=== PATIENT | male | born 1955 | race Caucasian/White ===

== ENCOUNTER 2016-05-14 11:26 | Emergency (ER) | payer MEDICAID, OTHER ==
[~2016-05-14] VITALS: Ht 180.3 cm; Wt 69.5 kg
[~2016-05-14 11:26] MED LIST: AZIT250T3 PO; PRED20 PO
[2016-05-14 11:32] VITALS: BP 146/84; PULSE 93; RESP 16; TEMP 97.8; O2SAT 95
[2016-05-14] MEDS ORDERED: oxyCODONE/ACETAMINOPHEN 5 MG/325 MG TAB PO ONE (12:30)
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
[2016-05-14] MEDS ORDERED: HYDR-3533 PO (13:26)
== END 2016-05-14 14:46 | disposition home or self-care (01) ==
LOC: NEPB 11:26
DX: S92.355A Nondisplaced fracture of fifth metatarsal bone, left foot, initial encounter for closed fracture (principal); V09.00XA Pedestrian injured in nontraffic accident involving unspecified motor vehicles, initial encounter; Y93.9 Activity, unspecified; Y92.9 Unspecified place or not applicable; Y99.9 Unspecified external cause status
CPT/HCPCS: 29515; 73610; 73630; 99283; E0113

== ENCOUNTER 2016-06-19 17:34 | Emergency (ER) | payer MEDICAID ==
[~2016-06-19] VITALS: Ht 175.3 cm; Wt 77.3 kg
[~2016-06-19 17:34] MED LIST changes: +HYDR-3533 PO
[2016-06-19 19:07] VITALS: BP 127/91; PULSE 103; RESP 18; TEMP 97.8; O2SAT 94
[2016-06-19] MEDS ORDERED: SODIUM CHLOR 0.9% 1000 ML INJ 1,000 ML IV SCH (19:07)
[2016-06-19] MEDS ORDERED: LORazepam 2 MG/ML VIAL IV PUSH ONE (19:15)
[2016-06-19] MEDS ORDERED: SODIUM CHLORIDE 0.9% FLUSH 5 ML FLUSH IVF PRN (19:15)
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
--- NOTE | 2016-06-19 20:00 | RADRPT ---
EXAM DATE/TIME: 06/19/2016 19:29 [facility] COMPARISON: CT BRAIN W/O CONTRAST, January 31, 2016, 9:23. INDICATIONS : Fall laceration over right eye. RADIATION DOSE: 56.37 CTDIvol (mGy) MEDICAL HISTORY : Hepatitis A. Hepatitis B. Hepatitis C.Cardio SURGICAL HISTORY : facial,neck ENCOUNTER: Initial ACUITY: 1 day PAIN SCALE: Non-responsive LOCATION: cranial TECHNIQUE: Multiple contiguous axial images were obtained of the head. Using automated exposure control and adj ustment of the mA and/or kV according to patient size, radiation dose was kept as low as reasonably a chievable to obtain optimal diagnostic quality images. FINDINGS: Motion degraded study. CEREBRUM: The ventricles are normal for age. No evidence of midline shift, mass lesion, hemorrhage or acute in farction. No extra-axial fluid collections are seen. POSTERIOR FOSSA: The cerebellum and brainstem are intact. The 4th ventricle is midline. The cerebellopontine angle i s unremarkable. EXTRACRANIAL: The visualized portion of the orbits is intact. SKULL: The calvaria is intact. No evidence of skull fracture. CONCLUSION: Motion degraded study. No definite bleed or other acute abnormality demonstrated. Bacilio Maria MD on June 19, 2016 at 19:57 Board Certified Radiologist. This report was verified electronically.
[2016-06-19 20:12] LABS: AUTOMATED NEUTROPHIL # 3.7 TH/MM3 (1.8-7.7); BASOPHIL # 0.1 TH/MM3 (0-0.2); EOSINOPHIL # 0.2 TH/MM3 (0-0.4); EOSINOPHIL % 3.3 % (0.0-4.0); HEMATOCRIT 35.8 % (39.0-51.0); HEMO FLAGS DIFF FINAL; LYMPH % 28.2 % (9.0-44.0); LYMPHOCYTE # 1.8 TH/MM3 (1.0-4.8); MEAN CELL VOLUME 99.7 FL (80.0-100.0); MEAN CORPUSCULAR HGB CONC 34.1 % (32.0-36.0); MONO % 9.6 % (0.0-8.0); NEUT % 57.9 % (16.0-70.0); PLATELET COUNT 215 TH/MM3 (150-450); RED BLOOD COUNT 3.59 MIL/MM3 (4.50-5.90); RED CELL DISTRIBUTION WIDTH 18.3 % (11.6-17.2); WHITE BLOOD COUNT 6.5 TH/MM3 (4.0-11.0)
[2016-06-19] MEDS ORDERED: KETOROLAC TROMETHAMINE 30 MG/ML (IVP) VIAL IV PUSH ONE (20:15)
[2016-06-19] MEDS ORDERED: LIDOCAINE 1%/EPINEPHrine 1:100,000 SOLN 20 ML VIAL INFIL ONE (20:15)
--- NOTE | 2016-06-19 20:31 | RADRPT ---
EXAM DATE/TIME: 06/19/2016 19:31 [facility] COMPARISON: CT CERVICAL SPINE W/O CONTRAST, November 23, 2015, 2:32. INDICATIONS : Fall evaluate for fracture. RADIATION DOSE: 33.59 CTDIvol (mGy) MEDICAL HISTORY : Hepatitis A. Hepatitis C. Hepatitis B.Cardiac SURGICAL HISTORY : Facial,neck surgery ENCOUNTER: Initial ACUITY: 1 day PAIN SCALE: Non-responsive LOCATION: neck TECHNIQUE: Volumetric scanning of the cervical spine was performed. Multiplanar reconstructions in the sagittal, coronal and oblique axial planes were performed. Using automated exposure control and adjustment o f the mA and/or kV according to patient size, radiation dose was kept as low as reasonably achievable to obtain optimal diagnostic quality images. FINDINGS: No fracture or subluxation demonstrated. Developmentally incomplete C1 ring posteriorly again noted. Prominent multilevel degenerative findings of the cervical spine unchanged from the prior study of 09/19/2014. Moderate severity central canal stenosis is seen at C3-4 and C4-5. Neural foraminal narrowing C2-3 on the right, C3-4 bilaterally, C4-5 bilaterally , C5-6 bilaterally, and C6-7 bilaterally. CONCLUSION: No fracture or subluxation of the cervical spine. Severe multilevel degenerative changes are again no veronica. Bacilio Maria MD on June 19, 2016 at 20:28 Board Certified Radiologist. This report was verified electronically.
[2016-06-19 20:39] LABS: ANION GAP 10 MEQ/L (5-15); APTT (PATIENT) 27.5 SEC (24.3-30.1); INTERNATIONAL NORMALIZED RATIO 1.1 RATIO; PROTHROMBIN TIME - PATIENT 11.7 SEC (9.8-11.6)
[2016-06-19 20:44] LABS: ALKALINE PHOSPHATASE 123 U/L (45-117); ALT (GPT) 120 U/L (12-78); AST (GOT) 215 U/L (15-37); BICARBONATE 22.6 MEQ/L (21.0-32.0); BLOOD UREA NITROGEN 4 MG/DL (7-18); CHLORIDE 112 MEQ/L (98-107); GLOMERULAR FILTRATION RATE 174 ML/MIN (>89); POTASSIUM 3.6 MEQ/L (3.5-5.1); SODIUM (NA) 145 MEQ/L (136-145)
--- NOTE | 2016-06-19 21:49 | PD ---
Data Data Last Documented VS Vital Signs Date Time Temp Pulse Resp B/P Pulse Ox O2 Delivery O2 Flow Rate FiO2 06/19/16 21:32 18 06/19/16 19:07 97.8 103 127/91 94 Orders Complete Blood Count With Diff (06/19/16 19:07) Comprehensive Metabolic Panel (06/19/16 19:07) Prothrombin Time / Inr (Pt) (06/19/16 19:07) Act Partial Throm Time (Ptt) (06/19/16 19:07) Urinalysis - C+S If Indicated (06/19/16 19:07) Ct Brain W/O Iv Contrast(Rout) (06/19/16 19:07) Ecg Monitoring (06/19/16 19:07) Iv Access Insert/Monitor (06/19/16 19:07) Cath For Specimen (06/19/16 19:07) Oximetry (06/19/16 19:07) Sodium Chloride 0.9% Flush (Ns Flush) (06/19/16 19:15) Sodium Chlor 0.9% 1000 Ml Inj (Ns 1000 M (06/19/16 19:07) Drug Screen, Random Urine (06/19/16 19:07) Alcohol (Ethanol) (06/19/16 19:07) Ct Cerv Spine W/O Contrast (06/19/16 19:07) Lorazepam Inj (Ativan Inj) (06/19/16 19:15) Lidocai-Epi 1%-1:100,000 Inj (Xylocaine- (06/19/16 20:15) Ketorolac Inj (Toradol Inj) (06/19/16 20:15) Restraints Non-Violent JEREMÍAS.Q3H (06/19/16 20:31) Labs Laboratory Tests Test 06/19/16 19:55 White Blood Count 6.5 TH/MM3 Red Blood Count 3.59 MIL/MM3 Hemoglobin 12.2 GM/DL Hematocrit 35.8 % Mean Corpuscular Volume 99.7 FL Mean Corpuscular Hemoglobin 34.0 PG Mean Corpuscular Hemoglobin 34.1 % Concent Red Cell Distribution Width 18.3 % Platelet Count 215 TH/MM3 Mean Platelet Volume 7.9 FL Neutrophils (%) (Auto) 57.9 % Lymphocytes (%) (Auto) 28.2 % Monocytes (%) (Auto) 9.6 % Eosinophils (%) (Auto) 3.3 % Basophils (%) (Auto) 1.0 % Neutrophils # (Auto) 3.7 TH/MM3 Lymphocytes # (Auto) 1.8 TH/MM3 Monocytes # (Auto) 0.6 TH/MM3 Eosinophils # (Auto) 0.2 TH/MM3 Basophils # (Auto) 0.1 TH/MM3 CBC Comment DIFF FINAL Differential Comment Prothrombin Time 11.7 SEC Prothromb Time International 1.1 RATIO Ratio Activated Partial 27.5 SEC Thromboplast Time Sodium Level 145 MEQ/L Potassium Level 3.6 MEQ/L Chloride Level 112 MEQ/L Carbon Dioxide Level 22.6 MEQ/L Anion Gap 10 MEQ/L Blood Urea Nitrogen 4 MG/DL Creatinine 0.49 MG/DL Estimat Glomerular Filtration 174 ML/MIN Rate Random Glucose 100 MG/DL Calcium Level 8.0 MG/DL Total Bilirubin 1.0 MG/DL Aspartate Amino Transf 215 U/L (AST/SGOT) Alanine Aminotransferase 120 U/L (ALT/SGPT) Alkaline Phosphatase 123 U/L Total Protein 7.7 GM/DL Albumin 2.9 GM/DL Ethyl Alcohol Level 329 MG/DL MDM Supervised Visit with ALYSHA: Yes Narrative Course I, Dr. Quinteros, have reviewed the advance practice practitioner's documentation and am in agreement, met with the patient face to face, made the diagnosis, and the medical decision making was done by me. See his note for further details. Briefly this is a 61-year-old male who had an unwitnessed fall. He has been drinking alcohol throughout the day today. He sustained a laceration to his face which was repaired by the PA. CT head shows no acute intracranial normality. CT cervical spine shows degenerative changes, no acute fractures. Alcohol level is 329. On my assessment the patient is awake and alert. No focal neurologic findings. He'll be allowed to sleep off his intoxication in the emergency department. Diagnosis Primary Impression: Alcohol intoxication Qualified Code: F10.120 - Alcohol intoxication, uncomplicated Additional Impressions: Facial laceration Qualified Code: S01.81XA - Facial laceration, initial encounter Fall Qualified Code: W19.XXXA - Fall, initial encounter Referrals: Primary Care Physician 3 days Additional Instruction: Have stitches removed from your face in 5 days. Disposition: 01 DISCHARGE HOME Condition: Stable Sudarshan Quinteros MD Jun 19, 2016 21:48
[2016-06-19 23:36] LABS: BACTERIA, URINE RARE /hpf; BLOOD, URINE NEG (NEG); COMMENT (UR) CULT NOT INDICATED; CULTURE IF INDICATED CULT NOT INDICATED; GLUCOSE,URINE NEG (NEG); KETONE, URINE NEG (NEG); MUCUS URINE FEW /lpf (OCC); NITRITE,URINE NEG (NEG); PH, URINE 5.5 (5.0-8.5); URINE COLOR YELLOW (YELLW/STRAW)
[2016-06-19 23:43] LABS: AMPHETAMINE, URINE NEG (NEG); BARBITURATES, URINE NEG (NEG); COCAINE, URINE NEG (NEG)
[2016-06-20] VITALS: BP 150/95; PULSE 82; RESP 18; TEMP 98.4; O2SAT 100
[2016-06-20 03:31] VITALS: O2SAT 100
== END 2016-06-20 06:23 | disposition home or self-care (01) ==
LOC: NEPE 17:34 → NEPA 06-20 06:23
DX: S01.81XA Laceration without foreign body of other part of head, initial encounter (principal); F10.120 Alcohol abuse with intoxication, uncomplicated; W19.XXXA Unspecified fall, initial encounter; Y90.8 Blood alcohol level of 240 mg/100 ml or more
CPT/HCPCS: 12013; 70450; 72125; 80053; 80307; 81001; 85025; 85610; 85730; 87086; 96361; 96374; 99284; J1885; J7030; P9612

== ENCOUNTER 2016-07-03 23:42 | Inpatient (IN) | payer MEDICAID ==
[~2016-07-03] VITALS: Ht 180.3 cm; Wt 69.9 kg
[~2016-07-03 23:42] MED LIST changes: -AZIT250T3 PO
[2016-07-03 23:45] VITALS: BP 133/75; PULSE 123; RESP 22; TEMP 98.5; O2SAT 98
[2016-07-03] MEDS ORDERED: SODIUM CHLOR 0.9% 1000 ML INJ 1,000 ML IV SCH (23:46)
--- NOTE | 2016-07-03 23:53 | PD ---
HPI Chief Complaint: GI Complaint Time Seen by Provider: 23:43 Travel History International Travel<30 days: No Contact w/Intl Traveler<30days: No Traveled to known affect area: No History of Present Illness HPI 61-year-old male complains of abdominal pain nausea vomiting and hematemesis. Patient has history of alcohol abuse, liver cirrhosis and hepatitis. Patient states that last drink was several days ago. Patient states that he started having abdominal pain with nausea vomiting yesterday. Patient states the symptoms are worse today. Patient started having hematemesis this evening. Patient states the abdominal pain cramping pain and sharp pain localized around epigastric area. Patient denies any pain radiation. Patient denies any fever chills. Patient denies any dysuria or frequency. On a scale of 1-10 the pain is an 8. PFSH Past Medical History Arthritis: Yes (NGOZI KNEES) Asthma: No Blood Disorders: No Anxiety: No Depression: No Heart Rhythm Problems: No Cancer: No Cardiovascular Problems: No High Cholesterol: No Chest Pain: Yes Congestive Heart Failure: No Cirrhosis: Yes COPD: Yes Diabetes: No Diminished Hearing: No Endocrine: No Gastrointestinal Disorders: No Genitourinary: No Hepatitis: Yes (HEP A, B, & C) Hypertension: No Immune Disorder: No Implanted Vascular Access Dvce: No Musculoskeletal: Yes Neurologic: No Psychiatric: No Reproductive: No Respiratory: Yes (COPD) Integumentary: Yes (HX MRSA) Immunizations Current: Yes Sleep Apnea: No Thyroid Disease: No Past Surgical History Neurologic Surgery: No Oral Surgery: Yes (SURGERY ON BILATERAL JAW 1982. ESOPHOGUS) Other Surgery: Yes (RIGHT ARM/SURGICAL LAC REPAIR ) Social History Alcohol Use: Yes Tobacco Use: Yes (4-5 cig/day) Substance Use: No (DENIES ) Allergies-Medications (Allergen,Severity, Reaction): Coded Allergies: Codeine (Verified Adverse Reaction, Intermediate, Nausea/Vomiting, 07/03/16 ) Darvocet-N 100 (Verified Adverse Reaction, Intermediate, n/v, 07/03/16) Reported Meds & Prescriptions Reported Meds & Active Scripts Active Lortab (Hydrocodone-Acetaminophen) 5-325 Mg Tab 1 Tab PO Q6H PRN Prednisone 20 Mg Tab 20 Mg PO BID 5 Days Review of Systems General / Constitutional: No: Fever Eyes: No: Visual changes HENT: No: Headaches Cardiovascular: No: Chest Pain or Discomfort Respiratory: No: Shortness of Breath Gastrointestinal: Positive: Nausea, Vomiting, Abdominal Pain, Hematemesis Genitourinary: No: Dysuria Musculoskeletal: No: Pain Skin: No Rash Neurologic: No: Weakness Psychiatric: No: Depression Endocrine: No: Polydipsia Hematologic/Lymphatic: No: Easy Bruising Physical Exam Narrative GENERAL: Well-nourished, well-developed patient. SKIN: Warm and dry. Mild jaundice HEAD: Normocephalic. EYES: No scleral icterus. No injection or drainage. NECK: Supple, trachea midline. No JVD or lymphadenopathy. CARDIOVASCULAR: Regular rate and rhythm without murmurs, gallops, or rubs. RESPIRATORY: Breath sounds equal bilaterally. No accessory muscle use. GASTROINTESTINAL: Abdomen soft, nondistended. Patient has mild tenderness on palpation epigastric area. No rebound tenderness. No mass. Patient has black tarry stool. Hemoccult positive. MUSCULOSKELETAL: No cyanosis, or edema. BACK: Nontender without obvious deformity. No CVA tenderness. Neurologic exam normal. Data Data Last Documented VS Vital Signs Date Time Temp Pulse Resp B/P Pulse Ox O2 Delivery O2 Flow Rate FiO2 07/03/16 23:45 98.5 123 22 133/75 98 Orders Complete Blood Count With Diff (07/03/16 23:46) Comprehensive Metabolic Panel (07/03/16 23:46) Lipase (07/03/16 23:46) Prothrombin Time / Inr (Pt) (07/03/16 23:46) Act Partial Throm Time (Ptt) (07/03/16 23:46) Urinalysis - C+S If Indicated (07/03/16 23:46) Iv Access Insert/Monitor (07/03/16 23:46) Ecg Monitoring (07/03/16 23:46) Oximetry (07/03/16 23:46) Morphine Inj (Morphine Inj) (07/04/16 00:00) Ondansetron Inj (Zofran Inj) (07/04/16 00:00) Pantoprazole Inj (Protonix Inj) (07/04/16 00:00) Sodium Chlor 0.9% 1000 Ml Inj (Ns 1000 M (07/03/16 23:46) Electrocardiogram (07/03/16 23:46) Chest, Single Ap (07/03/16 23:46) Thiamine Inj (Thiamine Inj) (07/04/16 00:00) Type And Screen (07/04/16 00:37) Sodium Chloride 0.9% Flush (Ns Flush) (07/04/16 00:45) Octreotide Inj (Sandostatin Inj) (07/04/16 00:45) Pantoprazole Inj (Protonix Inj) (07/04/16 01:00) Labs Laboratory Tests Test 07/04/16 00:45 White Blood Count 13.3 TH/MM3 Red Blood Count 3.01 MIL/MM3 Hemoglobin 9.7 GM/DL Hematocrit 30.1 % Mean Corpuscular Volume 100.1 FL Mean Corpuscular Hemoglobin 32.1 PG Mean Corpuscular Hemoglobin 32.1 % Concent Red Cell Distribution Width 17.4 % Platelet Count 161 TH/MM3 Mean Platelet Volume 9.2 FL Neutrophils (%) (Auto) 58.0 % Lymphocytes (%) (Auto) 26.6 % Monocytes (%) (Auto) 13.9 % Eosinophils (%) (Auto) 0.9 % Basophils (%) (Auto) 0.6 % Neutrophils # (Auto) 7.7 TH/MM3 Lymphocytes # (Auto) 3.5 TH/MM3 Monocytes # (Auto) 1.9 TH/MM3 Eosinophils # (Auto) 0.1 TH/MM3 Basophils # (Auto) 0.1 TH/MM3 CBC Comment DIFF FINAL Differential Comment Prothrombin Time 14.0 SEC Prothromb Time International 1.3 RATIO Ratio Activated Partial 24.2 SEC Thromboplast Time Urine Color YELLOW Urine Turbidity HAZY Urine pH 7.0 Urine Specific [place] 1.026 Urine Protein 30 mg/dL Urine Glucose (UA) NEG mg/dL Urine Ketones TRACE mg/dL Urine Occult Blood NEG Urine Nitrite NEG Urine Bilirubin NEG Urine Urobilinogen 8.0 MG/DL Urine Leukocyte Esterase NEG Urine RBC 13 /hpf Urine WBC 8 /hpf Urine Squamous Epithelial <1 /hpf Cells Urine Transitional Epithelial <1 /hpf Cells Urine Renal Epithelial Cells <1 /hpf Urine Bacteria FEW /hpf Urine Hyaline Casts 9 /lpf Urine Mucus FEW /lpf Urine Sperm RARE Microscopic Urinalysis Comment CULT NOT INDICATED Sodium Level 141 MEQ/L Potassium Level 3.7 MEQ/L Chloride Level 105 MEQ/L Carbon Dioxide Level 20.8 MEQ/L Anion Gap 15 MEQ/L Blood Urea Nitrogen 25 MG/DL Creatinine 0.75 MG/DL Estimat Glomerular Filtration 107 ML/MIN Rate Random Glucose 156 MG/DL Calcium Level 8.6 MG/DL Total Bilirubin 1.7 MG/DL Aspartate Amino Transf 142 U/L (AST/SGOT) Alanine Aminotransferase 68 U/L (ALT/SGPT) Alkaline Phosphatase 103 U/L Total Protein 6.6 GM/DL Albumin 2.6 GM/DL Lipase 180 U/L Blood Type B POSITIVE MDM Medical Decision Making Medical Screen Exam Complete: Yes Emergency Medical Condition: Yes Interpretation(s) 2 AM. Last Impressions Chest X-Ray 07/03/16 [id number] Signed Impressions: Service Date/Time: Monday, July 04, 2016 00:09 - CONCLUSION: No acute disease. Marco Rees Jr., MD 2 AM. CBC WBC 13.3. Hemoglobin 9.7. Hematocrit 30.1. MCV 100.1. Normal differential. BUN 25. Total bili 1.7. AST 142. INR 1.3. UA positive RBC, WBC and few bacteria. Differential Diagnosis Differential diagnosis including Betzaida-[place]ne tear, gastritis, upper GI bleed, esophageal varices, pancreatitis, colitis, bowel obstruction. Narrative Course 61-year-old male with epigastric abdominal pain, nausea vomiting, hematemesis. History of alcohol abuse, liver cirrhosis and hepatitis. Normal saline solution 1 25 cc an hour. Protonix 40 mg IV. Zofran 4 mg IV. Morphine 2 mg IV. Protonic drip started. Octreotide drip started. Diagnosis Primary Impression: GI bleed Qualified Code: K92.2 - Gastrointestinal hemorrhage, unspecified gastrointestinal hemorrhage type Additional Impressions: Anemia due to gastrointestinal blood loss Alcohol abuse Admitting Information Admitting Physician Requests: Admit Kingston Hinton MD Jul 03, 2016 23:53
[2016-07-04] VITALS (10 sets, daily range): BP systolic 97–121; BP diastolic 56–62; PULSE 84–129; RESP 16–22; TEMP 97.3–98.7; O2SAT 93–100
[2016-07-04] MEDS ORDERED: THIAMINE INJ 100 MG in SODIUM CHLORIDE 0.9% INJ 100 ML IV ONE ×2
[2016-07-04] MEDS ORDERED: MORPHINE SULFATE 4 MG/ML INJ IV PUSH ONE
[2016-07-04] MEDS ORDERED: ONDANSETRON HCL 4 MG/2 ML VIAL IVP ONE
[2016-07-04] MEDS ORDERED: PANTOPRAZOLE SODIUM 40 MG VIAL IVP ONE
--- NOTE | 2016-07-04 00:26 | RADRPT ---
EXAM DATE/TIME: 07/04/2016 00:09 [facility] COMPARISON: CHEST SINGLE AP, January 31, 2016, 9:05. INDICATIONS : Shortness of breath. MEDICAL HISTORY : Chronic obstructive pulmonary disease. SURGICAL HISTORY : None. ENCOUNTER: Initial ACUITY: 1 day PAIN SCORE: 0/10 LOCATION: chest FINDINGS: A single view of the chest demonstrates the lungs to be symmetrically aerated without evidence of mas s, infiltrate or effusion. The cardiomediastinal contours are unremarkable. Old trauma involving the right clavicle. CONCLUSION: No acute disease. Marco Rees Jr., MD on July 04, 2016 at 0:24 Board Certified Radiologist. This report was verified electronically.
[2016-07-04] MEDS ORDERED: SODIUM CHLORIDE 0.9% FLUSH 10 ML FLUSH IVF PRN (00:45)
[2016-07-04 01:07] LABS: AUTOMATED NEUTROPHIL # 7.7 TH/MM3 (1.8-7.7); BASOPHIL # 0.1 TH/MM3 (0-0.2); BASOPHIL % 0.6 % (0.0-2.0); EOSINOPHIL # 0.1 TH/MM3 (0-0.4); EOSINOPHIL % 0.9 % (0.0-4.0); HEMATOCRIT 30.1 % (39.0-51.0); HEMO FLAGS DIFF FINAL; LYMPH % 26.6 % (9.0-44.0); LYMPHOCYTE # 3.5 TH/MM3 (1.0-4.8); MEAN CELL VOLUME 100.1 FL (80.0-100.0); MEAN CORPUSCULAR HEMOGLOBIN 32.1 PG (27.0-34.0); MEAN CORPUSCULAR HGB CONC 32.1 % (32.0-36.0); MONO % 13.9 % (0.0-8.0); PLATELET COUNT 161 TH/MM3 (150-450); RED BLOOD COUNT 3.01 MIL/MM3 (4.50-5.90); RED CELL DISTRIBUTION WIDTH 17.4 % (11.6-17.2); WHITE BLOOD COUNT 13.3 TH/MM3 (4.0-11.0)
[2016-07-04 01:18] LABS: APTT (PATIENT) 24.2 SEC (24.3-30.1); INTERNATIONAL NORMALIZED RATIO 1.3 RATIO
[2016-07-04 01:22] LABS: ALT (GPT) 68 U/L (12-78); ANION GAP 15 MEQ/L (5-15); AST (GOT) 142 U/L (15-37); BICARBONATE 20.8 MEQ/L (21.0-32.0); BLOOD UREA NITROGEN 25 MG/DL (7-18); CHLORIDE 105 MEQ/L (98-107); GLOMERULAR FILTRATION RATE 107 ML/MIN (>89); POTASSIUM 3.7 MEQ/L (3.5-5.1); SODIUM (NA) 141 MEQ/L (136-145)
[2016-07-04 01:24] LABS: ALKALINE PHOSPHATASE 103 U/L (45-117); TOTAL BILIRUBIN ADULT 1.7 MG/DL (0.2-1.0)
[2016-07-04 01:34] LABS: BACTERIA, URINE FEW /hpf; BLOOD, URINE NEG (NEG); COMMENT (UR) CULT NOT INDICATED; CULTURE IF INDICATED CULT NOT INDICATED; GLUCOSE,URINE NEG (NEG); HYALINE CAST, URINE 9 /lpf (RARE); KETONE, URINE TRACE mg/dL (NEG); MUCUS URINE FEW /lpf (OCC); NITRITE,URINE NEG (NEG); RENAL EPITHELIAL CELLS <1 /hpf; SQUAMOUS EPITHELIAL CELL URINE <1 /hpf (0-5); TRANSITIONAL EPI CELLS, URINE <1 /hpf; URINE COLOR YELLOW (YELLW/STRAW)
[2016-07-04] MEDS: OCTREOTIDE INJ 500 MCG in SODIUM CHLORID 0.9% 500 ML INJ 500 ML IV SCH ×2 (01:39→14:51)
[2016-07-04] MEDS: PANTOPRAZOLE INJ 80 MG in SODIUM CHLORIDE 0.9% INJ 100 ML IV SCH ×2 (02:10→14:51)
[2016-07-04] MEDS ORDERED: SODIUM CHLOR 0.9% 1000 ML INJ 1,000 ML IV SCH (02:14)
[2016-07-04] MEDS ORDERED: SODIUM CHLORIDE 0.9% FLUSH 10 ML FLUSH IV FLUSH PRN (02:15)
[2016-07-04] MEDS ORDERED: NALOXONE HCL 0.4 MG/ML AMP IV PRN (02:15)
[2016-07-04] MEDS: ONDANSETRON HCL 4 MG/2 ML VIAL IVP PRN ×2 (05:53→09:59)
[2016-07-04] MEDS ORDERED: SODIUM CHLOR 0.9% 250 ML INJ 250 ML IV ONE (06:15)
--- NOTE | 2016-07-04 06:19 | HHI.HP ---
[facility] Primary Care Physician Admission Diagnosis GI bleed. History of alcohol abuse and liver cirrhosis. Diagnoses: (1) GI bleed (2) Alcohol abuse (3) Facial laceration (4) Leukocytosis Chief Complaint: abdominal pain, vomiting blood, blood in stool Travel History International Travel<30 Days: No Contact w/Intl Traveler <30 Da: No Traveled to Known Affected Are: No History of Present Illness Mr. Padron is a 61 year-old male with a history of cirrhosis and hepatitis who presented to the emergency room on 07/03/2016 for evaluation of abdominal pain with nausea, vomiting, and hematemesis. The patient is seen in the emergency room holding unit. He reports abdominal pain, vomiting dark blood, and dark blood in stool since yesterday. He reports his last alcohol drink 4 days ago. His abdominal pain is diffuse, severe, and sharp in character. Pain is accompanied by near syncope, dizziness, drowsiness , and weakness. . Review of Systems Except as stated in HPI: all other systems reviewed are Neg Past Family Social History Past Medical History Cirrhosis Hepatitis A, B, and C Osteoarthritis COPD . Past Surgical History Esophageal surgery - ruptured esophagus Surgery on bilateral jaw 1983 Right arm laceration repair 1980s Esophageal banding Neck surgery . Reported Medications Reported Meds & Active Scripts Active Lortab (Hydrocodone-Acetaminophen) 5-325 Mg Tab 1 Tab PO Q6H PRN Prednisone 20 Mg Tab 20 Mg PO BID 5 Days . Allergies: Coded Allergies: Codeine (Verified Adverse Reaction, Intermediate, Nausea/Vomiting, 07/03/16 ) Darvocet-N 100 (Verified Adverse Reaction, Intermediate, n/v, 07/03/16) Active Ordered Medications Current Medications Morphine Sulfate (Morphine Inj) 2 mg ONCE ONCE IV PUSH Last administered on 01:00; Start 07/04/16 at 00:00; Stop 07/04/16 at 00:01; Status DC Ondansetron HCl (Zofran Inj) 4 mg ONCE ONCE IVP Last administered on 00:59; Start 07/04/16 at 00:00; Stop 07/04/16 at 00:01; Status DC Pantoprazole Sodium 40 mg 40 mg ONCE ONCE IVP Last administered on 07/04/16 00:59; Start 07/04/16 at 00:00; Stop 07/04/16 at 00:01; Status DC Sodium Chloride 1,000 ml @ 125 mls/hr Q8H IV Last administered on 07/04/16 00 :59; Start 07/03/16 at 23:46; Stop 07/04/16 at 07:45 Thiamine HCl/ Sodium Chloride (Thiamine Inj/NS Inj) 101 ml @ 101 mls/hr ONCE ONCE IV Last administered on 07/04/16 01:00; Start 07/04/16 at 00:00; Stop at 00:59; Status DC Sodium Chloride 2 ml 2 ml UNSCH PRN IVF FLUSH AFTER USING IV ACCESS; Start at 00:45; Stop 07/04/16 at 02:19; Status DC Octreotide Acetate 500 mcg/ Sodium Chloride 500.5 ml @ 50 mls/hr Q10H IV Last administered on 07/04/16 01:39; Start 07/04/16 at 00:45 Pantoprazole Sodium 80 mg/ Sodium Chloride 100 ml @ 10 mls/hr Q10H IV Last administered on 07/04/16 02:10; Start 07/04/16 at 01:00 Sodium Chloride (NS 1000 ml Inj) 1,000 ml @ 100 mls/hr Q10H IV ; Start at 02:14; Stop 07/04/16 at 02:17; Status DC Sodium Chloride (NS Flush) 2 ml UNSCH PRN IV FLUSH FLUSH AFTER USING IV ACCESS ; Start 07/04/16 at 02:15 Sodium Chloride (NS Flush) 2 ml BID IV FLUSH ; Start 07/04/16 at 09:00 Ondansetron HCl (Zofran Inj) 4 mg Q6H PRN IVP NAUSEA OR VOMITING Last administered on 07/04/16 05:53; Start 07/04/16 at 02:15 Naloxone HCl 0.4 mg 0.4 mg UNSCH PRN IV SEE LABEL COMMENTS; Start 07/04/16 at 02:15 Sodium Chloride (NS 250 ml Inj) 250 ml @ 15 mls/hr ONCE ONCE IV ; Start at 06:15; Stop 07/04/16 at 22:54 Morphine Sulfate (Morphine Inj) 2 mg Q3H PRN IV PUSH pain >5; Start 07/04/16 at 06:30 . Family History Father with cancer of unknown etiology Mother with alcohol abuse . Social History Last alcohol 4 days ago . Physical Exam Vital Signs Vital Signs Date Time Temp Pulse Resp B/P Pulse Ox O2 Delivery O2 Flow Rate FiO2 07/04/16 02:22 22 07/04/16 02:00 129 22 110/56 100 Room Air 07/04/16 01:00 18 100 Room Air 07/03/16 23:45 98.5 123 22 133/75 98 Physical Exam GENERAL: This is a chronically ill appearing male who appears older than stated age. SKIN: Cool and dry. Sutures over her right eyebrow- somewhat embedded in skin. Dried blood above the left eyebrow. HEAD: Normocephalic. EYES: No scleral icterus. No injection or drainage. ENT: Nose without bleeding, purulent drainage. NECK: Trachea midline. No JVD or lymphadenopathy. CARDIOVASCULAR: Regular rate and rhythm without murmurs, gallops, or rubs. RESPIRATORY: Clear to auscultation. Breath sounds equal bilaterally. No wheezes , rales, or rhonchi. GASTROINTESTINAL: Abdomen: with normally active bowel sounds, soft, diffusely tender to palpation, nondistended. No guarding. MUSCULOSKELETAL: Extremities without clubbing, cyanosis, or edema. No calf tenderness. NEUROLOGICAL: Drowsy. Motor and sensory grossly within normal limits. Normal speech. . Laboratory Laboratory Tests Test 07/04/16 00:45 White Blood Count 13.3 Red Blood Count 3.01 Hemoglobin 9.7 Hematocrit 30.1 Mean Corpuscular Volume 100.1 Mean Corpuscular Hemoglobin 32.1 Mean Corpuscular Hemoglobin 32.1 Concent Red Cell Distribution Width 17.4 Platelet Count 161 Mean Platelet Volume 9.2 Neutrophils (%) (Auto) 58.0 Lymphocytes (%) (Auto) 26.6 Monocytes (%) (Auto) 13.9 Eosinophils (%) (Auto) 0.9 Basophils (%) (Auto) 0.6 Neutrophils # (Auto) 7.7 Lymphocytes # (Auto) 3.5 Monocytes # (Auto) 1.9 Eosinophils # (Auto) 0.1 Basophils # (Auto) 0.1 CBC Comment DIFF FINAL Differential Comment Prothrombin Time 14.0 Prothromb Time International 1.3 Ratio Activated Partial 24.2 Thromboplast Time Urine Color YELLOW Urine Turbidity HAZY Urine pH 7.0 Urine Specific [place] 1.026 Urine Protein 30 Urine Glucose (UA) NEG Urine Ketones TRACE Urine Occult Blood NEG Urine Nitrite NEG Urine Bilirubin NEG Urine Urobilinogen 8.0 Urine Leukocyte Esterase NEG Urine RBC 13 Urine WBC 8 Urine Squamous Epithelial <1 Cells Urine Transitional Epithelial <1 Cells Urine Renal Epithelial Cells <1 Urine Bacteria FEW Urine Hyaline Casts 9 Urine Mucus FEW Urine Sperm RARE Microscopic Urinalysis Comment CULT NOT INDICATED Sodium Level 141 Potassium Level 3.7 Chloride Level 105 Carbon Dioxide Level 20.8 Anion Gap 15 Blood Urea Nitrogen 25 Creatinine 0.75 Estimat Glomerular Filtration 107 Rate Random Glucose 156 Calcium Level 8.6 Total Bilirubin 1.7 Aspartate Amino Transf 142 (AST/SGOT) Alanine Aminotransferase 68 (ALT/SGPT) Alkaline Phosphatase 103 Total Protein 6.6 Albumin 2.6 Lipase 180 Blood Type B POSITIVE Antibody Screen NEGATIVE Date/Time Procedure Status Source Growth 07/04/16 00:45 Urine Culture Received Urine Clean Catch Pending Result Diagram: 07/04/16 0045 07/04/16 0045 Imaging Last Impressions Chest X-Ray 07/03/16 [id number] Signed Impressions: Service Date/Time: Monday, July 04, 2016 00:09 - CONCLUSION: No acute disease. Marco Rees Jr., MD . Assessment and Plan Problem List: (1) GI bleed ICD Code: K92.2 Status: Acute (2) Leukocytosis ICD Code: D72.829 Status: Acute (3) Alcohol abuse ICD Code: F10.10 Status: Acute (4) Facial laceration ICD Code: S01.81XA Status: Acute Assessment and Plan GI bleed - Serial H&H every 6 hours - Transfuse 2 units this a.m. for symptomatic anemia - Consult gastroenterology - Protonix drip - Diet NPO - Continuous cardiac telemetry - Monitor vital signs every 4 hours Leukocytosis - WBC 13.3 with monocytosis - Abnormal urinalysis; will check urine culture follow results - CXR negative for acute disease - afebrile - Repeat CBC in a.m. and follow results Alcohol abuse - Counseled regarding cessation - [facility] protocol - alcohol withdrawal precautions Facial Laceration with sutures since 06/19/16 - nursing to attempt suture removal DVT prophylaxis - SCDs Written by Carmen Hernandez, acting as scribe for Dr. Neumann on 07/04/16 at 06:18. All or portions of this note were transcribed by scribe [ Carmen Hernandez]. I, Dr. Melania Neumann personally performed the history, physical exam, and medical decision making; and confirmed the accuracy of the information in the transcribed note. Authenticated by Dr. Melania Neumann on 07/04/16 at 06:18. Discussed Condition With Patient, RN, ER physician . Physician Certification 2 Midnight Certification Type: Admission for Inpatient Services Order for Inpatient Services The services are ordered in accordance with Medicare regulations or non- Medicare payer requirements, as applicable. In the case of services not specified as inpatient-only, they are appropriately provided as inpatient services in accordance with the 2-midnight benchmark. Estimated LOS (days): 3 days is the estimated time the patient will need to remain in the hospital, assuming treatment plan goals are met and no additional complications. Post-Hospital Plan: Home Problem Qualifiers (1) GI bleed: Qualified Code: K92.2 - Gastrointestinal hemorrhage, unspecified gastrointestinal hemorrhage type Carmen Hernandez Jul 04, 2016 06:18 Melania Neumann MD Jul 04, 2016 09:38
[2016-07-04 07:37] LABS: BICARBONATE 24.6 MEQ/L (21.0-32.0); POTASSIUM 4.3 MEQ/L (3.5-5.1)
[2016-07-04 07:38] LABS: AUTOMATED NEUTROPHIL # 6.3 TH/MM3 (1.8-7.7); BASOPHIL % 0.4 % (0.0-2.0); EOSINOPHIL % 0.3 % (0.0-4.0); HEMATOCRIT 23.6 % (39.0-51.0); LYMPH % 15.8 % (9.0-44.0); LYMPHOCYTE # 1.4 TH/MM3 (1.0-4.8); MEAN CELL VOLUME 99.4 FL (80.0-100.0); MEAN CORPUSCULAR HEMOGLOBIN 31.9 PG (27.0-34.0); MEAN CORPUSCULAR HGB CONC 32.1 % (32.0-36.0); NEUT % 70.5 % (16.0-70.0); PLATELET COUNT 110 TH/MM3 (150-450); RED BLOOD COUNT 2.37 MIL/MM3 (4.50-5.90); RED CELL DISTRIBUTION WIDTH 17.5 % (11.6-17.2)
[2016-07-04 08:14] LABS: HEMO FLAGS AUTO DIFF
[2016-07-04 08:16] LABS: PLATELET ESTIMATE SMEAR LOW (NORMAL); PLATELET MORPHOLOGY NORMAL (NORMAL); SCAN/DIFF AUTO DIFF CONFIRMED
[2016-07-04] MEDS: SODIUM CHLORIDE 0.9% FLUSH 10 ML FLUSH IV FLUSH SCH ×2 (09:00→21:00)
[2016-07-04] MEDS: MORPHINE SULFATE 4 MG/ML INJ IV PUSH PRN ×4 (09:59→23:59)
--- NOTE | 2016-07-04 10:26 | PD.CONS ---
HPI History of Present Illness This is a 61 year old male with a hx of liver cirrhosis who started vomiting dark brown emesis 2 days ago. He reports that he had several episodes of this yesterday and then started passing black tarry stool yesterday. He has associated lower abdominal pain that he describes as severe cramping. This is intermittent and seems to be aggravated by persistent vomiting. He has been more tired than usual and reports that he does have shortness of breath on exertion because of his COPD, but states this has been more severe over the past few days. He denies any heartburn or reflux. His weight seems to fluctuate by 5 lbs but he denies any significant weight loss. He denies constipation, but started having diarrhea with black tarry stools yesterday. He reports that he does not normally drink alcohol anymore, but states he did drink during bike week. He does not take any medications for his stomach. He does not take Aleve or advil. He was told that he had liver cirrhosis about 5 years ago. He was told that this was related to ETOH abuse. He reports a hx of hepatitis A, B, and C. He is treatment naive for his Hepatitis C. He has had banding of esophageal varices about 5 years ago. PFSH Past Medical History Esophageal varices Cirrhosis Pt reports that he has Hepatitis A, B, and C Osteoarthritis COPD Fractured neck Fractured jaw Herniated discs Chronic back pain Broken collar bone Past Surgical History Surgery on bilateral jaw 1982 Right arm laceration repair 1980s Esophageal banding Neck surgery Coded Allergies: Codeine (Verified Adverse Reaction, Intermediate, Nausea/Vomiting, 07/03/16 ) Darvocet-N 100 (Verified Adverse Reaction, Intermediate, n/v, 07/03/16) Medications Allergies Coded Allergies Type Severity Reaction Last Updated Verified Codeine Adverse Reaction Intermediate Nausea/Vomiting 07/03/16 Yes Darvocet-N 100 Adverse Reaction Intermediate n/v 07/03/16 Yes Active Scripts Medications Dose Route/Sig Days Date Category Lortab (Hydrocodone-Acetaminophen) 5-325 Mg Tab 1 Tab PO Q6H PRN 05/14/16 Rx Prednisone 20 Mg Tab 20 Mg PO BID 5 02/29/16 Rx Family History Father with cancer of unknown etiology Mother with alcohol abuse Social History Last alcohol 4 days ago He smokes 4 cigarettes per day Review of Systems Constitutional: COMPLAINS OF: Fatigue, DENIES: Fever, Weight loss, Chills, Change in appetite Respiratory: COMPLAINS OF: Cough, Wheezing, Shortness of breath Cardiovascular: DENIES: Chest pain Gastrointestinal: COMPLAINS OF: Abdominal pain, Black stools, Diarrhea, Nausea , Vomiting, Hematemesis, DENIES: Bloody stools, Constipation, Heartburn Musculoskeletal: COMPLAINS OF: Back pain, Neck pain Hematologic/lymphatic: COMPLAINS OF: Bruising Psychiatric: DENIES: Confusion GI Exam Vitals I&O Vital Signs Date Time Temp Pulse Resp B/P Pulse Ox O2 Delivery O2 Flow Rate FiO2 07/04/16 08:52 98 16 121/62 98 Room Air 07/04/16 08:20 98.3 100 16 121/59 100 07/04/16 08:06 98.6 97 16 97/57 96 Room Air 07/04/16 02:22 22 07/04/16 02:00 129 22 110/56 100 Room Air 07/04/16 01:00 18 100 Room Air 07/03/16 23:45 98.5 123 22 133/75 98 Imaging Last Impressions Chest X-Ray 07/03/16 [id number] Signed Impressions: Service Date/Time: Monday, July 04, 2016 00:09 - CONCLUSION: No acute disease. Marco Rees Jr., MD Laboratory Test 07/04/16 07/04/16 07/04/16 00:45 06:23 07:00 White Blood Count 13.3 TH/MM3 9.0 TH/MM3 Red Blood Count 3.01 MIL/MM3 2.37 MIL/MM3 Hemoglobin 9.7 GM/DL 7.6 GM/DL Hematocrit 30.1 % 23.6 % Mean Corpuscular Volume 100.1 FL 99.4 FL Mean Corpuscular Hemoglobin 32.1 PG 31.9 PG Mean Corpuscular Hemoglobin 32.1 % 32.1 % Concent Red Cell Distribution Width 17.4 % 17.5 % Platelet Count 161 TH/MM3 110 TH/MM3 Mean Platelet Volume 9.2 FL 8.9 FL Neutrophils (%) (Auto) 58.0 % 70.5 % Lymphocytes (%) (Auto) 26.6 % 15.8 % Monocytes (%) (Auto) 13.9 % 13.0 % Eosinophils (%) (Auto) 0.9 % 0.3 % Basophils (%) (Auto) 0.6 % 0.4 % Neutrophils # (Auto) 7.7 TH/MM3 6.3 TH/MM3 Lymphocytes # (Auto) 3.5 TH/MM3 1.4 TH/MM3 Monocytes # (Auto) 1.9 TH/MM3 1.2 TH/MM3 Eosinophils # (Auto) 0.1 TH/MM3 0.0 TH/MM3 Basophils # (Auto) 0.1 TH/MM3 0.0 TH/MM3 CBC Comment DIFF FINAL AUTO DIFF Differential Comment AUTO DIFF CONFIRMED Prothrombin Time 14.0 SEC Prothromb Time International 1.3 RATIO Ratio Activated Partial 24.2 SEC Thromboplast Time Urine Color YELLOW Urine Turbidity HAZY Urine pH 7.0 Urine Specific [place] 1.026 Urine Protein 30 mg/dL Urine Glucose (UA) NEG mg/dL Urine Ketones TRACE mg/dL Urine Occult Blood NEG Urine Nitrite NEG Urine Bilirubin NEG Urine Urobilinogen 8.0 MG/DL Urine Leukocyte Esterase NEG Urine RBC 13 /hpf Urine WBC 8 /hpf Urine Squamous Epithelial <1 /hpf Cells Urine Transitional Epithelial <1 /hpf Cells Urine Renal Epithelial Cells <1 /hpf Urine Bacteria FEW /hpf Urine Hyaline Casts 9 /lpf Urine Mucus FEW /lpf Urine Sperm RARE Microscopic Urinalysis Comment CULT NOT INDICATED Sodium Level 141 MEQ/L 142 MEQ/L Potassium Level 3.7 MEQ/L 4.3 MEQ/L Chloride Level 105 MEQ/L 110 MEQ/L Carbon Dioxide Level 20.8 MEQ/L 24.6 MEQ/L Anion Gap 15 MEQ/L 7 MEQ/L Blood Urea Nitrogen 25 MG/DL 30 MG/DL Creatinine 0.75 MG/DL 0.59 MG/DL Estimat Glomerular Filtration 107 ML/MIN 141 ML/MIN Rate Random Glucose 156 MG/DL 131 MG/DL Calcium Level 8.6 MG/DL 7.8 MG/DL Total Bilirubin 1.7 MG/DL Aspartate Amino Transf 142 U/L (AST/SGOT) Alanine Aminotransferase 68 U/L (ALT/SGPT) Alkaline Phosphatase 103 U/L Total Protein 6.6 GM/DL Albumin 2.6 GM/DL Lipase 180 U/L Blood Type B POSITIVE Antibody Screen NEGATIVE Crossmatch Leukocyte-Reduced Red Blood Cells Blood Bank Comment Platelet Estimate LOW Platelet Morphology Comment NORMAL Date/Time Procedure Status Source Growth 07/04/16 00:45 Urine Culture Received Urine Clean Catch Pending Physical Examination HEENT: Normocephalic; no jaundice. Abrasions to forehead and nose CHEST: Expiratory wheezing CARDIAC: ST with PAC. Rate 103 ABDOMEN: Soft, nondistended, nontender; hepatosplenomegaly; bowel sounds are present in all four quadrants. EXTREMITIES: No clubbing, cyanosis, or edema. SKIN: Normal; no rash; no jaundice. DETECTIVE BUREAU CHIEF: No focal deficits; alert and oriented times three. Assessment and Plan Plan ASSESSMENT: - Upper GI Bleed with hematemesis/melena. Has known liver cirrhosis/varices and reports that he quit drinking, but started up again during Bi Week. He started vomiting dark brown emesis 2 days ago and then passing black tarry stool yesterday. His last EGD with band ligation was 5 years ago. He does not take Aleve or advil. HH dropped from 9.7/30.1----> 7.6/23.6. Protonix Gtt. Octreotide Gtt. - Anemia, acute blood loss. HH dropped from 9.7/30.1----> 7.6/23.6. - Liver cirrhosis/Elevated LFT. He states he was dx 5 years ago. He was told this was related to ETOH abuse. He also reports a hx of Hepatitis A, B, and C. He is treatment naive for his HCV. T. Bili 1.7, AST 142, ALT 68, Alk Phosph 103. - Esophageal varices. He reports that he had band ligation 5 years ago. - Thrombocytopenia. Plt 110. - Hepatitis C. Pt also reports hx of Hepatitis A/B. Hepatitis Bs Ag, Hepatitis B Ab, HCV Genotype/Viral load. - COPD. Per primary PLAN: - Plan for EGD with possible band ligation today - Obtain consents - NPO - Protonix Gtt - Octreotide gtt - Monitor HH - Transfuse as necessary - CBC, CMP, PT/INR in am - Supportive care - Further recommendations to follow based on results of above - Pt seen and examined by Dr. Kelley and myself and this note is written on her behalf Luisana Burton Jul 04, 2016 10:26
[2016-07-04] MEDS ORDERED: PROPOFOL 200 MG/20 ML AMP IV ONE (13:31)
--- NOTE | 2016-07-04 13:56 | GIPROC ---
[facility] [address] [facility]. [facility], [address] EGD PROCEDURE REPORT EXAM DATE: 07/04/2016 PATIENT NAME: Kenneth Padron MR #: [id number] BIRTHDATE: 1955 ATTENDING: Maria Elena Kelley MD ORDER #: [id number] EVP MANAGING DIRECTOR: Corinne Quevedo STATUS: inpatient INDICATIONS: The patient is a 61 yr old male here for an EGD due to anemia, gi bleeding PROCEDURE PERFORMED: EGD w/ biopsy MEDICATIONS: None and Per Anesthesia. TOPICAL ANESTHETIC: none CONSENT: The patient understands the risks and benefits of the procedure and understands that these risks include, but are not limited to: sedation, allergic reaction, infection, perforation and/or bleeding. Alternative means of evaluation and treatment include, among others: physical exam, x-rays, and/or surgical intervention. The patient elects to proceed with this endoscopic procedure. medical equipment was checked for proper function. Hand hygiene and appropriate measures for infection prevention was taken. After the risks, benefits and alternatives of the procedure were thoroughly explained, Informed consent was verified, confirmed and timeout was successfully executed by the treatment team. The patient was anesthetized with topical anesthesia and the Pentax [id number] endoscope was introduced through the mouth and advanced to the second portion of the duodenum. Retroflexed views revealed a hiatal hernia The gastroscope was then slowly withdrawn and removed. Multiple ulcers in duodenum-biopsy multiple ulcers in antrum-biopsy esophageal varices grade 1. ADVERSE EVENTS: There were no complications. IMPRESSIONS: 1. Multiple ulcers in duodenum-biopsy multiple ulcers in antrum-biopsy esophageal varices grade 1 2. Retroflexed views revealed a hiatal hernia RECOMMENDATIONS: 1. Await biopsy results. Biopsy results will not be ready for 7-10 days. If you don't hear from us in two weeks, call our office for biopsy results. 2. Anti-reflux regimen 3. Continue PPI 4. Avoid NSAIDS 5. Clear liquid diet ct abdomen/pelvis PATIENT CONDITION: stable DISPOSITION: Inpatient REPEAT EXAM: EGD pending biopsy results Maria Elena Kelley MD eSigned: Maria Elena Kelley MD 07/04/2016 1:55 PM cc: PATIENT NAME: Kenneth Padron MR#: [id number]
[2016-07-04] MEDS ORDERED: DIATRIZOATE MEGLUM/DIATRIZOATE SOD 9 ML CUP PO ONE ×2 (15:00→15:15)
[2016-07-04 19:22] LABS: HEMATOCRIT 27.3 % (39.0-51.0)
[2016-07-04 19:28] LABS: REVIEW FLAG FINAL
[2016-07-04] MEDS ORDERED: IOHEXOL 350 MG/ML 10 ML VIAL (for RAD DIAG) IV ONE (19:44)
--- NOTE | 2016-07-04 19:59 | RADRPT ---
EXAM DATE/TIME: 07/04/2016 19:33 [place] COMPARISON: CT ABDOMEN & PELVIS W/O CONTRAST, October 10, 2015, 9:11. INDICATIONS : Abdominal cramping with blood in stool. IV CONTRAST: 100 cc Omnipaque 350 (iohexol) IV ORAL CONTRAST: Prescribed oral contrast ingested. RADIATION DOSE: 6.64 CTDIvol (mGy) MEDICAL HISTORY : None SURGICAL HISTORY : None. ENCOUNTER: Initial ACUITY: 1 day PAIN SCALE: 8/10 LOCATION: Abdomen/pelvis TECHNIQUE: Volumetric scanning of the abdomen and pelvis was performed. Using automated exposure control and ad justment of the mA and/or kV according to patient size, radiation dose was kept as low as reasonably achievable to obtain optimal diagnostic quality images. FINDINGS: LOWER LUNGS: Mild posterior lung base atelectasis. LIVER: Markedly cirrhotic liver appearance. No evidence of liver mass or biliary ductal dilatation. Mild non specific distention of the gallbladder with some dependent sludge/debris. Small volume of ascites. SPLEEN: Mildly enlarged PANCREAS: Within normal limits. KIDNEYS: Normal in size and shape. There is no mass, stone or hydronephrosis. ADRENAL GLANDS: Within normal limits. VASCULAR: Dense atherosclerotic calcifications involving aorta and branch vessels. No evidence of aneurysm. No major vessel occlusion. BOWEL/MESENTERY: Nondilated bowel loops throughout. No definite inflammatory changes. ABDOMINAL WALL: Within normal limits. RETROPERITONEUM: There is no lymphadenopathy. BLADDER: No wall thickening or mass. REPRODUCTIVE: Within normal limits. INGUINAL: There is no lymphadenopathy or hernia. MUSCULOSKELETAL: Within normal limits for patient age. CONCLUSION: Cirrhotic liver appearance. Minimal ascites. Bacilio Gonzalez MD on July 04, 2016 at 19:54 Board Certified Radiologist. This report was verified electronically.
[2016-07-05] VITALS (8 sets, daily range): BP systolic 97–113; BP diastolic 57–63; PULSE 83–92; RESP 18; TEMP 97.4–98.4; O2SAT 92–96
[2016-07-05 00:35] LABS: HEMATOCRIT 25.8 % (39.0-51.0)
[2016-07-05 00:39] LABS: REVIEW FLAG FINAL
[2016-07-05] MEDS: OCTREOTIDE INJ 500 MCG in SODIUM CHLORID 0.9% 500 ML INJ 500 ML IV SCH ×2 (03:01→09:42)
[2016-07-05] MEDS: PANTOPRAZOLE INJ 80 MG in SODIUM CHLORIDE 0.9% INJ 100 ML IV SCH ×3 (03:02→16:01)
[2016-07-05] MEDS: MORPHINE SULFATE 4 MG/ML INJ IV PUSH PRN ×7 (03:03→22:12)
[2016-07-05 06:16] LABS: AUTOMATED NEUTROPHIL # 3.1 TH/MM3 (1.8-7.7); BASOPHIL % 0.6 % (0.0-2.0); EOSINOPHIL # 0.2 TH/MM3 (0-0.4); EOSINOPHIL % 4.2 % (0.0-4.0); HEMATOCRIT 25.2 % (39.0-51.0); LYMPH % 19.6 % (9.0-44.0); MEAN CORPUSCULAR HEMOGLOBIN 30.9 PG (27.0-34.0); MEAN CORPUSCULAR HGB CONC 32.8 % (32.0-36.0); MONO % 14.2 % (0.0-8.0); NEUT % 61.4 % (16.0-70.0); PLATELET COUNT 87 TH/MM3 (150-450); RED BLOOD COUNT 2.68 MIL/MM3 (4.50-5.90)
[2016-07-05 06:17] LABS: HEMO FLAGS AUTO DIFF
[2016-07-05 06:29] LABS: INTERNATIONAL NORMALIZED RATIO 1.2 RATIO; PROTHROMBIN TIME - PATIENT 13.6 SEC (9.8-11.6)
[2016-07-05 06:52] LABS: ALKALINE PHOSPHATASE 70 U/L (45-117); ALT (GPT) 61 U/L (12-78); ANION GAP 7 MEQ/L (5-15); AST (GOT) 140 U/L (15-37); BICARBONATE 24.4 MEQ/L (21.0-32.0); BLOOD UREA NITROGEN 17 MG/DL (7-18); CHLORIDE 111 MEQ/L (98-107); GLOMERULAR FILTRATION RATE 178 ML/MIN (>89); POTASSIUM 3.7 MEQ/L (3.5-5.1); SODIUM (NA) 142 MEQ/L (136-145); TOTAL BILIRUBIN ADULT 1.4 MG/DL (0.2-1.0)
[2016-07-05] MEDS ORDERED: INFLUENZA VIRUS VACCINE (QUADRIVALENT) 0.5 ML SYR IM ONE (09:00)
[2016-07-05 09:36] LABS: PLATELET ESTIMATE SMEAR LOW (NORMAL); PLATELET MORPHOLOGY NORMAL (NORMAL); SCAN/DIFF AUTO DIFF CONFIRMED
[2016-07-05] MEDS: SODIUM CHLORIDE 0.9% FLUSH 10 ML FLUSH IV FLUSH SCH ×2 (09:47→22:12)
--- NOTE | 2016-07-05 11:05 | EKG ---
Date Performed: 07/04/2016 Time Performed: 02:02:33 PTAGE: 61 years EKG: SINUS TACHYCARDIA ABNORMAL RHYTHM ECG PREVIOUS TRACING : 02/29/2016 17.38 DOCTOR: Jalen Laguerre Interpretating Date/Time 07/05/2016 11:03:00
--- NOTE | 2016-07-05 12:12 | HHI.GIFU ---
Subjective Remarks Patient is sitting up in bed, eating lunch, still with mid abdomen pain, reports black tarry stools last night, non since, no nausea or vomiting. (Earlene Kam LISSETTE) Objective Vitals I&O Vital Signs Date Time Temp Pulse Resp B/P Pulse Ox O2 Delivery O2 Flow Rate FiO2 07/05/16 08:03 98.4 84 18 101/61 92 07/05/16 04:00 98.1 86 18 104/57 93 07/05/16 03:55 87 07/05/16 00:00 97.4 92 18 111/63 95 07/04/16 20:00 97.3 95 18 121/61 93 07/04/16 16:25 98.1 84 20 109/62 93 07/04/16 15:19 86 18 118/62 97 Room Air 07/04/16 15:00 98.7 86 16 110/62 97 Room Air 07/04/16 13:55 88 16 99/64 94 07/04/16 13:48 87 16 84/56 95 07/04/16 13:43 98.3 88 16 84/47 97 07/04/16 12:31 98.3 98 20 121/62 98 I/O 07/04/16 07/04/16 07/04/16 07/05/16 07/05/16 07/05/16 07:00 15:00 23:00 07:00 15:00 23:00 Intake Total 1620 ml 520 ml Output Total 200 ml Balance 1420 ml 520 ml Intake Oral 1620 ml 520 ml Output Urine Total 200 ml # Voids 1 # Bowel Movements 1 0 1 Laboratory Laboratory Tests Test 07/04/16 07/05/16 07/05/16 18:48 00:11 05:18 Hemoglobin 9.1 8.7 8.3 Hematocrit 27.3 25.8 25.2 White Blood Count 5.0 Red Blood Count 2.68 Mean Corpuscular Volume 94.0 Mean Corpuscular Hemoglobin 30.9 Mean Corpuscular Hemoglobin 32.8 Concent Red Cell Distribution Width 21.0 Platelet Count 87 Mean Platelet Volume 9.3 Neutrophils (%) (Auto) 61.4 Lymphocytes (%) (Auto) 19.6 Monocytes (%) (Auto) 14.2 Eosinophils (%) (Auto) 4.2 Basophils (%) (Auto) 0.6 Neutrophils # (Auto) 3.1 Lymphocytes # (Auto) 1.0 Monocytes # (Auto) 0.7 Eosinophils # (Auto) 0.2 Basophils # (Auto) 0.0 CBC Comment AUTO DIFF Differential Comment AUTO DIFF CONFIRMED Platelet Estimate LOW Platelet Morphology Comment NORMAL Prothrombin Time 13.6 Prothromb Time International 1.2 Ratio Sodium Level 142 Potassium Level 3.7 Chloride Level 111 Carbon Dioxide Level 24.4 Anion Gap 7 Blood Urea Nitrogen 17 Creatinine 0.48 Estimat Glomerular Filtration 178 Rate Random Glucose 78 Calcium Level 7.6 Total Bilirubin 1.4 Aspartate Amino Transf 140 (AST/SGOT) Alanine Aminotransferase 61 (ALT/SGPT) Alkaline Phosphatase 70 Total Protein 5.7 Albumin 2.2 Date/Time Procedure Status Source Growth 07/04/16 00:45 Urine Culture - Final Complete Urine Clean Catch <10,000 CFU/ML MIXED GRAM POSITIVE FL... Imaging Last Impressions Abdomen/Pelvis CT 07/04/16 0000 Signed Impressions: Service Date/Time: Monday, July 04, 2016 19:33 - CONCLUSION: Cirrhotic liver appearance. Minimal ascites. Bacilio Gonzalez MD Chest X-Ray 07/03/16 [id number] Signed Impressions: Service Date/Time: Monday, July 04, 2016 00:09 - CONCLUSION: No acute disease. Marco Rees Jr., MD Physical Exam HEENT: normocephalic; atraumatic; no jaundice. Abrasions to forehead and nose CHEST: Expiratory wheezing CARDIAC: ST ABDOMEN: Soft, nondistended,mid abd tenderness; no hepatosplenomegaly; bowel sounds are present in all four quadrants. EXTREMITIES: No clubbing, cyanosis, or edema. SKIN: Normal; no rash; no jaundice. PROJECT MANAGEMENT IT SPECIALIST: No focal deficits; alert and oriented times three. (Eddy,Earlene CENTRAL SUPPLY TECHNICIAN) Assessment and Plan Plan ASSESSMENT: - Upper GI Bleed with hematemesis/melena. had black stools last night, non today, no hematemesis hgb is stable 8.3 S/P EGD on ( 07/04/16) ---->multiple ulcers in duodenum, multiple ulcer in antrum, esophageal varices grade 1, hiatal hernia, bx pending He does takes Naproxen 200 mg daily, he also takes acetaminophen on daily basis Has known liver cirrhosis/varices and reports that he quit drinking, but started up again during Bike Week. He started vomiting dark brown emesis and passing black tarry stool yesterday. Protonix Gtt. Octreotide Gtt. - Anemia, acute blood loss. hh stable 8.3.2 - Liver cirrhosis/Elevated LFT. He states he was dx 5 years ago. He was told this was related to ETOH abuse. He also reports a hx of Hepatitis A, B, and C. He is treatment naive for his HCV. - Esophageal varices. S/P EGD as above, varices grade 1 - Thrombocytopenia. Plt 87 - Hepatitis C. Pt also reports hx of Hepatitis A/B. Hepatitis Bs Ag Pending , Hepatitis B Ab pending, HCV Genotype/Viral load pending. - COPD. Per primary PLAN: - Clear liquids - Protonix Gtt - DC Octreotide gtt - Monitor HH - Transfuse as necessary - hh in am - Avoid NSAIDs, this was discussed with patient, he takes Naproxen 200 mg a day - EGD in 2 months - Supportive care - Further recommendations to follow based on results of above - Pt seen and examined by Dr. Kelley and myself and this note is written on her behalf (Earlene Kam) Physician Comments seen, examined agree with above (Maria Elena Kelley MD) Earlene Kam Jul 05, 2016 12:11 Maria Elena Kelley MD Jul 05, 2016 15:57
[2016-07-05] MEDS: ONDANSETRON HCL 4 MG/2 ML VIAL IVP PRN (14:03)
--- NOTE | 2016-07-05 15:41 | HHI.PR ---
Subjective Remarks Follow-up for GI bleed, cirrhosis and hepatitis. Patient is currently doing well. He reports persistent dark stool. No chest pain, shortness of breath, fever or chills. Objective Vitals Vital Signs Date Time Temp Pulse Resp B/P Pulse Ox O2 Delivery O2 Flow Rate FiO2 07/05/16 14:37 83 07/05/16 12:03 98.2 84 18 97/57 96 07/05/16 08:03 98.4 84 18 101/61 92 07/05/16 04:00 98.1 86 18 104/57 93 07/05/16 03:55 87 07/05/16 00:00 97.4 92 18 111/63 95 07/04/16 20:00 97.3 95 18 121/61 93 07/04/16 16:25 98.1 84 20 109/62 93 I/O 07/04/16 07/04/16 07/04/16 07/05/16 07/05/16 07/05/16 07:00 15:00 23:00 07:00 15:00 23:00 Intake Total 1620 ml 520 ml Output Total 200 ml Balance 1420 ml 520 ml Intake Oral 1620 ml 520 ml Output Urine Total 200 ml # Voids 1 # Bowel Movements 1 0 1 Result Diagram: 07/05/16 0518 07/05/16 0518 Imaging Last Impressions Abdomen/Pelvis CT 07/04/16 0000 Signed Impressions: Service Date/Time: Monday, July 04, 2016 19:33 - CONCLUSION: Cirrhotic liver appearance. Minimal ascites. Bacilio Gonzalez MD Chest X-Ray 07/03/16 2346 Signed Impressions: Service Date/Time: Monday, July 04, 2016 00:09 - CONCLUSION: No acute disease. Marco Rees Jr., MD Objective Remarks GENERAL: Alert, NAD. SKIN: Warm and dry. HEAD: Normocephalic. EYES: No scleral icterus. No injection or drainage. NECK: Supple, trachea midline. No JVD or lymphadenopathy. CARDIOVASCULAR: Regular rate and rhythm without murmurs, gallops, or rubs. RESPIRATORY: Breath sounds equal bilaterally. No accessory muscle use. GASTROINTESTINAL: Abdomen soft, non-tender, nondistended. MUSCULOSKELETAL: No cyanosis, or edema. BACK: Nontender without obvious deformity. No CVA tenderness. Procedures EGD 07/04/2016 IMPRESSIONS: 1. Multiple ulcers in duodenum-biopsy multiple ulcers in antrum-biopsy esophageal varices grade 1 2. Retroflexed views revealed a hiatal hernia RECOMMENDATIONS: 1. Await biopsy results. Biopsy results will not be ready for 7-10 days. If you don't hear from us in two weeks, call our office for biopsy results. 2. Anti-reflux regimen 3. Continue PPI 4. Avoid NSAIDS 5. Clear liquid diet ct abdomen/pelvis PATIENT CONDITION: stable DISPOSITION: Inpatient REPEAT EXAM: EGD pending biopsy results A/P Problem List: (1) GI bleed ICD Code: K92.2 Status: Acute (2) Leukocytosis ICD Code: D72.829 Status: Acute (3) Alcohol abuse ICD Code: F10.10 Status: Acute (4) Facial laceration ICD Code: S01.81XA Status: Acute Assessment and Plan Mr. Padron is a 61-year-old male with a history of cirrhosis and hepatitis who presented to the emergency department on 07/03/2016 due to abdominal pain associated with nausea vomiting and hematemesis. He also had dark stool. Patient underwent GI evaluation and EGD on 07/04/2016. EGD showed multiple ulcerations. - Upper GI bleed - Esophageal variceal bleed. - Status post EGD - shows multiple ulcers in the duodenum, multiple ulcers in the antrum, esophageal varices grade 1, hiatal hernia. - Patient was advised to avoid NSAIDs. - Repeat EGD recommended in 2 months. - Octreotide discontinued. We will start Ceftriaxone 1g Q24hrs while patient in the hospital. Ciprofloxacin PO on discharge. - Will check H&H in the AM. If stable, we will likely discharge him home on . - Alcohol abuse - Liver cirrhosis. - Hep C - Thrombocytopenia - PLT 87. - Esophageal varices - Counselled regarding the importance of quitting alcohol. - Follow up with GI in the outpatient setting. Full code. SCDs. Problem Qualifiers (1) GI bleed: Qualified Code: K92.2 - Gastrointestinal hemorrhage, unspecified gastrointestinal hemorrhage type Maicol Calderon DO Jul 05, 2016 3:41 pm
[2016-07-05] MEDS: cefTRIAXone INJ 1,000 MG in SODIUM CHLORIDE 0.9% INJ 100 ML IV SCH (16:01)
[2016-07-05 18:40] LABS: MRSA PCR POSITIVE (NEGATIVE); STAPH AUREUS PCR POSITIVE (NEGATIVE)
[2016-07-06] MEDS: PANTOPRAZOLE INJ 80 MG in SODIUM CHLORIDE 0.9% INJ 100 ML IV SCH ×2 (03:46→12:20)
[2016-07-06 04:00] VITALS: BP 124/64; PULSE 85; RESP 18; TEMP 98.4; O2SAT 94
[2016-07-06 04:39] LABS: HEMATOCRIT 23.4 % (39.0-51.0)
[2016-07-06 04:48] LABS: REVIEW FLAG FINAL
[2016-07-06] MEDS: MORPHINE SULFATE 4 MG/ML INJ IV PUSH PRN ×6 (04:54→22:24)
[2016-07-06 09:05] VITALS: BP 123/70; PULSE 88; RESP 20; TEMP 98.1; O2SAT 96
[2016-07-06] MEDS: SODIUM CHLORIDE 0.9% FLUSH 10 ML FLUSH IV FLUSH SCH ×2 (09:09→19:25)
--- NOTE | 2016-07-06 09:36 | HHI.PR ---
Subjective Remarks Follow up for cirrhosis, variceal bleed. Patient is currently doing well. No fever, chills. He continues to have black stool. Objective Vitals Vital Signs Date Time Temp Pulse Resp B/P Pulse Ox O2 Delivery O2 Flow Rate FiO2 07/06/16 09:05 98.1 88 20 123/70 96 07/06/16 04:00 98.4 85 18 124/64 94 07/05/16 20:00 98.2 89 18 103/60 95 07/05/16 16:04 98.0 87 18 113/61 93 07/05/16 14:37 83 07/05/16 12:03 98.2 84 18 97/57 96 I/O 07/05/16 07/05/16 07/05/16 07/06/16 07/06/16 07/06/16 07:00 15:00 23:00 07:00 15:00 23:00 Intake Total 520 ml 480 ml 3743 ml 416 ml Output Total 400 ml 200 ml Balance 520 ml 80 ml 3543 ml 416 ml Intake Oral 520 ml 480 ml 670 ml 240 ml IV Total 3073 ml 176 ml Output Urine Total 400 ml 200 ml # Voids 1 1 1 # Bowel Movements 1 1 1 0 Result Diagram: 07/06/16 0402 07/05/16 0518 Imaging Last Impressions Abdomen/Pelvis CT 07/04/16 0000 Signed Impressions: Service Date/Time: Monday, July 04, 2016 19:33 - CONCLUSION: Cirrhotic liver appearance. Minimal ascites. Bacilio Gonzalez MD Chest X-Ray 07/03/16 2346 Signed Impressions: Service Date/Time: Monday, July 04, 2016 00:09 - CONCLUSION: No acute disease. Marco Rees Jr., MD Objective Remarks GENERAL: Alert, NAD. SKIN: Warm and dry. HEAD: Normocephalic. EYES: No scleral icterus. No injection or drainage. NECK: Supple, trachea midline. No JVD or lymphadenopathy. CARDIOVASCULAR: Regular rate and rhythm without murmurs, gallops, or rubs. RESPIRATORY: Breath sounds equal bilaterally. No accessory muscle use. GASTROINTESTINAL: Abdomen soft, non-tender, nondistended. MUSCULOSKELETAL: No cyanosis, or edema. BACK: Nontender without obvious deformity. No CVA tenderness. Procedures EGD 07/04/2016 IMPRESSIONS: 1. Multiple ulcers in duodenum-biopsy multiple ulcers in antrum-biopsy esophageal varices grade 1 2. Retroflexed views revealed a hiatal hernia RECOMMENDATIONS: 1. Await biopsy results. Biopsy results will not be ready for 7-10 days. If you don't hear from us in two weeks, call our office for biopsy results. 2. Anti-reflux regimen 3. Continue PPI 4. Avoid NSAIDS 5. Clear liquid diet ct abdomen/pelvis PATIENT CONDITION: stable DISPOSITION: Inpatient REPEAT EXAM: EGD pending biopsy results A/P Problem List: (1) GI bleed ICD Code: K92.2 Status: Acute (2) Leukocytosis ICD Code: D72.829 Status: Acute (3) Alcohol abuse ICD Code: F10.10 Status: Acute (4) Facial laceration ICD Code: S01.81XA Status: Acute Assessment and Plan Mr. Padron is a 61-year-old male with a history of cirrhosis and hepatitis who presented to the emergency department on 07/03/2016 due to abdominal pain associated with nausea vomiting and hematemesis. He also had dark stool. Patient underwent GI evaluation and EGD on 07/04/2016. EGD showed multiple ulcerations. - Upper GI bleed - Esophageal variceal bleed. - Status post EGD - shows multiple ulcers in the duodenum, multiple ulcers in the antrum, esophageal varices grade 1, hiatal hernia. - Hgb dropped frm 8.3 --> 8.0. Transfuse if Hgb < 7.0. - Patient was advised to avoid NSAIDs. - Repeat EGD recommended in 2 months. - Octreotide discontinued. We will start Ceftriaxone 1g Q24hrs while patient in the hospital. Ciprofloxacin PO on discharge. - We will repeat H&H in the AM. IF stable, patient can be discharged. - Alcohol abuse - Liver cirrhosis. - Hep C - Thrombocytopenia - PLT 87. - Esophageal varices - Counselled regarding the importance of quitting alcohol. - Follow up with GI in the outpatient setting. Full code. SCDs. Problem Qualifiers (1) GI bleed: Qualified Code: K92.2 - Gastrointestinal hemorrhage, unspecified gastrointestinal hemorrhage type Maicol Calderon DO Jul 06, 2016 9:36 am
[2016-07-06 12:50] VITALS: BP 115/68; PULSE 82; RESP 12; TEMP 98.3; O2SAT 95
[2016-07-06 16:06] VITALS: BP 127/72; PULSE 82; RESP 18; TEMP 98.3; O2SAT 96
[2016-07-06] MEDS: cefTRIAXone INJ 1,000 MG in SODIUM CHLORIDE 0.9% INJ 100 ML IV SCH (16:12)
--- NOTE | 2016-07-06 17:50 | HHI.GIFU ---
Subjective Remarks Pt reportedly had one dark BM last night and two more today. Denies any N/V Abdominal discomfort is relatively unchanged. (Jordana Peace) Objective Vitals I&O Vital Signs Date Time Temp Pulse Resp B/P Pulse Ox O2 Delivery O2 Flow Rate FiO2 07/06/16 16:06 98.3 82 18 127/72 96 07/06/16 12:50 98.3 82 12 115/68 95 07/06/16 09:05 98.1 88 20 123/70 96 07/06/16 04:00 98.4 85 18 124/64 94 07/05/16 20:00 98.2 89 18 103/60 95 I/O 07/05/16 07/05/16 07/05/16 07/06/16 07/06/16 07/06/16 07:00 15:00 23:00 07:00 15:00 23:00 Intake Total 520 ml 480 ml 3743 ml 416 ml 380 ml Output Total 400 ml 200 ml Balance 520 ml 80 ml 3543 ml 416 ml 380 ml Intake Oral 520 ml 480 ml 670 ml 240 ml 360 ml IV Total 3073 ml 176 ml 20 ml Output Urine Total 400 ml 200 ml # Voids 1 1 1 5 # Bowel Movements 1 1 1 0 2 Laboratory Laboratory Tests Test 07/06/16 04:02 Hemoglobin 8.0 Hematocrit 23.4 Date/Time Procedure Status Source Growth 07/04/16 00:45 Urine Culture - Final Complete Urine Clean Catch <10,000 CFU/ML MIXED GRAM POSITIVE FL... Imaging Last Impressions Abdomen/Pelvis CT 07/04/16 0000 Signed Impressions: Service Date/Time: Monday, July 04, 2016 19:33 - CONCLUSION: Cirrhotic liver appearance. Minimal ascites. Bacilio Gonzalez MD Chest X-Ray 07/03/16 2926 Signed Impressions: Service Date/Time: Monday, July 04, 2016 00:09 - CONCLUSION: No acute disease. Marco Rees Jr., MD Physical Exam HEENT: normocephalic; atraumatic; no jaundice. Abrasions to forehead and nose CHEST: CTA CARDIAC: Regular ABDOMEN: +BS, soft, nondistended, mid abd tenderness EXTREMITIES: No clubbing, cyanosis, or edema. SKIN: Normal; no rash; no jaundice. 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 (Jordana Peace) Assessment and Plan Plan ASSESSMENT: - Upper GI Bleed with hematemesis/melena. had black stools last night, non today, no hematemesis hgb is stable 8.3 S/P EGD on ( 07/04/16) ---->multiple ulcers in duodenum, multiple ulcer in antrum, esophageal varices grade 1, hiatal hernia, bx pending He does takes Naproxen 200 mg daily, he also takes acetaminophen on daily basis. He has known liver cirrhosis/varices and reports that he quit drinking, but started up again during [employer]. He started vomiting dark brown emesis and passing black tarry stool. Pt still having bloody stools. Protonix Gtt. . - Anemia, acute blood loss. H/H 8.0/23.4 todau - Liver cirrhosis/Elevated LFT. He states he was dx 5 years ago. He was told this was related to ETOH abuse. He also reports a hx of Hepatitis A, B, and C. He is treatment naive for his HCV. Viral load and genotype are pending. - Esophageal varices. S/P EGD as above, varices grade 1 - Thrombocytopenia. Plt 87,000 on 07/05 - Hepatitis C. Pt also reports hx of Hepatitis A/B. Hepatitis Bs Ag Pending , Hepatitis B Ab pending, HCV Genotype/Viral load pending. - COPD. Per primary PLAN: - Clear liquids - Protonix Gtt - Plan for evaluation with colonoscopy for tomorrow. - GoLytely prep - NPO after MN except meds - Monitor HH - Transfuse as necessary - Avoid NSAIDs, this was discussed with patient, he takes Naproxen 200 mg a day - EGD in 2 months - Supportive care - Further recommendations to follow based on results of above - Pt seen and examined by Dr. Kelley and myself and this note is written on her behalf (Jordana Peace) Physician Comments seen, examined agree with above (Maria Elena Kelley MD) Jordana Peace Jul 06, 2016 17:50 Maria Elena Kelley MD Jul 06, 2016 17:52
[2016-07-06] MEDS ORDERED: PEG (High)/E-LYTE SOLN 4000 ML BTL PO ONE (18:00)
[2016-07-06 20:00] VITALS: BP 127/72; PULSE 81; RESP 16; TEMP 98.5; O2SAT 97
[2016-07-07] VITALS (7 sets, daily range): BP systolic 124–141; BP diastolic 58–80; PULSE 67–88; RESP 16–20; TEMP 97.4–98.7; O2SAT 94–98
[2016-07-07] MEDS: MORPHINE SULFATE 4 MG/ML INJ IV PUSH PRN ×7 (01:18→21:44)
[2016-07-07] MEDS: PANTOPRAZOLE INJ 80 MG in SODIUM CHLORIDE 0.9% INJ 100 ML IV SCH ×3 (04:30→19:00)
[2016-07-07 07:18] LABS: HEMATOCRIT 26.3 % (39.0-51.0)
[2016-07-07 07:41] LABS: REVIEW FLAG FINAL
[2016-07-07] MEDS ORDERED: PROPOFOL 200 MG/20 ML AMP IV ONE (11:47)
--- NOTE | 2016-07-07 12:13 | GIPROC ---
[facility] [address] [facility]. [facility], [address] COLONOSCOPY PROCEDURE REPORT EXAM DATE: 07/07/2016 PATIENT NAME: Kenneth Padron MR #: [id number] BIRTHDATE: 1955 ENDOSCOPIST: Bishnu Leija MD ORDER #: [id number] MACHINE FEEDER RAW STOCK: Kenneth Narayan and Omega Jean STATUS: inpatient INDICATIONS: The patient is a 61 yr old male here for a colonoscopy due to anemia, non-specific PROCEDURE PERFORMED: Colonoscopy, incomplete MEDICATIONS: None and Per Anesthesia. PREP QUALITY: poor ESTIMATED BLOOD LOSS: None CONSENT: The patient understands the risks and benefits of the procedure and understands that these risks include, but are not limited to: sedation, allergic reaction, infection, perforation and/or bleeding. Alternative means of evaluation and treatment include, among others: physical exam, x-rays, and/or surgical intervention. The patient elects to proceed with this endoscopic procedure. medical equipment was checked for proper function. Hand hygiene and appropriate measures for infection prevention was taken. After the risks, benefits and alternatives of the procedure were thoroughly explained, Informed consent was verified, confirmed and timeout was successfully executed by the treatment team. A digital exam revealed no abnormalities of the rectum The Pentax [id number] and [id number] endoscope was introduced through the anus and advanced to the cecum, which was identified by both the appendix and ileocecal valve. The instrument was then slowly withdrawn as the colon was fully examined. COLON FINDINGS: The colonic mucosa appeared normal. Retroflexed views revealed small internal hemorrhoids The scope was then completely withdrawn from the patient and the procedure terminated. PROCEDURE WITHDRAWAL TIME:4.4minutes ADVERSE EVENTS: There were no complications. IMPRESSIONS: 1. The colonic mucosa appeared normal 2. Retroflexed views revealed small internal hemorrhoids 3. Revealed no abnormalities of the rectum RECOMMENDATIONS: 1. High fiber diet 2. Repeat colonoscopy in am RECALL: Bishnu Leija MD eSigned: Bishnu Leija MD 07/07/2016 12:12 PM cc:
[2016-07-07] MEDS ORDERED: PEG (High)/E-LYTE SOLN 4000 ML BTL PO ONE (12:15)
[2016-07-07] MEDS: SODIUM CHLORIDE 0.9% FLUSH 10 ML FLUSH IV FLUSH SCH ×2 (13:07→20:57)
--- NOTE | 2016-07-07 15:49 | HHI.PR ---
Subjective Remarks Follow up for cirrhosis, variceal bleed. Patient was scheduled for colonoscopy today. However due to poor prep repeat colonoscopy is scheduled for tomorrow. Denies any chest pain, shortness of breath, fever or chills. Objective Vitals Vital Signs Date Time Temp Pulse Resp B/P Pulse Ox O2 Delivery O2 Flow Rate FiO2 07/07/16 12:42 97.5 75 18 135/65 96 07/07/16 12:15 87 20 84/54 97 07/07/16 12:00 97.5 65 20 97/60 98 07/07/16 09:30 98.0 83 18 135/80 97 07/07/16 08:00 98.7 84 20 132/65 97 07/07/16 04:00 98.1 81 18 124/58 94 07/07/16 00:00 98.5 88 16 133/64 95 07/06/16 20:00 98.5 81 16 127/72 97 07/06/16 16:06 98.3 82 18 127/72 96 I/O 07/06/16 07/06/16 07/06/16 07/07/16 07/07/16 07/07/16 07:00 15:00 23:00 07:00 15:00 23:00 Intake Total 416 ml 1212 ml 83 ml Output Total 200 ml Balance 416 ml 1012 ml 83 ml Intake Oral 240 ml 1080 ml 0 ml IV Total 176 ml 132 ml 83 ml Output Urine Total 200 ml # Voids 1 5 1 # Bowel Movements 0 2 1 Result Diagram: 07/07/16 0522 07/05/16 0518 Imaging Last Impressions Abdomen/Pelvis CT 07/04/16 0000 Signed Impressions: Service Date/Time: Monday, July 04, 2016 19:33 - CONCLUSION: Cirrhotic liver appearance. Minimal ascites. Bacilio Gonzalez MD Chest X-Ray 07/03/16 1756 Signed Impressions: Service Date/Time: Monday, July 04, 2016 00:09 - CONCLUSION: No acute disease. Marco Rees Jr., MD Objective Remarks GENERAL: Alert, NAD. SKIN: Warm and dry. HEAD: Normocephalic. EYES: No scleral icterus. No injection or drainage. NECK: Supple, trachea midline. No JVD or lymphadenopathy. CARDIOVASCULAR: Regular rate and rhythm without murmurs, gallops, or rubs. RESPIRATORY: Breath sounds equal bilaterally. No accessory muscle use. GASTROINTESTINAL: Abdomen soft, non-tender, nondistended. MUSCULOSKELETAL: No cyanosis, or edema. BACK: Nontender without obvious deformity. No CVA tenderness. Procedures EGD 07/04/2016 IMPRESSIONS: 1. Multiple ulcers in duodenum-biopsy multiple ulcers in antrum-biopsy esophageal varices grade 1 2. Retroflexed views revealed a hiatal hernia RECOMMENDATIONS: 1. Await biopsy results. Biopsy results will not be ready for 7-10 days. If you don't hear from us in two weeks, call our office for biopsy results. 2. Anti-reflux regimen 3. Continue PPI 4. Avoid NSAIDS 5. Clear liquid diet ct abdomen/pelvis PATIENT CONDITION: stable DISPOSITION: Inpatient REPEAT EXAM: EGD pending biopsy results A/P Problem List: (1) GI bleed ICD Code: K92.2 Status: Acute (2) Leukocytosis ICD Code: D72.829 Status: Acute (3) Alcohol abuse ICD Code: F10.10 Status: Acute (4) Facial laceration ICD Code: S01.81XA Status: Acute Assessment and Plan Mr. Padron is a 61-year-old male with a history of cirrhosis and hepatitis who presented to the emergency department on 07/03/2016 due to abdominal pain associated with nausea vomiting and hematemesis. He also had dark stool. Patient underwent GI evaluation and EGD on 07/04/2016. EGD showed multiple ulcerations. - Upper GI bleed - Esophageal variceal bleed. - Status post EGD - shows multiple ulcers in the duodenum, multiple ulcers in the antrum, esophageal varices grade 1, hiatal hernia. - Hgb dropped frm 8.3 --> 8.0 --> 8.6. - Patient was advised to avoid NSAIDs. - Repeat EGD recommended in 2 months. - Octreotide discontinued. Continue Ceftriaxone 1g Q24hrs while patient in the hospital. Ciprofloxacin PO on discharge. - Repeat Colonoscopy in the AM. - Alcohol abuse - Liver cirrhosis. - Hep C - Thrombocytopenia - PLT 87. - Esophageal varices - Counselled regarding the importance of quitting alcohol. - Follow up with GI in the outpatient setting. Full code. SCDs. Probable discharge on 07/08/2016. Problem Qualifiers (1) GI bleed: Qualified Code: K92.2 - Gastrointestinal hemorrhage, unspecified gastrointestinal hemorrhage type Ahmed,Shahabuddin DO Jul 07, 2016 3:49 pm
[2016-07-07] MEDS: cefTRIAXone INJ 1,000 MG in SODIUM CHLORIDE 0.9% INJ 100 ML IV SCH (17:00)
[2016-07-08] VITALS: BP 130/58; PULSE 70; RESP 18; TEMP 97.6; O2SAT 98
[2016-07-08] MEDS: MORPHINE SULFATE 4 MG/ML INJ IV PUSH PRN ×4 (01:02→15:31)
[2016-07-08] MEDS: PANTOPRAZOLE INJ 80 MG in SODIUM CHLORIDE 0.9% INJ 100 ML IV SCH ×2 (01:02→15:30)
[2016-07-08 04:00] VITALS: BP 96/52; PULSE 73; RESP 18; TEMP 97.9; O2SAT 97
[2016-07-08 07:54] LABS: HEMATOCRIT 26.2 % (39.0-51.0); MEAN CELL VOLUME 94.4 FL (80.0-100.0); MEAN CORPUSCULAR HEMOGLOBIN 30.5 PG (27.0-34.0); MEAN CORPUSCULAR HGB CONC 32.3 % (32.0-36.0); PLATELET COUNT 103 TH/MM3 (150-450); RED BLOOD COUNT 2.78 MIL/MM3 (4.50-5.90); REVIEW FLAG FINAL; WHITE BLOOD COUNT 4.4 TH/MM3 (4.0-11.0)
[2016-07-08 08:49] VITALS: BP 120/68; PULSE 72; RESP 18; TEMP 96; O2SAT 96
[2016-07-08] MEDS: SODIUM CHLORIDE 0.9% FLUSH 10 ML FLUSH IV FLUSH SCH (09:36)
--- NOTE | 2016-07-08 11:26 | HHI.PR ---
Objective Vitals Vital Signs Date Time Temp Pulse Resp B/P Pulse Ox O2 Delivery O2 Flow Rate FiO2 07/08/16 08:49 96.0 72 18 120/68 96 07/08/16 07:41 20 07/08/16 04:00 97.9 73 18 96/52 97 07/08/16 00:00 97.6 70 18 130/58 98 07/07/16 20:00 97.4 67 18 141/69 96 07/07/16 16:00 98.0 79 18 139/74 98 07/07/16 12:42 97.5 75 18 135/65 96 07/07/16 12:15 87 20 84/54 97 07/07/16 12:00 97.5 65 20 97/60 98 I/O 07/07/16 07/07/16 07/07/16 07/08/16 07/08/16 07/08/16 07:00 15:00 23:00 07:00 15:00 23:00 Intake Total 83 ml 600 ml 128 ml 60 ml Output Total 2 ml Balance 83 ml 600 ml 128 ml 58 ml Intake Oral 0 ml 480 ml 0 ml IV Total 83 ml 120 ml 128 ml 60 ml Output Urine Total 2 ml # Voids 1 2 # Bowel Movements 1 1 0 Result Diagram: 07/08/16 0555 07/05/16 0518 Objective Remarks GENERAL: Alert, NAD. SKIN: Warm and dry. HEAD: Normocephalic. EYES: No scleral icterus. No injection or drainage. NECK: Supple, trachea midline. No JVD or lymphadenopathy. CARDIOVASCULAR: Regular rate and rhythm without murmurs, gallops, or rubs. RESPIRATORY: Breath sounds equal bilaterally. No accessory muscle use. GASTROINTESTINAL: Abdomen soft, non-tender, nondistended. MUSCULOSKELETAL: No cyanosis, or edema. BACK: Nontender without obvious deformity. No CVA tenderness. Procedures EGD 07/04/2016 IMPRESSIONS: 1. Multiple ulcers in duodenum-biopsy multiple ulcers in antrum-biopsy esophageal varices grade 1 2. Retroflexed views revealed a hiatal hernia RECOMMENDATIONS: 1. Await biopsy results. Biopsy results will not be ready for 7-10 days. If you don't hear from us in two weeks, call our office for biopsy results. 2. Anti-reflux regimen 3. Continue PPI 4. Avoid NSAIDS 5. Clear liquid diet ct abdomen/pelvis PATIENT CONDITION: stable DISPOSITION: Inpatient REPEAT EXAM: EGD pending biopsy results A/P Problem List: (1) GI bleed ICD Code: K92.2 Status: Acute (2) Leukocytosis ICD Code: D72.829 Status: Acute (3) Alcohol abuse ICD Code: F10.10 Status: Acute (4) Facial laceration ICD Code: S01.81XA Status: Acute Assessment and Plan Mr. Padron is a 61-year-old male with a history of cirrhosis and hepatitis who presented to the emergency department on 07/03/2016 due to abdominal pain associated with nausea vomiting and hematemesis. He also had dark stool. Patient underwent GI evaluation and EGD on 07/04/2016. EGD showed multiple ulcerations. - Upper GI bleed - Esophageal variceal bleed. - Status post EGD - shows multiple ulcers in the duodenum, multiple ulcers in the antrum, esophageal varices grade 1, hiatal hernia. - Hgb dropped frm 8.3 --> 8.0 --> 8.6. - Patient was advised to avoid NSAIDs. - Repeat EGD recommended in 2 months. - Octreotide discontinued. Continue Ceftriaxone 1g Q24hrs while patient in the hospital. Ciprofloxacin PO on discharge. - Repeat Colonoscopy in the AM. - Alcohol abuse - Liver cirrhosis. - Hep C - Thrombocytopenia - PLT 87. - Esophageal varices - Counselled regarding the importance of quitting alcohol. - Follow up with GI in the outpatient setting. Full code. SCDs. Probable discharge on 07/08/2016. Problem Qualifiers (1) GI bleed: Qualified Code: K92.2 - Gastrointestinal hemorrhage, unspecified gastrointestinal hemorrhage type Maicol Calderon DO Jul 08, 2016 11:26
[2016-07-08 12:31] VITALS: BP 120/68; PULSE 123; RESP 18; TEMP 96; O2SAT 98
[2016-07-08] MEDS ORDERED: PROPOFOL 200 MG/20 ML AMP IV ONE (14:24)
[2016-07-08] MEDS ORDERED: DO NOT ADM ANY ANTICOAGULANT DRUGS XX PRN (14:40)
--- NOTE | 2016-07-08 14:51 | GIPROC ---
[facility] [address] [facility]. [facility], [address] COLONOSCOPY PROCEDURE REPORT EXAM DATE: 07/08/2016 PATIENT NAME: Kenneth Padron MR #: [id number] BIRTHDATE: 1955 ENDOSCOPIST: Bishnu Leija MD ORDER #: [id number] MANAGER BENEFIT: Mehdi Gracia and Omega Jean STATUS: inpatient INDICATIONS: The patient is a 61 yr old male here for a colonoscopy due to anemia, non-specific and rectal bleeding PROCEDURE PERFORMED: Colonoscopy with polypectomy MEDICATIONS: None and Per Anesthesia. PREP QUALITY: good ESTIMATED BLOOD LOSS: None CONSENT: The patient understands the risks and benefits of the procedure and understands that these risks include, but are not limited to: sedation, allergic reaction, infection, perforation and/or bleeding. Alternative means of evaluation and treatment include, among others: physical exam, x-rays, and/or surgical intervention. The patient elects to proceed with this endoscopic procedure. medical equipment was checked for proper function. Hand hygiene and appropriate measures for infection prevention was taken. After the risks, benefits and alternatives of the procedure were thoroughly explained, Informed consent was verified, confirmed and timeout was successfully executed by the treatment team. A digital exam revealed no abnormalities of the rectum The Pentax [id number] endoscope was introduced through the anus and advanced to the cecum, which was identified by both the appendix and ileocecal valve. The instrument was then slowly withdrawn as the colon was fully examined. COLON FINDINGS: A small sessile polyp was found in the rectum. Adenomatous. A polypectomy was performed with a cold snare. The resection was complete and the polyp tissue was completely retrieved. The colon mucosa was otherwise normal. Retroflexed views revealed small internal hemorrhoids The scope was then completely withdrawn from the patient and the procedure terminated. PROCEDURE WITHDRAWAL TIME:11.8minutes ADVERSE EVENTS: There were no complications. IMPRESSIONS: 1. A small sessile polyp was found in the rectum; Adenomatous; polypectomy was performed with a cold snare 2. The colon mucosa was otherwise normal 3. Retroflexed views revealed small internal hemorrhoids 4. Revealed no abnormalities of the rectum RECOMMENDATIONS: 1. Await biopsy results. Biopsy results will not be ready for 7-10 days. If you don't hear from us in two weeks, call our office for results. 2. High fiber diet 3. Yearly hemoccult 4. Follow-up: GI Clinic PRN RECALL: Return 5 years Colonoscopy Bishnu Leija MD eSigned: Bishnu Leija MD 07/08/2016 2:50 PM cc:
[2016-07-08] MEDS: cefTRIAXone INJ 1,000 MG in SODIUM CHLORIDE 0.9% INJ 100 ML IV SCH (15:30)
[2016-07-08 16:00] VITALS: BP 125/60; PULSE 67; RESP 18; TEMP 98; O2SAT 96
[2016-07-08] MEDS ORDERED: CIPR-9 PO (16:39)
[2016-07-08] MEDS ORDERED: PROT40TA PO (16:39)
--- NOTE | 2016-07-08 16:44 | HHI.DS ---
Discharge Summary Admission Date Jul 04, 2016 at 2:17 am Discharge Date: Jul 08, 2016 Admitting Diagnosis GI bleed. History of alcohol abuse and liver cirrhosis. (1) GI bleed ICD Code: K92.2 Diagnosis: Principal (2) Leukocytosis ICD Code: D72.829 (3) Alcohol abuse ICD Code: F10.10 (4) Facial laceration ICD Code: S01.81XA Procedures EGD 07/04/2016 IMPRESSIONS: 1. Multiple ulcers in duodenum-biopsy multiple ulcers in antrum-biopsy esophageal varices grade 1 2. Retroflexed views revealed a hiatal hernia RECOMMENDATIONS: 1. Await biopsy results. Biopsy results will not be ready for 7-10 days. If you don't hear from us in two weeks, call our office for biopsy results. 2. Anti-reflux regimen 3. Continue PPI 4. Avoid NSAIDS 5. Clear liquid diet ct abdomen/pelvis PATIENT CONDITION: stable DISPOSITION: Inpatient REPEAT EXAM: EGD pending biopsy results Brief History - From Admission Mr. Padron is a 61 year-old male with a history of cirrhosis and hepatitis who presented to the emergency room on 07/03/2016 for evaluation of abdominal pain with nausea, vomiting, and hematemesis. The patient is seen in the emergency room holding unit. He reports abdominal pain, vomiting dark blood, and dark blood in stool since yesterday. He reports his last alcohol drink 4 days ago. His abdominal pain is diffuse, severe, and sharp in character. Pain is accompanied by near syncope, dizziness, drowsiness , and weakness. . CBC/BMP: 07/08/16 0555 07/05/16 0518 Significant Findings Laboratory Tests Test 07/06/16 07/07/16 07/08/16 04:02 05:22 05:55 Hemoglobin 8.0 GM/DL 8.6 GM/DL 8.5 GM/DL (13.0-17.0) (13.0-17.0) (13.0-17.0) Hematocrit 23.4 % 26.3 % 26.2 % (39.0-51.0) (39.0-51.0) (39.0-51.0) Red Blood Count 2.78 MIL/MM3 (4.50-5.90) Red Cell Distribution Width 20.0 % (11.6-17.2) Platelet Count 103 TH/MM3 (150-450) Imaging Last Impressions Abdomen/Pelvis CT 07/04/16 0000 Signed Impressions: Service Date/Time: Monday, July 04, 2016 19:33 - CONCLUSION: Cirrhotic liver appearance. Minimal ascites. Bacilio Gonzalez MD Chest X-Ray 07/03/16 2346 Signed Impressions: Service Date/Time: Monday, July 04, 2016 00:09 - CONCLUSION: No acute disease. Marco Rees Jr., MD PE at Discharge GENERAL: Alert, NAD. SKIN: Warm and dry. HEAD: Normocephalic. EYES: No scleral icterus. No injection or drainage. NECK: Supple, trachea midline. No JVD or lymphadenopathy. CARDIOVASCULAR: Regular rate and rhythm without murmurs, gallops, or rubs. RESPIRATORY: Breath sounds equal bilaterally. No accessory muscle use. GASTROINTESTINAL: Abdomen soft, non-tender, nondistended. MUSCULOSKELETAL: No cyanosis, or edema. BACK: Nontender without obvious deformity. No CVA tenderness. Pt update on day of discharge Patient is currently doing well. He underwent colonoscopy today. Denies any chest pain, shortness of breath, fever or chills. Wants to go home. Hospital Course Mr. Padron is a 61-year-old male with a history of cirrhosis and hepatitis who presented to the emergency department on 07/03/2016 due to abdominal pain associated with nausea vomiting and hematemesis. He also had dark stool. Patient underwent GI evaluation and EGD on 07/04/2016. EGD showed multiple ulcerations. - Upper GI bleed - Esophageal variceal bleed. - Status post EGD - shows multiple ulcers in the duodenum, multiple ulcers in the antrum, esophageal varices grade 1, hiatal hernia. - Hgb dropped frm 8.3 --> 8.0 --> 8.6. - Patient was advised to avoid NSAIDs. - Repeat EGD recommended in 2 months. - Octreotide discontinued. Continue Ceftriaxone 1g Q24hrs while patient in the hospital. Ciprofloxacin PO on discharge for 7 days. - Repeat Colonoscopy done on the day of discharge 07/08/2016. - Alcohol abuse - Liver cirrhosis. - Hep C - Thrombocytopenia - PLT 87. - Esophageal varices - Counselled regarding the importance of quitting alcohol. - Follow up with GI in the outpatient setting. Patient was discharged after colonoscopy. Patient was advised to follow up with GI. Pt Condition on Discharge: Good Discharge Disposition: Discharge Home Discharge Time: <= 30 minutes Discharge Instructions DIET: Follow Instructions for: Heart Healthy Diet Activities you can perform: Regular-No Restrictions Follow up Referrals: Gastroenterology - 2 Weeks with Bishnu Leija MD PCP Follow-up - 1 Week New Medications: Ciprofloxacin (Cipro) 500 Mg Tab 500 MG PO BID Infection #14 Ref 0 TAB Pantoprazole (Protonix) 40 Mg Tab 40 MG PO DAILY Ulcer Prevention #90 Ref 0 TAB Continued Medications: Hydrocodone-Acetaminophen (Lortab) 5-325 Mg Tab 1 TAB PO Q6H PRN PAIN #20 Ref 0 TAB Discontinued Medications: Prednisone (Prednisone) 20 Mg Tab 20 MG PO BID Days 5 Ref 0 TAB Maicol Calderon DO Jul 08, 2016 16:44
[2016-07-08] MEDS ORDERED: HYDR-3533 PO (16:54)
[2016-07-09 23:54] LABS: HCV RNA PCR IU/ML 6570000 IU/mL (()); HCV RNA PCR LOGIU/ML 6.82 (())
== END 2016-07-08 17:57 | disposition home or self-care (01) | DRG 378 ==
LOC: NEPE 23:42 → NEDA 07-04 02:17 → NEDH 07-04 05:42 → N04A 07-04 16:21
PROVIDERS: ADMIT Hospitalist; ATTEND Hospitalist
PROC: 0DB68ZX Excision of Stomach, Via Natural or Artificial Opening Endoscopic, Diagnostic (ICD-10-PCS; 2016-07-04)
PROC: 30233N1 Transfusion of Nonautologous Red Blood Cells into Peripheral Vein, Percutaneous Approach (ICD-10-PCS; 2016-07-04)
PROC: 0DB98ZX Excision of Duodenum, Via Natural or Artificial Opening Endoscopic, Diagnostic (ICD-10-PCS; principal; 2016-07-04 13:20)
PROC: 0DJD8ZZ Inspection of Lower Intestinal Tract, Via Natural or Artificial Opening Endoscopic (ICD-10-PCS; 2016-07-07)
PROC: 0DBP8ZX Excision of Rectum, Via Natural or Artificial Opening Endoscopic, Diagnostic (ICD-10-PCS; 2016-07-08)
DX: K92.2 Gastrointestinal hemorrhage, unspecified (principal); D62 Acute posthemorrhagic anemia; D69.6 Thrombocytopenia, unspecified; K70.30 Alcoholic cirrhosis of liver without ascites; K25.9 Gastric ulcer, unspecified as acute or chronic, without hemorrhage or perforation; F10.10 Alcohol abuse, uncomplicated; J44.9 Chronic obstructive pulmonary disease, unspecified; K26.9 Duodenal ulcer, unspecified as acute or chronic, without hemorrhage or perforation; K44.9 Diaphragmatic hernia without obstruction or gangrene; I85.10 Secondary esophageal varices without bleeding; K64.8 Other hemorrhoids; Z79.1 Long term (current) use of non-steroidal anti-inflammatories (NSAID); K62.1 Rectal polyp; B19.20 Unspecified viral hepatitis C without hepatic coma; Z86.19 Personal history of other infectious and parasitic diseases; S01.81XD Laceration without foreign body of other part of head, subsequent encounter; F17.210 Nicotine dependence, cigarettes, uncomplicated; M17.0 Bilateral primary osteoarthritis of knee; Z23 Encounter for immunization
CPT/HCPCS: 36430; 71010; 74177; 76937; 80048; 80053; 81001; 83690; 85014; 85018; 85025; 85027; 85610; 85730; 86704; 86708; 86850; 86900; 86901; 86920; 87086; 87340; 87522; 87640; 87641; 87902; 88305; 88312; 90686; 93005; 96365; 96367; 96375; 96376; C9113; J0696; J2270; J2354; J2405; J3411; J7030; J7040; J7050; P9016; Q2038; Q9963; Q9967

== ENCOUNTER 2016-07-16 17:49 | Emergency (ER) | payer MEDICAID ==
[~2016-07-16] VITALS: Ht 180.3 cm; Wt 70.0 kg
[~2016-07-16 17:49] MED LIST changes: +CIPR-9 PO; -PRED20 PO; +PROT40TA PO
[2016-07-16 17:56] VITALS: BP 131/83; PULSE 103; RESP 18; TEMP 97.3; O2SAT 88
[2016-07-16 17:58] VITALS: O2SAT 92
[2016-07-16 18:45] VITALS: BP 152/88; PULSE 99; RESP 26; O2SAT 97
[2016-07-16] MEDS ORDERED: SODIUM CHLORIDE 0.9% FLUSH 10 ML FLUSH IV FLUSH PRN (19:30)
[2016-07-16 19:51] LABS: AUTOMATED NEUTROPHIL # 2.9 TH/MM3 (1.8-7.7); BASOPHIL # 0.2 TH/MM3 (0-0.2); BASOPHIL % 2.6 % (0.0-2.0); EOSINOPHIL # 0.3 TH/MM3 (0-0.4); EOSINOPHIL % 4.3 % (0.0-4.0); HEMATOCRIT 27.3 % (39.0-51.0); HEMO FLAGS DIFF FINAL; LYMPH % 33.7 % (9.0-44.0); MEAN CELL VOLUME 89.3 FL (80.0-100.0); MEAN CORPUSCULAR HEMOGLOBIN 29.1 PG (27.0-34.0); MEAN CORPUSCULAR HGB CONC 32.6 % (32.0-36.0); MONO % 12.3 % (0.0-8.0); NEUT % 47.1 % (16.0-70.0); PLATELET COUNT 268 TH/MM3 (150-450); RED BLOOD COUNT 3.06 MIL/MM3 (4.50-5.90); RED CELL DISTRIBUTION WIDTH 20.4 % (11.6-17.2); WHITE BLOOD COUNT 6.1 TH/MM3 (4.0-11.0)
--- NOTE | 2016-07-16 20:07 | RADRPT ---
EXAM DATE/TIME: 07/16/2016 19:32 [facility] COMPARISON: CHEST SINGLE AP, July 04, 2016, 0:09. INDICATIONS : Chest pain and possible free air; previous abdominal surgery 1 week ago. MEDICAL HISTORY : Chronic obstructive pulmonary disease. SURGICAL HISTORY : None. ENCOUNTER: Initial ACUITY: 4 - 6 days PAIN SCORE: 7/10 LOCATION: Bilateral chest FINDINGS: There is mild bibasilar atelectasis and diminished lung volumes are present bilaterally. There is no definite evidence of effusion. The visualized cardiac contours are satisfactory. There is no evidence of pneumoperitoneum. CONCLUSION: Basilar atelectasis. Bacilio Gonzalez MD on July 16, 2016 at 20:04 Board Certified Radiologist. This report was verified electronically.
[2016-07-16 20:08] LABS: ANION GAP 8 MEQ/L (5-15); AST (GOT) 170 U/L (15-37); BICARBONATE 25.6 MEQ/L (21.0-32.0); BLOOD UREA NITROGEN 4 MG/DL (7-18); CHLORIDE 110 MEQ/L (98-107); GLOMERULAR FILTRATION RATE 178 ML/MIN (>89); POTASSIUM 3.6 MEQ/L (3.5-5.1); SODIUM (NA) 144 MEQ/L (136-145)
[2016-07-16 20:11] LABS: ALKALINE PHOSPHATASE 136 U/L (45-117); ALT (GPT) 73 U/L (12-78); TOTAL BILIRUBIN ADULT 0.7 MG/DL (0.2-1.0)
[2016-07-16 20:23] LABS: APTT (PATIENT) 27.3 SEC (24.3-30.1); INTERNATIONAL NORMALIZED RATIO 1.1 RATIO
[2016-07-16] MEDS ORDERED: MORPHINE SULFATE 4 MG/ML INJ IV PUSH PRN (20:45)
[2016-07-16] MEDS ORDERED: cefTRIAXone INJ 2,000 MG in SODIUM CHLORIDE 0.9% INJ 100 ML IV ONE (21:00)
[2016-07-16] MEDS ORDERED: IOHEXOL 350 MG/ML 10 ML VIAL (for RAD DIAG) IV ONE (21:20)
--- NOTE | 2016-07-16 21:21 | PD ---
HPI Chief Complaint: Abdominal Pain Time Seen by Provider: 19:12 Travel History International Travel<30 days: No Contact w/Intl Traveler<30days: No Traveled to known affect area: No History of Present Illness HPI Patient 61-year-old male with a history of cirrhosis presents emergency department with increasing abdominal distention abdominal pain. Patient states that his swelling is come up since his colonoscopy last week. He was admitted to the hospital for a GI bleed had colonoscopy and polypectomy approximate 4 days ago. Patient states since that time his belly is become increasingly distended. Does have a history of alcoholism. Patient states she's never had to have fluid drained off his abdomen before. Denies any fever. PFSH Past Medical History Arthritis: Yes (NGOZI KNEES) Asthma: No Blood Disorders: Yes Anxiety: No Depression: No Heart Rhythm Problems: No Cancer: No Cardiovascular Problems: No High Cholesterol: No Chest Pain: Yes Congestive Heart Failure: No Cirrhosis: Yes COPD: Yes Diabetes: No Diminished Hearing: No Endocrine: No Gastrointestinal Disorders: Yes (coughing up blood , dark red blood in stool ) Genitourinary: No Hepatitis: Yes (HEP A, B, & C) Hypertension: No Immune Disorder: No Implanted Vascular Access Dvce: No Musculoskeletal: Yes Neurologic: No Psychiatric: No Reproductive: No Respiratory: Yes (COPD) Integumentary: Yes (HX MRSA) Immunizations Current: No Sleep Apnea: No Thyroid Disease: No Tetanus Vaccination: < 5 Years Influenza Vaccination: Yes Past Surgical History Neurologic Surgery: No Oral Surgery: Yes (SURGERY ON BILATERAL JAW 1982. ESOPHOGUS) Other Surgery: Yes (RIGHT ARM/SURGICAL LAC REPAIR ) Social History Alcohol Use: Yes Tobacco Use: Yes (4-5 cig/day) Substance Use: No Allergies-Medications (Allergen,Severity, Reaction): Coded Allergies: Codeine (Verified Adverse Reaction, Intermediate, Nausea/Vomiting, 07/16/16) Darvocet-N 100 (Verified Adverse Reaction, Intermediate, n/v, 07/16/16) *MDRO Multi-Drug Resistant Organism (Verified Adverse Reaction, Unknown, ) MRSA PCR Screen Positive 07/05/16 Reported Meds & Prescriptions Reported Meds & Active Scripts Active Lortab (Hydrocodone-Acetaminophen) 5-325 Mg Tab 1 Tab PO Q6H PRN Cipro (Ciprofloxacin HCl) 500 Mg Tab 500 Mg PO BID Protonix (Pantoprazole Sodium) 40 Mg Tab 40 Mg PO DAILY Review of Systems Except as stated in HPI: all other systems reviewed are Neg Physical Exam Narrative GENERAL: Well-developed well-nourished distress. Unkempt, smells of cigarette smoke. SKIN: Focused skin assessment warm/dry. HEAD: Atraumatic. Normocephalic. EYES: Pupils equal and round. No scleral icterus. No injection or drainage. ENT: No nasal bleeding or discharge. Mucous membranes pink and moist. NECK: Trachea midline. No JVD. CARDIOVASCULAR: Regular rate and rhythm. No murmur appreciated. RESPIRATORY: No accessory muscle use. Clear to auscultation. Breath sounds equal bilaterally. GASTROINTESTINAL: Abdomen soft, non-tender, distended positive fluid wave, firm but not rigid. No true percussive signs. Hepatic and splenic margins not palpable. MUSCULOSKELETAL: No obvious deformities. No clubbing. No cyanosis. No edema. NEUROLOGICAL: Awake and alert. No obvious cranial nerve deficits. Motor grossly within normal limits. Normal speech. PSYCHIATRIC: Appropriate mood and affect; insight and judgment normal. Data Data Last Documented VS Orders Complete Blood Count With Diff (07/16/16 19:23) Comprehensive Metabolic Panel (07/16/16 19:23) Lipase (07/16/16 19:23) Lactic Acid (07/16/16 19:23) Prothrombin Time / Inr (Pt) (07/16/16 19:23) Act Partial Throm Time (Ptt) (07/16/16 19:23) Urinalysis - C+S If Indicated (07/16/16 19:23) Iv Access Insert/Monitor (07/16/16 19:23) Ecg Monitoring (07/16/16 19:23) Oximetry (07/16/16 19:23) Sodium Chloride 0.9% Flush (Ns Flush) (07/16/16 19:30) Ed Poc Ultrasound (07/16/16 ) Chest, Single Ap (07/16/16 ) Peritoneal Cell Count + Diff (07/16/16 19:51) Total Protein Peritoneal Fluid (07/16/16 19:51) Albumin, Peritoneal Fluid (07/16/16 19:51) Glucose, Peritoneal Fluid (07/16/16 19:51) Ldh, Peritoneal Fluid (07/16/16 19:51) Amylase, Peritoneal Fluid (07/16/16 19:51) Cytology Request For Service (07/16/16 19:51) Ldh Serum (07/16/16 19:51) Ct Abd/Pel W Iv Contrast(Rout) (07/16/16 ) Ammonia (07/16/16 19:55) Morphine Inj (Morphine Inj) (07/16/16 20:45) Blood Culture (07/16/16 20:46) Fluid Culture And Gram Stain (07/16/16 20:46) Ceftriaxone Inj (Rocephin Inj) (07/16/16 21:00) Iohexol 350 Inj (Omnipaque 350 Inj) (07/16/16 21:20) Oxycodone (Roxicodone) (07/17/16 00:30) Labs MDM Medical Decision Making Medical Screen Exam Complete: Yes Emergency Medical Condition: Yes Differential Diagnosis Bowel perforation, SBP, chronic ascites, anemia, liver failure. Narrative Course Patient is a 61 year old male presents to the ER for evaluation of abdominal discomfort and distension. Patient has a history of liver disease, alcoholism and recent colonoscopy with polyp resection. Extensive workup ensues. Diagnostic paracentesis is very low risk for SBP, peritoneal bleed or bowel perforation. CT examination shows increasing ascites over the past week. Labs at similiar levels to discharge. Patient states has ride home, morphine given. Workup essentially at patient's prior discharge level. No indication for further workup. He was referred to a GI at his last discharge which he has not yet arranged. He is re-referred as well as to IR for consideration of US guided therapeutic large volume paracentesis. There is no indication for large volume paracentesis today. He is stable for discharge. DIscussed return to ED criteria. Procedures Procedure Narrative ABDOMINAL US: Massive ascites in Morrisons pouch and superpubic region. Amenable for midline approach diagnostic paracentesis. DIAGNOSTIC PARACENTESIS: After all r/b/c/a and all questions answered patient signed written consent for procedure. Patient voided bladder prior to procedure. Patient was scrubbed with chlorhexadine, sterilly draped for midline approach and possible LLQ approach. An 18 G spinal needle was passed into the abdominal cavity between umbilicus and using Z approach, no fluid yielded. An US probe was then sterilly draped. It revealed fluid had shifted after bedside ultrasound. The procedure was repeated under US guidance at the left lower quadrant at the rightward portion of the the triangle of safety. This yielded 120 cc of clear ascitic fluid. Procedure then terminated and specimen to lab. Puncture sites dressed with tegaderm. Patient tolerated well. Diagnosis Primary Impression: Abdominal discomfort Additional Impression: Ascites Qualified Code: K70.31 - Ascites due to alcoholic cirrhosis Referrals: Sharon Meneses MD Additional Instructions: Follow-up with a extension course coordinator as soon as possible. Follow-up with the interventional radiology new provided the phone #1-year-old for a form. Abstain from alcohol and Tylenol. Disposition: 01 DISCHARGE HOME Condition: Stable Jin Weldon MD Jul 16, 2016 21:21 Eosinophils # (Auto) 0.3 TH/MM3 Basophils # (Auto) 0.2 TH/MM3 CBC Comment DIFF FINAL Differential Comment Prothrombin Time 12.0 SEC Prothromb Time International 1.1 RATIO Ratio Activated Partial 27.3 SEC Thromboplast Time Sodium Level 144 MEQ/L Potassium Level 3.6 MEQ/L Chloride Level 110 MEQ/L Carbon Dioxide Level 25.6 MEQ/L Anion Gap 8 MEQ/L Blood Urea Nitrogen 4 MG/DL Creatinine 0.48 MG/DL Estimat Glomerular Filtration 178 ML/MIN Rate Random Glucose 92 MG/DL Lactic Acid Level 1.7 mmol/L Calcium Level 7.5 MG/DL Total Bilirubin 0.7 MG/DL Aspartate Amino Transf 170 U/L (AST/SGOT) Alanine Aminotransferase 73 U/L (ALT/SGPT) Alkaline Phosphatase 136 U/L Total Protein 7.0 GM/DL Albumin 2.4 GM/DL Lipase 173 U/L Ammonia 38 MCMOL/L Lactate Dehydrogenase 334 U/L Urine Color YELLOW Urine Turbidity CLEAR Urine pH 6.0 Urine Specific [place] 1.016 Urine Protein NEG mg/dL Urine Glucose (UA) NEG mg/dL Urine Ketones NEG mg/dL Urine Occult Blood NEG Urine Nitrite NEG Urine Bilirubin NEG Urine Urobilinogen LESS THAN 2.0 MG/DL Urine Leukocyte Esterase NEG Urine RBC LESS THAN 1 /hpf Urine WBC 1 /hpf Urine Squamous Epithelial <1 /hpf Cells Urine Mucus FEW /lpf Microscopic Urinalysis Comment CULT NOT INDICATED Peritoneal Fluid WBC 109 /MM3 Peritoneal Fluid RBC 268 /MM3 Peritoneal Fluid Neutrophils 1 % Peritoneal Fluid Lymphocytes 38 % Peritoneal Fluid Monocytes 32 % Peritoneal Fluid Mesothelial 2 % Cells Peritoneal Fluid Histiocytes 27 % Peritoneal Fluid Total Protein 0.3 GM/DL Peritoneal Fluid Albumin 0.2 G/DL Peritoneal Fluid LDH 39 U/L Peritoneal Fluid Glucose 104 MG/DL Peritoneal Fluid Amylase 25 U/L MDM Medical Decision Making Medical Screen Exam Complete: Yes Emergency Medical Condition: Yes Diagnosis Primary Impression: Abdominal discomfort Additional Impression: Ascites Qualified Code: K70.31 - Ascites due to alcoholic cirrhosis Referrals: Sharon Meneses MD Additional Instructions: Follow-up with a extension course coordinator as soon as possible. Follow-up with the interventional radiology new provided the phone #1-year-old for a form. Abstain from alcohol and Tylenol. Disposition: 01 DISCHARGE HOME Condition: Stable Jin Weldon MD Jul 16, 2016 21:21
[2016-07-16 21:37] LABS: BLOOD, URINE NEG (NEG); COMMENT (UR) CULT NOT INDICATED; CULTURE IF INDICATED CULT NOT INDICATED; GLUCOSE,URINE NEG (NEG); KETONE, URINE NEG (NEG); MUCUS URINE FEW /lpf (OCC); NITRITE,URINE NEG (NEG); SQUAMOUS EPITHELIAL CELL URINE <1 /hpf (0-5); URINE COLOR YELLOW (YELLW/STRAW)
--- NOTE | 2016-07-16 21:50 | RADRPT ---
EXAM DATE/TIME: 07/16/2016 20:58 [facility] COMPARISON: No previous studies available for comparison. INDICATIONS : Abdomen pain for one week along with distention. Evaluate for possible perforation. IV CONTRAST: 99 cc Omnipaque 350 (iohexol) IV ORAL CONTRAST: No oral contrast ingested. RADIATION DOSE: 9.96 CTDIvol (mGy) MEDICAL HISTORY : Cirrhosis. Hepatitis C. SURGICAL HISTORY : Esophageal banding ENCOUNTER: Initial ACUITY: 1 week PAIN SCALE: 4/10 LOCATION: abdomen TECHNIQUE: Volumetric scanning of the abdomen and pelvis was performed. Using automated exposure control and ad justment of the mA and/or kV according to patient size, radiation dose was kept as low as reasonably achievable to obtain optimal diagnostic quality images. FINDINGS: Comparison is July 04. Again seen is liver cirrhosis. Since previous exam moderate ascites has devel oped in the abdomen and pelvis. There is also mild anasarca. Lung bases demonstrate linear areas of atelectasis and scarring. Spleen, adrenals and pancreas demons trate no acute findings. No calcified gallstones. No obstructing 2 mm left renal calculus. No hydrone phrosis. There is a healing left 12th rib fracture. Otherwise no acute bony abnormalities. CONCLUSION: 1. Development of moderate ascites compared with July 04. Mild anasarca. 2. Nonobstructing small left renal calculus. 3. Subacute healing left 12th rib fracture. 4. Small umbilical hernia containing fluid. Christopher Babin MD on July 16, 2016 at 21:42 Board Certified Radiologist. This report was verified electronically.
[2016-07-16 22:04] VITALS: BP 148/73; PULSE 89; RESP 12; O2SAT 88
[2016-07-16 22:05] VITALS: O2SAT 95
[2016-07-16 23:18] LABS: PERITONEAL HISTIOCYTES 27 %; PERITONEAL LYMPHS 38 %; PERITONEAL MESOTHELIAL 2 %; PERITONEAL MONOS 32 %; PERITONEAL POLYS(SEGS) 1 %; PERITONEAL WBC 109 /MM3 (0-10)
[2016-07-17 00:15] VITALS: BP 129/80; PULSE 90; RESP 16; O2SAT 95
== END 2016-07-17 01:33 | disposition home or self-care (01) ==
LOC: NEPC 17:49
DX: K70.31 Alcoholic cirrhosis of liver with ascites (principal); J44.9 Chronic obstructive pulmonary disease, unspecified; F17.210 Nicotine dependence, cigarettes, uncomplicated
CPT/HCPCS: 49083; 71010; 74177; 80053; 81001; 82042; 82140; 82150; 82945; 83605; 83615; 83690; 84157; 85025; 85610; 85730; 87040; 87070; 87205; 89051; 96374; 96375; 99285; J0696; J2270; Q9967

== ENCOUNTER 2016-07-31 09:06 | Observation (INO) | payer MEDICAID ==
[~2016-07-31] VITALS: Ht 180.3 cm; Wt 69.0 kg
[2016-07-31] VITALS (10 sets, daily range): BP systolic 132–146; BP diastolic 71–92; PULSE 98–105; RESP 12–18; TEMP 95.5–98; O2SAT 94–99
[2016-07-31] MEDS ORDERED: FURO1TAB62 PO (09:19)
[2016-07-31] MEDS ORDERED: PARO20TA2 PO (09:19)
[2016-07-31] MEDS ORDERED: methylPREDNISolone SOD SUCC 125 MG/2 ML VIAL IVP ONE (09:45)
[2016-07-31] MEDS: SODIUM CHLORIDE 0.9% FLUSH 10 ML FLUSH IV FLUSH PRN ×2 (09:47→10:39)
--- NOTE | 2016-07-31 09:50 | PD ---
HPI Chief Complaint: Chest Pain Time Seen by Provider: 09:32 Travel History International Travel<30 days: No Contact w/Intl Traveler<30days: No Traveled to known affect area: No History of Present Illness HPI 61yo M with PMH of alcohol abuse, cirrhosis, COPD presents to the ED with multiple complaints today. Pt states he has been having abdominal distension and pain since colonoscopy 2 weeks ago. Pt was evaluated in the ED on 07/16/16 for this and had paracentesis performed as well as CTa/p that showed increased ascites. Pt states he feel more bloating over time and pain is periumbilical. +Nausea. Pt also states he started having left sided chest pain yesterday that is nonradiating and sharp. States chest pain is intermittent and he has not had any cardiac work up recently. Pt has COPD and states he is always sob and did use his inhaler today. Pt also requesting to have his sutures removed in right eye brow. Denies any fever, vomiting, urinary complaints, focal weakness or numbness. PFSH Past Medical History Arthritis: Yes (NGOZI KNEES) Asthma: No Blood Disorders: Yes Anxiety: No Depression: No Heart Rhythm Problems: No Cancer: No Cardiovascular Problems: No High Cholesterol: No Chest Pain: Yes Congestive Heart Failure: No Cirrhosis: Yes COPD: Yes Diabetes: No Diminished Hearing: No Endocrine: No Gastrointestinal Disorders: Yes (coughing up blood , dark red blood in stool ) Genitourinary: No Hepatitis: Yes (HEP A, B, & C) Hypertension: No Immune Disorder: No Implanted Vascular Access Dvce: No Musculoskeletal: Yes Neurologic: No Psychiatric: No Reproductive: No Respiratory: Yes (COPD) Integumentary: Yes (HX MRSA) Immunizations Current: No Sleep Apnea: No Thyroid Disease: No Tetanus Vaccination: < 5 Years Influenza Vaccination: Yes Past Surgical History Oral Surgery: Yes (SURGERY ON BILATERAL JAW 1982. ESOPHOGUS) Other Surgery: Yes (RIGHT ARM/SURGICAL LAC REPAIR ) Social History Alcohol Use: No (quit ) Tobacco Use: Yes (4-5 cig/day) Substance Use: No Allergies-Medications (Allergen,Severity, Reaction): Coded Allergies: Codeine (Verified Adverse Reaction, Intermediate, Nausea/Vomiting, 07/31/16 ) Darvocet-N 100 (Verified Adverse Reaction, Intermediate, n/v, 07/31/16) *MDRO Multi-Drug Resistant Organism (Verified Adverse Reaction, Unknown, ) MRSA PCR Screen POSITIVE - 07/05/16 Reported Meds & Prescriptions Reported Meds & Active Scripts Active Protonix (Pantoprazole Sodium) 40 Mg Tab 40 Mg PO DAILY Reported Lasix (Furosemide) 20 Mg Tab 20 Mg PO DAILY Paroxetine (Paroxetine HCl) 20 Mg Tab 20 Mg PO DAILY Review of Systems Except as stated in HPI: all other systems reviewed are Neg Physical Exam Narrative GENERAL: 61yo M not in distress. SKIN: Focused skin assessment warm/dry. HEAD: +Sutures right eyebrow. EYES: Pupils equal and round. No scleral icterus. No injection or drainage. ENT: No nasal bleeding or discharge. Mucous membranes pink and moist. NECK: Trachea midline. No JVD. CARDIOVASCULAR: Regular rate and rhythm. No murmur appreciated. RESPIRATORY: + accessory muscle use. Clear to auscultation. Breath sounds equal bilaterally. GASTROINTESTINAL: Abdomen softly distended, mild tenderness periumbilical region. MUSCULOSKELETAL: No obvious deformities. No clubbing. No cyanosis. No edema. NEUROLOGICAL: Awake and alert. No obvious cranial nerve deficits. Motor grossly within normal limits. Normal speech. PSYCHIATRIC: Appropriate mood and affect; insight and judgment normal. Data Data Last Documented VS Vital Signs Date Time Temp Pulse Resp B/P Pulse Ox O2 Delivery O2 Flow Rate FiO2 07/31/16 12:15 98.0 101 18 146/82 99 Room Air 07/31/16 10:10 21 Orders Electrocardiogram (07/31/16 ) Complete Blood Count With Diff (07/31/16 09:40) Comprehensive Metabolic Panel (07/31/16 09:40) Lipase (07/31/16 09:40) Prothrombin Time / Inr (Pt) (07/31/16 09:40) Act Partial Throm Time (Ptt) (07/31/16 09:40) Urinalysis - C+S If Indicated (07/31/16 09:40) Ct Abd/Pel W Iv Contrast(Rout) (07/31/16 09:40) Iv Access Insert/Monitor (07/31/16 09:40) Ecg Monitoring (07/31/16 09:40) Oximetry (07/31/16 09:40) Sodium Chloride 0.9% Flush (Ns Flush) (07/31/16 09:45) Chest, Single Ap (07/31/16 09:40) Troponin I (07/31/16 09:40) Ckmb (Isoenzyme) Profile (07/31/16 09:40) B-Type Natriuretic Peptide (07/31/16 09:40) Methylprednisolone So Succ Inj (Solumedr (07/31/16 09:45) Albuterol-Ipratropium Neb (Duoneb Neb) (07/31/16 09:45) CKMB (07/31/16 09:41) CKMB% (07/31/16 09:41) Morphine Inj (Morphine Inj) (07/31/16 10:45) Iohexol 350 Inj (Omnipaque 350 Inj) (07/31/16 11:28) Admit Order (Ed Use Only) (07/31/16 12:24) Potassium Chloride (Kcl) (07/31/16 12:30) Labs Laboratory Tests Test 07/31/16 07/31/16 09:41 10:00 White Blood Count 6.6 TH/MM3 Red Blood Count 3.75 MIL/MM3 Hemoglobin 10.4 GM/DL Hematocrit 31.9 % Mean Corpuscular Volume 85.1 FL Mean Corpuscular Hemoglobin 27.7 PG Mean Corpuscular Hemoglobin 32.5 % Concent Red Cell Distribution Width 20.8 % Platelet Count 237 TH/MM3 Mean Platelet Volume 8.4 FL Neutrophils (%) (Auto) 65.7 % Lymphocytes (%) (Auto) 18.8 % Monocytes (%) (Auto) 12.8 % Eosinophils (%) (Auto) 2.1 % Basophils (%) (Auto) 0.6 % Neutrophils # (Auto) 4.4 TH/MM3 Lymphocytes # (Auto) 1.2 TH/MM3 Monocytes # (Auto) 0.9 TH/MM3 Eosinophils # (Auto) 0.1 TH/MM3 Basophils # (Auto) 0.0 TH/MM3 CBC Comment DIFF FINAL Differential Comment Prothrombin Time 13.3 SEC Prothromb Time International 1.2 RATIO Ratio Activated Partial 25.9 SEC Thromboplast Time Sodium Level 136 MEQ/L Potassium Level 3.1 MEQ/L Chloride Level 101 MEQ/L Carbon Dioxide Level 25.1 MEQ/L Anion Gap 10 MEQ/L Blood Urea Nitrogen 6 MG/DL Creatinine 0.57 MG/DL Estimat Glomerular Filtration 146 ML/MIN Rate Random Glucose 105 MG/DL Calcium Level 8.2 MG/DL Total Bilirubin 2.0 MG/DL Aspartate Amino Transf 124 U/L (AST/SGOT) Alanine Aminotransferase 51 U/L (ALT/SGPT) Alkaline Phosphatase 126 U/L Total Creatine Kinase 226 U/L Creatine Kinase MB 8.8 NG/ML Troponin I LESS THAN 0.02 NG/ML Total Protein 8.1 GM/DL Albumin 2.7 GM/DL Triglycerides Level 84 MG/DL Cholesterol Level 125 MG/DL LDL Cholesterol 78 MG/DL HDL Cholesterol 30.3 MG/DL Cholesterol/HDL Ratio 4.12 RATIO Lipase 221 U/L Ethyl Alcohol Level LESS THAN 3 MG/DL Urine Color DARK-BROWN Urine Turbidity CLEAR Urine pH 6.5 Urine Specific [place] 1.027 Urine Protein 30 mg/dL Urine Glucose (UA) NEG mg/dL Urine Ketones NEG mg/dL Urine Occult Blood NEG Urine Nitrite NEG Urine Bilirubin SMALL Urine Urobilinogen 8.0 MG/DL Urine Leukocyte Esterase NEG Urine WBC 1 /hpf Urine Squamous Epithelial <1 /hpf Cells Urine Mucus MANY /lpf Microscopic Urinalysis Comment CULT NOT INDICATED Urine Opiates Screen NEG Urine Barbiturates Screen NEG Urine Amphetamines Screen NEG Urine Benzodiazepines Screen NEG Urine Cocaine Screen NEG Urine Cannabinoids Screen NEG MDM Medical Decision Making Medical Screen Exam Complete: Yes Emergency Medical Condition: Yes Interpretation(s) EKG: Sinus tachycardia at 102bpm. Normal axis. No ST segment elevation or depression. Differential Diagnosis Chronic ascites secondary to cirrhosis Atypical chest pain vs. ACS vs. pneumonia Narrative Course 61yo M with multiple complaints. Pt has left sided chest pain since yesterday that is new. Pt does have risk factors and even though troponin is negative, will want to observe pt with serial EKG and cardiac enzyme. Initially was going to admit to chest pain center but because of pt's multiple other medical problems, feel that it is more appropriate to admit to medicine service so this was changed. Discussed with resident physician and accepted to Dr. Agee's service. Labs showed no leukocytosis. H/H low at 10.4/31.9 which is better than baseline. K: 3.1, replaced orally. Total bilirubin is elevated at 2.0. LFTs elevated but at baseline. UA showed no leukocyte. Culture not indicated. CTa/p showed no appreciable change in the cirrhotic liver and significant ascites. Pt reevaluated at bedside and states that chest pain and abdominal pain has improved with morphine. He is asking for a little more pain medication since it is returning. Abdomen is soft, distended and no rebound tenderness or guarding. Pt feels much better after duonebs and solumedrol. States he is no longer sob. Now has wheezing on exam but improved air entry. Diagnosis Primary Impression: OTHER CHEST PAIN Additional Impression: COPD exacerbation Admitting Information Admitting Physician Requests: Dipti Stallings DO Jul 31, 2016 09:50
[2016-07-31] MEDS: RESP: ALBUTEROL 2.5 MG/IPRATROPIUM 0.5 MG NEB (SCH) INH (10:04)
[2016-07-31 10:08] LABS: AUTOMATED NEUTROPHIL # 4.4 TH/MM3 (1.8-7.7); BASOPHIL % 0.6 % (0.0-2.0); EOSINOPHIL # 0.1 TH/MM3 (0-0.4); EOSINOPHIL % 2.1 % (0.0-4.0); HEMATOCRIT 31.9 % (39.0-51.0); HEMO FLAGS DIFF FINAL; LYMPH % 18.8 % (9.0-44.0); LYMPHOCYTE # 1.2 TH/MM3 (1.0-4.8); MEAN CELL VOLUME 85.1 FL (80.0-100.0); MEAN CORPUSCULAR HEMOGLOBIN 27.7 PG (27.0-34.0); MEAN CORPUSCULAR HGB CONC 32.5 % (32.0-36.0); MONO % 12.8 % (0.0-8.0); NEUT % 65.7 % (16.0-70.0); PLATELET COUNT 237 TH/MM3 (150-450); RED BLOOD COUNT 3.75 MIL/MM3 (4.50-5.90); RED CELL DISTRIBUTION WIDTH 20.8 % (11.6-17.2); WHITE BLOOD COUNT 6.6 TH/MM3 (4.0-11.0)
[2016-07-31 10:14] LABS: BLOOD, URINE NEG (NEG); COMMENT (UR) CULT NOT INDICATED; CULTURE IF INDICATED CULT NOT INDICATED; GLUCOSE,URINE NEG (NEG); KETONE, URINE NEG (NEG); MUCUS URINE MANY /lpf (OCC); NITRITE,URINE NEG (NEG); PH, URINE 6.5 (5.0-8.5); SQUAMOUS EPITHELIAL CELL URINE <1 /hpf (0-5)
[2016-07-31 10:15] LABS: URINE COLOR DARK-BROWN (YELLW/STRAW)
[2016-07-31 10:22] LABS: APTT (PATIENT) 25.9 SEC (24.3-30.1); INTERNATIONAL NORMALIZED RATIO 1.2 RATIO; PROTHROMBIN TIME - PATIENT 13.3 SEC (9.8-11.6)
[2016-07-31 10:24] LABS: ALT (GPT) 51 U/L (12-78); ANION GAP 10 MEQ/L (5-15); AST (GOT) 124 U/L (15-37); BICARBONATE 25.1 MEQ/L (21.0-32.0); BLOOD UREA NITROGEN 6 MG/DL (7-18); CHLORIDE 101 MEQ/L (98-107); GLOMERULAR FILTRATION RATE 146 ML/MIN (>89); POTASSIUM 3.1 MEQ/L (3.5-5.1); SODIUM (NA) 136 MEQ/L (136-145)
[2016-07-31 10:29] LABS: ALKALINE PHOSPHATASE 126 U/L (45-117); CREATINE KINASE 226 U/L (39-308)
--- NOTE | 2016-07-31 10:37 | RADRPT ---
EXAM DATE/TIME: 07/31/2016 10:01 [facility] COMPARISON: CHEST SINGLE AP, July 16, 2016, 19:32. INDICATIONS : Chest pain. MEDICAL HISTORY : Chronic obstructive pulmonary disease. SURGICAL HISTORY : None. ENCOUNTER: Initial ACUITY: 1 day PAIN SCORE: 7/10 LOCATION: Bilateral chest FINDINGS: There is an old healed fracture involving the medial aspect of the right clavicle. Old healed fractu re of the right 2nd rib posteriorly is also noted. The heart and mediastinal structures are stable. The pulmonary vascular pattern is normal. The lungs are clear. Degenerative changes are noted invo lving the bilateral shoulders and thoracic spine. CONCLUSION: 1. No acute cardiopulmonary disease. 2. Degenerative changes involving the shoulders bilaterally. 3. Old healed fractures of the right posterior 2nd rib and the medial portion of the right clavicle. 4. Degenerative changes involving the thoracic spine. Jin Quiroga MD on July 31, 2016 at 10:29 Board Certified Radiologist. This report was verified electronically.
[2016-07-31 10:41] LABS: CKMB 8.8 NG/ML (0.5-3.6)
[2016-07-31] MEDS ORDERED: MORPHINE SULFATE 4 MG/ML INJ IV PUSH ONE ×2 (10:45→13:00)
[2016-07-31] MEDS ORDERED: IOHEXOL 350 MG/ML 10 ML VIAL (for RAD DIAG) IV ONE (11:28)
--- NOTE | 2016-07-31 11:45 | RADRPT ---
EXAM DATE/TIME: 07/31/2016 11:17 [facility] COMPARISON: CT ABDOMEN & PELVIS W CONTRAST, July 16, 2016, 20:58. INDICATIONS : Perumbilical pain starting two weeks ago after rectal surgery, IV CONTRAST: 97 cc Omnipaque 350 (iohexol) IV ORAL CONTRAST: No oral contrast ingested. RADIATION DOSE: 8.84 CTDIvol (mGy) MEDICAL HISTORY : Chronic obstructive pulmonary disease. Hepatitis A. Hepatitis B.Hep c SURGICAL HISTORY : rectal surgery ENCOUNTER: Initial ACUITY: 2 weeks PAIN SCALE: 8/10 LOCATION: Abdomen TECHNIQUE: Volumetric scanning of the abdomen and pelvis was performed. Using automated exposure control and ad justment of the mA and/or kV according to patient size, radiation dose was kept as low as reasonably achievable to obtain optimal diagnostic quality images. FINDINGS: CT Abdomen: The liver appears cirrhotic with significant ascites throughout the abdomen and pelvis no t significantly changed. There are multiple varices involving the gastroesophageal junction. The sple en, pancreas, right kidney, adrenals are unremarkable. There is no evidence for any appreciable patho logical adenopathy, or bowel obstruction. There are old healed rib fractures bilaterally. Chronic va scular calcifications are present involving the aorta, iliac arteries without any significant stenosi s or aneurysmal dilatations for technique. Punctate calcification is present in the left kidney most likely vascular, however could be a tiny stone not changed. Coronary artery calcifications are seen t ypically seen with CAD and need to be evaluated clinically. There are old healed rib fractures bilate rally. CT pelvis: There is no evidence for mass, abscess formation, or any significant adenopathy within the pelvis. CONCLUSION: No appreciable change in the cirrhotic liver and significant ascites. Dana Robert MD on July 31, 2016 at 11:37 Board Certified Radiologist. This report was verified electronically.
[2016-07-31] MEDS ORDERED: POTASSIUM CHLORIDE 20 MEQ CONTROLLED RELEASE TAB PO ONE (12:30)
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
[2016-07-31] MEDS ORDERED: NITROGLYCERIN 0.4 MG SL 25 TABS/BTL SL PRN (13:30)
[2016-07-31] MEDS ORDERED: SODIUM CHLORIDE 0.9% FLUSH 10 ML FLUSH IV FLUSH PRN (13:30)
[2016-07-31] MEDS ORDERED: MORPHINE SULFATE 4 MG/ML INJ IV PRN (13:30)
[2016-07-31] MEDS ORDERED: ASPIRIN 325 MG TAB PO SCH (14:00)
[2016-07-31] MEDS ORDERED: RESP: ALBUTEROL 2.5 MG/3 ML NEB (PRN) INH (14:00)
[2016-07-31] MEDS ORDERED: DOCUSATE SODIUM 100 MG CAP PO PRN (14:00)
[2016-07-31] MEDS ORDERED: ONDANSETRON HCL 4 MG/2 ML VIAL IV PRN (14:00)
[2016-07-31] MEDS ORDERED: RESP: ALBUTEROL 2.5 MG/IPRATROPIUM 0.5 MG NEB (PRN) INH (14:00)
[2016-07-31] MEDS ORDERED: LORazepam 2 MG TAB PO PRN (14:30)
[2016-07-31] MEDS ORDERED: LORazepam 2 MG/ML VIAL IV PUSH PRN ×4 (14:30)
[2016-07-31] MEDS ORDERED: NALOXONE HCL 0.4 MG/ML AMP IV PRN (14:30)
[2016-07-31] MEDS ORDERED: FLUMAZENIL 0.5 MG/5 ML VIAL IV PUSH PRN (14:30)
[2016-07-31] MEDS ORDERED: ACETAMINOPHEN 325 MG TAB PO PRN (14:30)
--- NOTE | 2016-07-31 16:09 | RADRPT ---
EXAM DATE/TIME: 07/31/2016 14:38 [place] COMPARISON: No previous studies available for comparison. INDICATIONS : Ascites. MEDICAL HISTORY : Chronic obstructive pulmonary disease. Syncope. Arthritis. Hepatitis A, B and C. Cirrhosis. SURGICAL HISTORY : Esophageal banding. Jaw surgery. Right arm surgery. ENCOUNTER: Initial ACUITY: 3 days PAIN SCORE: 2/10 LOCATION: Left lower quadrant FLUID: Total volume of 4,600 cc of clear, yellow fluid was removed. Fluid was sent to lab for ordered studies. Post procedure scanning reveals no hematoma or other complication. TECHNIQUE: 1. Ultrasound guidance for abdominal paracentesis. 2. Paracentesis. The risks, benefits, and alternatives to ultrasound guided paracentesis were explained to the patient in detail including the risk of bleeding and infection. Written and verbal informed consent was obt ained. With the patient on the ultrasound table, ultrasound imaging was used to select the most appropriate approach for paracentesis. Overlying skin was prepped and draped in the usual sterile fashion and wi th a local anesthetic, a dermatotomy was made with an 11 blade scalpel. A 6 Syriac [id number] ca theter was introduced into the peritoneal cavity and fluid was collected. The patient tolerated the procedure well and left the ultrasound suite in stable condition. CONCLUSION: Uncomplicated ultrasound guided paracentesis. Jin Quiroga MD on July 31, 2016 at 16:07 Board Certified Radiologist. This report was verified electronically.
[2016-07-31 17:02] LABS: PERITONEAL LYMPHS 56 %; PERITONEAL POLYS(SEGS) 11 %; PERITONEAL WBC 235 /MM3 (0-10)
[2016-07-31 17:03] LABS: PERITONEAL HISTIOCYTES 15 %; PERITONEAL MESOTHELIAL 7 %; PERITONEAL MONOS 11 %
[2016-07-31 17:27] LABS: AMPHETAMINE, URINE NEG (NEG); BARBITURATES, URINE NEG (NEG); COCAINE, URINE NEG (NEG)
[2016-07-31] MEDS ORDERED: BENZONATATE 100 MG CAP PO PRN (17:30)
[2016-07-31 17:31] LABS: APTT (PATIENT) 26.8 SEC (24.3-30.1)
[2016-07-31 17:40] LABS: HEMATOCRIT 29.5 % (39.0-51.0); MEAN CELL VOLUME 86.8 FL (80.0-100.0); MEAN CORPUSCULAR HEMOGLOBIN 26.9 PG (27.0-34.0); PLATELET COUNT 163 TH/MM3 (150-450); RED CELL DISTRIBUTION WIDTH 20.6 % (11.6-17.2); REVIEW FLAG FINAL; WHITE BLOOD COUNT 4.4 TH/MM3 (4.0-11.0)
[2016-07-31 17:42] LABS: CREATINE KINASE 178 U/L (39-308)
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
[2016-07-31 17:55] LABS: CKMB 8.8 NG/ML (0.5-3.6)
[2016-07-31] MEDS: LORazepam 1 MG TAB PO PRN (20:05)
[2016-07-31 20:17] LABS: HDL CHOLESTEROL 30.3 MG/DL (40.0-60.0)
[2016-07-31] MEDS ORDERED: SODIUM CHLORIDE 0.9% FLUSH 10 ML FLUSH IV FLUSH SCH (21:00)
[2016-07-31 22:16] LABS: CREATINE KINASE 272 U/L (39-308)
[2016-07-31 22:33] LABS: CKMB 11.4 NG/ML (0.5-3.6)
[2016-08-01] VITALS: BP 140/78; PULSE 106; RESP 18; TEMP 96.2; O2SAT 97
[2016-08-01] MEDS: LORazepam 1 MG TAB PO PRN ×2 (02:03→07:58)
[2016-08-01 04:34] VITALS: BP 151/78; PULSE 108; RESP 18; TEMP 96.3; O2SAT 96
[2016-08-01 06:01] LABS: BASOPHIL % 0.2 % (0.0-2.0); EOSINOPHIL % 0.1 % (0.0-4.0); HEMATOCRIT 29.1 % (39.0-51.0); HEMO FLAGS DIFF FINAL; LYMPH % 9.7 % (9.0-44.0); MEAN CELL VOLUME 86.1 FL (80.0-100.0); MEAN CORPUSCULAR HGB CONC 31.4 % (32.0-36.0); MONO % 12.8 % (0.0-8.0); NEUT % 77.2 % (16.0-70.0); PLATELET COUNT 213 TH/MM3 (150-450); RED BLOOD COUNT 3.38 MIL/MM3 (4.50-5.90); WHITE BLOOD COUNT 10.4 TH/MM3 (4.0-11.0)
[2016-08-01 06:32] LABS: BICARBONATE 25.4 MEQ/L (21.0-32.0); POTASSIUM 4.3 MEQ/L (3.5-5.1)
[2016-08-01 07:53] VITALS: BP 136/76; PULSE 102; RESP 18; TEMP 98.1; O2SAT 95
[2016-08-01 08:42] VITALS: O2SAT 96
[2016-08-01] MEDS ORDERED: HEPARIN SODIUM - SQ 10,000 UNITS/ML VIAL SQ SCH (09:00)
[2016-08-01] MEDS ORDERED: PNEUMOCOCCAL POLYVALENT INJ 25 MCG/0.5 ML SYR IM ONE (10:00)
[2016-08-01] MEDS ORDERED: INFLUENZA VIRUS VACCINE (QUADRIVALENT) 0.5 ML SYR IM ONE (10:00)
--- NOTE | 2016-08-01 10:25 | HHI.DCPOC ---
Discharge Care Plan Diagnosis: (1) Alcoholic cirrhosis of liver with ascites (2) Chest pain Goals to Promote Your Health * To prevent worsening of your condition and complications * To maintain your health at the optimal level Directions to Meet Your Goals Take your medications as prescribed Follow your dietary instruction Follow activity as directed Keep your appointments as scheduled Take your immunizations and boosters as scheduled If your symptoms worsen call your PCP, if no PCP go to Urgent Care Center or Emergency Room Smoking is Dangerous to Your Health. Avoid second hand smoke Call the 24-hour hour crisis hotline for domestic abuse at Philly Meyer MD R3 Aug 01, 2016 10:25
[2016-08-01] MEDS ORDERED: PROP10TA6 PO (10:29)
[2016-08-01] MEDS ORDERED: PROPRANOLOL HCL 10 MG TAB PO SCH (10:30)
[2016-08-01 11:16] VITALS: BP 143/76; PULSE 100; RESP 18; O2SAT 94
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
--- NOTE | 2016-08-01 19:36 | EKG ---
Date Performed: 07/31/2016 Time Performed: 18:14:59 PTAGE: 61 years EKG: Sinus rhythm WITH OCCASIONAL SUPRAVENTRICULAR PREMATURE COMPLEXES INCOMPLETE RIGHT BUNDLE BRANCH BLOCK Compared t o prior tracing no significant change BORDERLINE ECG PREVIOUS TRACING : 07/31/2016 09.25 DOCTOR: Armen Pryor Interpretating Date/Time 08/01/2016 19:33:44
--- NOTE | 2016-08-01 19:37 | EKG ---
Date Performed: 07/31/2016 Time Performed: 21:41:35 PTAGE: 61 years EKG: SINUS TACHYCARDIA INCOMPLETE RIGHT BUNDLE BRANCH BLOCK Compared to prior tracing no signifi cant change ABNORMAL RHYTHM ECG PREVIOUS TRACING : 07/31/2016 18.14 DOCTOR: Armen Pryor Interpretating Date/Time 08/01/2016 19:33:52
--- NOTE | 2016-08-01 20:00 | EKG ---
Date Performed: 07/31/2016 Time Performed: 09:25:38 PTAGE: 61 years EKG: SINUS TACHYCARDIA INCOMPLETE RIGHT BUNDLE BRANCH BLOCK Compared to prior tracing no signifi cant change ABNORMAL RHYTHM ECG NO PREVIOUS TRACING DOCTOR: Armen Pryor Interpretating Date/Time 08/05/2016 08:10:52
== END 2016-08-01 17:14 | disposition home or self-care (01) ==
LOC: NEPC 09:06 → NEDA 12:25 → NEPHCDU 15:55
PROVIDERS: ADMIT Family Medicine; ATTEND Family Medicine
DX: R07.9 Chest pain, unspecified (principal); K70.31 Alcoholic cirrhosis of liver with ascites; J44.1 Chronic obstructive pulmonary disease with (acute) exacerbation; F10.10 Alcohol abuse, uncomplicated; R14.0 Abdominal distension (gaseous); R11.0 Nausea; M19.90 Unspecified osteoarthritis, unspecified site; R04.2 Hemoptysis; K92.1 Melena; F17.210 Nicotine dependence, cigarettes, uncomplicated; R00.0 Tachycardia, unspecified; B15.9 Hepatitis A without hepatic coma; B19.10 Unspecified viral hepatitis B without hepatic coma; B19.20 Unspecified viral hepatitis C without hepatic coma; I45.10 Unspecified right bundle-branch block
CPT/HCPCS: 49083; 71010; 74177; 80048; 80053; 80061; 80307; 81001; 82550; 82552; 82945; 83690; 83880; 84443; 84484; 85025; 85027; 85610; 85730; 87070; 87205; 89051; 93005; 94150; 94640; 94664; 94667; 96374; 96375; 97161; 99285; C1729; G0378; G8987; G8988; J2270; J2930; Q9967

== ENCOUNTER 2016-08-11 15:10 | Emergency (ER) | payer MEDICAID ==
[~2016-08-11 15:10] MED LIST changes: -CIPR-9 PO; +FURO1TAB62 PO; -HYDR-3533 PO; +PARO20TA2 PO; +PROP10TA6 PO
[2016-08-11 16:00] VITALS: BP 134/67; PULSE 108; RESP 19; TEMP 97.8; O2SAT 92
[2016-08-11] MEDS ORDERED: ONDANSETRON HCL 4 MG/2 ML VIAL IV PUSH ONE (16:15)
[2016-08-11] MEDS ORDERED: SODIUM CHLORIDE 0.9% FLUSH 10 ML FLUSH IV FLUSH PRN (16:15)
[2016-08-11] MEDS ORDERED: MORPHINE SULFATE 4 MG/ML INJ IV PUSH ONE (16:15)
--- NOTE | 2016-08-11 16:16 | PD ---
HPI Chief Complaint: Abdominal Pain Time Seen by Provider: 16:14 Travel History International Travel<30 days: No Contact w/Intl Traveler<30days: No Traveled to known affect area: No History of Present Illness HPI Patient comes in complaining of worsening of his ascites causing him abdominal pain. Patient states is similar previous pain he's had from the ascites. Patient reports last time he had fluid drained was approximately 2 weeks ago. Patient describes pain as sharp stabbing pain in his right upper quadrant and left lower quadrant of his abdomen. Denies any known fevers, vomiting, chest pain, shortness of breath, loss or change of bowel or bladder, or numbness or tingling anywhere. Patient states he was supposed to follow-up with the GI but has not been able to do this yet. Patient reports associated nausea. Patient reports his primary care doctor is Dr. Lara. [facility] Past Medical History Arthritis: Yes (NGOZI KNEES) Asthma: No Blood Disorders: Yes Anxiety: No Depression: No Heart Rhythm Problems: No Cancer: No Cardiovascular Problems: No High Cholesterol: No Chest Pain: Yes Congestive Heart Failure: No Cirrhosis: Yes COPD: Yes Diabetes: No Diminished Hearing: No Endocrine: No Gastrointestinal Disorders: Yes (coughing up blood , dark red blood in stool ) Genitourinary: No Hepatitis: Yes (HEP A, B, & C) Hypertension: No Immune Disorder: No Implanted Vascular Access Dvce: No Musculoskeletal: Yes (muscle spasms) Neurologic: No Psychiatric: No Reproductive: No Respiratory: Yes (COPD) Integumentary: Yes (HX MRSA) Immunizations Current: No Sleep Apnea: No Thyroid Disease: No Past Surgical History Neurologic Surgery: No Oral Surgery: Yes (SURGERY ON BILATERAL JAW 1982. ESOPHOGUS) Other Surgery: Yes (RIGHT ARM/SURGICAL LAC REPAIR ) Social History Alcohol Use: Yes (2-3 beers a week) Tobacco Use: Yes (4-5 cig/day, smoked since he was 12 ) Substance Use: No Allergies-Medications (Allergen,Severity, Reaction): Coded Allergies: Codeine (Verified Adverse Reaction, Intermediate, Nausea/Vomiting, 07/31/16 ) Darvocet-N 100 (Verified Adverse Reaction, Intermediate, n/v, 07/31/16) *MDRO Multi-Drug Resistant Organism (Verified Adverse Reaction, Unknown, ) MRSA PCR Screen POSITIVE - 07/05/16 Reported Meds & Prescriptions Reported Meds & Active Scripts Active Tramadol (Tramadol HCl) 50 Mg Tab 50 Mg PO Q8H PRN Propranolol (Propranolol HCl) 10 Mg Tab 10 Mg PO Q8HR Protonix (Pantoprazole Sodium) 40 Mg Tab 40 Mg PO DAILY Reported Lasix (Furosemide) 20 Mg Tab 20 Mg PO DAILY Paroxetine (Paroxetine HCl) 20 Mg Tab 20 Mg PO DAILY Review of Systems Except as stated in HPI: all other systems reviewed are Neg Physical Exam Narrative GENERAL: Well-developed, well nourished, in no acute distress, and non-ill appearing. SKIN: Focused skin assessment warm and dry. HEAD: Atraumatic. Normocephalic. EYES: Pupils equal and round. EOMI. No scleral icterus. No injection or drainage. ENT: No nasal bleeding or discharge. Mucous membranes pink and moist. NECK: Trachea midline. Supple. No nuclear rigidity. CARDIOVASCULAR: Regular rate and rhythm. No murmur appreciated. RESPIRATORY: No accessory muscle use. No respiratory distress. Clear to auscultation. Breath sounds equal bilaterally. GASTROINTESTINAL: Abdomen soft, nontender, ascites is noted, distended. Hepatic and splenic margins not palpable. Normal bowel sounds 4. No pulsatile mass. MUSCULOSKELETAL: No obvious deformities. No clubbing. No cyanosis. No edema. Full range of motion. NEUROLOGICAL: Awake and alert. No obvious cranial nerve deficits. Motor grossly within normal limits. Normal speech. PSYCHIATRIC: Appropriate mood and affect; insight and judgment normal. Data Data Last Documented VS Vital Signs Date Time Temp Pulse Resp B/P Pulse Ox O2 Delivery O2 Flow Rate FiO2 08/11/16 17:39 16 08/11/16 16:00 97.8 108 134/67 92 Room Air Orders Complete Blood Count With Diff (08/11/16 16:10) Comprehensive Metabolic Panel (08/11/16 16:10) Lipase (08/11/16 16:10) Prothrombin Time / Inr (Pt) (08/11/16 16:10) Act Partial Throm Time (Ptt) (08/11/16 16:10) Iv Access Insert/Monitor (08/11/16 16:10) Ecg Monitoring (08/11/16 16:10) Oximetry (08/11/16 16:10) Sodium Chloride 0.9% Flush (Ns Flush) (08/11/16 16:15) Ondansetron Inj (Zofran Inj) (08/11/16 16:15) Morphine Inj (Morphine Inj) (08/11/16 16:15) Labs Laboratory Tests Test 08/11/16 16:20 White Blood Count 5.9 TH/MM3 Red Blood Count 3.45 MIL/MM3 Hemoglobin 9.2 GM/DL Hematocrit 28.5 % Mean Corpuscular Volume 82.8 FL Mean Corpuscular Hemoglobin 26.7 PG Mean Corpuscular Hemoglobin 32.2 % Concent Red Cell Distribution Width 20.5 % Platelet Count 287 TH/MM3 Mean Platelet Volume 8.1 FL Neutrophils (%) (Auto) 54.9 % Lymphocytes (%) (Auto) 25.2 % Monocytes (%) (Auto) 15.9 % Eosinophils (%) (Auto) 2.8 % Basophils (%) (Auto) 1.2 % Neutrophils # (Auto) 3.3 TH/MM3 Lymphocytes # (Auto) 1.5 TH/MM3 Monocytes # (Auto) 0.9 TH/MM3 Eosinophils # (Auto) 0.2 TH/MM3 Basophils # (Auto) 0.1 TH/MM3 CBC Comment DIFF FINAL Differential Comment Prothrombin Time 11.3 SEC Prothromb Time International 1.0 RATIO Ratio Activated Partial 26.7 SEC Thromboplast Time Sodium Level 142 MEQ/L Potassium Level 3.5 MEQ/L Chloride Level 109 MEQ/L Carbon Dioxide Level 23.8 MEQ/L Anion Gap 9 MEQ/L Blood Urea Nitrogen 5 MG/DL Creatinine 0.61 MG/DL Estimat Glomerular Filtration 135 ML/MIN Rate Random Glucose 113 MG/DL Calcium Level 7.8 MG/DL Total Bilirubin 0.8 MG/DL Aspartate Amino Transf 138 U/L (AST/SGOT) Alanine Aminotransferase 55 U/L (ALT/SGPT) Alkaline Phosphatase 170 U/L Total Protein 7.4 GM/DL Albumin 2.8 GM/DL Lipase 276 U/L [facility] Medical Decision Making Medical Screen Exam Complete: Yes Emergency Medical Condition: Yes Differential Diagnosis Electrolyte abnormality, ascites, abdominal pain, other Narrative Course Patient in no obvious distress upon re-evaluation. All pertinent laboratory result(s) discussed with patient. Patient was asked if they wanted to speak to my attending, which the patient did not wish to do at this time. Discussed patient with Dr. Sánchez prior to discharge, who is in agreement with plan of care and disposition. Any questions/concerns in reference to patient diagnosis/ condition discussed and clarified prior to patient's discharge. Reinforced sheer importance of close follow up with patient's primary physician or primary care clinic. Instructed patient to return to ED immediately, if symptoms return/ worsen. Pt showed understanding of above instructions. Further instructions and recommendations were detailed in discharge paperwork. Pt ambulated without difficulty out of ED at discharge. Diagnosis Primary Impression: Ascites Qualified Code: K70.31 - Ascites due to alcoholic cirrhosis Referrals: Sharon Meneses MD Patient Instructions: Ascites (ED), General Instructions Additional Instructions: Follow-up with your primary care physician and/or GI doctor this week for reevaluation. Call to schedule outpatient paracentesis. Take all medication as prescribed. Return to the emergency department if symptoms get worse. Scripts Tramadol 50 Mg Tab50 Mg PO Q8H PRN (PAIN) #7 TAB Ref 0 Prov:Judd Sánchez MD 08/11/16 Disposition: 01 DISCHARGE HOME Condition: Stable Ryder Story August 11, 2016 16:16
[2016-08-11 17:26] LABS: AUTOMATED NEUTROPHIL # 3.3 TH/MM3 (1.8-7.7); BASOPHIL # 0.1 TH/MM3 (0-0.2); BASOPHIL % 1.2 % (0.0-2.0); EOSINOPHIL # 0.2 TH/MM3 (0-0.4); EOSINOPHIL % 2.8 % (0.0-4.0); HEMATOCRIT 28.5 % (39.0-51.0); HEMO FLAGS DIFF FINAL; LYMPH % 25.2 % (9.0-44.0); LYMPHOCYTE # 1.5 TH/MM3 (1.0-4.8); MEAN CELL VOLUME 82.8 FL (80.0-100.0); MEAN CORPUSCULAR HEMOGLOBIN 26.7 PG (27.0-34.0); MEAN CORPUSCULAR HGB CONC 32.2 % (32.0-36.0); MONO % 15.9 % (0.0-8.0); NEUT % 54.9 % (16.0-70.0); PLATELET COUNT 287 TH/MM3 (150-450); RED BLOOD COUNT 3.45 MIL/MM3 (4.50-5.90); RED CELL DISTRIBUTION WIDTH 20.5 % (11.6-17.2); WHITE BLOOD COUNT 5.9 TH/MM3 (4.0-11.0)
[2016-08-11 17:33] LABS: APTT (PATIENT) 26.7 SEC (24.3-30.1); PROTHROMBIN TIME - PATIENT 11.3 SEC (9.8-11.6)
[2016-08-11 17:39] VITALS: RESP 16
[2016-08-11 17:50] LABS: ALT (GPT) 55 U/L (12-78); ANION GAP 9 MEQ/L (5-15); AST (GOT) 138 U/L (15-37); BICARBONATE 23.8 MEQ/L (21.0-32.0); BLOOD UREA NITROGEN 5 MG/DL (7-18); CHLORIDE 109 MEQ/L (98-107); GLOMERULAR FILTRATION RATE 135 ML/MIN (>89); POTASSIUM 3.5 MEQ/L (3.5-5.1); SODIUM (NA) 142 MEQ/L (136-145)
[2016-08-11 17:51] LABS: ALKALINE PHOSPHATASE 170 U/L (45-117); TOTAL BILIRUBIN ADULT 0.8 MG/DL (0.2-1.0)
[2016-08-11] MEDS ORDERED: TRAM50TA PO (18:58)
== END 2016-08-11 19:46 | disposition home or self-care (01) ==
LOC: NEPE 15:10
DX: K70.31 Alcoholic cirrhosis of liver with ascites (principal); R10.32 Left lower quadrant pain; R10.11 Right upper quadrant pain; J44.9 Chronic obstructive pulmonary disease, unspecified; F17.210 Nicotine dependence, cigarettes, uncomplicated
CPT/HCPCS: 80053; 83690; 85025; 85610; 85730; 96374; 96375; 99284; J2270; J2405

== ENCOUNTER 2016-09-02 11:30 | Inpatient (IN) | payer MEDICAID ==
[~2016-09-02] VITALS: Ht 180.3 cm; Wt 80.5 kg
[2016-09-02] VITALS (10 sets, daily range): BP systolic 87–150; BP diastolic 55–89; PULSE 91–119; RESP 16–20; TEMP 97.3–97.7; O2SAT 95–100
[~2016-09-02 11:30] MED LIST changes: +TRAM50TA PO
[2016-09-02] MEDS ORDERED: SODIUM CHLOR 0.9% 1000 ML INJ 1,000 ML IV SCH (11:59)
[2016-09-02] MEDS ORDERED: ONDANSETRON HCL 4 MG/2 ML VIAL IV PUSH ONE (12:00)
[2016-09-02] MEDS ORDERED: PANTOPRAZOLE SODIUM 40 MG VIAL IVP ONE (12:00)
[2016-09-02] MEDS ORDERED: SODIUM CHLOR 0.9% 1000 ML INJ 1,000 ML IV ONE (12:00)
--- NOTE | 2016-09-02 12:08 | PD ---
HPI Chief Complaint: GI Complaint Time Seen by Provider: 12:05 Travel History International Travel<30 days: No Contact w/Intl Traveler<30days: No Traveled to known affect area: No History of Present Illness HPI 61 year old male presents to the emergency department for evaluation of vomiting blood that started this morning. Patient has history of alcohol abuse , liver cirrhosis, hepatitis. He was last seen here in June 2016 for upper GI bleed. He was found to have multiple ulcers and esophageal varices grade 1. Patient states that he had 3 shots and 2 beers yesterday. He also took 3 aspirin yesterday. He denies any ibuprofen use. He does state that he had a syncopal episode today, but denies hitting his head. He does complain of right upper quadrant and epigastric abdominal pain. Patient denies any previous abdominal surgeries. He does not have an outpatient safety counselor. He states he has had hot sweats, but no documented fevers. No chest pain or shortness of breath. PFSH Past Medical History Arthritis: Yes (NGOZI KNEES) Asthma: No Blood Disorders: Yes Anxiety: No Depression: No Heart Rhythm Problems: No Cancer: No Cardiovascular Problems: No High Cholesterol: No Chest Pain: Yes Congestive Heart Failure: No Cirrhosis: Yes COPD: Yes Diabetes: No Diminished Hearing: No Endocrine: No Gastrointestinal Disorders: Yes Genitourinary: No Hepatitis: Yes (HEP A, B, & C) Hypertension: No Immune Disorder: No Implanted Vascular Access Dvce: No Musculoskeletal: Yes (muscle spasms) Neurologic: No Psychiatric: No Reproductive: No Respiratory: Yes (COPD) Integumentary: Yes (HX MRSA) Immunizations Current: Yes Sleep Apnea: No Thyroid Disease: No Ulcer: Yes Tetanus Vaccination: < 5 Years Influenza Vaccination: Yes Past Surgical History Neurologic Surgery: No Oral Surgery: Yes (SURGERY ON BILATERAL JAW 1982. ESOPHOGUS) Thoracic Surgery: Yes (neck) Other Surgery: Yes (RIGHT ARM/SURGICAL LAC REPAIR ) Social History Alcohol Use: Yes (daily) Tobacco Use: Yes (daily) Substance Use: No (hx of marrijauana 15 yrs ago) Allergies-Medications (Allergen,Severity, Reaction): Coded Allergies: Codeine (Verified Adverse Reaction, Intermediate, Nausea/Vomiting, 07/31/16 ) Darvocet-N 100 (Verified Adverse Reaction, Intermediate, n/v, 07/31/16) *MDRO Multi-Drug Resistant Organism (Verified Adverse Reaction, Unknown, ) MRSA PCR Screen POSITIVE - 07/05/16 Reported Meds & Prescriptions Reported Meds & Active Scripts Active Tramadol (Tramadol HCl) 50 Mg Tab 50 Mg PO Q8H PRN Propranolol (Propranolol HCl) 10 Mg Tab 10 Mg PO Q8HR Protonix (Pantoprazole Sodium) 40 Mg Tab 40 Mg PO DAILY Reported Proair Hfa 8.5 GM Inh (Albuterol Sulfate) 90 Mcg/Act Aer 2 Puff INH TID PRN Lasix (Furosemide) 20 Mg Tab 20 Mg PO DAILY Paroxetine (Paroxetine HCl) 20 Mg Tab 20 Mg PO DAILY Review of Systems Except as stated in HPI: all other systems reviewed are Neg Physical Exam Narrative GENERAL: Well-nourished, well-developed male patient, afebrile. SKIN: Focused skin assessment warm/dry. HEAD: Normocephalic. Atraumatic. EYES: No scleral icterus. No injection or drainage. NECK: Supple, trachea midline. No JVD or lymphadenopathy. CARDIOVASCULAR: Regular rate and rhythm without murmurs, gallops, or rubs. RESPIRATORY: Breath sounds equal bilaterally. No accessory muscle use. Lungs sounds are clear to auscultation. GASTROINTESTINAL: Abdomen soft and nondistended. Patient has tenderness over right upper quadrant epigastric region. MUSCULOSKELETAL: No cyanosis, or edema. BACK: Nontender without obvious deformity. No CVA tenderness. RECTAL EXAM: No masses or tenderness, stool is dark brown. Hemoccult was positive. This exam was done with the nurse at bedside Data Data Last Documented VS Vital Signs Date Time Temp Pulse Resp B/P Pulse Ox O2 Delivery O2 Flow Rate FiO2 09/02/16 12:43 113 20 107/62 97 Room Air 09/02/16 11:36 97.3 Orders Complete Blood Count With Diff (09/02/16 11:59) Comprehensive Metabolic Panel (09/02/16 11:59) Lipase (09/02/16 11:59) Prothrombin Time / Inr (Pt) (09/02/16 11:59) Act Partial Throm Time (Ptt) (09/02/16 11:59) Alcohol (Ethanol) (09/02/16 11:59) Type And Screen (09/02/16 11:59) Ecg Monitoring (09/02/16 11:59) Iv Access Insert/Monitor (09/02/16 11:59) Oximetry (09/02/16 11:59) Pantoprazole Inj (Protonix Inj) (09/02/16 12:00) Sodium Chlor 0.9% 1000 Ml Inj (Ns 1000 M (09/02/16 11:59) Sodium Chloride 0.9% Flush (Ns Flush) (09/02/16 12:00) Sodium Chlor 0.9% 1000 Ml Inj (Ns 1000 M (09/02/16 12:00) Electrocardiogram (09/02/16 ) Red Blood Cells (Rbc) (09/02/16 12:41) Blood Product Administration .UPON TRANSFUSION (09/02/16 12:41) Sodium Chlor 0.9% 250 Ml Inj (Ns 250 Ml (09/02/16 12:45) Diet Npo (09/02/16 Lunch) Consult Gastroenterology (09/02/16 ) Octreotide Inj (Sandostatin Inj) (09/02/16 13:15) Octreotide Inj (Sandostatin Inj) (09/02/16 14:15) Pantoprazole Inj (Protonix Inj) (09/02/16 13:15) Admit Order (Ed Use Only) (09/02/16 13:13) Labs Laboratory Tests Test 09/02/16 09/02/16 12:00 13:00 White Blood Count 6.3 TH/MM3 Red Blood Count 3.03 MIL/MM3 Hemoglobin 7.6 GM/DL Hematocrit 24.3 % Mean Corpuscular Volume 80.3 FL Mean Corpuscular Hemoglobin 25.2 PG Mean Corpuscular Hemoglobin 31.3 % Concent Red Cell Distribution Width 20.0 % Platelet Count 291 TH/MM3 Mean Platelet Volume 8.4 FL Neutrophils (%) (Auto) 57.0 % Lymphocytes (%) (Auto) 27.0 % Monocytes (%) (Auto) 14.4 % Eosinophils (%) (Auto) 0.7 % Basophils (%) (Auto) 0.9 % Neutrophils # (Auto) 3.6 TH/MM3 Lymphocytes # (Auto) 1.7 TH/MM3 Monocytes # (Auto) 0.9 TH/MM3 Eosinophils # (Auto) 0.0 TH/MM3 Basophils # (Auto) 0.1 TH/MM3 CBC Comment DIFF FINAL Differential Comment Prothrombin Time 13.7 SEC Prothromb Time International 1.2 RATIO Ratio Activated Partial 23.2 SEC Thromboplast Time Sodium Level 144 MEQ/L Potassium Level 4.1 MEQ/L Chloride Level 110 MEQ/L Carbon Dioxide Level 25.9 MEQ/L Anion Gap 8 MEQ/L Blood Urea Nitrogen 18 MG/DL Creatinine 0.61 MG/DL Estimat Glomerular Filtration 135 ML/MIN Rate Random Glucose 141 MG/DL Calcium Level 7.5 MG/DL Total Bilirubin 0.9 MG/DL Aspartate Amino Transf 107 U/L (AST/SGOT) Alanine Aminotransferase 54 U/L (ALT/SGPT) Alkaline Phosphatase 121 U/L Total Protein 6.5 GM/DL Albumin 2.2 GM/DL Lipase 253 U/L Ethyl Alcohol Level LESS THAN 3 MG/DL Blood Type B POSITIVE Antibody Screen NEGATIVE Crossmatch Leukocyte-Reduced Red Blood Cells Blood Bank Comment MDM Medical Decision Making Medical Screen Exam Complete: Yes Emergency Medical Condition: Yes Medical Record Reviewed: Yes Differential Diagnosis Esophageal varices versus Betzaida-[place] tear versus gastritis versus upper GI bleed versus pancreatitis Narrative Course 61-year-old male presents to the emergency Department with a history of alcohol abuse, liver cirrhosis, hepatitis for vomiting blood that started this morning. He also reports a syncopal episode. Patient reports taking 3 aspirin and having multiple alcoholic beverages yesterday. Patient is tachycardic and hypotensive on exam. He appears pale. EKG, CBC, CMP, lipase, PTT, PTT/INR, alcohol level are ordered and pending. 2 IVs are established. Patient is given normal saline 1 L IV bolus 2. Patient is given Protonix 40 mg IV. EKG shows sinus tachycardia, HR 108, no acute ST changes. CBC shows hemoglobin 7.6, hematocrit 24.3. Last hemoglobin was August 11 and was 9.2. CMP shows no acute abnormality. Lipase is 253. PT 13.7, INR 1.2, PTT 23.2. Alcohol level is less than 3. 2 units PRBCs are ordered. Environmental Services Worker on-call is paged. I spoke to Dr. Busby and who would like the patient to be nothing by mouth, considered for EGD. I spoke to the electrical prospecting engineer, Dr. Rosario, he would like the patient to be on a Protonix and octreotide drip. He accepted admission. [facility] Internal Pos. & Neg. Controls: Passed Fecal Specimen Occult Blood: Positive Diagnosis Primary Impression: GI bleed Qualified Code: K92.2 - Gastrointestinal hemorrhage, unspecified gastrointestinal hemorrhage type Additional Impressions: Cirrhosis of liver Qualified Code: K70.31 - Alcoholic cirrhosis of liver with ascites Alcohol abuse Admitting Information Admitting Physician Requests: Admit Marivel Campos September 02, 2016 12:08
[2016-09-02 12:25] LABS: AUTOMATED NEUTROPHIL # 3.6 TH/MM3 (1.8-7.7); BASOPHIL # 0.1 TH/MM3 (0-0.2); BASOPHIL % 0.9 % (0.0-2.0); EOSINOPHIL % 0.7 % (0.0-4.0); HEMATOCRIT 24.3 % (39.0-51.0); HEMO FLAGS DIFF FINAL; LYMPHOCYTE # 1.7 TH/MM3 (1.0-4.8); MEAN CELL VOLUME 80.3 FL (80.0-100.0); MEAN CORPUSCULAR HEMOGLOBIN 25.2 PG (27.0-34.0); MEAN CORPUSCULAR HGB CONC 31.3 % (32.0-36.0); MONO % 14.4 % (0.0-8.0); PLATELET COUNT 291 TH/MM3 (150-450); RED BLOOD COUNT 3.03 MIL/MM3 (4.50-5.90); WHITE BLOOD COUNT 6.3 TH/MM3 (4.0-11.0)
[2016-09-02] MEDS ORDERED: ALBUAER3 INH (12:31)
[2016-09-02 12:35] LABS: APTT (PATIENT) 23.2 SEC (24.3-30.1); INTERNATIONAL NORMALIZED RATIO 1.2 RATIO; PROTHROMBIN TIME - PATIENT 13.7 SEC (9.8-11.6)
[2016-09-02 12:37] LABS: ANION GAP 8 MEQ/L (5-15); AST (GOT) 107 U/L (15-37); BICARBONATE 25.9 MEQ/L (21.0-32.0); BLOOD UREA NITROGEN 18 MG/DL (7-18); CHLORIDE 110 MEQ/L (98-107); GLOMERULAR FILTRATION RATE 135 ML/MIN (>89); POTASSIUM 4.1 MEQ/L (3.5-5.1); SODIUM (NA) 144 MEQ/L (136-145)
[2016-09-02 12:40] LABS: ALKALINE PHOSPHATASE 121 U/L (45-117); ALT (GPT) 54 U/L (12-78); TOTAL BILIRUBIN ADULT 0.9 MG/DL (0.2-1.0)
[2016-09-02] MEDS ORDERED: SODIUM CHLOR 0.9% 250 ML INJ 250 ML IV ONE (12:45)
[2016-09-02] MEDS ORDERED: OCTREOTIDE INJ 50 MCG/ML AMP IVP ONE (13:15)
[2016-09-02] MEDS: INSULIN NovoLIN REGULAR SUPPLEMENTAL SCALE SQ SCH ×3 (13:30→23:32)
[2016-09-02] MEDS ORDERED: GLUCAGON 1 MG/ML VIAL OTHER PRN (13:30)
[2016-09-02] MEDS ORDERED: DEXTROSE 50% IN WATER 50 ML VIAL(D50) IV PRN (13:30)
[2016-09-02] MEDS ORDERED: MISCELLANEOUS NURSING INFORMATION XX SCH (13:30)
[2016-09-02] MEDS ORDERED: CHLORHEXIDINE GLUCONATE 2 % 1 PACK (2 CLOTHS) TOP PRN (13:30)
--- NOTE | 2016-09-02 13:31 | PD.CONS ---
HPI History of Present Illness This is a 61 year old male with a history of liver cirrhosis, esophageal varices , duodenal ulcers, who presented to the ER for evaluation of GI bleeding. He reports that he started having hematemesis consisting of both black and red blood. Initially, his emesis consisted of black coffee ground emesis, but then progressed to vomiting large amount of red blood. He was also passing some blood from his rectum, but states he is unsure if this was red or black. He has associated abdominal pain in his epigastric/mid abdominal area that radiates to his RUQ, which is a constant sharp pain. There are no aggravating or alleviating factors. He reports that he has not been drinking, but had 3 shots and 2 beers yesterday. He does not take any medications for his stomach. He believes he is taking acetaminophen, but is unsure if he has had ibuprofen recently. He was told that he had liver cirrhosis about 5 years ago. He was told that this was related to ETOH abuse. He reports a hx of hepatitis A, B, and C. He is treatment naive for his Hepatitis C. He has had banding of esophageal varices about 5 years ago. He was recently hospitalized in June for similar symptoms and evaluated with EGD (07/04/16)---> multiple ulcers in duodenum, multiple ulcers in the antrum, esophageal varices grade I, retroflexed views revealed a hiatal hernia. Colonoscopy (07/07/16) revealed poor prep, colonic mucosa appeared normal, small internal hemorrhoids, no abnormalities of the rectum. Repeat colonoscopy) (07/08/16)----> A small sessile polyp was found in the rectum, adenomatous, polypectomy was performed with a cold snare, the colon mucosa was otherwise normal, retroflexed views revealed small internal hemorrhoids, no abnormalities of the rectum. (Luisana Burton) PFSH Past Medical History Gastric and duodenal ulcers Esophageal varices Liver Cirrhosis Pt reports that he has Hepatitis A, B, and C Osteoarthritis COPD Fractured neck Fractured jaw Herniated discs Chronic back pain Broken collar bone Past Surgical History Surgery on bilateral jaw 1983 Right arm laceration repair 1980s Esophageal banding Neck surgery EGD/Colonoscopy (Luisana Burton) Coded Allergies: Codeine (Verified Adverse Reaction, Intermediate, Nausea/Vomiting, 07/31/16 ) Darvocet-N 100 (Verified Adverse Reaction, Intermediate, n/v, 07/31/16) *MDRO Multi-Drug Resistant Organism (Verified Adverse Reaction, Unknown, ) MRSA PCR Screen POSITIVE - 07/05/16 Medications Allergies Coded Allergies Type Severity Reaction Last Updated Verified Codeine Adverse Reaction Intermediate Nausea/Vomiting 07/31/16 Yes Darvocet-N 100 Adverse Reaction Intermediate n/v 07/31/16 Yes *MDRO Multi-Drug Resistant Organism Adverse Reaction Unknown 08/01/16 Yes Active Scripts Medications Dose Route/Sig Days Date Category Proair Hfa 8.5 GM Inh (Albuterol Sulfate) 90 Mcg/Act Aer 2 Puff INH TID PRN 09/02/16 Reported Tramadol (Tramadol HCl) 50 Mg Tab 50 Mg PO Q8H PRN 08/11/16 Rx Propranolol (Propranolol HCl) 10 Mg Tab 10 Mg PO Q8HR 08/01/16 Rx Lasix (Furosemide) 20 Mg Tab 20 Mg PO DAILY 07/31/16 Reported Paroxetine (Paroxetine HCl) 20 Mg Tab 20 Mg PO DAILY 07/31/16 Reported Protonix (Pantoprazole Sodium) 40 Mg Tab 40 Mg PO DAILY 07/08/16 Rx Family History Father with cancer of unknown etiology Mother with alcohol abuse Social History States he does not normally drink, but had several drinks yesterday Smokes 3 cigarettes per day (Luisana Burton) Review of Systems Constitutional: COMPLAINS OF: Fatigue, DENIES: Fever, Weight loss, Chills Respiratory: DENIES: Cough Cardiovascular: DENIES: Chest pain Gastrointestinal: COMPLAINS OF: Black stools, Bloody stools, Diarrhea, Nausea, Vomiting, Heartburn, Hematemesis, DENIES: Abdominal pain, Constipation Musculoskeletal: COMPLAINS OF: Joint pain, Back pain Integumentary: DENIES: Abnormal pigmentation Hematologic/lymphatic: DENIES: Bruising Neurologic: DENIES: Headache Psychiatric: DENIES: Confusion (Luisana Burton) GI Exam Vitals I&O Vital Signs Date Time Temp Pulse Resp B/P Pulse Ox O2 Delivery O2 Flow Rate FiO2 09/02/16 12:43 113 20 107/62 97 Room Air 09/02/16 11:51 20 09/02/16 11:36 97.3 116 16 87/55 100 Laboratory Test 09/02/16 09/02/16 12:00 13:00 White Blood Count 6.3 TH/MM3 Red Blood Count 3.03 MIL/MM3 Hemoglobin 7.6 GM/DL Hematocrit 24.3 % Mean Corpuscular Volume 80.3 FL Mean Corpuscular Hemoglobin 25.2 PG Mean Corpuscular Hemoglobin 31.3 % Concent Red Cell Distribution Width 20.0 % Platelet Count 291 TH/MM3 Mean Platelet Volume 8.4 FL Neutrophils (%) (Auto) 57.0 % Lymphocytes (%) (Auto) 27.0 % Monocytes (%) (Auto) 14.4 % Eosinophils (%) (Auto) 0.7 % Basophils (%) (Auto) 0.9 % Neutrophils # (Auto) 3.6 TH/MM3 Lymphocytes # (Auto) 1.7 TH/MM3 Monocytes # (Auto) 0.9 TH/MM3 Eosinophils # (Auto) 0.0 TH/MM3 Basophils # (Auto) 0.1 TH/MM3 CBC Comment DIFF FINAL Differential Comment Prothrombin Time 13.7 SEC Prothromb Time International 1.2 RATIO Ratio Activated Partial 23.2 SEC Thromboplast Time Sodium Level 144 MEQ/L Potassium Level 4.1 MEQ/L Chloride Level 110 MEQ/L Carbon Dioxide Level 25.9 MEQ/L Anion Gap 8 MEQ/L Blood Urea Nitrogen 18 MG/DL Creatinine 0.61 MG/DL Estimat Glomerular Filtration 135 ML/MIN Rate Random Glucose 141 MG/DL Calcium Level 7.5 MG/DL Total Bilirubin 0.9 MG/DL Aspartate Amino Transf 107 U/L (AST/SGOT) Alanine Aminotransferase 54 U/L (ALT/SGPT) Alkaline Phosphatase 121 U/L Total Protein 6.5 GM/DL Albumin 2.2 GM/DL Lipase 253 U/L Ethyl Alcohol Level LESS THAN 3 MG/DL Blood Type B POSITIVE Antibody Screen NEGATIVE Crossmatch Leukocyte-Reduced Red Blood Cells Blood Bank Comment Physical Examination HEENT: Normocephalic; atraumatic CHEST: Resp even/unlabored CARDIAC: ST ABDOMEN: Soft, nondistended, nontender; bowel sounds are present in all four quadrants. EXTREMITIES: No clubbing, cyanosis, or edema. SKIN: Normal; no rash; no jaundice. 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 (Luisana Burton) Assessment and Plan Plan ASSESSMENT: - Upper GI Bleed with hematemesis/melena. Started earlier this am. States he does not usually drink, but did have several drinks yesterday. He believes that he takes Acetaminophen, but states this may be Ibuprofen. EGD (07/04/16)---> multiple ulcers in duodenum, multiple ulcers in the antrum, esophageal varices grade I, retroflexed views revealed a hiatal hernia. Colonoscopy (07/07/16) revealed poor prep, colonic mucosa appeared normal, small internal hemorrhoids, no abnormalities of the rectum. Repeat colonoscopy) (07/08/16)----> A small sessile polyp was found in the rectum, adenomatous, polypectomy was performed with a cold snare , the colon mucosa was otherwise normal, retroflexed views revealed small internal hemorrhoids, no abnormalities of the rectum. PPI gtt and Octreotide gtt ordered, not up yet - Anemia, acute blood loss. H/H 7.6/24.3. This is a drop from 08/11 9.2. PPI gtt and Octreotide gtt ordered, not up yet - Liver cirrhosis/Elevated LFT. He states he was dx 5 years ago. He was told this was related to ETOH abuse. He also reports a hx of Hepatitis A, B, and C. He is treatment naive for his HCV. He does have antibodies for both Hepatitis A and B, although surface angtigen for Hep B is negative and IGM for Hep A is nonreactive, so he probably has had a past exposure to Hep A/B. He does have Hepatitis C, Genotype 3A with viral load 6,570,000. - Esophageal varices. - Hepatitis C. Hx of Hepatitis A/B. Past Hep A ab total reactive, hep b core total ab reactive. HAV IgM negative, HBV Bs Ag negative. Likely past infection, now immune. Genotype 3A with viral load 6,570,000. - COPD. Per primary PLAN: - Plan for egd with possible band ligation today - Obtain consents - NPO - Protonix Gtt - Octreotide Gtt - Monitor labs - Notify GI of active bleeding - Pt seen and examined by Dr. Leija and myself and this note is written on his behalf Discharge Planning (Luisana Burton) Physician Comments Patient seen and examined Agree with above Continue with current supportive care Monitor labs Plan for an EGD today (Bishnu Leija MD) Luisana Burton September 02, 2016 13:31 Bishnu Leija MD September 02, 2016 17:25
[2016-09-02] MEDS: PANTOPRAZOLE INJ 80 MG in SODIUM CHLORIDE 0.9% INJ 100 ML IV SCH ×2 (13:40→21:10)
[2016-09-02 14:59] LABS: BLOOD, URINE NEG (NEG); COMMENT (UR) CULT NOT INDICATED; CULTURE IF INDICATED CULT NOT INDICATED; GLUCOSE,URINE NEG (NEG); HYALINE CAST, URINE 24 /lpf (RARE); KETONE, URINE NEG (NEG); MUCUS URINE FEW /lpf (OCC); NITRITE,URINE NEG (NEG); PH, URINE 6.5 (5.0-8.5); SQUAMOUS EPITHELIAL CELL URINE <1 /hpf (0-5); URINE COLOR YELLOW (YELLW/STRAW)
--- NOTE | 2016-09-02 15:18 | MH ---
cc: LAURY FLORES DATE OF ADMISSION: 09/02/2016 DATE OF 1955. HISTORY OF PRESENT ILLNESS: The patient is 61-year-old male with past medical history of hepatitis, ethyl alcohol use, esophageal varices, Gastric and duodenal ulcers, cirrhosis of the liver secondary to ethyl alcohol use, who presented to emergency room for evaluation of gastrointestinal bleed and hematemesis. His emesis consisted of black coffee grounds and then progressed to vomiting large amount of red blood. The patient also reports intermittent epigastric mid abdominal pain radiating to the right upper quadrant. He had three shots, two beers in addition took 3 tablets of aspirin for chronic back pain yesterday. No varus GI and removal. The patient was recently hospitalized in June for similar presentation and underwent upper endoscopy on July 04 which showed multiple ulcers in duodenum, antrum and a grade 1 esophageal varices in addition to hiatal hernia. Colonoscopy was also performed on July 07 which revealed a poor prep, small internal hemorrhoids. A repeat colonoscopy was performed on July 08 which showed small sessile polyp, it was found in the rectum. A polypectomy was performed with a cold snare. On arrival to the emergency room he was tachycardiac with heart rate 111-116 and hypotensive with blood pressure 87/55. His hemoglobin level 7.6. The patient received 2 liters of crystalloids and 2 units of Packed red blood cells have been ordered by emergency room. In addition the patient is scheduled to be on Protonix and octreotide drips. He was seen by gastroenterology service in the emergency room and planned to undergo the upper endoscopy with possible band ligation today. His current blood pressure is 125/73 with a pulse of 111. The patient is on room air oxygen when seen. He denies any chest pain or shortness of breath. In addition he denies any cough, orthopnea, paroxysmal nocturnal dyspnea or edema of lower extremities. PAST MEDICAL HISTORY: 1. Past medical history significant for previous gastrointestinal bleed with gastric and duodenal ulcers. 2. History of esophageal varices 3. Cirrhosis of liver. 4. Hepatitis A, B and C. Per patient. 5. Chronic back pain. 6. Osteoarthritis. 7. Chronic obstructive pulmonary disease. PAST SURGICAL HISTORY 1. Multiple orthopedic surgery. 2. Previous esophageal banding 3. a previous upper endoscopy and colonoscopy. ALLERGIES DARVOCET CODEINE FAMILY HISTORY Mother with a Ethyl alcohol abuse. SOCIAL HISTORY: The patient states that he is a drinks occasionally but had several drinks yesterday in addition he smokes three cigarettes per day. REVIEW OF SYSTEMS As per history of present illness. Rest of the system unremarkable. PHYSICAL EXAMINATION: IN GENERAL: 61-year-old male lying in bed in no acute distress. VITAL SIGNS: Temperature 97.3, pulse 111, respiratory rate 20, blood pressure 125/73, saturation 97% on room air. HEAD, EYES, EARS, NOSE, AND THROAT: Atraumatic, normocephalic pupil equal, round, reactive to light and accommodation, extraocular muscles intact, Conjunctivae pink. Nonicteric sclerae. Oral mucosa within normal. NECK: Supple. No JVD, adenopathy or thyromegaly. Trachea midline. CARDIOVASCULAR SYSTEM: Tachycardiac normal S1-S2. No murmurs, rubs or gallops noted. PULMONARY: Pulmonary exam bilateral air entry with no rales or wheezing. ABDOMEN: Soft, mild tenderness. Positive bowel sounds. EXTREMITIES: No cyanosis or edema. NEUROLOGIC: No focal sensory deficit. LABORATORY DATA Sodium 144, potassium 4.1, chloride 110, CO2 25, BUN 18, creatinine 0.6, glucose 141, total bilirubin 0.9, AST 107, ALT 54, alk phos 121, lipase 253, albumin 2.2. White blood count 6.3, hemoglobin 7.6, hematocrit 24, platelet count 291, INR of 1.2, PT 13.7, PTT 23.2. Alcohol level less than three. IMPRESSION 1. Upper GI bleed. 2. Anemia secondary to acute blood loss 3. Cirrhosis of liver and elevated AST. 4. History of esophageal varices 5. Multiple duodenal ulcers. 6. History of hepatitis A, B and C per patient. 7. EtOH use. RECOMMENDATIONS 1. Monitor neuro status closely and avoid any sedatives. 2. Place on thiamine, multivitamins and folic acid. 3. Oxygen p.r.n. to maintain sats above 92%. 4. Bronchodilators on a p.r.n. basis. 5. Monitor heart rate and blood pressure closely and maintain MAP greater 65 mmHg. 6. The patient received at 2 liters of crystalloid in the emergency department. 7. We will continue IV fluids D5 NS at 75 ml an hour. 8. Monitor renal function Is and Os and electrolyte replacement per protocol. 9. Keep n.p.o. for now and place on Protonix and on octreotide drips. 10. Monitor LFTs. The gastrointestinal service has been consulted and I plan to proceed with upper endoscopy and possible band ligation today. 11. The patient is for transfusion 2 units of PRBCs. 12. We will monitor H&H q. six. 13. Place on empiric antibiotics with Rocephin 1 gram IV daily. Monitor for signs of infections which include fever and WBC. 14. We will check urinalysis with culture if indicated. 15. Sliding scale insulin with Accu-Chek q. 6-hours for glycemic control. 16. GI prophylaxis. The patient will be placed on Protonix drip 17. DVT prophylaxis with SCDs. 18. Chemical anticoagulation prophylaxis contraindicated in the setting of GI bleed. 19. Further recommendations will be based on hospital course. MD DEBORAH Poole/carolina /2:29 PM /2:44 PM
[2016-09-02] MEDS: RESP: ALBUTEROL 2.5 MG/IPRATROPIUM 0.5 MG NEB (SCH) INH ×2 (15:27→21:27)
--- NOTE | 2016-09-02 17:27 | PD.PROCEDR ---
GI Procedure REFERRING PHYSICIAN Dr. sin PROCEDURE PERFORMED EGD INDICATION FOR PROCEDURE Hematemesis PROCEDURE: The procedure, risks and benefits were discussed with Mr. Padron and informed consent was obtained. Anesthesia sedated him with Diprivan. He was placed in the left lateral decubitus position. EGD: The Pentax videoscope was introduced through the oropharynx and advanced to the second portion of the duodenum under direct visualization. Retroflexion was performed in the stomach. FINDINGS: The esophagus there was one column of grade 1 esophageal varices with no stigmata of recent bleed otherwise unremarkable The stomach there was a large clot covering most of the fundus and most of the antrum the gastric body was unremarkable no pooling of blood was seen The duodenum this was unremarkable and within normal limits ESTIMATED BLOOD LOSS: No active bleeding during the procedure SPECIMENS REMOVED: None COMPLICATIONS: None IMPRESSION: Gastric bleed etiology unclear at this point Incomplete evaluation with this EGD due to large clot obscuring view PLAN: Agree with current supportive measures Continue octreotide and PPI Transfuse as needed EGD in 2-3 days Bishnu Leija MD September 02, 2016 17:27
[2016-09-02] MEDS ORDERED: *morphine SULFATE 8 MG/ML PERIprocedure ONLY ONE (17:40)
[2016-09-02] MEDS ORDERED: PROPOFOL 200 MG/20 ML AMP IV ONE (17:46)
--- NOTE | 2016-09-02 20:03 | EKG ---
Date Performed: 09/02/2016 Time Performed: 12:27:37 PTAGE: 61 years EKG: SINUS TACHYCARDIA ABNORMAL RHYTHM ECG PREVIOUS TRACING : 07/31/2016 21.41 Compared to prior tracing no significant change DOCTOR: Tiana Lewis Interpretating Date/Time 09/02/2016 20:01:55
[2016-09-02] MEDS: MORPHINE SULFATE 4 MG/ML INJ IV PUSH PRN ×2 (21:09→23:27)
[2016-09-02] MEDS: OCTREOTIDE INJ 500 MCG in SODIUM CHLORID 0.9% 500 ML INJ 499.5 ML IV SCH (21:11)
[2016-09-02] MEDS: DEXT 5%-NACL 0.9% 1000 ML INJ 1,000 ML IV SCH ×2 (21:15→23:33)
[2016-09-03] VITALS (15 sets, daily range): BP systolic 109–135; BP diastolic 58–71; PULSE 79–93; RESP 7–12; TEMP 97.6–98.7; O2SAT 94–97
[2016-09-03] MEDS: ONDANSETRON HCL 4 MG/2 ML VIAL IV PUSH PRN ×2 (01:37→09:19)
[2016-09-03] MEDS: MORPHINE SULFATE 4 MG/ML INJ IV PUSH PRN ×5 (01:38→21:05)
[2016-09-03 01:59] LABS: HEMATOCRIT 27.3 % (39.0-51.0); REVIEW FLAG FINAL
[2016-09-03] MEDS: RESP: ALBUTEROL 2.5 MG/IPRATROPIUM 0.5 MG NEB (SCH) INH ×4 (03:56→21:00)
[2016-09-03] MEDS: CHLORHEXIDINE GLUCONATE 2 % 1 PACK (2 CLOTHS) TOP SCH (04:00)
[2016-09-03 04:26] LABS: AUTOMATED NEUTROPHIL # 6.8 TH/MM3 (1.8-7.7); BASOPHIL % 0.5 % (0.0-2.0); EOSINOPHIL # 0.3 TH/MM3 (0-0.4); EOSINOPHIL % 2.9 % (0.0-4.0); HEMATOCRIT 28.2 % (39.0-51.0); HEMO FLAGS DIFF FINAL; LYMPH % 12.3 % (9.0-44.0); LYMPHOCYTE # 1.1 TH/MM3 (1.0-4.8); MEAN CELL VOLUME 80.1 FL (80.0-100.0); MEAN CORPUSCULAR HEMOGLOBIN 25.9 PG (27.0-34.0); MEAN CORPUSCULAR HGB CONC 32.4 % (32.0-36.0); MONO % 7.5 % (0.0-8.0); NEUT % 76.8 % (16.0-70.0); PLATELET COUNT 188 TH/MM3 (150-450); RED BLOOD COUNT 3.52 MIL/MM3 (4.50-5.90); RED CELL DISTRIBUTION WIDTH 18.4 % (11.6-17.2); WHITE BLOOD COUNT 8.9 TH/MM3 (4.0-11.0)
[2016-09-03 04:57] LABS: ALT (GPT) 46 U/L (12-78); ANION GAP 6 MEQ/L (5-15); AST (GOT) 100 U/L (15-37); BICARBONATE 25.6 MEQ/L (21.0-32.0); BLOOD UREA NITROGEN 21 MG/DL (7-18); CHLORIDE 115 MEQ/L (98-107); GLOMERULAR FILTRATION RATE 149 ML/MIN (>89); MAGNESIUM 1.9 MG/DL (1.5-2.5); SODIUM (NA) 147 MEQ/L (136-145)
[2016-09-03 04:59] LABS: ALKALINE PHOSPHATASE 89 U/L (45-117); TOTAL BILIRUBIN ADULT 2.2 MG/DL (0.2-1.0)
[2016-09-03] MEDS: INSULIN NovoLIN REGULAR SUPPLEMENTAL SCALE SQ SCH ×3 (06:00→18:00)
--- NOTE | 2016-09-03 07:35 | HHI.CCPN ---
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 His emesis consisted of black coffee grounds and then progressed to vomiting large amount of red blood. The patient also reports intermittent epigastric mid abdominal pain radiating to the right upper quadrant. He had three shots, two beers in addition took 3 tablets of aspirin for chronic back pain yesterday. The patient was recently hospitalized in June for similar presentation and underwent upper endoscopy on July 04 which showed multiple ulcers in duodenum, antrum and a grade 1 esophageal varices in addition to hiatal hernia. Colonoscopy was also performed on July 07 which revealed a poor prep, small internal hemorrhoids. A repeat colonoscopy was performed on July 08 which showed small sessile polyp, it was found in the rectum. A polypectomy was performed with a cold snare. On arrival to the emergency room he was tachycardiac with heart rate 111-116 and hypotensive with blood pressure 87/55. His hemoglobin level 7.6. The patient received 2 liters of crystalloids and 2 units of Packed red blood cells have been ordered by emergency room. In addition the patient is scheduled to be on Protonix and octreotide drips. He was seen by gastroenterology service in the emergency room and planned to undergo the upper endoscopy with possible band ligation today. His current blood pressure is 125/73 with a pulse of 111. He is on room air oxygen when seen. He denies any chest pain or shortness of breath. In addition he denies any cough, orthopnea, paroxysmal nocturnal dyspnea or edema of lower extremities. 09/03 Patient is awake, alert lying in bed in NAD. s/p transfusion 2units PRBC yesterday Hgb 9.1 this morning. On Protonix and Octreotide drips. s/p EGD yesterday showed Gastric bleed etiology unclear , incomplete evaluation with this EGD due to large clot obscuring view. Objective Vital Signs Date Time Temp Pulse Resp B/P Pulse Ox O2 Delivery O2 Flow Rate FiO2 09/03/16 06:00 85 09/03/16 04:00 97.6 7 135/71 94 09/02/16 18:20 Nasal Cannula 2 Intake and Output 09/02/16 09/02/16 09/03/16 08:00 16:00 00:00 Intake Total 2000 ml 702 ml Output Total 300 ml Balance 2000 ml 402 ml Result Diagram: 09/03/16 0351 09/03/16 0351 Other Results Laboratory Tests Test 09/02/16 09/02/16 09/02/16 09/02/16 12:00 13:00 14:00 18:30 White Blood Count 6.3 TH/MM3 Red Blood Count 3.03 MIL/MM3 Hemoglobin 7.6 GM/DL Hematocrit 24.3 % Mean Corpuscular Volume 80.3 FL Mean Corpuscular Hemoglobin 25.2 PG Mean Corpuscular Hemoglobin 31.3 % Concent Red Cell Distribution Width 20.0 % Platelet Count 291 TH/MM3 Mean Platelet Volume 8.4 FL Neutrophils (%) (Auto) 57.0 % Lymphocytes (%) (Auto) 27.0 % Monocytes (%) (Auto) 14.4 % Eosinophils (%) (Auto) 0.7 % Basophils (%) (Auto) 0.9 % Neutrophils # (Auto) 3.6 TH/MM3 Lymphocytes # (Auto) 1.7 TH/MM3 Monocytes # (Auto) 0.9 TH/MM3 Eosinophils # (Auto) 0.0 TH/MM3 Basophils # (Auto) 0.1 TH/MM3 CBC Comment DIFF FINAL Differential Comment Prothrombin Time 13.7 SEC Prothromb Time International 1.2 RATIO Ratio Activated Partial 23.2 SEC Thromboplast Time Sodium Level 144 MEQ/L Potassium Level 4.1 MEQ/L Chloride Level 110 MEQ/L Carbon Dioxide Level 25.9 MEQ/L Anion Gap 8 MEQ/L Blood Urea Nitrogen 18 MG/DL Creatinine 0.61 MG/DL Estimat Glomerular Filtration 135 ML/MIN Rate Random Glucose 141 MG/DL Calcium Level 7.5 MG/DL Total Bilirubin 0.9 MG/DL Aspartate Amino Transf 107 U/L (AST/SGOT) Alanine Aminotransferase 54 U/L (ALT/SGPT) Alkaline Phosphatase 121 U/L Total Protein 6.5 GM/DL Albumin 2.2 GM/DL Lipase 253 U/L Ethyl Alcohol Level LESS THAN 3 MG/DL Blood Type B POSITIVE Antibody Screen NEGATIVE Crossmatch Leukocyte-Reduced Red Blood Cells Blood Bank Comment Urine Color YELLOW Urine Turbidity CLEAR Urine pH 6.5 Urine Specific Simpson 1.017 Urine Protein NEG mg/dL Urine Glucose (UA) NEG mg/dL Urine Ketones NEG mg/dL Urine Occult Blood NEG Urine Nitrite NEG Urine Bilirubin NEG Urine Urobilinogen 2.0 MG/DL Urine Leukocyte Esterase NEG Urine WBC LESS THAN 1 /hpf Urine Squamous Epithelial <1 /hpf Cells Urine Hyaline Casts 24 /lpf Urine Mucus FEW /lpf Microscopic Urinalysis Comment CULT NOT INDICATED Nasal Screen MRSA (PCR) MRSA DETECTED Test 09/03/16 09/03/16 01:45 03:51 Hemoglobin 8.8 GM/DL 9.1 GM/DL Hematocrit 27.3 % 28.2 % White Blood Count 8.9 TH/MM3 Red Blood Count 3.52 MIL/MM3 Mean Corpuscular Volume 80.1 FL Mean Corpuscular Hemoglobin 25.9 PG Mean Corpuscular Hemoglobin 32.4 % Concent Red Cell Distribution Width 18.4 % Platelet Count 188 TH/MM3 Mean Platelet Volume 8.2 FL Neutrophils (%) (Auto) 76.8 % Lymphocytes (%) (Auto) 12.3 % Monocytes (%) (Auto) 7.5 % Eosinophils (%) (Auto) 2.9 % Basophils (%) (Auto) 0.5 % Neutrophils # (Auto) 6.8 TH/MM3 Lymphocytes # (Auto) 1.1 TH/MM3 Monocytes # (Auto) 0.7 TH/MM3 Eosinophils # (Auto) 0.3 TH/MM3 Basophils # (Auto) 0.0 TH/MM3 CBC Comment DIFF FINAL Differential Comment Sodium Level 147 MEQ/L Potassium Level 4.0 MEQ/L Chloride Level 115 MEQ/L Carbon Dioxide Level 25.6 MEQ/L Anion Gap 6 MEQ/L Blood Urea Nitrogen 21 MG/DL Creatinine 0.56 MG/DL Estimat Glomerular Filtration 149 ML/MIN Rate Random Glucose 109 MG/DL Calcium Level 8.0 MG/DL Phosphorus Level 2.7 MG/DL Magnesium Level 1.9 MG/DL Total Bilirubin 2.2 MG/DL Aspartate Amino Transf 100 U/L (AST/SGOT) Alanine Aminotransferase 46 U/L (ALT/SGPT) Alkaline Phosphatase 89 U/L Total Protein 6.6 GM/DL Albumin 2.4 GM/DL Objective Remarks GENERAL: Patient is 61 yo lying in bed in NAD SKIN: Warm and dry. HEAD: Normocephalic. EYES: No scleral icterus. No injection or drainage. NECK: Supple, trachea midline. No JVD or lymphadenopathy. CARDIOVASCULAR: Regular rate and rhythm without murmurs, gallops, or rubs. RESPIRATORY: Breath sounds equal bilaterally. No accessory muscle use. GASTROINTESTINAL: Abdomen soft, non-tender, nondistended. MUSCULOSKELETAL: No cyanosis, or edema. Neuro: Awake and alert A/P Assessment and Plan 1. Upper GI bleed. 2. Anemia secondary to acute blood loss 3. Cirrhosis of liver and elevated AST. 4. History of esophageal varices 5. Multiple duodenal ulcers. 6. History of hepatitis A, B and C per patient. 7. EtOH use. Plan Neuro: Monitor neuro status closely and avoid any sedatives. Continue thiamine, multivitamins and folic acid. Pulm: Oxygen p.r.n. to maintain sats above 92%. Bronchodilators on a p.r.n. basis. CV: Monitor HR and BP and maintain MAP> 65 mmHg. : Monitor renal function Is and Os and electrolyte replacement per protocol. Continue with IVF D5NS@75ml/hr GI: Keep n.p.o. , on Protonix and on octreotide drips. Monitor LFTs. GI is following s/p EGD 09/02 Gastric bleed etiology, incomplete evaluation with this EGD due to large clot obscuring view For repeat EGD tomorrow per GI. s/p paracentesis on 07/31 with removal 4.6L. Check US abdomen r/o recurrent ascites Heme: s/p transfusion 2 units of PRBCs. Monitor H&H q.6 ID: Continue with empiric antibiotics with Rocephin 1 gram IV daily. Monitor for signs of infections(fever and WBC). Endo: SSI with Accu-Chek q. 6-hours for glycemic control. GI prophylaxis-on Protonix drip DVT prophylaxis with SCDs. chemical AC prophylaxis contraindicated in the setting of GI bleed. Miriam Pulido MD September 03, 2016 07:35
[2016-09-03] MEDS: DOCUSATE SODIUM 100 MG/10 ML UDC PO SCH ×2 (09:20→21:04)
[2016-09-03] MEDS: MULTIVITAMIN TAB PO SCH (09:21)
[2016-09-03] MEDS: THIAMINE INJ 100 MG in SODIUM CHLORIDE 0.9% INJ 100 ML IV SCH (09:21)
[2016-09-03] MEDS: FOLIC ACID 1 MG TAB PO SCH (09:21)
[2016-09-03] MEDS: OCTREOTIDE INJ 500 MCG in SODIUM CHLORID 0.9% 500 ML INJ 499.5 ML IV SCH (10:15)
--- NOTE | 2016-09-03 11:09 | RADRPT ---
EXAM DATE/TIME: 09/03/2016 09:26 [facility] COMPARISON: CT ABDOMEN & PELVIS W CONTRAST, July 31, 2016, 11:17. INDICATIONS : Liver disease. Ascities. MEDICAL HISTORY : Chronic obstructive pulmonary disease. Hepatitis A. Hepatitis B.Hep c SURGICAL HISTORY : Rectal surgery. ENCOUNTER: Initial ACUITY: 1 day PAIN SCORE: 2/10 LOCATION: Bilateral upper quadrant MEASUREMENTS: LIVER: 16.4 cm length COMMON DUCT: 5 mm RIGHT KIDNEY: 10.5 x 4.8 x 4.8 cm SPLEEN: 12.0 cm length FINDINGS: LIVER: Cirrhotic appearance. No focal mass or biliary ductal dilatation. Moderate ascites present. COMMON DUCT: No intraluminal mass or stone visualized. GALLBLADDER: Nonspecific wall thickening in the setting of liver disease and ascites. No stones. PANCREAS: The visualized portions are within normal limits. RIGHT KIDNEY: No hydronephrosis, stone or mass. SPLEEN: Borderline size. No focal lesion CONCLUSION: Cirrhotic liver appearance with ascites. Bacilio Gonzalez MD on September 03, 2016 at 11:05 Board Certified Radiologist. This report was verified electronically.
[2016-09-03 12:14] LABS: HEMATOCRIT 25.4 % (39.0-51.0); REVIEW FLAG FINAL
[2016-09-03] MEDS: PANTOPRAZOLE INJ 80 MG in SODIUM CHLORIDE 0.9% INJ 100 ML IV SCH ×2 (13:06→17:01)
[2016-09-03] MEDS: cefTRIAXone INJ 1,000 MG in SODIUM CHLORIDE 0.9% INJ 100 ML IV SCH ×2 (14:00→14:49)
--- NOTE | 2016-09-03 14:57 | HHI.GIFU ---
Subjective Remarks Pt resting in bed. No pain, n/v, bleeding. Per RN no bm today, no bleeding. ( Denisse Whitaker) Objective Vitals I&O Vital Signs Date Time Temp Pulse Resp B/P Pulse Ox O2 Delivery O2 Flow Rate FiO2 09/03/16 14:00 87 09/03/16 12:00 93 09/03/16 10:14 95 Nasal Cannula 2.00 09/03/16 10:00 82 09/03/16 08:00 91 09/03/16 06:00 85 09/03/16 04:00 97.6 90 7 135/71 94 09/03/16 04:00 90 09/03/16 02:00 86 09/03/16 00:00 87 09/03/16 00:00 97.7 87 11 129/58 94 09/02/16 22:00 116 09/02/16 21:30 96 09/02/16 20:00 91 09/02/16 19:18 97.7 99 20 113/65 98 09/02/16 18:20 107 17 109/66 96 Nasal Cannula 2 09/02/16 18:15 104 15 100/62 96 Nasal Cannula 2 09/02/16 18:00 107 19 103/66 94 Nasal Cannula 2 09/02/16 17:45 105 21 102/66 94 Nasal Cannula 2 09/02/16 17:33 97.9 105 21 102/61 94 Nasal Cannula 2 09/02/16 16:16 97.7 119 18 150/89 95 Room Air 09/02/16 15:29 118 120/87 I/O 09/02/16 09/02/16 09/02/16 09/03/16 09/03/16 09/03/16 07:00 15:00 23:00 07:00 15:00 23:00 Intake Total 2000 ml 702 ml 703 ml 729 ml Output Total 300 ml 601 ml 561 ml Balance 2000 ml 402 ml 102 ml 168 ml Intake IV Total 2000 ml 102 ml 253 ml 729 ml Packed Cells 500 ml 450 ml Other 100 ml Output Urine Total 300 ml 600 ml 560 ml Stool Total 1 ml 1 ml Laboratory Laboratory Tests Test 09/02/16 09/03/16 09/03/16 09/03/16 18:30 01:45 03:51 11:41 Nasal Screen MRSA (PCR) MRSA DETECTED Hemoglobin 8.8 9.1 8.2 Hematocrit 27.3 28.2 25.4 White Blood Count 8.9 Red Blood Count 3.52 Mean Corpuscular Volume 80.1 Mean Corpuscular Hemoglobin 25.9 Mean Corpuscular Hemoglobin 32.4 Concent Red Cell Distribution Width 18.4 Platelet Count 188 Mean Platelet Volume 8.2 Neutrophils (%) (Auto) 76.8 Lymphocytes (%) (Auto) 12.3 Monocytes (%) (Auto) 7.5 Eosinophils (%) (Auto) 2.9 Basophils (%) (Auto) 0.5 Neutrophils # (Auto) 6.8 Lymphocytes # (Auto) 1.1 Monocytes # (Auto) 0.7 Eosinophils # (Auto) 0.3 Basophils # (Auto) 0.0 CBC Comment DIFF FINAL Differential Comment Sodium Level 147 Potassium Level 4.0 Chloride Level 115 Carbon Dioxide Level 25.6 Anion Gap 6 Blood Urea Nitrogen 21 Creatinine 0.56 Estimat Glomerular Filtration 149 Rate Random Glucose 109 Calcium Level 8.0 Phosphorus Level 2.7 Magnesium Level 1.9 Total Bilirubin 2.2 Aspartate Amino Transf 100 (AST/SGOT) Alanine Aminotransferase 46 (ALT/SGPT) Alkaline Phosphatase 89 Total Protein 6.6 Albumin 2.4 Imaging Last Impressions Liver Ultrasound 09/03/16 0000 Signed Impressions: Service Date/Time: Saturday, September 03, 2016 09:26 - CONCLUSION: Cirrhotic liver appearance with ascites. aBcilio Gonzalez MD Physical Exam HEENT: EOMI; normocephalic; atraumatic; no jaundice. CHEST: CTA CARDIAC: RRR ABDOMEN: Soft, nondistended, nontender; no hepatosplenomegaly; bowel sounds are present in all four quadrants. EXTREMITIES: No clubbing, cyanosis, or edema. SKIN: Normal; no rash; no jaundice. DIRECTOR CARDIOLOGY: No focal deficits; alert and oriented times three. (Denisse Whitaker [facility]) Assessment and Plan Plan ASSESSMENT: - Upper GI Bleed with hematemesis/melena. Started earlier yesterday. States he does not usually drink, but did have several drinks yesterday. He believes that he takes Acetaminophen, but states this may be Ibuprofen. EGD (07/04/16)---> multiple ulcers in duodenum, multiple ulcers in the antrum, esophageal varices grade I, retroflexed views revealed a hiatal hernia. Colonoscopy (07/07/16) revealed poor prep, colonic mucosa appeared normal, small internal hemorrhoids, no abnormalities of the rectum. Repeat colonoscopy) (07/08/16)----> A small sessile polyp was found in the rectum, adenomatous, polypectomy was performed with a cold snare , the colon mucosa was otherwise normal, retroflexed views revealed small internal hemorrhoids, no abnormalities of the rectum. PPI gtt and Octreotide - Anemia, acute blood loss. H/H 8.2, 25.2. This is a drop from 08/11 9.2. PPI gtt and Octreotide - Liver cirrhosis/Elevated LFT. He states he was dx 5 years ago. He was told this was related to ETOH abuse. He also reports a hx of Hepatitis A, B, and C. He is treatment naive for his HCV. He does have antibodies for both Hepatitis A and B, although surface angtigen for Hep B is negative and IGM for Hep A is nonreactive, so he probably has had a past exposure to Hep A/B. He does have Hepatitis C, Genotype 3A with viral load 6,570,000. - Esophageal varices. - Hepatitis C. Hx of Hepatitis A/B. Past Hep A ab total reactive, hep b core total ab reactive. HAV IgM negative, HBV Bs Ag negative. Likely past infection, now immune. Genotype 3A with viral load 6,570,000. - COPD. Per primary PLAN: - Plan for egd tomorrow - Obtain consents - NPO - Protonix Gtt - Octreotide Gtt - Monitor labs - Notify GI of active bleeding - Pt seen and examined by Dr. Leija and myself and this note is written on his behalf Discharge Planning (Denisse Whitaker) Physician Comments Patient seen and examined Agree with above Continue with current supportive care Monitor labs Plan for EGD tomorrow (Bishnu Leija MD) Denisse Whitaker September 03, 2016 14:57 Bishnu Leija MD September 03, 2016 17:50
[2016-09-03] MEDS: DEXT 5%-NACL 0.9% 1000 ML INJ 1,000 ML IV SCH (16:10)
[2016-09-03 18:55] LABS: HEMATOCRIT 23.5 % (39.0-51.0); REVIEW FLAG FINAL
[2016-09-03] MEDS ORDERED: SODIUM CHLOR 0.9% 250 ML INJ 250 ML IV ONE (19:45)
[2016-09-04] VITALS (14 sets, daily range): BP systolic 129–155; BP diastolic 65–77; PULSE 69–87; RESP 10–27; TEMP 97.4–99.2; O2SAT 92–97
[2016-09-04 01:01] LABS: HEMATOCRIT 25.2 % (39.0-51.0); REVIEW FLAG FINAL
[2016-09-04] MEDS: RESP: ALBUTEROL 2.5 MG/IPRATROPIUM 0.5 MG NEB (SCH) INH ×4 (03:33→21:59)
[2016-09-04] MEDS: CHLORHEXIDINE GLUCONATE 2 % 1 PACK (2 CLOTHS) TOP SCH (04:00)
[2016-09-04] MEDS: MORPHINE SULFATE 4 MG/ML INJ IV PUSH PRN ×6 (04:36→23:23)
[2016-09-04 04:55] LABS: AUTOMATED NEUTROPHIL # 2.5 TH/MM3 (1.8-7.7); BASOPHIL % 0.8 % (0.0-2.0); EOSINOPHIL # 0.2 TH/MM3 (0-0.4); EOSINOPHIL % 5.4 % (0.0-4.0); HEMO FLAGS DIFF FINAL; LYMPH % 20.8 % (9.0-44.0); LYMPHOCYTE # 0.8 TH/MM3 (1.0-4.8); MEAN CELL VOLUME 81.4 FL (80.0-100.0); MEAN CORPUSCULAR HEMOGLOBIN 25.9 PG (27.0-34.0); MEAN CORPUSCULAR HGB CONC 31.8 % (32.0-36.0); MONO % 10.4 % (0.0-8.0); NEUT % 62.6 % (16.0-70.0); PLATELET COUNT 138 TH/MM3 (150-450); RED BLOOD COUNT 3.68 MIL/MM3 (4.50-5.90); RED CELL DISTRIBUTION WIDTH 17.6 % (11.6-17.2)
[2016-09-04 05:17] LABS: ALT (GPT) 46 U/L (12-78); ANION GAP 4 MEQ/L (5-15); AST (GOT) 95 U/L (15-37); BICARBONATE 27.7 MEQ/L (21.0-32.0); BLOOD UREA NITROGEN 14 MG/DL (7-18); CHLORIDE 113 MEQ/L (98-107); GLOMERULAR FILTRATION RATE 159 ML/MIN (>89); POTASSIUM 3.4 MEQ/L (3.5-5.1); SODIUM (NA) 145 MEQ/L (136-145)
[2016-09-04 05:19] LABS: ALKALINE PHOSPHATASE 73 U/L (45-117); TOTAL BILIRUBIN ADULT 1.3 MG/DL (0.2-1.0)
[2016-09-04] MEDS: INSULIN NovoLIN REGULAR SUPPLEMENTAL SCALE SQ SCH ×5 (05:24→23:26)
[2016-09-04] MEDS: DEXT 5%-NACL 0.9% 1000 ML INJ 1,000 ML IV SCH ×2 (05:24→18:50)
[2016-09-04] MEDS ORDERED: POTASSIUM CHLOR 40 MEQ PREMIX 100 ML IV PRN ×2 (06:00)
[2016-09-04] MEDS ORDERED: POTASSIUM CHLORIDE 25 MEQ EFFERVESCENT TAB PO PRN (06:00)
[2016-09-04] MEDS ORDERED: POTASSIUM PHOSPHATE MONOBASIC 500 MG TAB PO PRN (06:00)
[2016-09-04] MEDS ORDERED: POTASSIUM CHLOR 20 MEQ PREMIX 100 ML IV PRN (06:00)
[2016-09-04] MEDS ORDERED: SODIUM PHOSPHATE INJ 30 MMOL in SODIUM CHLOR 0.9% 250 ML INJ 240 ML IV PRN (06:00)
[2016-09-04] MEDS ORDERED: MAGNESIUM OXIDE 400 MG TAB PO PRN (06:00)
[2016-09-04] MEDS ORDERED: POTASSIUM PHOSPHATE MONOBASIC 500 MG TAB PO/TUBE PRN (06:00)
[2016-09-04] MEDS ORDERED: MAGNESIUM SULFATE INJ 4 GM in SODIUM CHLORIDE 0.9% INJ 92 ML IV PRN (06:00)
[2016-09-04] MEDS ORDERED: MAGNESIUM SULFATE INJ 2 GM in SODIUM CHLORIDE 0.9% INJ 96 ML IV PRN (06:00)
[2016-09-04] MEDS: PANTOPRAZOLE INJ 80 MG in SODIUM CHLORIDE 0.9% INJ 100 ML IV SCH ×3 (06:10→23:29)
[2016-09-04] MEDS: OCTREOTIDE INJ 500 MCG in SODIUM CHLORID 0.9% 500 ML INJ 499.5 ML IV SCH ×2 (06:11→23:30)
--- NOTE | 2016-09-04 07:31 | HHI.CCPN ---
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 His emesis consisted of black coffee grounds and then progressed to vomiting large amount of red blood. The patient also reports intermittent epigastric mid abdominal pain radiating to the right upper quadrant. He had three shots, two beers in addition took 3 tablets of aspirin for chronic back pain yesterday. The patient was recently hospitalized in June for similar presentation and underwent upper endoscopy on July 04 which showed multiple ulcers in duodenum, antrum and a grade 1 esophageal varices in addition to hiatal hernia. Colonoscopy was also performed on July 07 which revealed a poor prep, small internal hemorrhoids. A repeat colonoscopy was performed on July 08 which showed small sessile polyp, it was found in the rectum. A polypectomy was performed with a cold snare. On arrival to the emergency room he was tachycardiac with heart rate 111-116 and hypotensive with blood pressure 87/55. His hemoglobin level 7.6. The patient received 2 liters of crystalloids and 2 units of Packed red blood cells have been ordered by emergency room. In addition the patient is scheduled to be on Protonix and octreotide drips. He was seen by gastroenterology service in the emergency room and planned to undergo the upper endoscopy with possible band ligation today. His current blood pressure is 125/73 with a pulse of 111. He is on room air oxygen when seen. He denies any chest pain or shortness of breath. In addition he denies any cough, orthopnea, paroxysmal nocturnal dyspnea or edema of lower extremities. 09/03 Patient is awake, alert lying in bed in NAD. s/p transfusion 2units PRBC yesterday Hgb 9.1 this morning. On Protonix and Octreotide drips. s/p EGD yesterday showed Gastric bleed etiology unclear , incomplete evaluation with this EGD due to large clot obscuring view. 09/04 Patient s/p transfusion 1unit PRBC last night for Hgb 7.5 repeat Hgb 9.5 this morning. FOr repeat EGD today. On Protonix and Octreotide drips. . Objective Vital Signs Date Time Temp Pulse Resp B/P Pulse Ox O2 Delivery O2 Flow Rate FiO2 09/04/16 06:00 69 09/04/16 04:00 98.1 10 155/65 92 09/03/16 21:06 21 09/03/16 10:14 Nasal Cannula 2.00 Intake and Output 09/03/16 09/03/16 09/04/16 08:00 16:00 00:00 Intake Total 703 ml 729 ml 903 ml Output Total 601 ml 561 ml 900 ml Balance 102 ml 168 ml 3 ml Result Diagram: 09/04/16 0344 09/04/16 0344 Other Results Laboratory Tests Test 09/03/16 09/03/16 09/03/16 09/04/16 11:41 18:47 19:37 00:48 Hemoglobin 8.2 GM/DL 7.5 GM/DL 8.4 GM/DL Hematocrit 25.4 % 23.5 % 25.2 % Blood Type B POSITIVE Crossmatch Leukocyte-Reduced Red Blood Cells Blood Bank Comment Test 09/04/16 03:44 White Blood Count 4.0 TH/MM3 Red Blood Count 3.68 MIL/MM3 Hemoglobin 9.5 GM/DL Hematocrit 30.0 % Mean Corpuscular Volume 81.4 FL Mean Corpuscular Hemoglobin 25.9 PG Mean Corpuscular Hemoglobin 31.8 % Concent Red Cell Distribution Width 17.6 % Platelet Count 138 TH/MM3 Mean Platelet Volume 8.2 FL Neutrophils (%) (Auto) 62.6 % Lymphocytes (%) (Auto) 20.8 % Monocytes (%) (Auto) 10.4 % Eosinophils (%) (Auto) 5.4 % Basophils (%) (Auto) 0.8 % Neutrophils # (Auto) 2.5 TH/MM3 Lymphocytes # (Auto) 0.8 TH/MM3 Monocytes # (Auto) 0.4 TH/MM3 Eosinophils # (Auto) 0.2 TH/MM3 Basophils # (Auto) 0.0 TH/MM3 CBC Comment DIFF FINAL Differential Comment Sodium Level 145 MEQ/L Potassium Level 3.4 MEQ/L Chloride Level 113 MEQ/L Carbon Dioxide Level 27.7 MEQ/L Anion Gap 4 MEQ/L Blood Urea Nitrogen 14 MG/DL Creatinine 0.53 MG/DL Estimat Glomerular Filtration 159 ML/MIN Rate Random Glucose 102 MG/DL Calcium Level 7.9 MG/DL Total Bilirubin 1.3 MG/DL Aspartate Amino Transf 95 U/L (AST/SGOT) Alanine Aminotransferase 46 U/L (ALT/SGPT) Alkaline Phosphatase 73 U/L Total Protein 6.2 GM/DL Albumin 2.3 GM/DL Imaging Last Impressions Liver Ultrasound 09/03/16 0000 Signed Impressions: Service Date/Time: Saturday, September 03, 2016 09:26 - CONCLUSION: Cirrhotic liver appearance with ascites. Bacilio Gonzalez MD Objective Remarks GENERAL: Patient is 61 yo lying in bed in NAD SKIN: Warm and dry. HEAD: Normocephalic. EYES: No scleral icterus. No injection or drainage. NECK: Supple, trachea midline. No JVD or lymphadenopathy. CARDIOVASCULAR: Regular rate and rhythm without murmurs, gallops, or rubs. RESPIRATORY: Breath sounds equal bilaterally. No accessory muscle use. GASTROINTESTINAL: Abdomen soft, non-tender, nondistended. MUSCULOSKELETAL: No cyanosis, or edema. Neuro: Awake and alert A/P Assessment and Plan 1. Upper GI bleed. 2. Anemia secondary to acute blood loss 3. Cirrhosis of liver and elevated AST. 4. History of esophageal varices 5. Multiple duodenal ulcers. 6. History of hepatitis A, B and C per patient. 7. EtOH use. Plan Neuro: Monitor neuro status closely and avoid any sedatives. Continue thiamine, multivitamins and folic acid. Pulm: Oxygen p.r.n. to maintain sats above 92%. Bronchodilators on a p.r.n. basis. CV: Monitor HR and BP and maintain MAP> 65 mmHg. : Monitor renal function Is and Os and electrolyte replacement per protocol. Continue with IVF D5NS@75ml/hr. Will need K replacement today GI: Keep n.p.o. , on Protonix and on octreotide drips. Monitor LFTs. GI is following s/p EGD 09/02 Gastric bleed etiology, incomplete evaluation with this EGD due to large clot obscuring view Repeat EGD today showed esophageal varices grade 2 s/p banding x4 and portal gastropathy s/p paracentesis on 07/31 with removal 4.6L. US liver showed cirrhotic liver with ascites will proceed with US guided paracentesis today Heme: s/p transfusion 2 units of PRBC on admission and 1unit PRBC 09/03. Monitor H&H q.6 ID: Continue with empiric antibiotics with Rocephin 1 gram IV daily. Monitor for signs of infections(fever and WBC). Endo: SSI with Accu-Chek q. 6-hours for glycemic control. GI prophylaxis-on Protonix drip DVT prophylaxis with SCDs. chemical AC prophylaxis contraindicated in the setting of GI bleed. Will sign of and transfer care to [facility] Level 3 Miriam Pulido MD September 04, 2016 07:31
[2016-09-04] MEDS: POTASSIUM CHLOR 20 MEQ PREMIX 100 ML IV PRN ×2 (07:51→15:54)
[2016-09-04] MEDS: DOCUSATE SODIUM 100 MG/10 ML UDC PO SCH ×2 (07:51→21:00)
[2016-09-04] MEDS: FOLIC ACID 1 MG TAB PO SCH (07:52)
[2016-09-04] MEDS: MULTIVITAMIN TAB PO SCH (07:52)
[2016-09-04] MEDS: THIAMINE INJ 100 MG in SODIUM CHLORIDE 0.9% INJ 100 ML IV SCH (09:00)
[2016-09-04] MEDS ORDERED: PROPOFOL 200 MG/20 ML AMP IV ONE (10:10)
--- NOTE | 2016-09-04 10:34 | PD.PROCEDR ---
GI Procedure REFERRING PHYSICIAN Dr. sin PROCEDURE PERFORMED EGD with banding INDICATION FOR PROCEDURE Upper GI bleed cirrhosis PROCEDURE: The procedure, risks and benefits were discussed with Mr. Padron and informed consent was obtained. Anesthesia sedated him with Diprivan. He was placed in the left lateral decubitus position. EGD: The Pentax videoscope was introduced through the oropharynx and advanced to the second portion of the duodenum under direct visualization. Retroflexion was performed in the stomach. FINDINGS: The esophagus there was a column of grade 2 esophageal varices 4 bands were applied otherwise esophagus unremarkable The stomach there was a small hiatal hernia and mild to moderate portal gastropathy otherwise gastric mucosa was unremarkable The duodenum this was normal ESTIMATED BLOOD LOSS: None SPECIMENS REMOVED: None COMPLICATIONS: None IMPRESSION: Esophageal varices Hiatal hernia Portal gastropathy PLAN: Continue with current supportive care Continue octreotide Continue PPI Monitor labs and transfuse as needed Clear liquid diet Avoid NG tube placement secondary to banding Bishnu Leija MD September 04, 2016 10:33
[2016-09-04] MEDS ORDERED: DO NOT ADM ANY ANTICOAGULANT DRUGS PRN (11:15)
--- NOTE | 2016-09-04 12:54 | RADRPT ---
EXAM DATE/TIME: 09/04/2016 11:42 [place] COMPARISON: US ABDOMEN - LIVER, September 03, 2016, 9:26. CT ABDOMEN & PELVIS W CONTRAST, July 31, 2016, 11:17. INDICATIONS : Ascites. MEDICAL HISTORY : Chronic obstructive pulmonary disease. Hepatitis A. Hepatitis B.Hep c SURGICAL HISTORY : Rectal surgery. ENCOUNTER: Initial ACUITY: 1 day PAIN SCORE: 2/10 LOCATION: Abdomen. AREA EVALUATED: Quadrants. FINDINGS: Imaging of the abdomen and pelvis was performed to evaluate for ascites for possible paracentesis. T here is a minimal amount of free fluid in the left lower quadrant and pelvis. No significant free flu id is present on the right. CONCLUSION: Minimal free fluid in the pelvis. There is not enough present for paracentesis. Bacilio Johnson MD on September 04, 2016 at 12:51 Board Certified Radiologist. This report was verified electronically.
[2016-09-04 13:49] LABS: HEMATOCRIT 28.5 % (39.0-51.0); REVIEW FLAG FINAL
[2016-09-04] MEDS: cefTRIAXone INJ 1,000 MG in SODIUM CHLORIDE 0.9% INJ 100 ML IV SCH (15:54)
[2016-09-04 18:07] LABS: HEMATOCRIT 29.9 % (39.0-51.0); REVIEW FLAG FINAL
[2016-09-05] VITALS (14 sets, daily range): BP systolic 120–140; BP diastolic 57–79; PULSE 60–89; RESP 7–18; TEMP 87.7–98.2; O2SAT 88–96
[2016-09-05 00:46] LABS: HEMATOCRIT 28.9 % (39.0-51.0); REVIEW FLAG FINAL
[2016-09-05] MEDS: MORPHINE SULFATE 4 MG/ML INJ IV PUSH PRN ×7 (02:22→22:56)
[2016-09-05] MEDS: CHLORHEXIDINE GLUCONATE 2 % 1 PACK (2 CLOTHS) TOP SCH (04:00)
[2016-09-05] MEDS: RESP: ALBUTEROL 2.5 MG/IPRATROPIUM 0.5 MG NEB (SCH) INH ×4 (04:28→21:02)
[2016-09-05] MEDS: INSULIN NovoLIN REGULAR SUPPLEMENTAL SCALE SQ SCH ×4 (06:00→23:09)
[2016-09-05] MEDS: DEXT 5%-NACL 0.9% 1000 ML INJ 1,000 ML IV SCH (08:10)
[2016-09-05] MEDS: THIAMINE INJ 100 MG in SODIUM CHLORIDE 0.9% INJ 100 ML IV SCH (08:38)
[2016-09-05] MEDS: FOLIC ACID 1 MG TAB PO SCH (08:39)
[2016-09-05] MEDS: DOCUSATE SODIUM 100 MG/10 ML UDC PO SCH ×2 (08:39→19:51)
[2016-09-05] MEDS: MULTIVITAMIN TAB PO SCH (08:39)
[2016-09-05 10:25] LABS: AUTOMATED NEUTROPHIL # 3.5 TH/MM3 (1.8-7.7); BASOPHIL % 0.7 % (0.0-2.0); EOSINOPHIL # 0.2 TH/MM3 (0-0.4); EOSINOPHIL % 4.2 % (0.0-4.0); HEMATOCRIT 28.7 % (39.0-51.0); HEMO FLAGS DIFF FINAL; LYMPH % 17.6 % (9.0-44.0); LYMPHOCYTE # 0.9 TH/MM3 (1.0-4.8); MEAN CELL VOLUME 81.9 FL (80.0-100.0); MEAN CORPUSCULAR HEMOGLOBIN 26.5 PG (27.0-34.0); MEAN CORPUSCULAR HGB CONC 32.3 % (32.0-36.0); MONO % 11.6 % (0.0-8.0); NEUT % 65.9 % (16.0-70.0); PLATELET COUNT 159 TH/MM3 (150-450); RED CELL DISTRIBUTION WIDTH 18.1 % (11.6-17.2); WHITE BLOOD COUNT 5.3 TH/MM3 (4.0-11.0)
[2016-09-05 10:59] LABS: ALKALINE PHOSPHATASE 74 U/L (45-117); ALT (GPT) 70 U/L (12-78); ANION GAP 6 MEQ/L (5-15); AST (GOT) 143 U/L (15-37); BICARBONATE 27.7 MEQ/L (21.0-32.0); BLOOD UREA NITROGEN 7 MG/DL (7-18); CHLORIDE 107 MEQ/L (98-107); GLOMERULAR FILTRATION RATE 166 ML/MIN (>89); MAGNESIUM 1.7 MG/DL (1.5-2.5); POTASSIUM 3.5 MEQ/L (3.5-5.1); SODIUM (NA) 141 MEQ/L (136-145); TOTAL BILIRUBIN ADULT 1.2 MG/DL (0.2-1.0)
[2016-09-05] MEDS: PANTOPRAZOLE INJ 80 MG in SODIUM CHLORIDE 0.9% INJ 100 ML IV SCH ×3 (11:15→23:25)
--- NOTE | 2016-09-05 12:23 | HHI.GIFU ---
Subjective Remarks Pt resting in bed, says he is about to use the commode. No pain, bleeding, n/ v. (Denisse Whitaker) Objective Vitals I&O Vital Signs Date Time Temp Pulse Resp B/P Pulse Ox O2 Delivery O2 Flow Rate FiO2 09/05/16 10:00 74 09/05/16 10:00 84 09/05/16 08:07 93 21 09/05/16 08:00 71 09/05/16 06:00 89 09/05/16 05:28 20 09/05/16 04:00 74 09/05/16 04:00 97.6 74 7 125/74 95 09/05/16 02:00 79 09/05/16 00:00 86 09/05/16 00:00 97.1 86 16 137/78 95 09/04/16 22:03 97 Nasal Cannula 2.00 09/04/16 22:00 81 09/04/16 20:00 97.4 87 27 132/70 09/04/16 20:00 87 09/04/16 18:00 80 09/04/16 16:00 77 09/04/16 16:00 99.2 78 12 129/73 94 09/04/16 14:00 78 I/O 09/04/16 09/04/16 09/04/16 09/05/16 09/05/16 09/05/16 07:00 15:00 23:00 07:00 15:00 23:00 Intake Total 600 ml 654 ml 870 ml 770 ml Output Total 200 ml 770 ml 250 ml Balance 400 ml -116 ml 620 ml 770 ml Intake Oral 360 ml 480 ml IV Total 600 ml 554 ml 510 ml 290 ml Other 100 ml Output Urine Total 200 ml 770 ml 250 ml Stool Total 0 ml 0 ml 0 ml Laboratory Laboratory Tests Test 09/04/16 09/04/16 09/05/16 09/05/16 13:30 17:40 00:30 09:58 Hemoglobin 9.3 9.4 9.4 9.3 Hematocrit 28.5 29.9 28.9 28.7 White Blood Count 5.3 Red Blood Count 3.50 Mean Corpuscular Volume 81.9 Mean Corpuscular Hemoglobin 26.5 Mean Corpuscular Hemoglobin 32.3 Concent Red Cell Distribution Width 18.1 Platelet Count 159 Mean Platelet Volume 8.1 Neutrophils (%) (Auto) 65.9 Lymphocytes (%) (Auto) 17.6 Monocytes (%) (Auto) 11.6 Eosinophils (%) (Auto) 4.2 Basophils (%) (Auto) 0.7 Neutrophils # (Auto) 3.5 Lymphocytes # (Auto) 0.9 Monocytes # (Auto) 0.6 Eosinophils # (Auto) 0.2 Basophils # (Auto) 0.0 CBC Comment DIFF FINAL Differential Comment Sodium Level 141 Potassium Level 3.5 Chloride Level 107 Carbon Dioxide Level 27.7 Anion Gap 6 Blood Urea Nitrogen 7 Creatinine 0.51 Estimat Glomerular Filtration 166 Rate Random Glucose 123 Calcium Level 7.9 Phosphorus Level 3.2 Magnesium Level 1.7 Total Bilirubin 1.2 Aspartate Amino Transf 143 (AST/SGOT) Alanine Aminotransferase 70 (ALT/SGPT) Alkaline Phosphatase 74 Total Protein 6.2 Albumin 2.2 Imaging Last Impressions Abdomen Ultrasound 09/04/16 0000 Signed Impressions: Service Date/Time: August 11:42 - CONCLUSION: Minimal free fluid in the pelvis. There is not enough present for paracentesis. Bacilio Johnson MD Liver Ultrasound 09/03/16 0000 Signed Impressions: Service Date/Time: Saturday, September 03, 2016 09:26 - CONCLUSION: Cirrhotic liver appearance with ascites. Bacilio Gonzalez MD Physical Exam HEENT: EOMI; normocephalic; atraumatic; no jaundice. CHEST: CTA CARDIAC: RRR ABDOMEN: Soft, distended, tympanitic, nontender; no hepatosplenomegaly; bowel sounds are present in all four quadrants. EXTREMITIES: No clubbing, cyanosis, or edema. SKIN: Normal; no rash; no jaundice. RIGHT OF WAY MAN: No focal deficits; alert and oriented times three. (Denisse Wihtaker [facility]) Assessment and Plan Plan ASSESSMENT: - Upper GI Bleed with hematemesis/melena. States he does not usually drink, but did have several drinks earlier this week. He believes that he takes Acetaminophen, but states this may be Ibuprofen. s/ p EGD 09-04-16--> esophageal varices grade 2, 4 x bands applied, small hiattal hernia, mild to moderate portal gatropathy. EGD (07/04/16)---> multiple ulcers in duodenum, multiple ulcers in the antrum, esophageal varices grade I, retroflexed views revealed a hiatal hernia. Colonoscopy (07/07/16) revealed poor prep, colonic mucosa appeared normal, small internal hemorrhoids, no abnormalities of the rectum. Repeat colonoscopy) (07/08/16)----> A small sessile polyp was found in the rectum, adenomatous, polypectomy was performed with a cold snare , the colon mucosa was otherwise normal, retroflexed views revealed small internal hemorrhoids, no abnormalities of the rectum. PPI gtt and Octreotide - Anemia, acute blood loss. H/H 8.2, 25.2. This is a drop from 08/11 9.2. PPI gtt and Octreotide - Liver cirrhosis/Elevated LFT. US Liver 09-04-16--> not enough fluid for paracentesis. He states he was dx 5 years ago. He was told this was related to ETOH abuse. He also reports a hx of Hepatitis A, B, and C. He is treatment naive for his HCV. He does have antibodies for both Hepatitis A and B, although surface angtigen for Hep B is negative and IGM for Hep A is nonreactive, so he probably has had a past exposure to Hep A/B. He does have Hepatitis C, Genotype 3A with viral load 6,570,000. - Esophageal varices. - Hepatitis C. Hx of Hepatitis A/B. Past Hep A ab total reactive, hep b core total ab reactive. HAV IgM negative, HBV Bs Ag negative. Likely past infection, now immune. Genotype 3A with viral load 6,570,000. - COPD. Per primary PLAN: - Protonix Gtt - Octreotide Gtt - Monitor labs - avoid NG tube secondary to bands - Notify GI of active bleeding - Pt seen and examined by Dr. Leija and myself and this note is written on his behalf Discharge Planning (Denisse Whitaker) Physician Comments Patient seen and examined Agree with above Continue with current supportive care Monitor labs (Bishnu Leija MD) Denisse Whitaker September 05, 2016 12:23 Bishnu Leija MD September 05, 2016 20:29
--- NOTE | 2016-09-05 13:23 | HHI.PR ---
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 His emesis consisted of black coffee grounds and then progressed to vomiting large amount of red blood. The patient also reports intermittent epigastric mid abdominal pain radiating to the right upper quadrant. He had three shots, two beers in addition took 3 tablets of aspirin for chronic back pain yesterday. The patient was recently hospitalized in June for similar presentation and underwent upper endoscopy on July 04 which showed multiple ulcers in duodenum, antrum and a grade 1 esophageal varices in addition to hiatal hernia. Colonoscopy was also performed on July 07 which revealed a poor prep, small internal hemorrhoids. A repeat colonoscopy was performed on July 08 which showed small sessile polyp, it was found in the rectum. A polypectomy was performed with a cold snare. On arrival to the emergency room he was tachycardiac with heart rate 111-116 and hypotensive with blood pressure 87/55. His hemoglobin level 7.6. The patient received 2 liters of crystalloids and 2 units of Packed red blood cells have been ordered by emergency room. In addition the patient is scheduled to be on Protonix and octreotide drips. He was seen by gastroenterology service in the emergency room and planned to undergo the upper endoscopy with possible band ligation today. His current blood pressure is 125/73 with a pulse of 111. He is on room air oxygen when seen. He denies any chest pain or shortness of breath. In addition he denies any cough, orthopnea, paroxysmal nocturnal dyspnea or edema of lower extremities. 09/03 Patient is awake, alert lying in bed in NAD. s/p transfusion 2units PRBC yesterday Hgb 9.1 this morning. On Protonix and Octreotide drips. s/p EGD yesterday showed Gastric bleed etiology unclear , incomplete evaluation with this EGD due to large clot obscuring view. 09/04 Patient s/p transfusion 1unit PRBC last night for Hgb 7.5 repeat Hgb 9.5 this morning. FOr repeat EGD today. On Protonix and Octreotide drips. Hospitalist Notes: 09/05: Patient seen in the room in the presence of nurse Miss Cm, continue Protonix drip and octreotide drip, monitoring Hemoglobin and Hematocrit. no signs of Hemorrhage, the patient did not have any new BM since procedure. no nausea or vomit. Objective Vital Signs Date Time Temp Pulse Resp B/P Pulse Ox O2 Delivery O2 Flow Rate FiO2 09/05/16 12:00 71 09/05/16 10:00 74 09/05/16 10:00 84 09/05/16 08:07 93 21 09/05/16 08:00 71 09/05/16 06:00 89 09/05/16 05:28 20 09/05/16 04:00 74 09/05/16 04:00 97.6 74 7 125/74 95 09/05/16 02:00 79 09/05/16 00:00 86 09/05/16 00:00 97.1 86 16 137/78 95 09/04/16 22:03 97 Nasal Cannula 2.00 09/04/16 22:00 81 09/04/16 20:00 97.4 87 27 132/70 09/04/16 20:00 87 09/04/16 18:00 80 09/04/16 16:00 77 09/04/16 16:00 99.2 78 12 129/73 94 09/04/16 14:00 78 I/O 09/04/16 09/04/16 09/04/16 09/05/16 09/05/16 09/05/16 07:00 15:00 23:00 07:00 15:00 23:00 Intake Total 600 ml 654 ml 870 ml 770 ml Output Total 200 ml 770 ml 250 ml Balance 400 ml -116 ml 620 ml 770 ml Intake Oral 360 ml 480 ml IV Total 600 ml 554 ml 510 ml 290 ml Other 100 ml Output Urine Total 200 ml 770 ml 250 ml Stool Total 0 ml 0 ml 0 ml Result Diagram: 09/05/1695709/05/1658 Imaging Last Impressions Abdomen Ultrasound 09/04/16 0000 Signed Impressions: Service Date/Time: August 11:42 - CONCLUSION: Minimal free fluid in the pelvis. There is not enough present for paracentesis. Bacilio Johnson MD Liver Ultrasound 09/03/16 0000 Signed Impressions: Service Date/Time: Saturday, September 03, 2016 09:26 - CONCLUSION: Cirrhotic liver appearance with ascites. Bacilio Gonzalez MD Procedures EGD and band ligation. Other Results Laboratory Tests Test 09/02/16 09/02/16 09/02/16 09/03/16 12:00 14:00 18:30 19:37 Prothrombin Time 13.7 SEC Prothromb Time International 1.2 RATIO Ratio Activated Partial 23.2 SEC Thromboplast Time Lipase 253 U/L Ethyl Alcohol Level LESS THAN 3 MG/DL Antibody Screen NEGATIVE Urine Color YELLOW Urine Turbidity CLEAR Urine pH 6.5 Urine Specific [place] 1.017 Urine Protein NEG mg/dL Urine Glucose (UA) NEG mg/dL Urine Ketones NEG mg/dL Urine Occult Blood NEG Urine Nitrite NEG Urine Bilirubin NEG Urine Urobilinogen 2.0 MG/DL Urine Leukocyte Esterase NEG Urine WBC LESS THAN 1 /hpf Urine Squamous Epithelial <1 /hpf Cells Urine Hyaline Casts 24 /lpf Urine Mucus FEW /lpf Microscopic Urinalysis Comment CULT NOT INDICATED Nasal Screen MRSA (PCR) MRSA DETECTED Blood Type B POSITIVE Crossmatch Leukocyte-Reduced Red Blood Cells Blood Bank Comment Test 09/05/16 09:58 White Blood Count 5.3 TH/MM3 Red Blood Count 3.50 MIL/MM3 Hemoglobin 9.3 GM/DL Hematocrit 28.7 % Mean Corpuscular Volume 81.9 FL Mean Corpuscular Hemoglobin 26.5 PG Mean Corpuscular Hemoglobin 32.3 % Concent Red Cell Distribution Width 18.1 % Platelet Count 159 TH/MM3 Mean Platelet Volume 8.1 FL Neutrophils (%) (Auto) 65.9 % Lymphocytes (%) (Auto) 17.6 % Monocytes (%) (Auto) 11.6 % Eosinophils (%) (Auto) 4.2 % Basophils (%) (Auto) 0.7 % Neutrophils # (Auto) 3.5 TH/MM3 Lymphocytes # (Auto) 0.9 TH/MM3 Monocytes # (Auto) 0.6 TH/MM3 Eosinophils # (Auto) 0.2 TH/MM3 Basophils # (Auto) 0.0 TH/MM3 CBC Comment DIFF FINAL Differential Comment Sodium Level 141 MEQ/L Potassium Level 3.5 MEQ/L Chloride Level 107 MEQ/L Carbon Dioxide Level 27.7 MEQ/L Anion Gap 6 MEQ/L Blood Urea Nitrogen 7 MG/DL Creatinine 0.51 MG/DL Estimat Glomerular Filtration 166 ML/MIN Rate Random Glucose 123 MG/DL Calcium Level 7.9 MG/DL Phosphorus Level 3.2 MG/DL Magnesium Level 1.7 MG/DL Total Bilirubin 1.2 MG/DL Aspartate Amino Transf 143 U/L (AST/SGOT) Alanine Aminotransferase 70 U/L (ALT/SGPT) Alkaline Phosphatase 74 U/L Total Protein 6.2 GM/DL Albumin 2.2 GM/DL Objective Remarks GENERAL: Well developed in no acute distress. SKIN: Warm and dry. HEAD: Normocephalic. EYES: No scleral icterus. No injection or drainage. NECK: Supple, trachea midline. No JVD or lymphadenopathy. CARDIOVASCULAR: Regular rate and rhythm without murmurs, gallops, or rubs. RESPIRATORY: Breath sounds equal bilaterally. No accessory muscle use. GASTROINTESTINAL: Abdomen soft, non-tender, nondistended. MUSCULOSKELETAL: No cyanosis, or edema. Neuro: Awake and alert Medications and IVs Current Medications Medications (Trade) Dose Ordered Sig/Estelle Route Start Time Stop Time Status Last Admin Sodium Chloride 2 ml 2 ml UNSCH PRN IVF 09/02/16 12:00 Octreotide Acetate 500 mcg/ Sodium Chloride 500.0 ml @ 25 mls/hr Q20H IV 09/02/16 14:15 09/07/16 14:14 09/04/16 23:30 (Protonix Inj/NS Inj) 100 ml @ 10 mls/hr Q10H IV 09/02/16 13:15 09/05/16 11:15 Miscellaneous Information 1 Q361D XX 09/02/16 13:30 (Chlorhexidine 2% Cloth) 3 pack Taper DAILY@04 TOP 09/03/16 04:00 08/30/17 03:59 09/05/16 04:00 Chlorhexidine Gluconate 3 pack 3 pack UNSCH PRN TOP 09/02/16 13:30 (Thiamine Inj/NS Inj) 101 ml @ 101 mls/hr DAILY IV 09/02/16 14:00 09/05/16 08:38 (Folate) 1 mg DAILY PO 09/02/16 14:00 09/05/16 08:39 Multivitamins 1 tab 1 tab DAILY PO 09/02/16 14:00 09/05/16 08:39 (Rocephin Inj/NS Inj) 100 ml @ 200 mls/hr Q24H IV 09/02/16 14:00 09/04/16 15:54 (D50w (Vial) Inj) 50 ml UNSCH PRN IV 09/02/16 13:30 (Glucagon Inj) 1 mg UNSCH PRN OTHER 09/02/16 13:30 Insulin Human Regular 1 1 Q6HR SQ 09/02/16 13:30 09/05/16 12:00 (D5W-NS 1000 ml Inj) 1,000 ml @ 75 mls/hr [id number] IV 09/02/16 13:30 09/05/16 08:10 (Ultram) 50 mg Q8H PRN PO 09/02/16 20:00 (Morphine Inj) 2 mg Q3H PRN IV PUSH 09/02/16 20:00 09/05/16 12:48 (Morphine Inj) 4 mg Q3H PRN IV PUSH 09/02/16 20:00 09/03/16 01:38 (Zofran Inj) 4 mg Q6HR PRN IV PUSH 09/02/16 20:00 09/03/16 09:19 Docusate Sodium 100 mg 100 mg Q12HR PO 09/03/16 09:00 09/05/16 08:39 Potassium Chloride 100 ml @ 50 mls/hr Q2H PRN IV 09/04/16 06:00 (KCl 20 Meq Premix Inj) 100 ml @ 50 mls/hr Q2H PRN IV 09/04/16 06:00 Potassium Bicarb/ Potassium Chloride 50 meq 50 meq UNSCH PRN PO 09/04/16 06:00 Potassium Chloride 100 ml @ 25 mls/hr UNSCH PRN IV 09/04/16 06:00 Potassium Chloride 100 ml @ 50 mls/hr Q2H PRN IV 09/04/16 06:00 09/04/16 15:54 (Magnesium Sulfate Inj/NS Inj) 100 ml @ 50 mls/hr UNSCH PRN IV 09/04/16 06:00 Magnesium Oxide 800 mg 800 mg UNSCH PRN PO 09/04/16 06:00 (Magnesium Sulfate Inj/NS Inj) 100 ml @ 50 mls/hr UNSCH PRN IV 09/04/16 06:00 Potassium Phosphate 2000 mg 2,000 mg Q4H PRN PO 09/04/16 06:00 (Sodium Phosphate Inj/NS 250 ml Inj) 250 ml @ 42 mls/hr UNSCH PRN IV 09/04/16 06:00 (K-Phos) 2,000 mg UNSCH PRN PO/TUBE 09/04/16 06:00 A/P Assessment and Plan 1. GI Bleed now on liquid diet, continue PPIs and Octreotide drip, GI specialist following, status post EGD 09/02/16 incomplete evaluation, due to large clot obscuring view repeat EGD 09/04/16 and showed esophageal varices grade 2, status post banding x 4 and Portal Gastropathy, Status post Paracentesis 07/31 with removal of 4.6 L of fluid, US liver showed cirrhotic liver with ascites tried Paracentesis yesterday but no enough fluid for Paracentesis. 2. Anemia secondary to acute blood loss, status post blood transfusion two units of PRBCs on admission and one 09/03. Hemoglobin stable 9.3 3. Cirrhosis of liver and elevated AST. 4. History of esophageal varices 5. Multiple duodenal ulcers. 6. History of hepatitis A, B and C per patient. 7. EtOH use 8. Empiric antibiotics Rocephin 1 gram IV daily. monitoring signs of infection. GI prophylaxis-on Protonix drip DVT prophylaxis with SCDs. chemical AC prophylaxis contraindicated in the setting of GI bleed. Transfer to Med/Surg on Telemetry bed. Discharge Planning once cleared by GI specialist. Mark Reyes MD September 05, 2016 13:23
[2016-09-05] MEDS: cefTRIAXone INJ 1,000 MG in SODIUM CHLORIDE 0.9% INJ 100 ML IV SCH (16:35)
[2016-09-05] MEDS: OCTREOTIDE INJ 500 MCG in SODIUM CHLORID 0.9% 500 ML INJ 499.5 ML IV SCH (23:25)
[2016-09-06] VITALS: BP 127/73; PULSE 67; RESP 18; TEMP 97.5; O2SAT 94
[2016-09-06] MEDS: MORPHINE SULFATE 4 MG/ML INJ IV PUSH PRN ×6 (01:56→20:35)
[2016-09-06] MEDS: DEXT 5%-NACL 0.9% 1000 ML INJ 1,000 ML IV SCH ×2 (01:58→12:22)
[2016-09-06] MEDS: CHLORHEXIDINE GLUCONATE 2 % 1 PACK (2 CLOTHS) TOP SCH (03:16)
[2016-09-06 04:00] VITALS: BP 125/65; PULSE 76; RESP 18; TEMP 97.6; O2SAT 92
[2016-09-06] MEDS: RESP: ALBUTEROL 2.5 MG/IPRATROPIUM 0.5 MG NEB (SCH) INH ×2 (04:50→09:55)
[2016-09-06] MEDS: INSULIN NovoLIN REGULAR SUPPLEMENTAL SCALE SQ SCH ×3 (04:59→18:00)
[2016-09-06 08:00] VITALS: BP 106/74; PULSE 77; RESP 20; TEMP 97.7; O2SAT 95
--- NOTE | 2016-09-06 08:25 | HHI.PR ---
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 His emesis consisted of black coffee grounds and then progressed to vomiting large amount of red blood. The patient also reports intermittent epigastric mid abdominal pain radiating to the right upper quadrant. He had three shots, two beers in addition took 3 tablets of aspirin for chronic back pain yesterday. The patient was recently hospitalized in June for similar presentation and underwent upper endoscopy on July 04 which showed multiple ulcers in duodenum, antrum and a grade 1 esophageal varices in addition to hiatal hernia. Colonoscopy was also performed on July 07 which revealed a poor prep, small internal hemorrhoids. A repeat colonoscopy was performed on July 08 which showed small sessile polyp, it was found in the rectum. A polypectomy was performed with a cold snare. On arrival to the emergency room he was tachycardiac with heart rate 111-116 and hypotensive with blood pressure 87/55. His hemoglobin level 7.6. The patient received 2 liters of crystalloids and 2 units of Packed red blood cells have been ordered by emergency room. In addition the patient is scheduled to be on Protonix and octreotide drips. He was seen by gastroenterology service in the emergency room and planned to undergo the upper endoscopy with possible band ligation today. His current blood pressure is 125/73 with a pulse of 111. He is on room air oxygen when seen. He denies any chest pain or shortness of breath. In addition he denies any cough, orthopnea, paroxysmal nocturnal dyspnea or edema of lower extremities. 09/03 Patient is awake, alert lying in bed in NAD. s/p transfusion 2units PRBC yesterday Hgb 9.1 this morning. On Protonix and Octreotide drips. s/p EGD yesterday showed Gastric bleed etiology unclear , incomplete evaluation with this EGD due to large clot obscuring view. 09/04 Patient s/p transfusion 1unit PRBC last night for Hgb 7.5 repeat Hgb 9.5 this morning. FOr repeat EGD today. On Protonix and Octreotide drips. Hospitalist Notes: 09/05: Patient seen in the room in the presence of nurse Miss Cm, continue Protonix drip and octreotide drip, monitoring Hemoglobin and Hematocrit. no signs of Hemorrhage, the patient did not have any new BM since procedure. no nausea or vomit. 09/06: Stable in his bedroom discussed with nurse miss Martinez, no nausea, vomit or diarrhea, discussed with the patient he is eating, awaiting to advance diet by GI specialist, also his Telemetry may be removed to improve activity. and his pain medicine will be changed to by mouth. Objective Vital Signs Date Time Temp Pulse Resp B/P Pulse Ox O2 Delivery O2 Flow Rate FiO2 09/06/16 06:10 Nasal Cannula 3.00 09/06/16 04:00 97.6 76 18 125/65 92 09/06/16 02:09 Nasal Cannula 3.00 09/06/16 00:00 97.5 67 18 127/73 94 09/05/16 22:15 Nasal Cannula 3.00 09/05/16 21:02 96 21 09/05/16 20:01 89 09/05/16 20:00 97.5 60 18 140/79 88 09/05/16 18:24 87.7 73 10 138/72 96 09/05/16 16:00 84 09/05/16 16:00 98.2 72 14 120/57 95 09/05/16 14:00 83 09/05/16 12:53 14 09/05/16 12:00 71 09/05/16 12:00 97.6 78 12 129/72 94 09/05/16 10:00 74 09/05/16 10:00 84 I/O 09/05/16 09/05/16 09/05/16 09/06/16 09/06/16 09/06/16 07:00 15:00 23:00 07:00 15:00 23:00 Intake Total 770 ml 777 ml 822 ml 886 ml Output Total 563 ml 100 ml 200 ml Balance 770 ml 214 ml 722 ml 686 ml Intake Oral 480 ml IV Total 290 ml 777 ml 822 ml 886 ml Output Urine Total 562 ml 100 ml 200 ml Stool Total 1 ml # Bowel Movements 0 1 Result Diagram: 09/05/1658 09/05/1658 Imaging Last Impressions Abdomen Ultrasound 09/04/16 0000 Signed Impressions: Service Date/Time: August 11:42 - CONCLUSION: Minimal free fluid in the pelvis. There is not enough present for paracentesis. Bacilio Johnson MD Liver Ultrasound 09/03/16 0000 Signed Impressions: Service Date/Time: Saturday, September 03, 2016 09:26 - CONCLUSION: Cirrhotic liver appearance with ascites. Bacilio Gonzalez MD Procedures EGD and band ligation. Other Results Laboratory Tests Test 09/02/16 09/02/16 09/02/16 09/03/16 12:00 14:00 18:30 19:37 Prothrombin Time 13.7 SEC Prothromb Time International 1.2 RATIO Ratio Activated Partial 23.2 SEC Thromboplast Time Lipase 253 U/L Ethyl Alcohol Level LESS THAN 3 MG/DL Antibody Screen NEGATIVE Urine Color YELLOW Urine Turbidity CLEAR Urine pH 6.5 Urine Specific [place] 1.017 Urine Protein NEG mg/dL Urine Glucose (UA) NEG mg/dL Urine Ketones NEG mg/dL Urine Occult Blood NEG Urine Nitrite NEG Urine Bilirubin NEG Urine Urobilinogen 2.0 MG/DL Urine Leukocyte Esterase NEG Urine WBC LESS THAN 1 /hpf Urine Squamous Epithelial <1 /hpf Cells Urine Hyaline Casts 24 /lpf Urine Mucus FEW /lpf Microscopic Urinalysis Comment CULT NOT INDICATED Nasal Screen MRSA (PCR) MRSA DETECTED Blood Type B POSITIVE Crossmatch Leukocyte-Reduced Red Blood Cells Blood Bank Comment Test 09/05/16 09:58 White Blood Count 5.3 TH/MM3 Red Blood Count 3.50 MIL/MM3 Hemoglobin 9.3 GM/DL Hematocrit 28.7 % Mean Corpuscular Volume 81.9 FL Mean Corpuscular Hemoglobin 26.5 PG Mean Corpuscular Hemoglobin 32.3 % Concent Red Cell Distribution Width 18.1 % Platelet Count 159 TH/MM3 Mean Platelet Volume 8.1 FL Neutrophils (%) (Auto) 65.9 % Lymphocytes (%) (Auto) 17.6 % Monocytes (%) (Auto) 11.6 % Eosinophils (%) (Auto) 4.2 % Basophils (%) (Auto) 0.7 % Neutrophils # (Auto) 3.5 TH/MM3 Lymphocytes # (Auto) 0.9 TH/MM3 Monocytes # (Auto) 0.6 TH/MM3 Eosinophils # (Auto) 0.2 TH/MM3 Basophils # (Auto) 0.0 TH/MM3 CBC Comment DIFF FINAL Differential Comment Sodium Level 141 MEQ/L Potassium Level 3.5 MEQ/L Chloride Level 107 MEQ/L Carbon Dioxide Level 27.7 MEQ/L Anion Gap 6 MEQ/L Blood Urea Nitrogen 7 MG/DL Creatinine 0.51 MG/DL Estimat Glomerular Filtration 166 ML/MIN Rate Random Glucose 123 MG/DL Calcium Level 7.9 MG/DL Phosphorus Level 3.2 MG/DL Magnesium Level 1.7 MG/DL Total Bilirubin 1.2 MG/DL Aspartate Amino Transf 143 U/L (AST/SGOT) Alanine Aminotransferase 70 U/L (ALT/SGPT) Alkaline Phosphatase 74 U/L Total Protein 6.2 GM/DL Albumin 2.2 GM/DL Objective Remarks GENERAL: Well developed in no acute distress. SKIN: Warm and dry. HEAD: Normocephalic. EYES: No scleral icterus. No injection or drainage. NECK: Supple, trachea midline. No JVD or lymphadenopathy. CARDIOVASCULAR: Regular rate and rhythm without murmurs, gallops, or rubs. RESPIRATORY: Breath sounds equal bilaterally. No accessory muscle use. GASTROINTESTINAL: Abdomen soft, non-tender, nondistended. MUSCULOSKELETAL: No cyanosis, or edema. Neuro: Awake and alert Medications and IVs Current Medications Medications (Trade) Dose Ordered Sig/Estelle Route Start Time Stop Time Status Last Admin Sodium Chloride 2 ml 2 ml UNSCH PRN IVF 09/02/16 12:00 Octreotide Acetate 500 mcg/ Sodium Chloride 500.0 ml @ 25 mls/hr Q20H IV 09/02/16 14:15 09/07/16 14:14 09/05/16 23:25 (Protonix Inj/NS Inj) 100 ml @ 10 mls/hr Q10H IV 09/02/16 13:15 09/05/16 23:25 Miscellaneous Information 1 Q361D XX 09/02/16 13:30 (Chlorhexidine 2% Cloth) 3 pack Taper DAILY@04 TOP 09/03/16 04:00 08/30/17 03:59 09/05/16 04:00 Chlorhexidine Gluconate 3 pack 3 pack UNSCH PRN TOP 09/02/16 13:30 (Thiamine Inj/NS Inj) 101 ml @ 101 mls/hr DAILY IV 09/02/16 14:00 09/05/16 08:38 (Folate) 1 mg DAILY PO 09/02/16 14:00 09/05/16 08:39 Multivitamins 1 tab 1 tab DAILY PO 09/02/16 14:00 09/05/16 08:39 (Rocephin Inj/NS Inj) 100 ml @ 200 mls/hr Q24H IV 09/02/16 14:00 09/05/16 16:35 (D50w (Vial) Inj) 50 ml UNSCH PRN IV 09/02/16 13:30 (Glucagon Inj) 1 mg UNSCH PRN OTHER 09/02/16 13:30 Insulin Human Regular 1 1 Q6HR SQ 09/02/16 13:30 09/05/16 12:00 (D5W-NS 1000 ml Inj) 1,000 ml @ 75 mls/hr [id number] IV 09/02/16 13:30 09/06/16 01:58 (Ultram) 50 mg Q8H PRN PO 09/02/16 20:00 (Morphine Inj) 2 mg Q3H PRN IV PUSH 09/02/16 20:00 09/06/16 01:56 (Morphine Inj) 4 mg Q3H PRN IV PUSH 09/02/16 20:00 09/06/16 04:50 (Zofran Inj) 4 mg Q6HR PRN IV PUSH 09/02/16 20:00 09/03/16 09:19 (Colace Liq) 100 mg Q12HR PO 09/03/16 09:00 09/05/16 19:51 A/P Assessment and Plan 1. GI Bleed now on liquid diet, continue PPIs and Octreotide drip, GI specialist following, status post EGD 09/02/16 incomplete evaluation, due to large clot obscuring view repeat EGD 09/04/16 and showed esophageal varices grade 2, status post banding x 4 and Portal Gastropathy, Status post Paracentesis 07/31 with removal of 4.6 L of fluid, US liver showed cirrhotic liver with ascites tried Paracentesis yesterday but no enough fluid for Paracentesis. awaiting for GI specialist to advance diet. 2. Anemia secondary to acute blood loss, status post blood transfusion two units of PRBCs on admission and one 09/03. Hemoglobin stable 9.3 3. Cirrhosis of liver and elevated AST. 4. History of esophageal varices 5. Multiple duodenal ulcers. 6. History of hepatitis A, B and C per patient. 7. EtOH use strongly recommended to stop drinking alcohol behavior. 8. Empiric antibiotics Rocephin 1 gram IV daily. monitoring signs of infection. 9. Hypoglycemia on D5 iv fluids. GI prophylaxis-on Protonix drip DVT prophylaxis with SCDs. chemical AC prophylaxis contraindicated in the setting of GI bleed. Remove Telemetry Pain medicine to by mouth consult PT encourage activity. Discharge Planning once cleared by GI specialist. Mark Reyes MD September 06, 2016 08:25
[2016-09-06] MEDS: FOLIC ACID 1 MG TAB PO SCH (08:46)
[2016-09-06] MEDS: DOCUSATE SODIUM 100 MG/10 ML UDC PO SCH ×2 (08:46→20:33)
[2016-09-06] MEDS: MULTIVITAMIN TAB PO SCH (08:47)
[2016-09-06] MEDS: PANTOPRAZOLE INJ 80 MG in SODIUM CHLORIDE 0.9% INJ 100 ML IV SCH ×2 (08:48→19:04)
[2016-09-06 12:00] VITALS: BP 123/80; PULSE 80; RESP 20; TEMP 97.7; O2SAT 95
[2016-09-06] MEDS: THIAMINE INJ 100 MG in SODIUM CHLORIDE 0.9% INJ 100 ML IV SCH (12:17)
[2016-09-06] MEDS: cefTRIAXone INJ 1,000 MG in SODIUM CHLORIDE 0.9% INJ 100 ML IV SCH (14:30)
[2016-09-06 16:00] VITALS: BP 137/85; PULSE 73; RESP 20; TEMP 98; O2SAT 96
[2016-09-06] MEDS: RESP: ALBUTEROL 2.5 MG/IPRATROPIUM 0.5 MG NEB (PRN) INH (16:06)
--- NOTE | 2016-09-06 18:15 | HHI.GIFU ---
Subjective Remarks Pt has not had any melanotic stool or BRBPR Denies any nausea/vomiting. Pt wants to advance diet He feels his abdomen is more distended today (Jordana Peace) Objective Vitals I&O Vital Signs Date Time Temp Pulse Resp B/P Pulse Ox O2 Delivery O2 Flow Rate FiO2 09/06/16 16:25 18 09/06/16 16:08 95 Nasal Cannula 3.00 09/06/16 16:00 98.0 73 20 137/85 96 09/06/16 12:00 97.7 80 20 123/80 95 09/06/16 08:00 97.7 77 20 106/74 95 09/06/16 06:10 Nasal Cannula 3.00 09/06/16 04:00 97.6 76 18 125/65 92 09/06/16 02:09 Nasal Cannula 3.00 09/06/16 00:00 97.5 67 18 127/73 94 09/05/16 22:15 Nasal Cannula 3.00 09/05/16 21:02 96 21 09/05/16 20:01 89 09/05/16 20:00 97.5 60 18 140/79 88 09/05/16 18:24 87.7 73 10 138/72 96 I/O 09/05/16 09/05/16 09/05/16 09/06/16 09/06/16 09/06/16 06:59 14:59 22:59 06:59 14:59 22:59 Intake Total 770 ml 777 ml 822 ml 886 ml 200 ml Output Total 563 ml 100 ml 200 ml 150 ml Balance 770 ml 214 ml 722 ml 686 ml 200 ml -150 ml Intake Oral 480 ml 200 ml IV Total 290 ml 777 ml 822 ml 886 ml Output Urine Total 562 ml 100 ml 200 ml 150 ml Stool Total 1 ml # Bowel Movements 0 1 Laboratory Laboratory Tests Test 09/05/16 09/05/16 00:30 09:58 Hemoglobin 9.4 GM/DL 9.3 GM/DL Hematocrit 28.9 % 28.7 % White Blood Count 5.3 TH/MM3 Red Blood Count 3.50 MIL/MM3 Mean Corpuscular Volume 81.9 FL Mean Corpuscular Hemoglobin 26.5 PG Mean Corpuscular Hemoglobin 32.3 % Concent Red Cell Distribution Width 18.1 % Platelet Count 159 TH/MM3 Mean Platelet Volume 8.1 FL Neutrophils (%) (Auto) 65.9 % Lymphocytes (%) (Auto) 17.6 % Monocytes (%) (Auto) 11.6 % Eosinophils (%) (Auto) 4.2 % Basophils (%) (Auto) 0.7 % Neutrophils # (Auto) 3.5 TH/MM3 Lymphocytes # (Auto) 0.9 TH/MM3 Monocytes # (Auto) 0.6 TH/MM3 Eosinophils # (Auto) 0.2 TH/MM3 Basophils # (Auto) 0.0 TH/MM3 CBC Comment DIFF FINAL Differential Comment Sodium Level 141 MEQ/L Potassium Level 3.5 MEQ/L Chloride Level 107 MEQ/L Carbon Dioxide Level 27.7 MEQ/L Anion Gap 6 MEQ/L Blood Urea Nitrogen 7 MG/DL Creatinine 0.51 MG/DL Estimat Glomerular Filtration 166 ML/MIN Rate Random Glucose 123 MG/DL Calcium Level 7.9 MG/DL Phosphorus Level 3.2 MG/DL Magnesium Level 1.7 MG/DL Total Bilirubin 1.2 MG/DL Aspartate Amino Transf 143 U/L (AST/SGOT) Alanine Aminotransferase 70 U/L (ALT/SGPT) Alkaline Phosphatase 74 U/L Total Protein 6.2 GM/DL Albumin 2.2 GM/DL Imaging Last Impressions Abdomen Ultrasound 09/04/16 0000 Signed Impressions: Service Date/Time: August 11:42 - CONCLUSION: Minimal free fluid in the pelvis. There is not enough present for paracentesis. Bacilio Johnson MD Liver Ultrasound 09/03/16 0000 Signed Impressions: Service Date/Time: Saturday, September 03, 2016 09:26 - CONCLUSION: Cirrhotic liver appearance with ascites. Bacilio Gonzalez MD Physical Exam GENERAL: NAD, AAOx3 CHEST: CTA CARDIAC: RRR ABDOMEN: +BS, firm, distended, tympanitic, nontender EXTREMITIES: No clubbing, cyanosis, or edema. SKIN: Multiple tattoos (Jordana Peace) Assessment and Plan Plan ASSESSMENT: - Upper GI Bleed with hematemesis/melena. States he does not usually drink, but did have several drinks earlier this week. He believes that he takes Acetaminophen, but states this may be Ibuprofen. s/ p EGD 09-04-16--> esophageal varices grade 2, 4 x bands applied, small hiatal hernia, mild to moderate portal gastropathy. PPI gtt and Octreotide - Anemia, acute blood loss. H/H currently stable at 9.3/28.7 (09/05). PPI gtt and Octreotide - Liver cirrhosis/Elevated LFT. US Liver 09-04-16--> not enough fluid for paracentesis. He feels that his abdomen is more bloated and firm today. He states he was dx 5 years ago with cirrhosis. He was told this was related to ETOH abuse. He also reports a hx of Hepatitis A, B, and C. He is treatment naive for his HCV. He does have antibodies for both Hepatitis A and B, although surface antigen for Hep B is negative and IGM for Hep A is nonreactive, so he probably has had a past exposure to Hep A/B. He does have Hepatitis C, Genotype 3A with viral load 6,570,000. - Esophageal varices. - Hepatitis C. Hx of Hepatitis A/B. Past Hep A ab total reactive, hep b core total ab reactive. HAV IgM negative, HBV Bs Ag negative. Likely past infection, now immune. Genotype 3A with viral load 6,570,000. - COPD. Per primary PLAN: - Cont. Protonix Gtt and Octreotide Gtt - Pt is on clear liquid diet, if H/H is stable in the morning advance to full liquid diet. - Monitor labs - Avoid NG tube secondary to bands - Notify GI of active bleeding - Consider repeat Abd US as pt reports that he feels his abdomen is becoming more distended - Pt was seen and examined by myself and Dr. Rowley and this note is written on his behalf Discharge Planning (Jordana Peace) Physician Comments Seen and examined, plan as above, will follow up with you. (Laura Rowley MD) Jordana Peace September 06, 2016 18:15 Laura Rowley MD September 07, 2016 05:00
[2016-09-06] MEDS: OCTREOTIDE INJ 500 MCG in SODIUM CHLORID 0.9% 500 ML INJ 499.5 ML IV SCH (19:06)
[2016-09-06 20:00] VITALS: BP 139/76; PULSE 81; RESP 22; TEMP 97.6; O2SAT 92
[2016-09-07] VITALS (7 sets, daily range): BP systolic 87–166; BP diastolic 59–93; PULSE 69–101; RESP 20–22; TEMP 97.6–98.4; O2SAT 91–94
[2016-09-07] MEDS: MORPHINE SULFATE 4 MG/ML INJ IV PUSH PRN ×3 (00:03→07:37)
[2016-09-07] MEDS: DEXT 5%-NACL 0.9% 1000 ML INJ 1,000 ML IV SCH ×2 (00:10→16:05)
[2016-09-07] MEDS: PANTOPRAZOLE INJ 80 MG in SODIUM CHLORIDE 0.9% INJ 100 ML IV SCH ×3 (03:37→23:43)
[2016-09-07] MEDS: CHLORHEXIDINE GLUCONATE 2 % 1 PACK (2 CLOTHS) TOP SCH (04:00)
[2016-09-07] MEDS: INSULIN NovoLIN REGULAR SUPPLEMENTAL SCALE SQ SCH ×6 (06:00→23:44)
[2016-09-07 07:12] LABS: BASOPHIL % 0.7 % (0.0-2.0); EOSINOPHIL # 0.3 TH/MM3 (0-0.4); HEMATOCRIT 29.1 % (39.0-51.0); HEMO FLAGS DIFF FINAL; LYMPH % 19.9 % (9.0-44.0); LYMPHOCYTE # 1.3 TH/MM3 (1.0-4.8); MEAN CELL VOLUME 82.2 FL (80.0-100.0); MEAN CORPUSCULAR HGB CONC 32.8 % (32.0-36.0); MONO % 13.4 % (0.0-8.0); PLATELET COUNT 182 TH/MM3 (150-450); RED BLOOD COUNT 3.53 MIL/MM3 (4.50-5.90); RED CELL DISTRIBUTION WIDTH 18.5 % (11.6-17.2); WHITE BLOOD COUNT 6.4 TH/MM3 (4.0-11.0)
[2016-09-07 07:40] LABS: ANION GAP 9 MEQ/L (5-15); AST (GOT) 125 U/L (15-37); BICARBONATE 23.9 MEQ/L (21.0-32.0); BLOOD UREA NITROGEN 3 MG/DL (7-18); CHLORIDE 105 MEQ/L (98-107); GLOMERULAR FILTRATION RATE 197 ML/MIN (>89); POTASSIUM 3.3 MEQ/L (3.5-5.1); SODIUM (NA) 138 MEQ/L (136-145)
[2016-09-07 07:44] LABS: ALKALINE PHOSPHATASE 72 U/L (45-117); ALT (GPT) 67 U/L (12-78); TOTAL BILIRUBIN ADULT 1.8 MG/DL (0.2-1.0)
--- NOTE | 2016-09-07 08:47 | HHI.PR ---
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 His emesis consisted of black coffee grounds and then progressed to vomiting large amount of red blood. The patient also reports intermittent epigastric mid abdominal pain radiating to the right upper quadrant. He had three shots, two beers in addition took 3 tablets of aspirin for chronic back pain yesterday. The patient was recently hospitalized in June for similar presentation and underwent upper endoscopy on July 04 which showed multiple ulcers in duodenum, antrum and a grade 1 esophageal varices in addition to hiatal hernia. Colonoscopy was also performed on July 07 which revealed a poor prep, small internal hemorrhoids. A repeat colonoscopy was performed on July 08 which showed small sessile polyp, it was found in the rectum. A polypectomy was performed with a cold snare. On arrival to the emergency room he was tachycardiac with heart rate 111-116 and hypotensive with blood pressure 87/55. His hemoglobin level 7.6. The patient received 2 liters of crystalloids and 2 units of Packed red blood cells have been ordered by emergency room. In addition the patient is scheduled to be on Protonix and octreotide drips. He was seen by gastroenterology service in the emergency room and planned to undergo the upper endoscopy with possible band ligation today. His current blood pressure is 125/73 with a pulse of 111. He is on room air oxygen when seen. He denies any chest pain or shortness of breath. In addition he denies any cough, orthopnea, paroxysmal nocturnal dyspnea or edema of lower extremities. 09/03 Patient is awake, alert lying in bed in NAD. s/p transfusion 2units PRBC yesterday Hgb 9.1 this morning. On Protonix and Octreotide drips. s/p EGD yesterday showed Gastric bleed etiology unclear , incomplete evaluation with this EGD due to large clot obscuring view. 09/04 Patient s/p transfusion 1unit PRBC last night for Hgb 7.5 repeat Hgb 9.5 this morning. FOr repeat EGD today. On Protonix and Octreotide drips. Hospitalist Notes: 09/05: Patient seen in the room in the presence of nurse Miss Cm, continue Protonix drip and octreotide drip, monitoring Hemoglobin and Hematocrit. no signs of Hemorrhage, the patient did not have any new BM since procedure. no nausea or vomit. 09/06: Stable in his bedroom discussed with nurse Juan, no nausea, vomit or diarrhea, discussed with the patient he is eating, awaiting to advance diet by GI specialist, also his Telemetry may be removed to improve activity. and his pain medicine will be changed to by mouth. 09/07: Seen in his bedroom and discussed with nurse and with GI specialist today more distended that before asked for abdominal ray to evaluate for Ileus versus Ascites. Objective Vital Signs Date Time Temp Pulse Resp B/P Pulse Ox O2 Delivery O2 Flow Rate FiO2 09/07/16 08:00 98.4 84 20 87/59 93 09/07/16 07:50 18 09/07/16 06:47 72 09/07/16 04:00 97.7 79 22 142/85 91 09/07/16 00:00 98.0 80 22 166/93 94 09/06/16 21:20 Nasal Cannula 3.00 21 09/06/16 20:00 97.6 81 22 139/76 92 09/06/16 16:08 95 Nasal Cannula 3.00 09/06/16 16:00 98.0 73 20 137/85 96 09/06/16 12:00 97.7 80 20 123/80 95 I/O 09/06/16 09/06/16 09/06/16 09/07/16 09/07/16 09/07/16 07:00 15:00 23:00 07:00 15:00 23:00 Intake Total 886 ml 200 ml 180 ml 180 ml Output Total 200 ml 450 ml 350 ml Balance 686 ml 200 ml -270 ml -170 ml Intake Oral 200 ml 180 ml 180 ml IV Total 886 ml Output Urine Total 200 ml 450 ml 350 ml # Bowel Movements 1 0 Result Diagram: 09/07/16 0653 09/07/16 0653 Imaging Last Impressions Abdomen Ultrasound 09/04/16 0000 Signed Impressions: Service Date/Time: August 11:42 - CONCLUSION: Minimal free fluid in the pelvis. There is not enough present for paracentesis. Bacilio Johnson MD Liver Ultrasound 09/03/16 0000 Signed Impressions: Service Date/Time: Saturday, September 03, 2016 09:26 - CONCLUSION: Cirrhotic liver appearance with ascites. Bacilio Gonzalez MD Procedures EGD and band ligation. Other Results Laboratory Tests Test 09/03/16 09/05/16 09/07/16 19:37 09:58 06:53 Blood Type B POSITIVE Crossmatch Leukocyte-Reduced Red Blood Cells Blood Bank Comment Phosphorus Level 3.2 MG/DL Magnesium Level 1.7 MG/DL White Blood Count 6.4 TH/MM3 Red Blood Count 3.53 MIL/MM3 Hemoglobin 9.5 GM/DL Hematocrit 29.1 % Mean Corpuscular Volume 82.2 FL Mean Corpuscular Hemoglobin 27.0 PG Mean Corpuscular Hemoglobin 32.8 % Concent Red Cell Distribution Width 18.5 % Platelet Count 182 TH/MM3 Mean Platelet Volume 7.9 FL Neutrophils (%) (Auto) 62.0 % Lymphocytes (%) (Auto) 19.9 % Monocytes (%) (Auto) 13.4 % Eosinophils (%) (Auto) 4.0 % Basophils (%) (Auto) 0.7 % Neutrophils # (Auto) 4.0 TH/MM3 Lymphocytes # (Auto) 1.3 TH/MM3 Monocytes # (Auto) 0.9 TH/MM3 Eosinophils # (Auto) 0.3 TH/MM3 Basophils # (Auto) 0.0 TH/MM3 CBC Comment DIFF FINAL Differential Comment Sodium Level 138 MEQ/L Potassium Level 3.3 MEQ/L Chloride Level 105 MEQ/L Carbon Dioxide Level 23.9 MEQ/L Anion Gap 9 MEQ/L Blood Urea Nitrogen 3 MG/DL Creatinine 0.44 MG/DL Estimat Glomerular Filtration 197 ML/MIN Rate Random Glucose 98 MG/DL Calcium Level 7.6 MG/DL Total Bilirubin 1.8 MG/DL Aspartate Amino Transf 125 U/L (AST/SGOT) Alanine Aminotransferase 67 U/L (ALT/SGPT) Alkaline Phosphatase 72 U/L Total Protein 6.0 GM/DL Albumin 2.2 GM/DL Objective Remarks GENERAL: Well developed in no acute distress. SKIN: Warm and dry. HEAD: Normocephalic. EYES: No scleral icterus. No injection or drainage. NECK: Supple, trachea midline. No JVD or lymphadenopathy. CARDIOVASCULAR: Regular rate and rhythm without murmurs, gallops, or rubs. RESPIRATORY: Breath sounds equal bilaterally. No accessory muscle use. GASTROINTESTINAL: Abdomen soft, non-tender, distended. MUSCULOSKELETAL: No cyanosis, or edema. Neuro: Awake and alert Medications and IVs Current Medications Medications (Trade) Dose Ordered Sig/Estelle Route Start Time Stop Time Status Last Admin Sodium Chloride 2 ml 2 ml UNSCH PRN IVF 09/02/16 12:00 Octreotide Acetate 500 mcg/ Sodium Chloride 500.0 ml @ 25 mls/hr Q20H IV 09/02/16 14:15 09/07/16 14:14 09/06/16 19:06 (Protonix Inj/NS Inj) 100 ml @ 10 mls/hr Q10H IV 09/02/16 13:15 09/07/16 03:37 Miscellaneous Information 1 [id number] XX 09/02/16 13:30 (Chlorhexidine 2% Cloth) 3 pack Taper DAILY@04 TOP 09/03/16 04:00 08/30/17 03:59 09/05/16 04:00 Chlorhexidine Gluconate 3 pack 3 pack UNSCH PRN TOP 09/02/16 13:30 (Thiamine Inj/NS Inj) 101 ml @ 101 mls/hr DAILY IV 09/02/16 14:00 09/06/16 12:17 (Folate) 1 mg DAILY PO 09/02/16 14:00 09/06/16 08:46 Multivitamins 1 tab 1 tab DAILY PO 09/02/16 14:00 09/06/16 08:47 (Rocephin Inj/NS Inj) 100 ml @ 200 mls/hr Q24H IV 09/02/16 14:00 09/06/16 14:30 (D50w (Vial) Inj) 50 ml UNSCH PRN IV 09/02/16 13:30 (Glucagon Inj) 1 mg UNSCH PRN OTHER 09/02/16 13:30 Insulin Human Regular 1 1 Q6HR SQ 09/02/16 13:30 09/06/16 04:59 (D5W-NS 1000 ml Inj) 1,000 ml @ 75 mls/hr [id number] IV 09/02/16 13:30 09/06/16 12:22 (Ultram) 50 mg Q8H PRN PO 09/02/16 20:00 (Morphine Inj) 2 mg Q3H PRN IV PUSH 09/02/16 20:00 09/06/16 01:56 (Morphine Inj) 4 mg Q3H PRN IV PUSH 09/02/16 20:00 09/07/16 07:37 (Zofran Inj) 4 mg Q6HR PRN IV PUSH 09/02/16 20:00 09/03/16 09:19 (Colace Liq) 100 mg Q12HR PO 09/03/16 09:00 09/06/16 20:33 A/P Assessment and Plan 1. GI Bleed now on liquid diet, continue PPIs and Octreotide drip, GI specialist following, status post EGD 09/02/16 incomplete evaluation, due to large clot obscuring view repeat EGD 09/04/16 and showed esophageal varices grade 2, status post banding x 4 and Portal Gastropathy, Status post Paracentesis 07/31 with removal of 4.6 L of fluid, US liver showed cirrhotic liver with ascites tried Paracentesis yesterday but no enough fluid for Paracentesis. awaiting for GI specialist to advance diet. 2. Anemia secondary to acute blood loss, status post blood transfusion two units of PRBCs on admission and one 09/03. Hemoglobin stable 9.3 3. Cirrhosis of liver and elevated AST. 4. History of esophageal varices 5. Multiple duodenal ulcers. 6. History of hepatitis A, B and C per patient. 7. EtOH use strongly recommended to stop drinking alcohol behavior. 8. Empiric antibiotics Rocephin 1 gram IV daily. monitoring signs of infection. 9. Hypoglycemia on D5 iv fluids. 10. Abdominal distension probable Ileus awaiting for Abdominal X ray discussed with GI specialist. GI prophylaxis-on Protonix drip DVT prophylaxis with SCDs. chemical AC prophylaxis contraindicated in the setting of GI bleed. Discharge Planning once cleared by GI specialist. Mark Reyes MD September 07, 2016 08:47 Discharge Planning once cleared by GI specialist. Mark Reyes MD September 07, 2016 08:47
[2016-09-07] MEDS: DOCUSATE SODIUM 100 MG/10 ML UDC PO SCH ×2 (09:46→20:20)
[2016-09-07] MEDS: MULTIVITAMIN TAB PO SCH (09:46)
[2016-09-07] MEDS: FOLIC ACID 1 MG TAB PO SCH (09:46)
[2016-09-07] MEDS: THIAMINE INJ 100 MG in SODIUM CHLORIDE 0.9% INJ 100 ML IV SCH (10:00)
--- NOTE | 2016-09-07 12:33 | HHI.GIFU ---
Subjective Remarks Complaining of abdominal distension. Objective Vitals I&O Vital Signs Date Time Temp Pulse Resp B/P Pulse Ox O2 Delivery O2 Flow Rate FiO2 09/07/16 08:00 98.4 84 20 87/59 93 09/07/16 07:50 18 09/07/16 06:47 72 09/07/16 04:00 97.7 79 22 142/85 91 09/07/16 00:00 98.0 80 22 166/93 94 09/06/16 21:20 Nasal Cannula 3.00 21 09/06/16 20:00 97.6 81 22 139/76 92 09/06/16 16:08 95 Nasal Cannula 3.00 09/06/16 16:00 98.0 73 20 137/85 96 I/O 09/06/16 09/06/16 09/06/16 09/07/16 09/07/16 09/07/16 07:00 15:00 23:00 07:00 15:00 23:00 Intake Total 886 ml 200 ml 180 ml 180 ml Output Total 200 ml 450 ml 350 ml Balance 686 ml 200 ml -270 ml -170 ml Intake Oral 200 ml 180 ml 180 ml IV Total 886 ml Output Urine Total 200 ml 450 ml 350 ml # Bowel Movements 1 0 Laboratory Laboratory Tests Test 09/07/16 06:53 White Blood Count 6.4 Red Blood Count 3.53 Hemoglobin 9.5 Hematocrit 29.1 Mean Corpuscular Volume 82.2 Mean Corpuscular Hemoglobin 27.0 Mean Corpuscular Hemoglobin 32.8 Concent Red Cell Distribution Width 18.5 Platelet Count 182 Mean Platelet Volume 7.9 Neutrophils (%) (Auto) 62.0 Lymphocytes (%) (Auto) 19.9 Monocytes (%) (Auto) 13.4 Eosinophils (%) (Auto) 4.0 Basophils (%) (Auto) 0.7 Neutrophils # (Auto) 4.0 Lymphocytes # (Auto) 1.3 Monocytes # (Auto) 0.9 Eosinophils # (Auto) 0.3 Basophils # (Auto) 0.0 CBC Comment DIFF FINAL Differential Comment Sodium Level 138 Potassium Level 3.3 Chloride Level 105 Carbon Dioxide Level 23.9 Anion Gap 9 Blood Urea Nitrogen 3 Creatinine 0.44 Estimat Glomerular Filtration 197 Rate Random Glucose 98 Calcium Level 7.6 Total Bilirubin 1.8 Aspartate Amino Transf 125 (AST/SGOT) Alanine Aminotransferase 67 (ALT/SGPT) Alkaline Phosphatase 72 Total Protein 6.0 Albumin 2.2 Physical Exam GENERAL: NAD, AAOx3 CHEST: CTA CARDIAC: RRR ABDOMEN: +BS, firm, distended, tympanitic, nontender EXTREMITIES: No clubbing, cyanosis, or edema. SKIN: Multiple tattoos Assessment and Plan Plan ASSESSMENT: - Upper GI Bleed with hematemesis/melena. States he does not usually drink, but did have several drinks earlier this week. He believes that he takes Acetaminophen, but states this may be Ibuprofen. s/ p EGD 09-04-16--> esophageal varices grade 2, 4 x bands applied, small hiatal hernia, mild to moderate portal gastropathy. PPI gtt and Octreotide - Anemia, acute blood loss. H/H currently stable at 9.3/28.7 (09/05). PPI gtt and Octreotide - Liver cirrhosis/Elevated LFT. US Liver 09-04-16--> not enough fluid for paracentesis. He feels that his abdomen is more bloated and firm today. He states he was dx 5 years ago with cirrhosis. He was told this was related to ETOH abuse. He also reports a hx of Hepatitis A, B, and C. He is treatment naive for his HCV. He does have antibodies for both Hepatitis A and B, although surface antigen for Hep B is negative and IGM for Hep A is nonreactive, so he probably has had a past exposure to Hep A/B. He does have Hepatitis C, Genotype 3A with viral load 6,570,000. - Esophageal varices. - Hepatitis C. Hx of Hepatitis A/B. Past Hep A ab total reactive, hep b core total ab reactive. HAV IgM negative, HBV Bs Ag negative. Likely past infection, now immune. Genotype 3A with viral load 6,570,000. - COPD. Per primary PLAN: - Flat Abdominal X-Ray to role out ileus - Cont. Protonix Gtt and Octreotide Gtt - Clear liquid diet - Monitor labs - Notify GI of active bleeding - Further recommendations to follow Discharge Planning Laura Rowley MD September 07, 2016 12:33
--- NOTE | 2016-09-07 14:12 | RADRPT ---
EXAM DATE/TIME: 09/07/2016 13:50 [facility] COMPARISON: CT ABDOMEN & PELVIS W CONTRAST, July 31, 2016, 11:17. EXTERNAL COMPARISON : INDICATIONS : Ileus MEDICAL HISTORY : Chronic obstructive pulmonary disease. Hepatitis A. Hepatitis B.Hep c SURGICAL HISTORY : Rectal surgery. ENCOUNTER: Initial ACUITY: 3 days PAIN SCORE: 5/10 LOCATION: Abdomen FINDINGS: Supine and upright views of the abdomen demonstrate dilated transverse and ascending colon with mild dilatation of some of the small bowel and the stomach. Upright image demonstrates air-fluid levels in the small bowel, stomach, and transverse colon. The right colon and hepatic flexure region have an a bnormal appearance with possible thumbprinting or nodularity along the mucosal surface. No rectal gas is visualized. No organomegaly is seen. There are degenerative changes of the lumbar spine. CONCLUSION: 1. Mild dilatation of the small bowel and proximal to mid colon. This could represent ileus but a dis antonio colon obstruction could have a similar appearance. Suggest followup to confirm improvement. 2. Abnormal appearance of the right colon and hepatic flexure region with either thumbprinting or muc osal nodularity. This could represent submucosal edema. Suggest attention to this at followup imaging . Bacilio Johnson MD on September 07, 2016 at 14:07 Board Certified Radiologist. This report was verified electronically.
[2016-09-07] MEDS: MORPHINE SULFATE 15 MG TAB PO PRN ×2 (16:03→20:21)
[2016-09-07] MEDS: cefTRIAXone INJ 1,000 MG in SODIUM CHLORIDE 0.9% INJ 100 ML IV SCH (16:05)
[2016-09-08] MEDS: MORPHINE SULFATE 15 MG TAB PO PRN ×5 (00:39→19:57)
[2016-09-08 00:54] VITALS: BP 179/93; PULSE 104; RESP 20; TEMP 97.2; O2SAT 94
[2016-09-08] MEDS: CHLORHEXIDINE GLUCONATE 2 % 1 PACK (2 CLOTHS) TOP SCH (03:18)
[2016-09-08] MEDS: DEXT 5%-NACL 0.9% 1000 ML INJ 1,000 ML IV SCH ×2 (03:36→17:08)
[2016-09-08] MEDS: INSULIN NovoLIN REGULAR SUPPLEMENTAL SCALE SQ SCH ×3 (05:27→17:09)
[2016-09-08 05:49] VITALS: BP 108/54; PULSE 92; RESP 20; TEMP 98.3; O2SAT 95
[2016-09-08 08:00] VITALS: BP 137/90; PULSE 101; RESP 20; TEMP 97.7; O2SAT 91
[2016-09-08] MEDS: THIAMINE INJ 100 MG in SODIUM CHLORIDE 0.9% INJ 100 ML IV SCH (08:06)
[2016-09-08] MEDS: FOLIC ACID 1 MG TAB PO SCH (08:06)
[2016-09-08] MEDS: MULTIVITAMIN TAB PO SCH (08:06)
[2016-09-08] MEDS: DOCUSATE SODIUM 100 MG/10 ML UDC PO SCH ×2 (08:06→19:58)
[2016-09-08] MEDS: PANTOPRAZOLE INJ 80 MG in SODIUM CHLORIDE 0.9% INJ 100 ML IV SCH ×2 (08:07→19:54)
[2016-09-08 12:00] VITALS: BP 114/80; PULSE 95; RESP 20; TEMP 97.9; O2SAT 95
[2016-09-08 12:36] LABS: MAGNESIUM 1.7 MG/DL (1.5-2.5); POTASSIUM 3.8 MEQ/L (3.5-5.1)
--- NOTE | 2016-09-08 12:42 | HHI.GIFU ---
Subjective Remarks No more bleeding, complaining about abdominal distension and minimal passage of flatus. Objective Vitals I&O Vital Signs Date Time Temp Pulse Resp B/P Pulse Ox O2 Delivery O2 Flow Rate FiO2 09/08/16 12:00 97.9 95 20 114/80 95 09/08/16 11:13 18 09/08/16 08:00 97.7 101 20 137/90 91 09/08/16 07:15 91 Room Air 09/08/16 05:49 98.3 92 20 108/54 95 09/08/16 00:54 97.2 104 20 179/93 94 09/07/16 20:44 97.6 101 20 153/85 94 09/07/16 19:30 Nasal Cannula 2.00 09/07/16 18:08 94 Nasal Cannula 3.00 09/07/16 16:00 97.8 69 20 139/67 94 I/O 09/07/16 09/07/16 09/07/16 09/08/16 09/08/16 09/08/16 07:00 15:00 23:00 07:00 15:00 23:00 Intake Total 180 ml 820 ml 2930 ml 695 ml Output Total 350 ml 400 ml 200 ml Balance -170 ml 420 ml 2730 ml 695 ml Intake Oral 180 ml 820 ml IV Total 2930 ml 695 ml Output Urine Total 350 ml 400 ml 200 ml # Voids 1 # Bowel Movements 0 Laboratory Laboratory Tests Test 09/08/16 11:44 Potassium Level 3.8 Phosphorus Level 3.4 Magnesium Level 1.7 Physical Exam GENERAL: NAD, AAOx3 CHEST: CTA CARDIAC: RRR ABDOMEN: +BS, firm, distended, tympanitic, nontender EXTREMITIES: No clubbing, cyanosis, or edema. SKIN: Multiple tattoos Assessment and Plan Plan ASSESSMENT: - Ileus, worsening over the last 48 hours, X-Ray showed mild SB dilation and colonic distension. - Upper GI Bleed with hematemesis/melena. States he does not usually drink, but did have several drinks earlier this week. He believes that he takes Acetaminophen, but states this may be Ibuprofen. s/ p EGD 09-04-16--> esophageal varices grade 2, 4 x bands applied, small hiatal hernia, mild to moderate portal gastropathy. PPI gtt and Octreotide - Anemia, acute blood loss. H/H currently stable at 9.3/28.7 (09/05). PPI gtt and Octreotide - Liver cirrhosis/Elevated LFT. US Liver 09-04-16--> not enough fluid for paracentesis. He feels that his abdomen is more bloated and firm today. He states he was dx 5 years ago with cirrhosis. He was told this was related to ETOH abuse. He also reports a hx of Hepatitis A, B, and C. He is treatment naive for his HCV. He does have antibodies for both Hepatitis A and B, although surface antigen for Hep B is negative and IGM for Hep A is nonreactive, so he probably has had a past exposure to Hep A/B. He does have Hepatitis C, Genotype 3A with viral load 6,570,000. - Esophageal varices. - Hepatitis C. Hx of Hepatitis A/B. Past Hep A ab total reactive, hep b core total ab reactive. HAV IgM negative, HBV Bs Ag negative. Likely past infection, now immune. Genotype 3A with viral load 6,570,000. - COPD. Per primary PLAN: - Flat Abdominal X-Ray in AM for follow up - Rectal tube if no improvement by tomorrow. - Cont. Protonix Gtt and hold Octreotide - [place] - Monitor labs - Notify GI of active bleeding - Further recommendations to follow Discharge Planning Laura Rowley MD September 08, 2016 12:42
[2016-09-08] MEDS: cefTRIAXone INJ 1,000 MG in SODIUM CHLORIDE 0.9% INJ 100 ML IV SCH (14:01)
--- NOTE | 2016-09-08 18:00 | HHI.PR ---
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 His emesis consisted of black coffee grounds and then progressed to vomiting large amount of red blood. The patient also reports intermittent epigastric mid abdominal pain radiating to the right upper quadrant. He had three shots, two beers in addition took 3 tablets of aspirin for chronic back pain yesterday. The patient was recently hospitalized in June for similar presentation and underwent upper endoscopy on July 04 which showed multiple ulcers in duodenum, antrum and a grade 1 esophageal varices in addition to hiatal hernia. Colonoscopy was also performed on July 07 which revealed a poor prep, small internal hemorrhoids. A repeat colonoscopy was performed on July 08 which showed small sessile polyp, it was found in the rectum. A polypectomy was performed with a cold snare. On arrival to the emergency room he was tachycardiac with heart rate 111-116 and hypotensive with blood pressure 87/55. His hemoglobin level 7.6. The patient received 2 liters of crystalloids and 2 units of Packed red blood cells have been ordered by emergency room. In addition the patient is scheduled to be on Protonix and octreotide drips. He was seen by gastroenterology service in the emergency room and planned to undergo the upper endoscopy with possible band ligation today. His current blood pressure is 125/73 with a pulse of 111. He is on room air oxygen when seen. He denies any chest pain or shortness of breath. In addition he denies any cough, orthopnea, paroxysmal nocturnal dyspnea or edema of lower extremities. 09/03 Patient is awake, alert lying in bed in NAD. s/p transfusion 2units PRBC yesterday Hgb 9.1 this morning. On Protonix and Octreotide drips. s/p EGD yesterday showed Gastric bleed etiology unclear , incomplete evaluation with this EGD due to large clot obscuring view. 09/04 Patient s/p transfusion 1unit PRBC last night for Hgb 7.5 repeat Hgb 9.5 this morning. FOr repeat EGD today. On Protonix and Octreotide drips. Hospitalist Notes: 09/05: Patient seen in the room in the presence of nurse Miss Cm, continue Protonix drip and octreotide drip, monitoring Hemoglobin and Hematocrit. no signs of Hemorrhage, the patient did not have any new BM since procedure. no nausea or vomit. 09/06: Stable in his bedroom discussed with nurse miss Martinez, no nausea, vomit or diarrhea, discussed with the patient he is eating, awaiting to advance diet by GI specialist, also his Telemetry may be removed to improve activity. and his pain medicine will be changed to by mouth. 09/07: Seen in his bedroom and discussed with nurse and with GI specialist today more distended that before asked for abdominal ray to evaluate for Ileus versus Ascites. 09/08: Stable in his bedroom, discussed with nurse Miss Martinez, no nausea, vomit or diarrhea. followed by GI specialist with Diagnosis of Ileus worsening over the last 48 hours X ray showing mild Small bowel dilation and colonic distension. GI specialist recommended Flat Abdominal X ray for tomorrow AM and rectal tube if no improvement held octreotide and continued PPIs. Objective Vital Signs Date Time Temp Pulse Resp B/P Pulse Ox O2 Delivery O2 Flow Rate FiO2 09/08/16 17:08 18 09/08/16 12:00 97.9 95 20 114/80 95 09/08/16 08:00 97.7 101 20 137/90 91 09/08/16 07:15 91 Room Air 09/08/16 05:49 98.3 92 20 108/54 95 09/08/16 00:54 97.2 104 20 179/93 94 09/07/16 20:44 97.6 101 20 153/85 94 09/07/16 19:30 Nasal Cannula 2.00 09/07/16 18:08 94 Nasal Cannula 3.00 I/O 09/07/16 09/07/16 09/07/16 09/08/16 09/08/16 09/08/16 07:00 15:00 23:00 07:00 15:00 23:00 Intake Total 180 ml 820 ml 2930 ml 695 ml 2032 ml Output Total 350 ml 400 ml 200 ml Balance -170 ml 420 ml 2730 ml 695 ml 2032 ml Intake Oral 180 ml 820 ml IV Total 2930 ml 695 ml 2032 ml Output Urine Total 350 ml 400 ml 200 ml # Voids 1 # Bowel Movements 0 Result Diagram: 09/07/16 0653 09/08/16 1144 Imaging Last Impressions Abdomen X-Ray 09/07/16 0000 Signed Impressions: Service Date/Time: Wednesday, September 07, 2016 13:50 - CONCLUSION: 1. Mild dilatation of the small bowel and proximal to mid colon. This could represent ileus but a distal colon obstruction could have a similar appearance. Suggest followup to confirm improvement. 2. Abnormal appearance of the right colon and hepatic flexure region with either thumbprinting or mucosal nodularity. This could represent submucosal edema. Suggest attention to this at followup imaging. Bacilio Johnson MD Abdomen Ultrasound 09/04/16 0000 Signed Impressions: Service Date/Time: August 11:42 - CONCLUSION: Minimal free fluid in the pelvis. There is not enough present for paracentesis. Bacilio Johnson MD Liver Ultrasound 09/03/16 0000 Signed Impressions: Service Date/Time: Saturday, September 03, 2016 09:26 - CONCLUSION: Cirrhotic liver appearance with ascites. Bacilio Gonzalez MD Procedures EGD and band ligation. Other Results Laboratory Tests Test 09/03/16 09/07/16 09/08/16 19:37 06:53 11:44 Blood Type B POSITIVE Crossmatch Leukocyte-Reduced Red Blood Cells Blood Bank Comment White Blood Count 6.4 TH/MM3 Red Blood Count 3.53 MIL/MM3 Hemoglobin 9.5 GM/DL Hematocrit 29.1 % Mean Corpuscular Volume 82.2 FL Mean Corpuscular Hemoglobin 27.0 PG Mean Corpuscular Hemoglobin 32.8 % Concent Red Cell Distribution Width 18.5 % Platelet Count 182 TH/MM3 Mean Platelet Volume 7.9 FL Neutrophils (%) (Auto) 62.0 % Lymphocytes (%) (Auto) 19.9 % Monocytes (%) (Auto) 13.4 % Eosinophils (%) (Auto) 4.0 % Basophils (%) (Auto) 0.7 % Neutrophils # (Auto) 4.0 TH/MM3 Lymphocytes # (Auto) 1.3 TH/MM3 Monocytes # (Auto) 0.9 TH/MM3 Eosinophils # (Auto) 0.3 TH/MM3 Basophils # (Auto) 0.0 TH/MM3 CBC Comment DIFF FINAL Differential Comment Sodium Level 138 MEQ/L Chloride Level 105 MEQ/L Carbon Dioxide Level 23.9 MEQ/L Anion Gap 9 MEQ/L Blood Urea Nitrogen 3 MG/DL Creatinine 0.44 MG/DL Estimat Glomerular Filtration 197 ML/MIN Rate Random Glucose 98 MG/DL Calcium Level 7.6 MG/DL Total Bilirubin 1.8 MG/DL Aspartate Amino Transf 125 U/L (AST/SGOT) Alanine Aminotransferase 67 U/L (ALT/SGPT) Alkaline Phosphatase 72 U/L Total Protein 6.0 GM/DL Albumin 2.2 GM/DL Potassium Level 3.8 MEQ/L Phosphorus Level 3.4 MG/DL Magnesium Level 1.7 MG/DL Objective Remarks GENERAL: Well developed in no acute distress. SKIN: Warm and dry. HEAD: Normocephalic. EYES: No scleral icterus. No injection or drainage. NECK: Supple, trachea midline. No JVD or lymphadenopathy. CARDIOVASCULAR: Regular rate and rhythm without murmurs, gallops, or rubs. RESPIRATORY: Breath sounds equal bilaterally. No accessory muscle use. GASTROINTESTINAL: Abdomen soft, non-tender, distended MUSCULOSKELETAL: No cyanosis, edema 3+ Neuro: Awake and alert Medications and IVs Current Medications Medications (Trade) Dose Ordered Sig/Estelle Route Start Time Stop Time Status Last Admin Sodium Chloride 2 ml 2 ml UNSCH PRN IVF 09/02/16 12:00 (Protonix Inj/NS Inj) 100 ml @ 10 mls/hr Q10H IV 09/02/16 13:15 09/08/16 08:07 Miscellaneous Information 1 Q361D XX 09/02/16 13:30 (Chlorhexidine 2% Cloth) Taper DAILY@04 TOP 09/03/16 04:00 08/30/17 03:59 09/05/16 04:00 Chlorhexidine Gluconate 3 pack 3 pack UNSCH PRN TOP 09/02/16 13:30 (Thiamine Inj/NS Inj) 101 ml @ 101 mls/hr DAILY IV 09/02/16 14:00 09/08/16 08:06 (Folate) 1 mg DAILY PO 09/02/16 14:00 09/08/16 08:06 Multivitamins 1 tab 1 tab DAILY PO 09/02/16 14:00 09/08/16 08:06 (Rocephin Inj/NS Inj) 100 ml @ 200 mls/hr Q24H IV 09/02/16 14:00 09/08/16 14:01 (D50w (Vial) Inj) 50 ml UNSCH PRN IV 09/02/16 13:30 (Glucagon Inj) 1 mg UNSCH PRN OTHER 09/02/16 13:30 Insulin Human Regular 1 1 Q6HR SQ 09/02/16 13:30 09/06/16 04:59 (D5W-NS 1000 ml Inj) 1,000 ml @ 75 mls/hr [id number] IV 09/02/16 13:30 09/08/16 17:08 (Ultram) 50 mg Q8H PRN PO 09/02/16 20:00 (Zofran Inj) 4 mg Q6HR PRN IV PUSH 09/02/16 20:00 09/03/16 09:19 (Colace Liq) 100 mg Q12HR PO 09/03/16 09:00 09/08/16 08:06 (Msir) 15 mg Q4H PRN PO 09/07/16 11:00 09/08/16 14:00 A/P Assessment and Plan 1. GI Bleed now on liquid diet, continue PPIs and Octreotide drip, GI specialist following, status post EGD 09/02/16 incomplete evaluation, due to large clot obscuring view repeat EGD 09/04/16 and showed esophageal varices grade 2, status post banding x 4 and Portal Gastropathy, Status post Paracentesis 07/31 with removal of 4.6 L of fluid, US liver showed cirrhotic liver with ascites tried Paracentesis yesterday but no enough fluid for Paracentesis. awaiting for GI specialist to advance diet. 2. Anemia secondary to acute blood loss, status post blood transfusion two units of PRBCs on admission and one 09/03. Hemoglobin stable 9.3 3. Cirrhosis of liver and elevated AST. 4. History of esophageal varices 5. Multiple duodenal ulcers. 6. History of hepatitis A, B and C per patient. 7. EtOH use strongly recommended to stop drinking alcohol behavior. 8. Empiric antibiotics Rocephin 1 gram IV daily. monitoring signs of infection. 9. Hypoglycemia on D5 iv fluids. 10. Ileus for Flat abdominal x ray in am tomorrow and if no improvement he will get a rectal tube discontinued octreotide and continued PPIs. 11. electrolyte derangement replaced. GI prophylaxis-on Protonix drip Albumin for two dosages. DVT prophylaxis with SCDs. chemical AC prophylaxis contraindicated in the setting of GI bleed. Discharge Planning once cleared by GI specialist. Mark Reyes MD September 08, 2016 18:00
[2016-09-08] MEDS: MAGNESIUM SULFATE 1 GM PREMIX 100 ML IV SCH ×2 (18:28→19:54)
[2016-09-08 20:00] VITALS: BP 121/75; PULSE 99; RESP 16; TEMP 97.8; O2SAT 93
[2016-09-09] VITALS: BP 156/95; PULSE 107; RESP 18; TEMP 97.7; O2SAT 95
[2016-09-09] MEDS: MORPHINE SULFATE 15 MG TAB PO PRN ×5 (00:01→20:40)
[2016-09-09 04:00] VITALS: BP 143/82; PULSE 101; RESP 18; TEMP 97.6; O2SAT 95
[2016-09-09] MEDS: CHLORHEXIDINE GLUCONATE 2 % 1 PACK (2 CLOTHS) TOP SCH (04:00)
[2016-09-09] MEDS: PANTOPRAZOLE INJ 80 MG in SODIUM CHLORIDE 0.9% INJ 100 ML IV SCH ×2 (05:31→11:49)
[2016-09-09] MEDS: INSULIN NovoLIN REGULAR SUPPLEMENTAL SCALE SQ SCH ×4 (05:32→17:19)
[2016-09-09 08:00] VITALS: BP 137/76; PULSE 98; RESP 16; TEMP 97.8; O2SAT 94
[2016-09-09] MEDS: MULTIVITAMIN TAB PO SCH (08:24)
[2016-09-09] MEDS: FOLIC ACID 1 MG TAB PO SCH (08:25)
[2016-09-09] MEDS: THIAMINE INJ 100 MG in SODIUM CHLORIDE 0.9% INJ 100 ML IV SCH (08:25)
[2016-09-09] MEDS: DOCUSATE SODIUM 100 MG/10 ML UDC PO SCH ×2 (08:25→21:00)
--- NOTE | 2016-09-09 09:37 | RADRPT ---
EXAM DATE/TIME: 09/09/2016 09:07 [facility] COMPARISON: ABDOMEN FLAT & UPRIGHT, September 07, 2016, 13:50. INDICATIONS : Abdominal pain and distention MEDICAL HISTORY : Hepatitis A. Hepatitis B. Hepatitis C. COPD, cirrhosis SURGICAL HISTORY : rectal surgery ENCOUNTER: Subsequent ACUITY: 4 - 6 days PAIN SCORE: 5/10 LOCATION: Bilateral abdomen FINDINGS: Supine and upright views of the abdomen were performed. There has been no change in the bowel gas pa ttern compared to prior exam. There continues to be some distention of the small large bowel. There c ontinues to be stool in the colon. No definite free air. There is atelectasis in the right lung base. There continues to be some mucosal edema involving the right colon.. CONCLUSION: No significant change with the bowel gas pattern compared to the prior study. Alin Staton MD on September 09, 2016 at 9:33 Board Certified Radiologist. This report was verified electronically.
[2016-09-09 12:00] VITALS: BP 126/68; PULSE 95; RESP 18; TEMP 97.7; O2SAT 94
[2016-09-09] MEDS ORDERED: GLYCERIN ADULT 2 GM SUPP RECTAL PRN (12:00)
--- NOTE | 2016-09-09 12:02 | HHI.PR ---
Subjective Remarks Mr. Padron complains of abdominal distention today. He also reports increased edema of his bilateral lower extremities. Edema is likely secondary to increased abdominal pressure with a pre-existing cirrhosis and ascites problem. Objective Vital Signs Date Time Temp Pulse Resp B/P Pulse Ox O2 Delivery O2 Flow Rate FiO2 09/09/16 09:03 Nasal Cannula 2.00 21 09/09/16 08:00 97.8 98 16 137/76 94 09/09/16 04:00 97.6 101 18 143/82 95 09/09/16 00:00 97.7 107 18 156/95 95 09/08/16 20:00 97.8 99 16 121/75 93 09/08/16 19:30 Nasal Cannula 2.00 09/08/16 17:08 18 09/08/16 12:00 97.9 95 20 114/80 95 I/O 09/08/16 09/08/16 09/08/16 09/09/16 09/09/16 09/09/16 07:00 15:00 23:00 07:00 15:00 23:00 Intake Total 695 ml 2212 ml 320 ml Balance 695 ml 2212 ml 320 ml Intake Oral 240 ml IV Total 695 ml 2212 ml 80 ml # Voids 1 2 0 # Bowel Movements 0 Result Diagram: 09/07/16 0653 09/08/16 1144 Imaging Last Impressions Abdomen X-Ray 09/09/16 0600 Signed Impressions: Service Date/Time: Friday, September 09, 2016 09:07 - CONCLUSION: No significant change with the bowel gas pattern compared to the prior study. Alin Staton MD Abdomen Ultrasound 09/04/16 0000 Signed Impressions: Service Date/Time: August 11:42 - CONCLUSION: Minimal free fluid in the pelvis. There is not enough present for paracentesis. Bacilio Johnson MD Liver Ultrasound 09/03/16 0000 Signed Impressions: Service Date/Time: Saturday, September 03, 2016 09:26 - CONCLUSION: Cirrhotic liver appearance with ascites. Bacilio Gonzalez MD Procedures EGD and band ligation. Objective Remarks GENERAL: NAD, A&Ox3 SKIN: Warm and dry. HEAD: Normocephalic. EYES: No scleral icterus. No injection or drainage. NECK: Supple, trachea midline. No JVD or lymphadenopathy. CARDIOVASCULAR: Regular rate and rhythm without murmurs, gallops, or rubs. RESPIRATORY: Breath sounds equal bilaterally. No accessory muscle use. GASTROINTESTINAL: Abdomen is distended and hypertympanic. Tenderness is present diffusely. Minimal bowel sounds. MUSCULOSKELETAL: No cyanosis, or edema. Medications and IVs Administered Medications Medications (Trade) Dose Ordered Sig/Estelle Route PRN Reason Start Time Stop Time Status Last Admin Dose Admin Pantoprazole Sodium/Sodium Chloride (Protonix Inj/NS Inj) 100 ml @ 10 mls/hr Q10H IV 09/02/16 13:15 09/09/16 11:49 Chlorhexidine Gluconate Taper DAILY@04 TOP 09/03/16 04:00 08/30/17 03:59 09/05/16 04:00 Thiamine HCl/ Sodium Chloride (Thiamine Inj/NS Inj) 101 ml @ 101 mls/hr DAILY IV 09/02/16 14:00 09/09/16 08:25 Folic Acid (Folate) 1 mg DAILY PO 09/02/16 14:00 09/09/16 08:25 Multivitamins 1 tab 1 tab DAILY PO 09/02/16 14:00 09/09/16 08:24 Ceftriaxone Sodium/Sodium Chloride (Rocephin Inj/NS Inj) 100 ml @ 200 mls/hr Q24H IV 09/02/16 14:00 09/08/16 14:01 Insulin Human Regular (NovoLIN R SUPPLEMENTAL SCALE) 1 Q6HR SQ 09/02/16 13:30 09/06/16 04:59 Ondansetron HCl (Zofran Inj) 4 mg Q6HR PRN IV PUSH NAUSEA 09/02/16 20:00 09/03/16 09:19 Docusate Sodium (Colace Liq) 100 mg Q12HR PO 09/03/16 09:00 09/09/16 08:25 Morphine Sulfate (Msir) 15 mg Q4H PRN PO PAIN SCALE 6 TO 10 09/07/16 11:00 09/09/16 09:29 A/P Problem List: (1) Adynamic ileus ICD Code: K56.0 (2) GI bleed ICD Code: K92.2 (3) Cirrhosis of liver ICD Code: K74.60 (4) Alcohol abuse ICD Code: F10.10 (5) Ascites ICD Code: R18.8 (6) Acute blood loss anemia ICD Code: D62 (7) Abdominal distention ICD Code: R14.0 (8) GI bleed ICD Code: K92.2 Assessment and Plan Assessment and Plan 61-year-old male admitted with GI bleed and abdominal distention. GI bleeding Acute blood loss anemia GI bleed appears to have resolved Follow CBC Ileus Abdominal distention May be related to constipation Glycerin suppository started Patient is on a liquid diet Follow for improvement Patient is on Rocephin Rectal tube in considered History of ascites Cirrhosis History of esophageal varices History of alcohol abuse Abdominal distention appears to be are rather than fluid Ultrasound from 5 days ago did not show significant degree of free fluid in the abdomen Patient's last paracentesis was 07/31/2016 Alcohol cessation has been recommended Hepatitis B and C Standard precautions Duodenal ulcers history No change of present treatment Follow clinically Hypoglycemia Related to poor by mouth intake and nausea/vomiting Follow blood sugars Patient is on D5 IV fluids right now DVT prophylaxis SCDs Problem Qualifiers (1) GI bleed: Qualified Code: K92.2 - Gastrointestinal hemorrhage, unspecified gastrointestinal hemorrhage type (2) Cirrhosis of liver: Qualified Code: K70.31 - Alcoholic cirrhosis of liver with ascites Judd Torres MD September 09, 2016 12:02
[2016-09-09] MEDS: cefTRIAXone INJ 1,000 MG in SODIUM CHLORIDE 0.9% INJ 100 ML IV SCH (14:03)
[2016-09-09 16:00] VITALS: BP 154/78; PULSE 106; RESP 18; TEMP 97.8; O2SAT 93
[2016-09-09] MEDS: ALBUMIN HUMAN 25% 25 GM/100 ML BAGP IV SCH (17:19)
[2016-09-09 20:00] VITALS: BP 168/81; PULSE 120; RESP 18; TEMP 98.3; O2SAT 93
[2016-09-10] MEDS: MORPHINE SULFATE 15 MG TAB PO PRN ×6 (00:10→20:37)
[2016-09-10] MEDS: PANTOPRAZOLE INJ 80 MG in SODIUM CHLORIDE 0.9% INJ 100 ML IV SCH ×3 (00:40→08:50)
[2016-09-10 01:39] VITALS: BP 135/71; PULSE 130; RESP 20; TEMP 97.8; O2SAT 93
[2016-09-10] MEDS: CHLORHEXIDINE GLUCONATE 2 % 1 PACK (2 CLOTHS) TOP SCH (04:00)
[2016-09-10] MEDS: INSULIN NovoLIN REGULAR SUPPLEMENTAL SCALE SQ SCH ×5 (05:10→22:40)
[2016-09-10] MEDS: ALBUMIN HUMAN 25% 25 GM/100 ML BAGP IV SCH ×2 (05:19→17:00)
[2016-09-10 06:21] VITALS: BP 138/56; PULSE 99; RESP 18; TEMP 98.3; O2SAT 95
[2016-09-10 07:39] LABS: HEMATOCRIT 24.6 % (39.0-51.0); MEAN CELL VOLUME 81.7 FL (80.0-100.0); MEAN CORPUSCULAR HEMOGLOBIN 26.1 PG (27.0-34.0); PLATELET COUNT 187 TH/MM3 (150-450); RED BLOOD COUNT 3.01 MIL/MM3 (4.50-5.90); RED CELL DISTRIBUTION WIDTH 20.1 % (11.6-17.2); REVIEW FLAG FINAL; WHITE BLOOD COUNT 11.4 TH/MM3 (4.0-11.0)
[2016-09-10 07:59] LABS: BICARBONATE 21.6 MEQ/L (21.0-32.0)
[2016-09-10 08:00] VITALS: BP 142/75; PULSE 98; RESP 18; TEMP 97.1; O2SAT 87
[2016-09-10] MEDS: MULTIVITAMIN TAB PO SCH (08:49)
[2016-09-10] MEDS: FOLIC ACID 1 MG TAB PO SCH (08:49)
[2016-09-10] MEDS: DOCUSATE SODIUM 100 MG/10 ML UDC PO SCH ×2 (08:49→20:37)
[2016-09-10] MEDS: THIAMINE INJ 100 MG in SODIUM CHLORIDE 0.9% INJ 100 ML IV SCH (08:50)
[2016-09-10 12:00] VITALS: BP 133/80; PULSE 99; RESP 18; TEMP 97.9; O2SAT 86
--- NOTE | 2016-09-10 12:20 | HHI.GIFU ---
Subjective Remarks Pt sitting on edge of bed, in no apparent distress. Still no BM. Objective Vitals I&O Vital Signs Date Time Temp Pulse Resp B/P Pulse Ox O2 Delivery O2 Flow Rate FiO2 09/10/16 11:26 Nasal Cannula 2.00 21 09/10/16 08:00 97.1 98 18 142/75 87 09/10/16 06:21 98.3 99 18 138/56 95 09/10/16 01:39 97.8 130 20 135/71 93 09/09/16 20:00 98.3 120 18 168/81 93 09/09/16 16:00 97.8 106 18 154/78 93 09/09/16 13:00 Room Air 21 I/O 09/09/16 09/09/16 09/09/16 09/10/16 09/10/16 09/10/16 06:59 14:59 22:59 06:59 14:59 22:59 Intake Total 320 ml 600 ml 82 ml 150 ml Balance 320 ml 600 ml 82 ml 150 ml Intake Oral 240 ml 600 ml IV Total 80 ml 82 ml 150 ml # Voids 0 1 1 # Bowel Movements 0 Laboratory Laboratory Tests Test 09/10/16 09/10/16 06:43 06:45 White Blood Count 11.4 Red Blood Count 3.01 Hemoglobin 7.9 Hematocrit 24.6 Mean Corpuscular Volume 81.7 Mean Corpuscular Hemoglobin 26.1 Mean Corpuscular Hemoglobin 32.0 Concent Red Cell Distribution Width 20.1 Platelet Count 187 Mean Platelet Volume 8.0 Sodium Level 135 Potassium Level 4.0 Chloride Level 102 Carbon Dioxide Level 21.6 Anion Gap 11 Blood Urea Nitrogen 7 Creatinine 0.37 Estimat Glomerular Filtration 241 Rate Random Glucose 95 Calcium Level 8.0 Imaging Last Impressions Abdomen X-Ray 09/09/16 0600 Signed Impressions: Service Date/Time: Friday, September 09, 2016 09:07 - CONCLUSION: No significant change with the bowel gas pattern compared to the prior study. Alin Staton MD Abdomen Ultrasound 09/04/16 0000 Signed Impressions: Service Date/Time: August 11:42 - CONCLUSION: Minimal free fluid in the pelvis. There is not enough present for paracentesis. Bacilio Johnson MD Liver Ultrasound 09/03/16 0000 Signed Impressions: Service Date/Time: Saturday, September 03, 2016 09:26 - CONCLUSION: Cirrhotic liver appearance with ascites. Bacilio Gonzalez MD Physical Exam GENERAL: NAD, AAOx3 CHEST: CTA CARDIAC: RRR ABDOMEN: +BS, firm, distended, tympanitic, diffuse TTP EXTREMITIES: No clubbing, cyanosis, or edema. SKIN: Multiple tattoos Assessment and Plan Plan ASSESSMENT: - Ileus, worsening over the last 48 hours, xray 09-09 --> No significant change with the bowel gas pattern compared to the prior study X-Ray showed mild SB dilation and colonic distension. - Upper GI Bleed with hematemesis/melena. States he does not usually drink, but did have several drinks earlier this week. He believes that he takes Acetaminophen, but states this may be Ibuprofen. s/ p EGD 09-04-16--> esophageal varices grade 2, 4 x bands applied, small hiatal hernia, mild to moderate portal gastropathy. PPI gtt and Octreotide - Anemia, acute blood loss. H/H 09-10 7.9, 24.6. PPI gtt and Octreotide - Liver cirrhosis/Elevated LFT. US Liver 09-04-16--> not enough fluid for paracentesis. He feels that his abdomen is more bloated and firm today. He states he was dx 5 years ago with cirrhosis. He was told this was related to ETOH abuse. He also reports a hx of Hepatitis A, B, and C. He is treatment naive for his HCV. He does have antibodies for both Hepatitis A and B, although surface antigen for Hep B is negative and IGM for Hep A is nonreactive, so he probably has had a past exposure to Hep A/B. He does have Hepatitis C, Genotype 3A with viral load 6,570,000. - Esophageal varices. - Hepatitis C. Hx of Hepatitis A/B. Past Hep A ab total reactive, hep b core total ab reactive. HAV IgM negative, HBV Bs Ag negative. Likely past infection, now immune. Genotype 3A with viral load 6,570,000. - COPD. Per primary PLAN: - Rectal tube - Cont. Protonix Gtt and hold Octreotide - HOLLY - Monitor labs - Notify GI of active bleeding - Further recommendations to follow This pt seen by myself and Dr Rowley and this note is written on his behalf Discharge Planning Denisse Whitaker September 10, 2016 12:20
[2016-09-10] MEDS: traMADol HCL 50 MG TAB PO PRN (12:21)
--- NOTE | 2016-09-10 14:36 | HHI.PR ---
Subjective Remarks Unimproved abdominal distention. Patient cannot recall any bowel movement or flatulence in the last 24 hours. Bowel sounds remain hypoactive. She has worsening edema of the lower extremities with some blisters now. Objective Vital Signs Date Time Temp Pulse Resp B/P Pulse Ox O2 Delivery O2 Flow Rate FiO2 09/10/16 12:00 97.9 99 18 133/80 86 09/10/16 11:26 Nasal Cannula 2.00 21 09/10/16 08:00 97.1 98 18 142/75 87 09/10/16 06:21 98.3 99 18 138/56 95 09/10/16 01:39 97.8 130 20 135/71 93 09/09/16 20:00 98.3 120 18 168/81 93 09/09/16 16:00 97.8 106 18 154/78 93 I/O 09/09/16 09/09/16 09/09/16 09/10/16 09/10/16 09/10/16 07:00 15:00 23:00 07:00 15:00 23:00 Intake Total 320 ml 600 ml 82 ml 150 ml Balance 320 ml 600 ml 82 ml 150 ml Intake Oral 240 ml 600 ml IV Total 80 ml 82 ml 150 ml # Voids 0 1 1 # Bowel Movements 0 Result Diagram: 09/10/16 0643 09/10/16 0645 Procedures EGD and band ligation. Objective Remarks GENERAL: NAD, A&Ox3 SKIN: Warm and dry. HEAD: Normocephalic. EYES: No scleral icterus. No injection or drainage. NECK: Supple, trachea midline. No JVD or lymphadenopathy. CARDIOVASCULAR: Regular rate and rhythm without murmurs, gallops, or rubs. RESPIRATORY: Breath sounds equal bilaterally. No accessory muscle use. GASTROINTESTINAL: Abdomen is distended and hypertympanic. Tenderness is present diffusely. Minimal bowel sounds. MUSCULOSKELETAL: No cyanosis. Edema bilateral lower extremities, blisters are present. A/P Problem List: (1) Adynamic ileus ICD Code: K56.0 (2) GI bleed ICD Code: K92.2 (3) Cirrhosis of liver ICD Code: K74.60 (4) Alcohol abuse ICD Code: F10.10 (5) Ascites ICD Code: R18.8 (6) Acute blood loss anemia ICD Code: D62 (7) Abdominal distention ICD Code: R14.0 (8) GI bleed ICD Code: K92.2 Assessment and Plan Assessment and Plan 61-year-old male admitted with GI bleed and abdominal distention. He now has an ileus. When necessary glycerin suppositories provided. One dose of Reglan is provided. Lasix is provided for his increasing lower extremity edema. GI bleeding Acute blood loss anemia GI bleed appears to have resolved Follow CBC Ileus Abdominal distention May be related to constipation Glycerin suppository started Patient is on a liquid diet Follow for improvement Patient is on Rocephin Rectal tube in considered History of ascites Cirrhosis History of esophageal varices History of alcohol abuse Abdominal distention appears to be are rather than fluid Ultrasound from 5 days ago did not show significant degree of free fluid in the abdomen Patient's last paracentesis was 07/31/2016 Alcohol cessation has been recommended Hepatitis B and C Standard precautions Duodenal ulcers history No change of present treatment Follow clinically Hypoglycemia Related to poor by mouth intake and nausea/vomiting Follow blood sugars Patient is on D5 IV fluids right now DVT prophylaxis SCDs Problem Qualifiers (1) GI bleed: Qualified Code: K92.2 - Gastrointestinal hemorrhage, unspecified gastrointestinal hemorrhage type (2) Cirrhosis of liver: Qualified Code: K70.31 - Alcoholic cirrhosis of liver with ascites Judd Torres MD September 10, 2016 14:36
[2016-09-10] MEDS ORDERED: METOCLOPRAMIDE HCL 10 MG/2 ML VIAL IV PUSH ONE (14:45)
[2016-09-10] MEDS ORDERED: FUROSEMIDE 40 MG/4 ML VIAL IV PUSH ONE (14:45)
[2016-09-10 16:00] VITALS: BP 137/71; PULSE 90; RESP 18; TEMP 93.7; O2SAT 91
[2016-09-10] MEDS: cefTRIAXone INJ 1,000 MG in SODIUM CHLORIDE 0.9% INJ 100 ML IV SCH (16:56)
[2016-09-10 22:15] VITALS: BP 120/63; PULSE 108; RESP 18; TEMP 98.5; O2SAT 93
[2016-09-11] VITALS (7 sets, daily range): BP systolic 116–141; BP diastolic 60–84; PULSE 90–105; RESP 19–22; TEMP 97.1–98.6; O2SAT 81–95
[2016-09-11] MEDS: MORPHINE SULFATE 15 MG TAB PO PRN ×6 (00:41→21:28)
[2016-09-11] MEDS: CHLORHEXIDINE GLUCONATE 2 % 1 PACK (2 CLOTHS) TOP SCH (03:04)
[2016-09-11] MEDS: ALBUMIN HUMAN 25% 25 GM/100 ML BAGP IV SCH ×2 (05:04→17:54)
[2016-09-11] MEDS: INSULIN NovoLIN REGULAR SUPPLEMENTAL SCALE SQ SCH ×3 (05:30→16:19)
[2016-09-11] MEDS: FOLIC ACID 1 MG TAB PO SCH (09:18)
[2016-09-11] MEDS: DOCUSATE SODIUM 100 MG/10 ML UDC PO SCH ×2 (09:18→21:21)
[2016-09-11] MEDS: LACTULOSE SYRUP 20 GM/30 ML CUP PO SCH ×3 (09:18→17:54)
[2016-09-11] MEDS: MULTIVITAMIN TAB PO SCH (09:18)
[2016-09-11] MEDS: FUROSEMIDE 20 MG/2 ML VIAL IV PUSH SCH (09:19)
[2016-09-11] MEDS: THIAMINE INJ 100 MG in SODIUM CHLORIDE 0.9% INJ 100 ML IV SCH (09:19)
[2016-09-11] MEDS: PANTOPRAZOLE INJ 80 MG in SODIUM CHLORIDE 0.9% INJ 100 ML IV SCH ×2 (09:24→17:05)
--- NOTE | 2016-09-11 12:22 | HHI.PR ---
Subjective Remarks Mr. Padron reports some flatulence today. No distress when seen. Abdomen remains distended. He is ambulating. Objective Vital Signs Date Time Temp Pulse Resp B/P Pulse Ox O2 Delivery O2 Flow Rate FiO2 09/11/16 12:00 97.8 98 20 131/84 86 09/11/16 08:00 97.1 90 22 125/81 81 09/11/16 08:00 Nasal Cannula 2.00 21 09/11/16 05:38 Nasal Cannula 2.00 09/11/16 04:00 98.6 98 19 123/67 92 09/11/16 01:12 Nasal Cannula 2.00 09/11/16 00:00 98.6 105 19 116/60 92 09/10/16 22:15 98.5 108 18 120/63 93 09/10/16 22:15 2.00 09/10/16 16:00 93.7 90 18 137/71 91 I/O 09/10/16 09/10/16 09/10/16 09/11/16 09/11/16 09/11/16 07:00 15:00 23:00 07:00 15:00 23:00 Intake Total 250 ml 300 ml 800 ml 180 ml Balance 250 ml 300 ml 800 ml 180 ml Intake Oral 300 ml 720 ml IV Total 150 ml 80 ml 80 ml Albumin 100 ml 100 ml # Voids 1 1 6 # Bowel Movements 0 0 Result Diagram: 09/10/16 0643 09/10/16 0645 Procedures EGD and band ligation. Objective Remarks GENERAL: NAD, A&Ox3 SKIN: Warm and dry. HEAD: Normocephalic. EYES: No scleral icterus. No injection or drainage. NECK: Supple, trachea midline. No JVD or lymphadenopathy. CARDIOVASCULAR: Regular rate and rhythm without murmurs, gallops, or rubs. RESPIRATORY: Breath sounds equal bilaterally. No accessory muscle use. GASTROINTESTINAL: Abdomen is distended and hypertympanic. Tenderness is present diffusely. Minimal bowel sounds. MUSCULOSKELETAL: No cyanosis. Edema bilateral lower extremities, blisters are present. A/P Problem List: (1) Adynamic ileus ICD Code: K56.0 (2) GI bleed ICD Code: K92.2 (3) Cirrhosis of liver ICD Code: K74.60 (4) Alcohol abuse ICD Code: F10.10 (5) Ascites ICD Code: R18.8 (6) Acute blood loss anemia ICD Code: D62 (7) Abdominal distention ICD Code: R14.0 (8) GI bleed ICD Code: K92.2 Assessment and Plan Assessment and Plan 61-year-old male admitted with GI bleed and abdominal distention. He now has an ileus. When necessary glycerin suppositories provided. One dose of Reglan is provided. Lasix is provided for his increasing lower extremity edema. Hepatic Encephalopathy Follow ammonia level related to low GI output combined with his cirrhosis Lactulose started GI bleeding Acute blood loss anemia GI bleed appears to have resolved Follow CBC Ileus Abdominal distention May be related to constipation Glycerin suppository started Patient is on a liquid diet Follow for improvement Patient is on Rocephin Rectal tube in considered History of ascites Cirrhosis History of esophageal varices History of alcohol abuse Abdominal distention appears to be are rather than fluid Ultrasound from 5 days ago did not show significant degree of free fluid in the abdomen Patient's last paracentesis was 07/31/2016 Alcohol cessation has been recommended Hepatitis B and C Standard precautions Duodenal ulcers history No change of present treatment Follow clinically Hypoglycemia Related to poor by mouth intake and nausea/vomiting Follow blood sugars Patient is on D5 IV fluids right now DVT prophylaxis SCDs Problem Qualifiers (1) GI bleed: Qualified Code: K92.2 - Gastrointestinal hemorrhage, unspecified gastrointestinal hemorrhage type (2) Cirrhosis of liver: Qualified Code: K70.31 - Alcoholic cirrhosis of liver with ascites Judd Torres MD Sep 11, 2016 12:22
[2016-09-11] MEDS: cefTRIAXone INJ 1,000 MG in SODIUM CHLORIDE 0.9% INJ 100 ML IV SCH (17:05)
--- NOTE | 2016-09-11 17:42 | HHI.GIFU ---
Subjective Remarks Pt OOB, still no BM. +flatus. Per RN rectal tube inserted last night and has been removed. NO n/v. Tender abd. (Denisse Whitaker TELEVISION PRESENTER) Objective Vitals I&O Vital Signs Date Time Temp Pulse Resp B/P Pulse Ox O2 Delivery O2 Flow Rate FiO2 09/11/16 16:00 97.3 92 20 141/69 90 09/11/16 12:00 97.8 98 20 131/84 86 09/11/16 08:00 97.1 90 22 125/81 81 09/11/16 08:00 Nasal Cannula 2.00 21 09/11/16 05:38 Nasal Cannula 2.00 09/11/16 04:00 98.6 98 19 123/67 92 09/11/16 01:12 Nasal Cannula 2.00 09/11/16 00:00 98.6 105 19 116/60 92 09/10/16 22:15 98.5 108 18 120/63 93 09/10/16 22:15 2.00 I/O 09/10/16 09/10/16 09/10/16 09/11/16 09/11/16 09/11/16 07:00 15:00 23:00 07:00 15:00 23:00 Intake Total 250 ml 300 ml 800 ml 180 ml 675 ml Output Total 0 ml Balance 250 ml 300 ml 800 ml 180 ml 675 ml Intake Oral 300 ml 720 ml 675 ml IV Total 150 ml 80 ml 80 ml Albumin 100 ml 100 ml Output Urine Total 0 ml # Voids 1 1 6 # Bowel Movements 0 0 1 Laboratory Laboratory Tests Test 09/11/16 06:45 Ammonia 78 Imaging Last Impressions Abdomen X-Ray 09/09/16 0600 Signed Impressions: Service Date/Time: Friday, September 09, 2016 09:07 - CONCLUSION: No significant change with the bowel gas pattern compared to the prior study. Alin Staton MD Abdomen Ultrasound 09/04/16 0000 Signed Impressions: Service Date/Time: August 11:42 - CONCLUSION: Minimal free fluid in the pelvis. There is not enough present for paracentesis. Bacilio Johnson MD Liver Ultrasound 09/03/16 0000 Signed Impressions: Service Date/Time: Saturday, September 03, 2016 09:26 - CONCLUSION: Cirrhotic liver appearance with ascites. Bacilio Gonzalez MD Physical Exam GENERAL: NAD, AAOx3 CHEST: CTA CARDIAC: RRR ABDOMEN: +BS, firm, distended, tympanitic, diffuse TTP EXTREMITIES: No clubbing, cyanosis, or edema. SKIN: Multiple tattoos (Denisse Whitaker Barry [employer]) Assessment and Plan Plan ASSESSMENT: - Ileus- worsening over the last 48 hours. s/p rectal tube insertion, pt with flatus but still no BM. xray 09-09 --> No significant change with the bowel gas pattern compared to the prior study X-Ray showed mild SB dilation and colonic distension. - Upper GI Bleed with hematemesis/melena. States he does not usually drink, but did have several drinks earlier this week. He believes that he takes Acetaminophen, but states this may be Ibuprofen. s/ p EGD 09-04-16--> esophageal varices grade 2, 4 x bands applied, small hiatal hernia, mild to moderate portal gastropathy. PPI gtt and Octreotide - Anemia, acute blood loss. H/H 09-10 7.9, 24.6. PPI gtt and Octreotide - Liver cirrhosis/Elevated LFT. US Liver 09-04-16--> not enough fluid for paracentesis. He feels that his abdomen is more bloated and firm today. He states he was dx 5 years ago with cirrhosis. He was told this was related to ETOH abuse. He also reports a hx of Hepatitis A, B, and C. He is treatment naive for his HCV. He does have antibodies for both Hepatitis A and B, although surface antigen for Hep B is negative and IGM for Hep A is nonreactive, so he probably has had a past exposure to Hep A/B. He does have Hepatitis C, Genotype 3A with viral load 6,570,000. - Esophageal varices. - Hepatitis C. Hx of Hepatitis A/B. Past Hep A ab total reactive, hep b core total ab reactive. HAV IgM negative, HBV Bs Ag negative. Likely past infection, now immune. Genotype 3A with viral load 6,570,000. - COPD. Per primary PLAN: - SSE x 2 - continue lactulose - Cont. Protonix Gtt and hold Octreotide - HOLLY - Monitor labs - Notify GI of active bleeding - Further recommendations to follow This pt seen by myself and Dr Rowley and this note is written on his behalf Discharge Planning (Denisse Whitaker) Physician Comments Seen and examined, plan as above, will follow up with you . (Laura Rowley MD) Denisse Whitaker Sep 11, 2016 17:42 Laura Rowley MD Sep 11, 2016 22:47
[2016-09-11] MEDS: RESP: ALBUTEROL 2.5 MG/IPRATROPIUM 0.5 MG NEB (PRN) INH (21:34)
[2016-09-12] VITALS: BP 123/55; PULSE 92; RESP 18; TEMP 97.8; O2SAT 93
[2016-09-12] MEDS: PANTOPRAZOLE INJ 80 MG in SODIUM CHLORIDE 0.9% INJ 100 ML IV SCH ×3 (03:46→23:15)
[2016-09-12 04:00] VITALS: BP 117/63; PULSE 91; RESP 20; TEMP 97.6; O2SAT 93
[2016-09-12] MEDS: CHLORHEXIDINE GLUCONATE 2 % 1 PACK (2 CLOTHS) TOP SCH (04:00)
[2016-09-12] MEDS: ALBUMIN HUMAN 25% 25 GM/100 ML BAGP IV SCH ×2 (05:00→17:39)
[2016-09-12] MEDS: INSULIN NovoLIN REGULAR SUPPLEMENTAL SCALE SQ SCH ×5 (05:00→23:38)
[2016-09-12] MEDS: MORPHINE SULFATE 15 MG TAB PO PRN ×4 (05:06→20:43)
[2016-09-12 08:00] VITALS: BP 150/76; PULSE 94; RESP 18; TEMP 97.8; O2SAT 92
[2016-09-12 08:55] LABS: HEMATOCRIT 25.9 % (39.0-51.0); MEAN CELL VOLUME 80.5 FL (80.0-100.0); MEAN CORPUSCULAR HEMOGLOBIN 26.6 PG (27.0-34.0); PLATELET COUNT 135 TH/MM3 (150-450); RED BLOOD COUNT 3.22 MIL/MM3 (4.50-5.90); RED CELL DISTRIBUTION WIDTH 19.4 % (11.6-17.2); WHITE BLOOD COUNT 8.4 TH/MM3 (4.0-11.0)
[2016-09-12 08:58] LABS: REVIEW FLAG FINAL
[2016-09-12 09:09] LABS: BICARBONATE 18.3 MEQ/L (21.0-32.0)
[2016-09-12 09:10] LABS: POTASSIUM 3.2 MEQ/L (3.5-5.1)
[2016-09-12] MEDS: DOCUSATE SODIUM 100 MG/10 ML UDC PO SCH ×2 (10:14→20:42)
[2016-09-12] MEDS: FOLIC ACID 1 MG TAB PO SCH (10:14)
[2016-09-12] MEDS: MULTIVITAMIN TAB PO SCH (10:14)
[2016-09-12] MEDS: LACTULOSE SYRUP 20 GM/30 ML CUP PO SCH ×3 (10:14→17:40)
[2016-09-12] MEDS: FUROSEMIDE 20 MG/2 ML VIAL IV PUSH SCH (10:15)
[2016-09-12] MEDS: THIAMINE INJ 100 MG in SODIUM CHLORIDE 0.9% INJ 100 ML IV SCH (10:15)
[2016-09-12 12:00] VITALS: BP 116/66; PULSE 104; RESP 18; TEMP 97.7; O2SAT 92
--- NOTE | 2016-09-12 13:50 | HHI.PR ---
Subjective Remarks Only slight improvement today. The patient reports flatulence. There are some trace bowel sounds present today which hadn't been present in the past. Objective Vital Signs Date Time Temp Pulse Resp B/P Pulse Ox O2 Delivery O2 Flow Rate FiO2 09/12/16 12:00 97.7 104 18 116/66 92 09/12/16 08:00 97.8 94 18 150/76 92 09/12/16 07:51 Room Air 09/12/16 04:00 97.6 91 20 117/63 93 09/12/16 00:00 97.8 92 18 123/55 93 09/11/16 21:35 95 Nasal Cannula 2.00 09/11/16 20:30 Nasal Cannula 2.00 09/11/16 20:00 97.6 104 20 124/82 92 09/11/16 16:00 97.3 92 20 141/69 90 I/O 09/11/16 09/11/16 09/11/16 09/12/16 09/12/16 09/12/16 06:59 14:59 22:59 06:59 14:59 22:59 Intake Total 180 ml 675 ml 560 ml 960 ml Output Total 0 ml 2 ml Balance 180 ml 675 ml 558 ml 960 ml Intake Oral 675 ml 560 ml 960 ml IV Total 80 ml Albumin 100 ml Output Urine Total 0 ml 2 ml # Voids 2 # Bowel Movements 1 1 Result Diagram: 09/12/16 0826 09/12/16 0826 Procedures EGD and band ligation. Objective Remarks GENERAL: NAD, A&Ox3 SKIN: Warm and dry. HEAD: Normocephalic. EYES: No scleral icterus. No injection or drainage. NECK: Supple, trachea midline. No JVD or lymphadenopathy. CARDIOVASCULAR: Regular rate and rhythm without murmurs, gallops, or rubs. RESPIRATORY: Breath sounds equal bilaterally. No accessory muscle use. GASTROINTESTINAL: Abdomen is distended and hypertympanic. Tenderness is present diffusely. Slight bowel sounds. MUSCULOSKELETAL: No cyanosis. Edema bilateral lower extremities, blisters are present. A/P Problem List: (1) Adynamic ileus ICD Code: K56.0 (2) GI bleed ICD Code: K92.2 (3) Cirrhosis of liver ICD Code: K74.60 (4) Alcohol abuse ICD Code: F10.10 (5) Ascites ICD Code: R18.8 (6) Acute blood loss anemia ICD Code: D62 (7) Abdominal distention ICD Code: R14.0 (8) GI bleed ICD Code: K92.2 Assessment and Plan Assessment and Plan 61-year-old male admitted with GI bleed and abdominal distention. Continue to monitor ileus. IV hydration provided. Hepatic encephalopathy is present but mentation is stable. The degree of his ammonia level has worsened in the last 24 hours. Lactulose is being continued. Hepatic Encephalopathy Follow ammonia level related to low GI output combined with his cirrhosis Lactulose started GI bleeding Acute blood loss anemia GI bleed appears to have resolved Follow CBC Ileus Abdominal distention May be related to constipation Glycerin suppository started Patient is on a liquid diet Follow for improvement Patient is on Rocephin Rectal tube in considered History of ascites Cirrhosis History of esophageal varices History of alcohol abuse Abdominal distention appears to be are rather than fluid Ultrasound from 5 days ago did not show significant degree of free fluid in the abdomen Patient's last paracentesis was 07/31/2016 Alcohol cessation has been recommended Hepatitis B and C Standard precautions Duodenal ulcers history No change of present treatment Follow clinically Hypoglycemia Related to poor by mouth intake and nausea/vomiting Follow blood sugars Patient is on D5 IV fluids right now DVT prophylaxis SCDs Problem Qualifiers (1) GI bleed: Qualified Code: K92.2 - Gastrointestinal hemorrhage, unspecified gastrointestinal hemorrhage type (2) Cirrhosis of liver: Qualified Code: K70.31 - Alcoholic cirrhosis of liver with ascites Judd oTrres MD Sep 12, 2016 1:50 pm
[2016-09-12] MEDS: cefTRIAXone INJ 1,000 MG in SODIUM CHLORIDE 0.9% INJ 100 ML IV SCH (14:22)
[2016-09-12 16:00] VITALS: BP 119/60; PULSE 90; RESP 18; TEMP 97.1; O2SAT 93
[2016-09-12] MEDS: RESP: ALBUTEROL 2.5 MG/IPRATROPIUM 0.5 MG NEB (PRN) INH (17:45)
[2016-09-12 20:00] VITALS: BP 130/62; PULSE 94; RESP 20; TEMP 97.8; O2SAT 94
[2016-09-13] VITALS (7 sets, daily range): BP systolic 96–128; BP diastolic 58–70; PULSE 79–95; RESP 14–20; TEMP 97.5–98.7; O2SAT 92–97
[2016-09-13] MEDS: CHLORHEXIDINE GLUCONATE 2 % 1 PACK (2 CLOTHS) TOP SCH (03:13)
[2016-09-13] MEDS: ALBUMIN HUMAN 25% 25 GM/100 ML BAGP IV SCH ×2 (05:03→17:07)
[2016-09-13] MEDS: INSULIN NovoLIN REGULAR SUPPLEMENTAL SCALE SQ SCH (05:04)
[2016-09-13] MEDS: MORPHINE SULFATE 15 MG TAB PO PRN ×4 (05:48→20:39)
[2016-09-13 08:17] LABS: AUTOMATED NEUTROPHIL # 4.8 TH/MM3 (1.8-7.7); BASOPHIL % 0.2 % (0.0-2.0); EOSINOPHIL # 0.2 TH/MM3 (0-0.4); EOSINOPHIL % 3.8 % (0.0-4.0); HEMO FLAGS DIFF FINAL; LYMPH % 12.7 % (9.0-44.0); LYMPHOCYTE # 0.8 TH/MM3 (1.0-4.8); MEAN CELL VOLUME 80.8 FL (80.0-100.0); MEAN CORPUSCULAR HEMOGLOBIN 26.2 PG (27.0-34.0); MEAN CORPUSCULAR HGB CONC 32.5 % (32.0-36.0); MONO % 10.2 % (0.0-8.0); NEUT % 73.1 % (16.0-70.0); PLATELET COUNT 130 TH/MM3 (150-450); RED BLOOD COUNT 2.97 MIL/MM3 (4.50-5.90); RED CELL DISTRIBUTION WIDTH 19.7 % (11.6-17.2); WHITE BLOOD COUNT 6.6 TH/MM3 (4.0-11.0)
[2016-09-13 08:49] LABS: ALKALINE PHOSPHATASE 73 U/L (45-117); ALT (GPT) 31 U/L (12-78); ANION GAP 8 MEQ/L (5-15); AST (GOT) 45 U/L (15-37); BLOOD UREA NITROGEN 4 MG/DL (7-18); CHLORIDE 100 MEQ/L (98-107); GLOMERULAR FILTRATION RATE 234 ML/MIN (>89); SODIUM (NA) 136 MEQ/L (136-145); TOTAL BILIRUBIN ADULT 1.8 MG/DL (0.2-1.0)
[2016-09-13] MEDS: PANTOPRAZOLE INJ 80 MG in SODIUM CHLORIDE 0.9% INJ 100 ML IV SCH ×2 (09:15→16:51)
[2016-09-13 09:18] LABS: POTASSIUM 2.7 MEQ/L (3.5-5.1)
[2016-09-13] MEDS: FUROSEMIDE 20 MG/2 ML VIAL IV PUSH SCH (09:20)
[2016-09-13] MEDS: MULTIVITAMIN TAB PO SCH (09:21)
[2016-09-13] MEDS: THIAMINE INJ 100 MG in SODIUM CHLORIDE 0.9% INJ 100 ML IV SCH (09:21)
[2016-09-13] MEDS: SODIUM CHLORIDE 0.9% FLUSH 10 ML FLUSH IVF PRN (09:21)
[2016-09-13] MEDS: LACTULOSE SYRUP 20 GM/30 ML CUP PO SCH ×3 (09:21→17:06)
[2016-09-13] MEDS: FOLIC ACID 1 MG TAB PO SCH (09:21)
[2016-09-13] MEDS: DOCUSATE SODIUM 100 MG/10 ML UDC PO SCH ×2 (09:21→20:38)
--- NOTE | 2016-09-13 09:53 | HHI.PR ---
Subjective Remarks Large-volume flatulence and bowel movement occurred today. Tympany of the abdomen is gone. Some of the stool was black. There has been a drop in his hemoglobin since yesterday. Objective Vital Signs Date Time Temp Pulse Resp B/P Pulse Ox O2 Delivery O2 Flow Rate FiO2 09/13/16 08:00 98.4 79 17 106/58 97 09/13/16 07:45 Room Air 09/13/16 04:00 98.1 88 20 128/70 93 09/13/16 00:00 98.7 95 20 98/65 92 09/12/16 22:38 21 09/12/16 21:56 18 09/12/16 20:40 Room Air 09/12/16 20:00 97.8 94 20 130/62 94 09/12/16 16:00 97.1 90 18 119/60 93 09/12/16 14:17 Nasal Cannula 2.00 09/12/16 12:00 97.7 104 18 116/66 92 I/O 09/12/16 09/12/16 09/12/16 09/13/16 09/13/16 09/13/16 07:00 15:00 23:00 07:00 15:00 23:00 Intake Total 960 ml 1110 ml 360 ml 226 ml Balance 960 ml 1110 ml 360 ml 226 ml Intake Oral 960 ml 940 ml 360 ml 0 ml IV Total 170 ml 226 ml # Voids 2 3 5 0 # Bowel Movements 1 0 0 Result Diagram: 09/13/16 0800 09/13/16 0800 Procedures EGD and band ligation. Objective Remarks GENERAL: NAD, A&Ox3 SKIN: Warm and dry. HEAD: Normocephalic. EYES: No scleral icterus. No injection or drainage. NECK: Supple, trachea midline. No JVD or lymphadenopathy. CARDIOVASCULAR: Regular rate and rhythm without murmurs, gallops, or rubs. RESPIRATORY: Breath sounds equal bilaterally. No accessory muscle use. GASTROINTESTINAL: Abdomen is distended and hypertympanic. Tenderness is present diffusely. Slight bowel sounds. MUSCULOSKELETAL: No cyanosis. Edema bilateral lower extremities, blisters are present. A/P Problem List: (1) Adynamic ileus ICD Code: K56.0 (2) GI bleed ICD Code: K92.2 (3) Cirrhosis of liver ICD Code: K74.60 (4) Alcohol abuse ICD Code: F10.10 (5) Ascites ICD Code: R18.8 (6) Acute blood loss anemia ICD Code: D62 (7) Abdominal distention ICD Code: R14.0 (8) GI bleed ICD Code: K92.2 Assessment and Plan Assessment and Plan 61-year-old male admitted with GI bleed and abdominal distention. Ileus appears to have resolved. Continue to follow. Diet advanced to regular diet. Continue to monitor hemoglobin levels. He is already on a Protonix drip. Etiology for recent GI bleed is likely a complication of his ileus and intra- abdominal pressure. He still feels distended and if this continues through tomorrow and then I will get an ultrasound of the abdomen to assess the degree of ascites. Hepatic Encephalopathy Follow ammonia level related to low GI output combined with his cirrhosis Lactulose started GI bleeding Acute blood loss anemia GI bleed appears to have resolved Follow CBC Ileus Abdominal distention May be related to constipation Glycerin suppository started Patient is on a liquid diet Follow for improvement Patient is on Rocephin Rectal tube in considered History of ascites Cirrhosis History of esophageal varices History of alcohol abuse Abdominal distention appears to be are rather than fluid Ultrasound from 5 days ago did not show significant degree of free fluid in the abdomen Patient's last paracentesis was 07/31/2016 Alcohol cessation has been recommended Hepatitis B and C Standard precautions Duodenal ulcers history No change of present treatment Follow clinically Hypoglycemia Related to poor by mouth intake and nausea/vomiting Follow blood sugars Patient is on D5 IV fluids right now DVT prophylaxis SCDs Problem Qualifiers (1) GI bleed: Qualified Code: K92.2 - Gastrointestinal hemorrhage, unspecified gastrointestinal hemorrhage type (2) Cirrhosis of liver: Qualified Code: K70.31 - Alcoholic cirrhosis of liver with ascites Judd Torres MD Sep 13, 2016 9:53 am
[2016-09-13] MEDS ORDERED: POTASSIUM CHLORIDE 10 MEQ CONTROLLED RELEASE TAB PO ONE ×2 (12:30→18:45)
--- NOTE | 2016-09-13 14:24 | HHI.GIFU ---
Subjective Remarks Patient was ambulating in the room when I walked in, he reports nausea, abd cramps, black stools, he had 2 today, last time was 5 hrs ago. But denies hematemesis or vomiting (Earlene Kam) Objective Vitals I&O Vital Signs Date Time Temp Pulse Resp B/P Pulse Ox O2 Delivery O2 Flow Rate FiO2 09/13/16 12:00 97.6 91 17 112/62 97 09/13/16 08:00 98.4 79 17 106/58 97 09/13/16 07:45 Room Air 09/13/16 04:00 98.1 88 20 128/70 93 09/13/16 00:00 98.7 95 20 98/65 92 09/12/16 22:38 21 09/12/16 21:56 18 09/12/16 20:40 Room Air 09/12/16 20:00 97.8 94 20 130/62 94 09/12/16 16:00 97.1 90 18 119/60 93 09/12/16 14:17 Nasal Cannula 2.00 I/O 09/12/16 09/12/16 09/12/16 09/13/16 09/13/16 09/13/16 07:00 15:00 23:00 07:00 15:00 23:00 Intake Total 960 ml 1110 ml 360 ml 226 ml Balance 960 ml 1110 ml 360 ml 226 ml Intake Oral 960 ml 940 ml 360 ml 0 ml IV Total 170 ml 226 ml # Voids 2 3 5 0 # Bowel Movements 1 0 0 Laboratory Laboratory Tests Test 09/13/16 08:00 White Blood Count 6.6 Red Blood Count 2.97 Hemoglobin 7.8 Hematocrit 24.0 Mean Corpuscular Volume 80.8 Mean Corpuscular Hemoglobin 26.2 Mean Corpuscular Hemoglobin 32.5 Concent Red Cell Distribution Width 19.7 Platelet Count 130 Mean Platelet Volume 7.6 Neutrophils (%) (Auto) 73.1 Lymphocytes (%) (Auto) 12.7 Monocytes (%) (Auto) 10.2 Eosinophils (%) (Auto) 3.8 Basophils (%) (Auto) 0.2 Neutrophils # (Auto) 4.8 Lymphocytes # (Auto) 0.8 Monocytes # (Auto) 0.7 Eosinophils # (Auto) 0.2 Basophils # (Auto) 0.0 CBC Comment DIFF FINAL Differential Comment Sodium Level 136 Potassium Level 2.7 Chloride Level 100 Carbon Dioxide Level 28.0 Anion Gap 8 Blood Urea Nitrogen 4 Creatinine 0.38 Estimat Glomerular Filtration 234 Rate Random Glucose 95 Calcium Level 7.7 Total Bilirubin 1.8 Aspartate Amino Transf 45 (AST/SGOT) Alanine Aminotransferase 31 (ALT/SGPT) Alkaline Phosphatase 73 Ammonia 103 Total Protein 5.6 Albumin 2.8 Imaging Last Impressions Abdomen X-Ray 09/09/16 0600 Signed Impressions: Service Date/Time: Friday, September 09, 2016 09:07 - CONCLUSION: No significant change with the bowel gas pattern compared to the prior study. Alin Staton MD Abdomen Ultrasound 09/04/16 0000 Signed Impressions: Service Date/Time: August 11:42 - CONCLUSION: Minimal free fluid in the pelvis. There is not enough present for paracentesis. Bacilio Johnson MD Liver Ultrasound 09/03/16 0000 Signed Impressions: Service Date/Time: Saturday, September 03, 2016 09:26 - CONCLUSION: Cirrhotic liver appearance with ascites. Baciilo Gonzalez MD Physical Exam GENERAL: NAD, AAOx3 CHEST: CTA CARDIAC: RRR ABDOMEN: +BS, firm, distended, tympanitic, diffuse TTP EXTREMITIES: No clubbing, cyanosis, or edema. SKIN: Multiple tattoos Neurology: alert and oriented (Earlene Kam) Assessment and Plan Plan ASSESSMENT: - Ileus- seem to be improving pt with flatus and BM. xray 09-09 --> No significant change with the bowel gas pattern compared to the prior study X-Ray showed mild SB dilation and colonic distension. - Upper GI Bleed with hematemesis/melena. black stools today, last one 5 hrs ago. States he does not usually drink, but did have several drinks earlier this week. He believes that he takes Acetaminophen, but states this may be Ibuprofen. s/ p EGD 09-04-16--> esophageal varices grade 2, 4 x bands applied, small hiatal hernia, mild to moderate portal gastropathy. PPI gtt and Octreotide - Anemia, acute blood loss. H/H 7.8/24.0 drop from yesterday. PPI gtt and Octreotide - Liver cirrhosis/Elevated LFT. US Liver 09-04-16--> not enough fluid for paracentesis. He feels that his abdomen is more bloated and firm today. He states he was dx 5 years ago with cirrhosis. He was told this was related to ETOH abuse. He also reports a hx of Hepatitis A, B, and C. He is treatment naive for his HCV. He does have antibodies for both Hepatitis A and B, although surface antigen for Hep B is negative and IGM for Hep A is nonreactive, so he probably has had a past exposure to Hep A/B. He does have Hepatitis C, Genotype 3A with viral load 6,570,000. - Esophageal varices. - Hepatitis C. Hx of Hepatitis A/B. Past Hep A ab total reactive, hep b core total ab reactive. HAV IgM negative, HBV Bs Ag negative. Likely past infection, now immune. Genotype 3A with viral load 6,570,000. - COPD. Per primary PLAN: - continue lactulose - Cont. Protonix Gtt and hold Octreotide - HOLLY - Monitor labs - Notify GI of active bleeding - If continue to pass black stools, consider repeating EGD - Further recommendations to follow This pt seen by myself and Dr Rowley and this note is written on his behalf Discharge Planning (Earlene Kam) Physician Comments Agree with the plan as above, will follow up with you for further recommendations. (Laura Rowley MD) Earlene Kam Sep 13, 2016 14:24 Laura Rowley MD Sep 13, 2016 18:01
[2016-09-13] MEDS: cefTRIAXone INJ 1,000 MG in SODIUM CHLORIDE 0.9% INJ 100 ML IV SCH (15:11)
[2016-09-13] MEDS: POTASSIUM CHLORIDE 10 MEQ CONTROLLED RELEASE TAB PO SCH (20:39)
[2016-09-14] VITALS (8 sets, daily range): BP systolic 104–144; BP diastolic 55–73; PULSE 78–97; RESP 18–20; TEMP 97.3–98.6; O2SAT 90–96
[2016-09-14] MEDS: CHLORHEXIDINE GLUCONATE 2 % 1 PACK (2 CLOTHS) TOP SCH (04:00)
[2016-09-14] MEDS: MORPHINE SULFATE 15 MG TAB PO PRN ×5 (04:00→21:37)
[2016-09-14] MEDS: PANTOPRAZOLE INJ 80 MG in SODIUM CHLORIDE 0.9% INJ 100 ML IV SCH ×2 (04:01→14:15)
[2016-09-14] MEDS: RESP: ALBUTEROL 2.5 MG/IPRATROPIUM 0.5 MG NEB (PRN) INH (04:10)
[2016-09-14] MEDS: ALBUMIN HUMAN 25% 25 GM/100 ML BAGP IV SCH ×2 (06:13→17:35)
[2016-09-14] MEDS: LACTULOSE SYRUP 20 GM/30 ML CUP PO SCH ×3 (09:07→17:41)
[2016-09-14] MEDS: FOLIC ACID 1 MG TAB PO SCH (09:07)
[2016-09-14] MEDS: MULTIVITAMIN TAB PO SCH (09:07)
[2016-09-14] MEDS: FUROSEMIDE 20 MG/2 ML VIAL IV PUSH SCH (09:08)
[2016-09-14] MEDS: DOCUSATE SODIUM 100 MG/10 ML UDC PO SCH ×2 (09:08→21:36)
[2016-09-14] MEDS: POTASSIUM CHLORIDE 10 MEQ CONTROLLED RELEASE TAB PO SCH ×2 (09:08→21:37)
[2016-09-14] MEDS: THIAMINE INJ 100 MG in SODIUM CHLORIDE 0.9% INJ 100 ML IV SCH (09:22)
[2016-09-14 10:13] LABS: HEMATOCRIT 26.9 % (39.0-51.0); MEAN CELL VOLUME 81.1 FL (80.0-100.0); MEAN CORPUSCULAR HEMOGLOBIN 26.2 PG (27.0-34.0); MEAN CORPUSCULAR HGB CONC 32.3 % (32.0-36.0); PLATELET COUNT 155 TH/MM3 (150-450); RED BLOOD COUNT 3.31 MIL/MM3 (4.50-5.90); RED CELL DISTRIBUTION WIDTH 20.1 % (11.6-17.2); REVIEW FLAG FINAL; WHITE BLOOD COUNT 6.8 TH/MM3 (4.0-11.0)
--- NOTE | 2016-09-14 10:23 | HHI.PR ---
Subjective Remarks Further flatulence. Another bowel movement occurred since the first one yesterday. GI symptoms are improved but distention remains in the abdomen. It appears his ascites may have returned. He is tolerating regular diet well. Objective Vital Signs Date Time Temp Pulse Resp B/P Pulse Ox O2 Delivery O2 Flow Rate FiO2 09/14/16 08:43 92 Nasal Cannula 2.00 09/14/16 08:30 93 Nasal Cannula 2.00 09/14/16 08:00 97.9 97 20 130/57 90 09/14/16 04:12 91 Nasal Cannula 2.00 09/14/16 04:00 98.0 85 18 107/59 94 09/14/16 00:00 98.1 86 18 104/55 94 09/13/16 21:32 Nasal Cannula 2.00 09/13/16 20:00 98.6 85 14 96/60 93 09/13/16 19:54 Room Air 09/13/16 16:00 97.5 87 17 119/61 97 09/13/16 12:00 97.6 91 17 112/62 97 09/13/16 11:30 94 Nasal Cannula 2.00 I/O 09/13/16 09/13/16 09/13/16 09/14/16 09/14/16 09/14/16 07:00 15:00 23:00 07:00 15:00 23:00 Intake Total 226 ml 1270 ml 240 ml Balance 226 ml 1270 ml 240 ml Intake Oral 0 ml 720 ml 240 ml IV Total 226 ml 0 ml Tube Feeding 350 ml Other 200 ml # Voids 0 4 1 # Bowel Movements 0 1 0 Result Diagram: 09/14/16 0942 09/13/16 1720 Procedures EGD and band ligation. Objective Remarks GENERAL: NAD, A&Ox3 SKIN: Warm and dry. HEAD: Normocephalic. EYES: No scleral icterus. No injection or drainage. NECK: Supple, trachea midline. No JVD or lymphadenopathy. CARDIOVASCULAR: Regular rate and rhythm without murmurs, gallops, or rubs. RESPIRATORY: Breath sounds equal bilaterally. No accessory muscle use. GASTROINTESTINAL: Abdomen is distended with flat tympany. No tenderness. Active bowel sounds. MUSCULOSKELETAL: No cyanosis. Edema bilateral lower extremities, blisters are present. A/P Problem List: (1) Adynamic ileus ICD Code: K56.0 (2) GI bleed ICD Code: K92.2 (3) Cirrhosis of liver ICD Code: K74.60 (4) Alcohol abuse ICD Code: F10.10 (5) Ascites ICD Code: R18.8 (6) Acute blood loss anemia ICD Code: D62 (7) Abdominal distention ICD Code: R14.0 (8) GI bleed ICD Code: K92.2 Assessment and Plan Assessment and Plan 61-year-old male admitted with GI bleed and abdominal distention. Ileus resolved. Ascites appears present. We'll obtain ultrasound of abdomen to determine degree of ascites and to see if patient needs thoracentesis. Lower extremity edema remains present, he is on Lasix, but decreased intra-abdominal pressure would also benefit him. Hepatic Encephalopathy Follow ammonia level related to low GI output combined with his cirrhosis Lactulose started GI bleeding Acute blood loss anemia GI bleed appears to have resolved Follow CBC Ileus Abdominal distention May be related to constipation Glycerin suppository started Patient is on a liquid diet Follow for improvement Patient is on Rocephin Rectal tube in considered History of ascites Cirrhosis History of esophageal varices History of alcohol abuse Abdominal distention appears to be are rather than fluid Ultrasound from 5 days ago did not show significant degree of free fluid in the abdomen Patient's last paracentesis was 07/31/2016 Alcohol cessation has been recommended Hepatitis B and C Standard precautions Duodenal ulcers history No change of present treatment Follow clinically Hypoglycemia Related to poor by mouth intake and nausea/vomiting Follow blood sugars Patient is on D5 IV fluids right now DVT prophylaxis SCDs Problem Qualifiers (1) GI bleed: Qualified Code: K92.2 - Gastrointestinal hemorrhage, unspecified gastrointestinal hemorrhage type (2) Cirrhosis of liver: Qualified Code: K70.31 - Alcoholic cirrhosis of liver with ascites Judd Torres MD Sep 14, 2016 10:23
[2016-09-14 10:29] LABS: BICARBONATE 25.9 MEQ/L (21.0-32.0); POTASSIUM 3.2 MEQ/L (3.5-5.1)
[2016-09-14] MEDS ORDERED: POTASSIUM CHLORIDE 10 MEQ CONTROLLED RELEASE TAB PO ONE (11:15)
[2016-09-14] MEDS: traMADol HCL 50 MG TAB PO PRN (11:54)
--- NOTE | 2016-09-14 13:41 | RADRPT ---
EXAM DATE/TIME: 09/14/2016 12:22 [facility] COMPARISON: US ABDOMEN - LOWER LIMITED, September 04, 2016, 11:42. INDICATIONS : Ascites. MEDICAL HISTORY : Chronic obstructive pulmonary disease. Methicillin-resistant Staphylococcus aureus. Cirrhosis. Hepati tis A. Hepatitis B. Hepatitis C. Ulcer. Daily ETOH use. Arthritis. SURGICAL HISTORY : Total knee replacement, left. Total knee replacement, right. ENCOUNTER: Initial ACUITY: 1 day PAIN SCORE: 2/10 LOCATION: Bilateral abdomen. AREA EVALUATED: Abdomen. FINDINGS: Imaging of the abdomen and pelvis was performed to evaluate for ascites for possible paracentesis. Mo derate amount of ascites. Most prominent in the right upper quadrant and midline pelvis. CONCLUSION: Moderate amount of ascites. Bj Abdalla MD on September 14, 2016 at 13:39 Board Certified Radiologist. This report was verified electronically.
[2016-09-14] MEDS: cefTRIAXone INJ 1,000 MG in SODIUM CHLORIDE 0.9% INJ 100 ML IV SCH (14:14)
[2016-09-15] VITALS: BP 129/66; PULSE 86; RESP 18; TEMP 98.3; O2SAT 96
[2016-09-15] MEDS: PANTOPRAZOLE INJ 80 MG in SODIUM CHLORIDE 0.9% INJ 100 ML IV SCH ×3 (01:09→21:05)
[2016-09-15] MEDS: MORPHINE SULFATE 15 MG TAB PO PRN ×5 (02:34→23:58)
[2016-09-15 04:00] VITALS: BP 116/70; PULSE 93; RESP 20; TEMP 99.1; O2SAT 97
[2016-09-15] MEDS: CHLORHEXIDINE GLUCONATE 2 % 1 PACK (2 CLOTHS) TOP SCH (04:00)
[2016-09-15] MEDS: ALBUMIN HUMAN 25% 25 GM/100 ML BAGP IV SCH ×2 (06:36→17:50)
[2016-09-15 06:52] LABS: HEMATOCRIT 24.7 % (39.0-51.0); MEAN CELL VOLUME 79.7 FL (80.0-100.0); MEAN CORPUSCULAR HEMOGLOBIN 26.6 PG (27.0-34.0); MEAN CORPUSCULAR HGB CONC 33.3 % (32.0-36.0); PLATELET COUNT 133 TH/MM3 (150-450); REVIEW FLAG FINAL; WHITE BLOOD COUNT 5.7 TH/MM3 (4.0-11.0)
[2016-09-15 07:17] LABS: BICARBONATE 27.4 MEQ/L (21.0-32.0); POTASSIUM 3.8 MEQ/L (3.5-5.1)
[2016-09-15 08:00] VITALS: BP 111/64; PULSE 90; RESP 20; TEMP 99.6; O2SAT 92
[2016-09-15] MEDS: THIAMINE INJ 100 MG in SODIUM CHLORIDE 0.9% INJ 100 ML IV SCH (09:32)
[2016-09-15] MEDS: FUROSEMIDE 20 MG/2 ML VIAL IV PUSH SCH (09:32)
[2016-09-15] MEDS: LACTULOSE SYRUP 20 GM/30 ML CUP PO SCH ×3 (09:35→17:51)
[2016-09-15] MEDS: POTASSIUM CHLORIDE 10 MEQ CONTROLLED RELEASE TAB PO SCH ×2 (09:35→19:57)
[2016-09-15] MEDS: DOCUSATE SODIUM 100 MG/10 ML UDC PO SCH ×2 (09:35→19:57)
[2016-09-15] MEDS: MULTIVITAMIN TAB PO SCH (09:35)
[2016-09-15] MEDS: FOLIC ACID 1 MG TAB PO SCH (09:35)
--- NOTE | 2016-09-15 09:57 | HHI.PR ---
Subjective Remarks Tolerating diet. No evidence of return ileus. Imaging of the abdomen shows ascites of moderate degree. Patient has symptoms from the ascites. Lower extremity swelling is present and related to his ascites. Objective Vital Signs Date Time Temp Pulse Resp B/P Pulse Ox O2 Delivery O2 Flow Rate FiO2 09/15/16 09:30 20 09/15/16 04:00 99.1 93 20 116/70 97 09/15/16 00:00 98.3 86 18 129/66 96 09/14/16 21:30 Room Air 09/14/16 21:19 Nasal Cannula 2.00 09/14/16 20:00 98.6 78 20 131/73 96 09/14/16 16:00 97.4 94 20 144/63 92 09/14/16 12:00 97.3 88 20 124/69 94 I/O 09/14/16 09/14/16 09/14/16 09/15/16 09/15/16 09/15/16 06:59 14:59 22:59 06:59 14:59 22:59 Intake Total 240 ml 480 ml 240 ml Output Total 300 ml 250 ml 175 ml Balance 240 ml 180 ml -250 ml 65 ml Intake Oral 240 ml 480 ml 240 ml Output Urine Total 300 ml 250 ml 175 ml # Voids 1 # Bowel Movements 0 1 1 Result Diagram: 09/15/1662709/15/16627 Procedures EGD and band ligation. Objective Remarks GENERAL: NAD, A&Ox3 SKIN: Warm and dry. HEAD: Normocephalic. EYES: No scleral icterus. No injection or drainage. NECK: Supple, trachea midline. No JVD or lymphadenopathy. CARDIOVASCULAR: Regular rate and rhythm without murmurs, gallops, or rubs. RESPIRATORY: Breath sounds equal bilaterally. No accessory muscle use. GASTROINTESTINAL: Abdomen is distended with flat tympany. No tenderness. Active bowel sounds. MUSCULOSKELETAL: No cyanosis. Edema bilateral lower extremities, blisters are present. A/P Problem List: (1) Adynamic ileus ICD Code: K56.0 (2) GI bleed ICD Code: K92.2 (3) Cirrhosis of liver ICD Code: K74.60 (4) Alcohol abuse ICD Code: F10.10 (5) Ascites ICD Code: R18.8 (6) Acute blood loss anemia ICD Code: D62 (7) Abdominal distention ICD Code: R14.0 (8) GI bleed ICD Code: K92.2 Assessment and Plan Assessment and Plan 61-year-old male admitted with GI bleed and abdominal distention. Ileus resolved. Paracentesis ordered. Lasix increased. Hepatic Encephalopathy Follow ammonia level related to low GI output combined with his cirrhosis Lactulose started GI bleeding Acute blood loss anemia GI bleed appears to have resolved Follow CBC Ileus Abdominal distention May be related to constipation Glycerin suppository started Patient is on a liquid diet Follow for improvement Patient is on Rocephin Rectal tube in considered History of ascites Cirrhosis History of esophageal varices History of alcohol abuse Abdominal distention appears to be are rather than fluid Ultrasound from 5 days ago did not show significant degree of free fluid in the abdomen Patient's last paracentesis was 07/31/2016 Alcohol cessation has been recommended Hepatitis B and C Standard precautions Duodenal ulcers history No change of present treatment Follow clinically Hypoglycemia Related to poor by mouth intake and nausea/vomiting Follow blood sugars Patient is on D5 IV fluids right now DVT prophylaxis SCDs Problem Qualifiers (1) GI bleed: Qualified Code: K92.2 - Gastrointestinal hemorrhage, unspecified gastrointestinal hemorrhage type (2) Cirrhosis of liver: Qualified Code: K70.31 - Alcoholic cirrhosis of liver with ascites Judd Torres MD Sep 15, 2016 9:57 am
[2016-09-15] MEDS ORDERED: FUROSEMIDE 40 MG/4 ML VIAL IV PUSH ONE (10:00)
[2016-09-15 12:00] VITALS: BP 123/64; PULSE 89; RESP 20; TEMP 98; O2SAT 94
[2016-09-15] MEDS: cefTRIAXone INJ 1,000 MG in SODIUM CHLORIDE 0.9% INJ 100 ML IV SCH (14:22)
--- NOTE | 2016-09-15 15:17 | RADRPT ---
EXAM DATE/TIME: 09/15/2016 12:42 [facility] COMPARISON: US ABDOMEN - LOWER LIMITED, September 14, 2016, 12:22. INDICATIONS : Ascites. MEDICAL HISTORY : Chronic obstructive pulmonary disease. Methicillin-resistant Staphylococcus aureus. Cirrhosis. Hepati tis A. Hepatitis C. Ulcer. Daily ETOH use. Arthritis. SURGICAL HISTORY : Total knee replacement, left. Total knee replacement, right. ENCOUNTER: Subsequent ACUITY: 3 days PAIN SCORE: 3/10 LOCATION: Bilateral lower quadrant AREA EVALUATED: Bilateral abdomen. FINDINGS: Imaging of the abdomen and pelvis was performed to evaluate for ascites for possible paracentesis. Th ere is only a very small amount of ascites which was present. No paracentesis was performed. CONCLUSION: 1. There is only minimal fluid present within the abdomen. No paracentesis was performed. Judd Graham MD on September 15, 2016 at 15:15 Board Certified Radiologist. This report was verified electronically.
[2016-09-15 16:00] VITALS: BP 115/67; PULSE 105; RESP 20; TEMP 98.3; O2SAT 93
[2016-09-15] MEDS: FUROSEMIDE 40 MG/4 ML VIAL IV PUSH SCH (17:51)
[2016-09-15 20:02] VITALS: BP 127/76; PULSE 61; RESP 18; TEMP 98.4; O2SAT 94
[2016-09-16] VITALS: BP 105/56; PULSE 99; RESP 17; TEMP 98.2; O2SAT 93
[2016-09-16] MEDS: CHLORHEXIDINE GLUCONATE 2 % 1 PACK (2 CLOTHS) TOP SCH (03:12)
[2016-09-16] MEDS: MORPHINE SULFATE 15 MG TAB PO PRN ×4 (03:59→19:57)
[2016-09-16] MEDS: PANTOPRAZOLE INJ 80 MG in SODIUM CHLORIDE 0.9% INJ 100 ML IV SCH ×2 (03:59→17:57)
[2016-09-16 04:00] VITALS: BP 107/62; PULSE 94; RESP 16; TEMP 98.6; O2SAT 94
[2016-09-16] MEDS: ALBUMIN HUMAN 25% 25 GM/100 ML BAGP IV SCH ×2 (06:17→17:58)
[2016-09-16 08:00] VITALS: BP 131/62; PULSE 88; RESP 20; TEMP 97.8; O2SAT 92
[2016-09-16 08:01] LABS: HEMATOCRIT 24.6 % (39.0-51.0); MEAN CELL VOLUME 80.2 FL (80.0-100.0); MEAN CORPUSCULAR HEMOGLOBIN 26.4 PG (27.0-34.0); MEAN CORPUSCULAR HGB CONC 32.9 % (32.0-36.0); PLATELET COUNT 123 TH/MM3 (150-450); RED BLOOD COUNT 3.07 MIL/MM3 (4.50-5.90); RED CELL DISTRIBUTION WIDTH 20.2 % (11.6-17.2); REVIEW FLAG FINAL; WHITE BLOOD COUNT 6.6 TH/MM3 (4.0-11.0)
[2016-09-16 08:37] LABS: ALKALINE PHOSPHATASE 82 U/L (45-117); ALT (GPT) 29 U/L (12-78); ANION GAP 7 MEQ/L (5-15); AST (GOT) 50 U/L (15-37); BICARBONATE 29.7 MEQ/L (21.0-32.0); BLOOD UREA NITROGEN 3 MG/DL (7-18); CHLORIDE 96 MEQ/L (98-107); GLOMERULAR FILTRATION RATE 152 ML/MIN (>89); POTASSIUM 3.3 MEQ/L (3.5-5.1); SODIUM (NA) 133 MEQ/L (136-145); TOTAL BILIRUBIN ADULT 1.8 MG/DL (0.2-1.0)
[2016-09-16] MEDS: THIAMINE INJ 100 MG in SODIUM CHLORIDE 0.9% INJ 100 ML IV SCH (08:38)
[2016-09-16] MEDS: FUROSEMIDE 40 MG/4 ML VIAL IV PUSH SCH ×3 (08:39→17:58)
[2016-09-16] MEDS: MULTIVITAMIN TAB PO SCH (08:39)
[2016-09-16] MEDS: POTASSIUM CHLORIDE 10 MEQ CONTROLLED RELEASE TAB PO SCH ×2 (08:39→19:57)
[2016-09-16] MEDS: DOCUSATE SODIUM 100 MG/10 ML UDC PO SCH ×2 (08:39→19:57)
[2016-09-16] MEDS: FOLIC ACID 1 MG TAB PO SCH (08:39)
[2016-09-16] MEDS: LACTULOSE SYRUP 20 GM/30 ML CUP PO SCH ×3 (08:39→17:58)
[2016-09-16] MEDS ORDERED: POTASSIUM CHLORIDE 10 MEQ CONTROLLED RELEASE TAB PO ONE (10:00)
[2016-09-16 12:00] VITALS: BP 111/60; PULSE 83; RESP 20; TEMP 97.8; O2SAT 94
--- NOTE | 2016-09-16 12:10 | HHI.PR ---
Subjective Remarks Repeat ultrasound for paracentesis did not show a significant amount of fluid enough to drain. Lower extremity edema remains a problem. Anemia is slightly worsened compared to prior day. Objective Vital Signs Date Time Temp Pulse Resp B/P Pulse Ox O2 Delivery O2 Flow Rate FiO2 09/16/16 10:00 18 09/16/16 08:00 97.8 88 20 131/62 92 09/16/16 04:00 98.6 94 16 107/62 94 09/16/16 00:00 98.2 99 17 105/56 93 09/15/16 20:02 98.4 61 18 127/76 94 09/15/16 20:00 Room Air 09/15/16 16:00 98.3 105 20 115/67 93 I/O 09/15/16 09/15/16 09/15/16 09/16/16 09/16/16 09/16/16 07:00 15:00 23:00 07:00 15:00 23:00 Intake Total 240 ml 629 ml 380 ml 960 ml Output Total 175 ml 2600 ml 1200 ml 1000 ml Balance 65 ml -1971 ml -820 ml -40 ml Intake Oral 240 ml 240 ml 380 ml 960 ml IV Total 389 ml Output Urine Total 175 ml 2600 ml 1200 ml 1000 ml # Voids 2 # Bowel Movements 1 0 0 Result Diagram: 09/16/16 0708 09/16/16 0708 Procedures EGD and band ligation. Objective Remarks GENERAL: NAD, A&Ox3 SKIN: Warm and dry. HEAD: Normocephalic. EYES: No scleral icterus. No injection or drainage. NECK: Supple, trachea midline. No JVD or lymphadenopathy. CARDIOVASCULAR: Regular rate and rhythm without murmurs, gallops, or rubs. RESPIRATORY: Breath sounds equal bilaterally. No accessory muscle use. GASTROINTESTINAL: Abdomen is distended with flat tympany. No tenderness. Active bowel sounds. MUSCULOSKELETAL: No cyanosis. Edema bilateral lower extremities, blisters are present, leaking ulceration. A/P Problem List: (1) Adynamic ileus ICD Code: K56.0 (2) GI bleed ICD Code: K92.2 (3) Cirrhosis of liver ICD Code: K74.60 (4) Alcohol abuse ICD Code: F10.10 (5) Ascites ICD Code: R18.8 (6) Acute blood loss anemia ICD Code: D62 (7) Abdominal distention ICD Code: R14.0 (8) GI bleed ICD Code: K92.2 Assessment and Plan Assessment and Plan 61-year-old male admitted with GI bleed and abdominal distention. Ileus occured but has resolved. Lower extremity edema present and lasix continued. Anemia remains and further monitoring of CBC needed. Hepatic Encephalopathy Follow ammonia level related to low GI output combined with his cirrhosis Lactulose started GI bleeding Acute blood loss anemia GI bleed appears to have resolved Follow CBC Ileus Abdominal distention May be related to constipation Glycerin suppository started Patient is on a liquid diet Follow for improvement Patient is on Rocephin Rectal tube in considered History of ascites Cirrhosis History of esophageal varices History of alcohol abuse Abdominal distention appears to be are rather than fluid Ultrasound from 5 days ago did not show significant degree of free fluid in the abdomen Patient's last paracentesis was 07/31/2016 Alcohol cessation has been recommended Hepatitis B and C Standard precautions Duodenal ulcers history No change of present treatment Follow clinically Hypoglycemia Related to poor by mouth intake and nausea/vomiting Follow blood sugars Patient is on D5 IV fluids right now DVT prophylaxis SCDs Problem Qualifiers (1) GI bleed: Qualified Code: K92.2 - Gastrointestinal hemorrhage, unspecified gastrointestinal hemorrhage type (2) Cirrhosis of liver: Qualified Code: K70.31 - Alcoholic cirrhosis of liver with ascites Judd Torres MD Sep 16, 2016 12:10
[2016-09-16] MEDS: cefTRIAXone INJ 1,000 MG in SODIUM CHLORIDE 0.9% INJ 100 ML IV SCH (13:54)
[2016-09-16 16:00] VITALS: BP 123/63; PULSE 84; RESP 20; TEMP 97.7; O2SAT 92
[2016-09-16 20:00] VITALS: BP 133/71; PULSE 111; RESP 22; TEMP 98.2; O2SAT 91
[2016-09-17] VITALS: BP 125/66; PULSE 92; RESP 20; TEMP 98; O2SAT 94
[2016-09-17] MEDS: PANTOPRAZOLE INJ 80 MG in SODIUM CHLORIDE 0.9% INJ 100 ML IV SCH ×3 (03:54→21:58)
[2016-09-17] MEDS: CHLORHEXIDINE GLUCONATE 2 % 1 PACK (2 CLOTHS) TOP SCH (03:54)
[2016-09-17] MEDS: MORPHINE SULFATE 15 MG TAB PO PRN ×5 (03:55→20:12)
[2016-09-17 04:00] VITALS: BP 152/97; PULSE 98; RESP 22; TEMP 98.4; O2SAT 94
[2016-09-17] MEDS: FUROSEMIDE 40 MG/4 ML VIAL IV PUSH SCH ×3 (06:23→17:03)
[2016-09-17] MEDS: ALBUMIN HUMAN 25% 25 GM/100 ML BAGP IV SCH ×2 (06:23→17:03)
[2016-09-17 07:35] LABS: MEAN CORPUSCULAR HEMOGLOBIN 26.3 PG (27.0-34.0); MEAN CORPUSCULAR HGB CONC 33.3 % (32.0-36.0); PLATELET COUNT 106 TH/MM3 (150-450); RED BLOOD COUNT 3.03 MIL/MM3 (4.50-5.90); RED CELL DISTRIBUTION WIDTH 19.8 % (11.6-17.2); REVIEW FLAG FINAL; WHITE BLOOD COUNT 6.3 TH/MM3 (4.0-11.0)
[2016-09-17 07:56] LABS: BICARBONATE 31.1 MEQ/L (21.0-32.0); POTASSIUM 3.1 MEQ/L (3.5-5.1)
[2016-09-17] MEDS: POTASSIUM CHLORIDE 10 MEQ CONTROLLED RELEASE TAB PO SCH ×2 (07:58→20:12)
[2016-09-17] MEDS: DOCUSATE SODIUM 100 MG/10 ML UDC PO SCH ×2 (07:58→20:11)
[2016-09-17] MEDS: MULTIVITAMIN TAB PO SCH (07:58)
[2016-09-17] MEDS: FOLIC ACID 1 MG TAB PO SCH (07:58)
[2016-09-17] MEDS: THIAMINE INJ 100 MG in SODIUM CHLORIDE 0.9% INJ 100 ML IV SCH (07:59)
[2016-09-17] MEDS: LACTULOSE SYRUP 20 GM/30 ML CUP PO SCH ×3 (07:59→17:10)
[2016-09-17 08:00] VITALS: BP 126/60; PULSE 88; RESP 20; TEMP 97.8; O2SAT 95
[2016-09-17] MEDS ORDERED: POTASSIUM CHLORIDE 10 MEQ CONTROLLED RELEASE TAB PO ONE (08:30)
--- NOTE | 2016-09-17 11:45 | HHI.PR ---
Subjective Remarks Anemia slightly worse. Hyponatremia worse. Hypokalemia has returned. Hyponatremia and hypokalemia are likely secondary to increase in Lasix. Patient 's lower extremities remain edematous. Objective Vital Signs Date Time Temp Pulse Resp B/P Pulse Ox O2 Delivery O2 Flow Rate FiO2 09/17/16 09:43 18 09/17/16 08:00 97.8 88 20 126/60 95 09/17/16 04:00 98.4 98 22 152/97 94 09/17/16 00:00 98.0 92 20 125/66 94 09/16/16 20:00 98.2 111 22 133/71 91 09/16/16 16:00 97.7 84 20 123/63 92 09/16/16 12:29 92 Room Air 09/16/16 12:00 97.8 83 20 111/60 94 I/O 09/16/16 09/16/16 09/16/16 09/17/16 09/17/16 09/17/16 07:00 15:00 23:00 07:00 15:00 23:00 Intake Total 960 ml 960 ml 582 ml 445 ml Output Total 1000 ml 1350 ml 700 ml Balance -40 ml -390 ml -118 ml 445 ml Intake Oral 960 ml 960 ml 500 ml 360 ml IV Total 82 ml 85 ml Output Urine Total 1000 ml 1350 ml 700 ml # Bowel Movements 0 0 2 Result Diagram: 09/17/16 0643 09/17/16 0643 Procedures EGD and band ligation. Objective Remarks GENERAL: NAD, A&Ox3 SKIN: Warm and dry. HEAD: Normocephalic. EYES: No scleral icterus. No injection or drainage. NECK: Supple, trachea midline. No JVD or lymphadenopathy. CARDIOVASCULAR: Regular rate and rhythm without murmurs, gallops, or rubs. RESPIRATORY: Breath sounds equal bilaterally. No accessory muscle use. GASTROINTESTINAL: Abdomen is distended with flat tympany. No tenderness. Active bowel sounds. MUSCULOSKELETAL: No cyanosis. Edema bilateral lower extremities, blisters are present, leaking ulceration. A/P Problem List: (1) Adynamic ileus ICD Code: K56.0 (2) GI bleed ICD Code: K92.2 (3) Cirrhosis of liver ICD Code: K74.60 (4) Alcohol abuse ICD Code: F10.10 (5) Ascites ICD Code: R18.8 (6) Acute blood loss anemia ICD Code: D62 (7) Abdominal distention ICD Code: R14.0 (8) GI bleed ICD Code: K92.2 Assessment and Plan Assessment and Plan 61-year-old male admitted with GI bleed and abdominal distention. Ileus occured but has resolved. Lower extremity edema present and lasix increased to 3 times a day. Hyponatremia and hypokalemia will need further monitoring. His slow downward trend in hemoglobin also need further monitoring. Discharge can be considered after patient is more stable. Hepatic Encephalopathy Follow ammonia level related to low GI output combined with his cirrhosis Lactulose started GI bleeding Acute blood loss anemia GI bleed appears to have resolved Follow CBC Ileus Abdominal distention May be related to constipation Glycerin suppository started Patient is on a liquid diet Follow for improvement Patient is on Rocephin Rectal tube in considered History of ascites Cirrhosis History of esophageal varices History of alcohol abuse Abdominal distention appears to be are rather than fluid Ultrasound from 5 days ago did not show significant degree of free fluid in the abdomen Patient's last paracentesis was 07/31/2016 Alcohol cessation has been recommended Hepatitis B and C Standard precautions Duodenal ulcers history No change of present treatment Follow clinically Hypoglycemia Related to poor by mouth intake and nausea/vomiting Follow blood sugars Patient is on D5 IV fluids right now DVT prophylaxis SCDs Problem Qualifiers (1) GI bleed: Qualified Code: K92.2 - Gastrointestinal hemorrhage, unspecified gastrointestinal hemorrhage type (2) Cirrhosis of liver: Qualified Code: K70.31 - Alcoholic cirrhosis of liver with ascites Judd Torres MD Sep 17, 2016 11:45 am
[2016-09-17] MEDS: cefTRIAXone INJ 1,000 MG in SODIUM CHLORIDE 0.9% INJ 100 ML IV SCH (11:56)
[2016-09-17 12:00] VITALS: BP 122/62; PULSE 88; RESP 18; TEMP 97.6; O2SAT 97
[2016-09-17 16:00] VITALS: BP 110/56; PULSE 87; RESP 18; TEMP 97; O2SAT 97
[2016-09-17 20:00] VITALS: BP 111/65; PULSE 90; RESP 20; TEMP 97.8; O2SAT 95
[2016-09-18] VITALS: BP 131/58; PULSE 91; RESP 18; TEMP 98.1; O2SAT 96
[2016-09-18] MEDS: MORPHINE SULFATE 15 MG TAB PO PRN ×6 (00:15→22:01)
[2016-09-18] MEDS: CHLORHEXIDINE GLUCONATE 2 % 1 PACK (2 CLOTHS) TOP SCH (02:35)
[2016-09-18 04:00] VITALS: BP 117/63; PULSE 80; RESP 16; TEMP 98.2; O2SAT 97
[2016-09-18] MEDS: ALBUMIN HUMAN 25% 25 GM/100 ML BAGP IV SCH ×2 (04:09→18:01)
[2016-09-18] MEDS: FUROSEMIDE 40 MG/4 ML VIAL IV PUSH SCH ×3 (05:21→18:01)
[2016-09-18] MEDS ORDERED: POTASSIUM CHLORIDE 10 MEQ CONTROLLED RELEASE TAB PO ONE (07:45)
[2016-09-18 07:55] LABS: HEMATOCRIT 24.3 % (39.0-51.0); MEAN CELL VOLUME 79.6 FL (80.0-100.0); MEAN CORPUSCULAR HEMOGLOBIN 25.8 PG (27.0-34.0); MEAN CORPUSCULAR HGB CONC 32.5 % (32.0-36.0); PLATELET COUNT 117 TH/MM3 (150-450); RED BLOOD COUNT 3.05 MIL/MM3 (4.50-5.90); RED CELL DISTRIBUTION WIDTH 19.8 % (11.6-17.2); REVIEW FLAG FINAL; WHITE BLOOD COUNT 6.5 TH/MM3 (4.0-11.0)
[2016-09-18 08:00] VITALS: BP 133/69; PULSE 96; RESP 18; TEMP 97.9; O2SAT 94
[2016-09-18] MEDS: SODIUM CHLORIDE 0.9% FLUSH 10 ML FLUSH IVF PRN (08:02)
[2016-09-18] MEDS: FOLIC ACID 1 MG TAB PO SCH (08:02)
[2016-09-18] MEDS: MULTIVITAMIN TAB PO SCH (08:02)
[2016-09-18] MEDS: DOCUSATE SODIUM 100 MG/10 ML UDC PO SCH ×2 (08:02→21:59)
[2016-09-18] MEDS: LACTULOSE SYRUP 20 GM/30 ML CUP PO SCH ×3 (08:02→18:01)
[2016-09-18] MEDS: THIAMINE INJ 100 MG in SODIUM CHLORIDE 0.9% INJ 100 ML IV SCH (08:03)
[2016-09-18] MEDS: POTASSIUM CHLORIDE 10 MEQ CONTROLLED RELEASE TAB PO SCH ×2 (08:03→21:58)
[2016-09-18] MEDS: PANTOPRAZOLE INJ 80 MG in SODIUM CHLORIDE 0.9% INJ 100 ML IV SCH ×2 (08:04→21:58)
[2016-09-18 08:18] LABS: BICARBONATE 31.2 MEQ/L (21.0-32.0)
[2016-09-18 12:00] VITALS: BP 120/60; PULSE 87; RESP 18; TEMP 98.1; O2SAT 87
[2016-09-18] MEDS: cefTRIAXone INJ 1,000 MG in SODIUM CHLORIDE 0.9% INJ 100 ML IV SCH (12:08)
--- NOTE | 2016-09-18 13:43 | HHI.PR ---
Subjective Remarks Anemia worsened again. Hypokalemia and hyponatremia are present again. Hypokalemia and hyponatremia secondary to high-dose Lasix. Objective Vital Signs Date Time Temp Pulse Resp B/P Pulse Ox O2 Delivery O2 Flow Rate FiO2 09/18/16 13:31 18 09/18/16 12:00 98.1 87 18 120/60 87 09/18/16 08:00 97.9 96 18 133/69 94 09/18/16 04:00 98.2 80 16 117/63 97 09/18/16 00:00 98.1 91 18 131/58 96 09/17/16 20:00 97.8 90 20 111/65 95 09/17/16 20:00 Room Air 09/17/16 16:00 97.0 87 18 110/56 97 I/O 09/17/16 09/17/16 09/17/16 09/18/16 09/18/16 09/18/16 07:00 15:00 23:00 07:00 15:00 23:00 Intake Total 445 ml 240 ml 80 ml 665 ml Balance 445 ml 240 ml 80 ml 665 ml Intake Oral 360 ml 240 ml 480 ml IV Total 85 ml 80 ml 80 ml Albumin 105 ml # Voids 6 3 # Bowel Movements 2 4 0 Result Diagram: 09/18/16 0659 09/18/16 0659 Procedures EGD and band ligation. Objective Remarks GENERAL: NAD, A&Ox3 SKIN: Warm and dry. HEAD: Normocephalic. EYES: No scleral icterus. No injection or drainage. NECK: Supple, trachea midline. No JVD or lymphadenopathy. CARDIOVASCULAR: Regular rate and rhythm without murmurs, gallops, or rubs. RESPIRATORY: Breath sounds equal bilaterally. No accessory muscle use. GASTROINTESTINAL: Abdomen is distended with flat tympany. No tenderness. Active bowel sounds. MUSCULOSKELETAL: No cyanosis. Edema bilateral lower extremities, blisters are present, leaking ulceration. A/P Problem List: (1) Adynamic ileus ICD Code: K56.0 (2) GI bleed ICD Code: K92.2 (3) Cirrhosis of liver ICD Code: K74.60 (4) Alcohol abuse ICD Code: F10.10 (5) Ascites ICD Code: R18.8 (6) Acute blood loss anemia ICD Code: D62 (7) Abdominal distention ICD Code: R14.0 (8) GI bleed ICD Code: K92.2 Assessment and Plan Assessment and Plan 61-year-old male admitted with GI bleed and abdominal distention. Ileus occured but has resolved. Lower extremity edema is improving slowly. Given hypokalemia and hyponatremia secondary to Lasix intensity, Lasix has been decreased to 40 mg IV every 12 hours. Patient was originally admitted with GI bleed and he has a slow downward trend in his hemoglobin. High-dose Lasix may cause an overestimation of the degree of anemia. Lasix decreased today and anemia needs to be monitored. Hepatic Encephalopathy Follow ammonia level related to low GI output combined with his cirrhosis Lactulose started GI bleeding Acute blood loss anemia GI bleed appears to have resolved Follow CBC Ileus Abdominal distention May be related to constipation Glycerin suppository started Patient is on a liquid diet Follow for improvement Patient is on Rocephin Rectal tube in considered History of ascites Cirrhosis History of esophageal varices History of alcohol abuse Abdominal distention appears to be are rather than fluid Ultrasound from 5 days ago did not show significant degree of free fluid in the abdomen Patient's last paracentesis was 07/31/2016 Alcohol cessation has been recommended Hepatitis B and C Standard precautions Duodenal ulcers history No change of present treatment Follow clinically Hypoglycemia Related to poor by mouth intake and nausea/vomiting Follow blood sugars Patient is on D5 IV fluids right now DVT prophylaxis SCDs Problem Qualifiers (1) GI bleed: Qualified Code: K92.2 - Gastrointestinal hemorrhage, unspecified gastrointestinal hemorrhage type (2) Cirrhosis of liver: Qualified Code: K70.31 - Alcoholic cirrhosis of liver with ascites Judd Torres MD Sep 18, 2016 13:43
[2016-09-18 16:00] VITALS: BP 130/65; PULSE 93; RESP 18; TEMP 97.6; O2SAT 92
[2016-09-18 20:00] VITALS: BP 140/91; PULSE 90; RESP 20; TEMP 97.8; O2SAT 94
[2016-09-19] VITALS: BP 133/81; PULSE 92; RESP 20; TEMP 97.8; O2SAT 94
[2016-09-19 04:00] VITALS: BP 126/62; PULSE 67; RESP 20; TEMP 98; O2SAT 92
[2016-09-19] MEDS: CHLORHEXIDINE GLUCONATE 2 % 1 PACK (2 CLOTHS) TOP SCH (04:00)
[2016-09-19] MEDS: ALBUMIN HUMAN 25% 25 GM/100 ML BAGP IV SCH ×2 (05:30→17:24)
[2016-09-19] MEDS: PANTOPRAZOLE INJ 80 MG in SODIUM CHLORIDE 0.9% INJ 100 ML IV SCH ×2 (05:30→17:25)
[2016-09-19] MEDS: FUROSEMIDE 40 MG/4 ML VIAL IV PUSH SCH ×2 (06:07→17:26)
[2016-09-19] MEDS: MORPHINE SULFATE 15 MG TAB PO PRN ×4 (06:12→20:49)
[2016-09-19 08:00] VITALS: BP 132/60; PULSE 97; RESP 22; TEMP 98.3; O2SAT 95
[2016-09-19] MEDS: DOCUSATE SODIUM 100 MG/10 ML UDC PO SCH ×2 (08:28→20:49)
[2016-09-19] MEDS: MULTIVITAMIN TAB PO SCH (08:29)
[2016-09-19] MEDS: THIAMINE INJ 100 MG in SODIUM CHLORIDE 0.9% INJ 100 ML IV SCH (08:29)
[2016-09-19] MEDS: FOLIC ACID 1 MG TAB PO SCH (08:29)
[2016-09-19] MEDS: LACTULOSE SYRUP 20 GM/30 ML CUP PO SCH ×3 (08:29→17:29)
[2016-09-19] MEDS: POTASSIUM CHLORIDE 10 MEQ CONTROLLED RELEASE TAB PO SCH ×2 (08:29→20:48)
--- NOTE | 2016-09-19 10:09 | HHI.PR ---
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 His emesis consisted of black coffee grounds and then progressed to vomiting large amount of red blood. The patient also reports intermittent epigastric mid abdominal pain radiating to the right upper quadrant. He had three shots, two beers in addition took 3 tablets of aspirin for chronic back pain yesterday. The patient was recently hospitalized in June for similar presentation and underwent upper endoscopy on July 04 which showed multiple ulcers in duodenum, antrum and a grade 1 esophageal varices in addition to hiatal hernia. Colonoscopy was also performed on July 07 which revealed a poor prep, small internal hemorrhoids. A repeat colonoscopy was performed on July 08 which showed small sessile polyp, it was found in the rectum. A polypectomy was performed with a cold snare. On arrival to the emergency room he was tachycardiac with heart rate 111-116 and hypotensive with blood pressure 87/55. His hemoglobin level 7.6. The patient received 2 liters of crystalloids and 2 units of Packed red blood cells have been ordered by emergency room. In addition the patient is scheduled to be on Protonix and octreotide drips. He was seen by gastroenterology service in the emergency room and planned to undergo the upper endoscopy with possible band ligation today. His current blood pressure is 125/73 with a pulse of 111. He is on room air oxygen when seen. He denies any chest pain or shortness of breath. In addition he denies any cough, orthopnea, paroxysmal nocturnal dyspnea or edema of lower extremities. 09/03 Patient is awake, alert lying in bed in NAD. s/p transfusion 2units PRBC yesterday Hgb 9.1 this morning. On Protonix and Octreotide drips. s/p EGD yesterday showed Gastric bleed etiology unclear , incomplete evaluation with this EGD due to large clot obscuring view. 09/04 Patient s/p transfusion 1unit PRBC last night for Hgb 7.5 repeat Hgb 9.5 repeat EGD today. On Protonix and Octreotide drips. Hospitalist Notes: 09/19: Stable in his bedroom as per nurse worsening lower extremity edema, abdominal distension, no nausea, vomit or diarrhea. Objective Vital Signs Date Time Temp Pulse Resp B/P Pulse Ox O2 Delivery O2 Flow Rate FiO2 09/19/16 08:37 Room Air 09/19/16 08:00 98.3 97 22 132/60 95 09/19/16 04:00 98.0 67 20 126/62 92 09/19/16 00:00 97.8 92 20 133/81 94 09/18/16 20:15 Room Air 09/18/16 20:00 97.8 90 20 140/91 94 09/18/16 16:00 97.6 93 18 130/65 92 09/18/16 13:31 18 09/18/16 12:00 98.1 87 18 120/60 87 I/O 09/18/16 09/18/16 09/18/16 09/19/16 09/19/16 09/19/16 07:00 15:00 23:00 07:00 15:00 23:00 Intake Total 665 ml 240 ml 240 ml 480 ml Balance 665 ml 240 ml 240 ml 480 ml Intake Oral 480 ml 240 ml 240 ml 480 ml IV Total 80 ml Albumin 105 ml # Voids 3 3 2 3 # Bowel Movements 0 0 0 0 Result Diagram: 09/18/16 0659 09/18/16 0659 Imaging Last Impressions Abdomen Ultrasound 09/15/16 0000 Signed Impressions: Service Date/Time: Thursday, September 15, 2016 12:42 - CONCLUSION: 1. There is only minimal fluid present within the abdomen. No paracentesis was performed. Judd Graham MD Abdomen X-Ray 09/09/16 0600 Signed Impressions: Service Date/Time: Friday, September 09, 2016 09:07 - CONCLUSION: No significant change with the bowel gas pattern compared to the prior study. Alin Staton MD Liver Ultrasound 09/03/16 0000 Signed Impressions: Service Date/Time: Saturday, September 03, 2016 09:26 - CONCLUSION: Cirrhotic liver appearance with ascites. Bacilio Gonzalez MD Procedures EGD and band ligation. Other Results Laboratory Tests Test 09/15/16 09/16/16 09/18/16 06:28 07:08 06:59 Ammonia 63 MCMOL/L Total Bilirubin 1.8 MG/DL Aspartate Amino Transf 50 U/L (AST/SGOT) Alanine Aminotransferase 29 U/L (ALT/SGPT) Alkaline Phosphatase 82 U/L Total Protein 6.3 GM/DL Albumin 3.4 GM/DL White Blood Count 6.5 TH/MM3 Red Blood Count 3.05 MIL/MM3 Hemoglobin 7.9 GM/DL Hematocrit 24.3 % Mean Corpuscular Volume 79.6 FL Mean Corpuscular Hemoglobin 25.8 PG Mean Corpuscular Hemoglobin 32.5 % Concent Red Cell Distribution Width 19.8 % Platelet Count 117 TH/MM3 Mean Platelet Volume 8.4 FL Sodium Level 133 MEQ/L Potassium Level 3.0 MEQ/L Chloride Level 93 MEQ/L Carbon Dioxide Level 31.2 MEQ/L Anion Gap 9 MEQ/L Blood Urea Nitrogen 5 MG/DL Creatinine 0.61 MG/DL Estimat Glomerular Filtration 135 ML/MIN Rate Random Glucose 111 MG/DL Calcium Level 8.4 MG/DL Objective Remarks GENERAL: Well developed in no acute distress. SKIN: Warm and dry. HEAD: Normocephalic. EYES: No scleral icterus. No injection or drainage. NECK: Supple, trachea midline. No JVD or lymphadenopathy. CARDIOVASCULAR: Regular rate and rhythm without murmurs, gallops, or rubs. RESPIRATORY: Breath sounds equal bilaterally. No accessory muscle use. GASTROINTESTINAL: Abdomen soft, non-tender, distended MUSCULOSKELETAL: No cyanosis, edema 3+, multiple bullae formation. bilateral ulcers. testicular edema Neuro: Awake and alert Medications and IVs Current Medications Medications (Trade) Dose Ordered Sig/Estelle Route Start Time Stop Time Status Last Admin Sodium Chloride 2 ml 2 ml UNSCH PRN IVF 09/02/16 12:00 09/18/16 08:02 (Protonix Inj/NS Inj) 100 ml @ 10 mls/hr Q10H IV 09/02/16 13:15 09/19/16 05:30 Miscellaneous Information 1 Q361D XX 09/02/16 13:30 (Chlorhexidine 2% Cloth) Taper DAILY@04 TOP 09/03/16 04:00 08/30/17 03:59 09/05/16 04:00 Chlorhexidine Gluconate 3 pack 3 pack UNSCH PRN TOP 09/02/16 13:30 (Thiamine Inj/NS Inj) 101 ml @ 101 mls/hr DAILY IV 09/02/16 14:00 09/19/16 08:29 (Folate) 1 mg DAILY PO 09/02/16 14:00 09/19/16 08:29 Multivitamins 1 tab 1 tab DAILY PO 09/02/16 14:00 09/19/16 08:29 (Rocephin Inj/NS Inj) 100 ml @ 200 mls/hr Q24H IV 09/02/16 14:00 09/18/16 12:08 (Ultram) 50 mg Q8H PRN PO 09/02/16 20:00 09/14/16 11:54 (Zofran Inj) 4 mg Q6HR PRN IV PUSH 09/02/16 20:00 09/03/16 09:19 (Colace Liq) 100 mg Q12HR PO 09/03/16 09:00 09/18/16 21:59 (Msir) 15 mg Q4H PRN PO 09/07/16 11:00 09/19/16 06:12 (Albumin 25% Inj) 25 gm Q12H IV 09/09/16 18:00 09/19/16 05:30 (Glycerin Adult Supp) 2 gm BID PRN RECTAL 09/09/16 12:00 (Lactulose Liq) 30 ml TID PO 09/11/16 09:00 09/19/16 08:29 (KCl) 30 meq Q12HR PO 09/13/16 21:00 09/19/16 08:29 (Lasix Inj) 40 mg BID@06,18 IV PUSH 09/18/16 18:00 09/19/16 06:07 A/P Assessment and Plan 1. GI Bleed was on PPIs and Octreotide, status post EGD 09/02/16 incomplete evaluation, due to large clot obscuring view repeat EGD 09/04/16 and showed esophageal varices grade 2, status post banding x 4 and Portal Gastropathy, Status post Paracentesis 07/31 with removal of 4.6 L of fluid, US liver showed cirrhotic liver, continue distended. 2. Acute blood loss anemia status post blood transfusions. 3. Ileus may be related to Constipation, considered Rectal tube. 4. Hepatic Encephalopathy probable secondary to his Cirrhosis. history of Ascites, Cirrhosis Esophageal Varices, Alcoholism, last Paracentesis 07/31/16, strongly recommended to stop drinking behavior. 5. Hepatitis A, B and C as per Patient. 6. Duodenal ulcer history. 7. Hypoglycemia secondary to Poor oral intake, Nausea, and vomit on D5. 8. bilateral swollen legs and bullae formation, secondary to his primary pathology cirrhosis 9. Tobacco dependence the patient states he continue smoking asked for nicotine patch placed. Poor short term prognosis. GI prophylaxis-Protonix drip DVT prophylaxis with SCDs. chemical AC prophylaxis contraindicated in the setting of GI bleed. Discharge Planning once cleared by GI specialist. Mark Reyes MD Sep 19, 2016 10:09
[2016-09-19 10:41] LABS: HEMATOCRIT 23.5 % (39.0-51.0); MEAN CELL VOLUME 80.2 FL (80.0-100.0); MEAN CORPUSCULAR HEMOGLOBIN 25.5 PG (27.0-34.0); MEAN CORPUSCULAR HGB CONC 31.8 % (32.0-36.0); PLATELET COUNT 119 TH/MM3 (150-450); RED BLOOD COUNT 2.93 MIL/MM3 (4.50-5.90); RED CELL DISTRIBUTION WIDTH 20.4 % (11.6-17.2); REVIEW FLAG FINAL; WHITE BLOOD COUNT 7.6 TH/MM3 (4.0-11.0)
[2016-09-19 10:59] LABS: BICARBONATE 31.2 MEQ/L (21.0-32.0); MAGNESIUM 1.7 MG/DL (1.5-2.5); POTASSIUM 3.1 MEQ/L (3.5-5.1)
[2016-09-19 12:00] VITALS: BP 108/56; PULSE 88; RESP 22; TEMP 98; O2SAT 93
[2016-09-19] MEDS: cefTRIAXone INJ 1,000 MG in SODIUM CHLORIDE 0.9% INJ 100 ML IV SCH (13:24)
[2016-09-19 16:00] VITALS: BP 108/53; PULSE 87; RESP 20; TEMP 97.7; O2SAT 96
[2016-09-19 20:01] VITALS: BP 127/62; PULSE 96; RESP 18; TEMP 97.7; O2SAT 92
[2016-09-20] MEDS: PANTOPRAZOLE INJ 80 MG in SODIUM CHLORIDE 0.9% INJ 100 ML IV SCH ×4 (01:15→21:12)
[2016-09-20] MEDS: MORPHINE SULFATE 15 MG TAB PO PRN ×6 (01:21→21:13)
[2016-09-20] MEDS: CHLORHEXIDINE GLUCONATE 2 % 1 PACK (2 CLOTHS) TOP SCH (04:00)
[2016-09-20 04:20] VITALS: BP 102/57; PULSE 97; RESP 18; TEMP 98.1; O2SAT 93
[2016-09-20] MEDS: ALBUMIN HUMAN 25% 25 GM/100 ML BAGP IV SCH ×2 (05:36→17:43)
[2016-09-20] MEDS: FUROSEMIDE 40 MG/4 ML VIAL IV PUSH SCH ×2 (05:59→17:43)
[2016-09-20 08:00] VITALS: BP 110/57; PULSE 89; RESP 18; TEMP 98.2; O2SAT 95
[2016-09-20] MEDS: THIAMINE INJ 100 MG in SODIUM CHLORIDE 0.9% INJ 100 ML IV SCH (09:34)
[2016-09-20] MEDS: LACTULOSE SYRUP 20 GM/30 ML CUP PO SCH ×3 (09:34→17:43)
[2016-09-20] MEDS: POTASSIUM CHLORIDE 10 MEQ CONTROLLED RELEASE TAB PO SCH ×2 (09:34→21:12)
[2016-09-20] MEDS: MULTIVITAMIN TAB PO SCH (09:34)
[2016-09-20] MEDS: DOCUSATE SODIUM 100 MG/10 ML UDC PO SCH ×2 (09:34→21:00)
[2016-09-20] MEDS: FOLIC ACID 1 MG TAB PO SCH (09:34)
[2016-09-20] MEDS: REMOVE OLD PATCH T-DERMAL SCH (09:36)
[2016-09-20] MEDS: NICOTINE 14 MG/24 HR PATCH T-DERMAL SCH (09:36)
[2016-09-20] MEDS ORDERED: POTASSIUM CHLORIDE 20 MEQ CONTROLLED RELEASE TAB PO ONE (10:30)
[2016-09-20] MEDS: MAGNESIUM SULFATE 1 GM PREMIX 100 ML IV SCH ×2 (11:59→13:09)
[2016-09-20 12:00] VITALS: BP 108/56; PULSE 96; RESP 20; TEMP 98.5; O2SAT 97
[2016-09-20] MEDS: cefTRIAXone INJ 1,000 MG in SODIUM CHLORIDE 0.9% INJ 100 ML IV SCH (14:02)
[2016-09-20 16:00] VITALS: BP 117/56; PULSE 96; RESP 18; TEMP 98; O2SAT 95
--- NOTE | 2016-09-20 16:59 | HHI.PR ---
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 His emesis consisted of black coffee grounds and then progressed to vomiting large amount of red blood. The patient also reports intermittent epigastric mid abdominal pain radiating to the right upper quadrant. He had three shots, two beers in addition took 3 tablets of aspirin for chronic back pain yesterday. The patient was recently hospitalized in June for similar presentation and underwent upper endoscopy on July 04 which showed multiple ulcers in duodenum, antrum and a grade 1 esophageal varices in addition to hiatal hernia. Colonoscopy was also performed on July 07 which revealed a poor prep, small internal hemorrhoids. A repeat colonoscopy was performed on July 08 which showed small sessile polyp, it was found in the rectum. A polypectomy was performed with a cold snare. On arrival to the emergency room he was tachycardiac with heart rate 111-116 and hypotensive with blood pressure 87/55. His hemoglobin level 7.6. The patient received 2 liters of crystalloids and 2 units of Packed red blood cells have been ordered by emergency room. In addition the patient is scheduled to be on Protonix and octreotide drips. He was seen by gastroenterology service in the emergency room and planned to undergo the upper endoscopy with possible band ligation today. His current blood pressure is 125/73 with a pulse of 111. He is on room air oxygen when seen. He denies any chest pain or shortness of breath. In addition he denies any cough, orthopnea, paroxysmal nocturnal dyspnea or edema of lower extremities. 09/03 Patient is awake, alert lying in bed in NAD. s/p transfusion 2units PRBC yesterday Hgb 9.1 this morning. On Protonix and Octreotide drips. s/p EGD yesterday showed Gastric bleed etiology unclear , incomplete evaluation with this EGD due to large clot obscuring view. 09/04 Patient s/p transfusion 1unit PRBC last night for Hgb 7.5 repeat Hgb 9.5 repeat EGD today. On Protonix and Octreotide drips. Hospitalist Notes: 09/19: Stable in his bedroom as per nurse worsening lower extremity edema, abdominal distension. 09/20: Seen in his bedroom and discussed with nurse Miss Youngblood, patient not improving, discussed with him about palliative care management he agree with consult, Poor short term prognosis. no nausea, vomit or diarrhea. Objective Vital Signs Date Time Temp Pulse Resp B/P Pulse Ox O2 Delivery O2 Flow Rate FiO2 09/20/16 16:00 98.0 96 18 117/56 95 09/20/16 15:08 16 09/20/16 12:00 98.5 96 20 108/56 97 09/20/16 08:00 98.2 89 18 110/57 95 09/20/16 07:05 Room Air 09/20/16 04:20 98.1 97 18 102/57 93 09/20/16 04:00 Room Air 09/20/16 00:00 Room Air 09/19/16 20:01 97.7 96 18 127/62 92 09/19/16 20:00 Room Air I/O 09/19/16 09/19/16 09/19/16 09/20/16 09/20/16 09/20/16 07:00 15:00 23:00 07:00 15:00 23:00 Intake Total 480 ml 600 ml 548 ml 663 ml 1322 ml Output Total 350 ml Balance 480 ml 600 ml 548 ml 313 ml 1322 ml Intake Oral 480 ml 600 ml 480 ml 480 ml 960 ml IV Total 68 ml 183 ml 362 ml Output Urine Total 350 ml # Voids 3 5 3 4 # Bowel Movements 0 0 0 1 1 Result Diagram: 09/19/16 1021 09/19/16 1021 Imaging Last Impressions Abdomen Ultrasound 09/15/16 0000 Signed Impressions: Service Date/Time: Thursday, September 15, 2016 12:42 - CONCLUSION: 1. There is only minimal fluid present within the abdomen. No paracentesis was performed. Judd Graham MD Abdomen X-Ray 09/09/16 0600 Signed Impressions: Service Date/Time: Friday, September 09, 2016 09:07 - CONCLUSION: No significant change with the bowel gas pattern compared to the prior study. Alin Staton MD Liver Ultrasound 09/03/16 0000 Signed Impressions: Service Date/Time: Saturday, September 03, 2016 09:26 - CONCLUSION: Cirrhotic liver appearance with ascites. Bacilio Gonzalez MD Procedures EGD and band ligation. Other Results Laboratory Tests Test 09/16/16 09/19/16 07:08 10:21 Total Bilirubin 1.8 MG/DL Aspartate Amino Transf 50 U/L (AST/SGOT) Alanine Aminotransferase 29 U/L (ALT/SGPT) Alkaline Phosphatase 82 U/L Total Protein 6.3 GM/DL Albumin 3.4 GM/DL White Blood Count 7.6 TH/MM3 Red Blood Count 2.93 MIL/MM3 Hemoglobin 7.5 GM/DL Hematocrit 23.5 % Mean Corpuscular Volume 80.2 FL Mean Corpuscular Hemoglobin 25.5 PG Mean Corpuscular Hemoglobin 31.8 % Concent Red Cell Distribution Width 20.4 % Platelet Count 119 TH/MM3 Mean Platelet Volume 8.7 FL Sodium Level 135 MEQ/L Potassium Level 3.1 MEQ/L Chloride Level 94 MEQ/L Carbon Dioxide Level 31.2 MEQ/L Anion Gap 10 MEQ/L Blood Urea Nitrogen 7 MG/DL Creatinine 0.61 MG/DL Estimat Glomerular Filtration 135 ML/MIN Rate Random Glucose 120 MG/DL Calcium Level 8.5 MG/DL Phosphorus Level 2.6 MG/DL Magnesium Level 1.7 MG/DL Ammonia 106 MCMOL/L Objective Remarks GENERAL: Well developed in no acute distress. SKIN: Warm and dry. HEAD: Normocephalic. EYES: No scleral icterus. No injection or drainage. NECK: Supple, trachea midline. No JVD or lymphadenopathy. CARDIOVASCULAR: Regular rate and rhythm without murmurs, gallops, or rubs. RESPIRATORY: Breath sounds equal bilaterally. No accessory muscle use. GASTROINTESTINAL: Abdomen soft, non-tender, distended. MUSCULOSKELETAL: No cyanosis, edema 3+, multiple bullae formation. bilateral ulcers. testicular edema, erythema. NEUROLOGY: Awake and alert Medications and IVs Current Medications Medications (Trade) Dose Ordered Sig/Estelle Route Start Time Stop Time Status Last Admin Sodium Chloride 2 ml 2 ml UNSCH PRN IVF 09/02/16 12:00 09/18/16 08:02 (Protonix Inj/NS Inj) 100 ml @ 10 mls/hr Q10H IV 09/02/16 13:15 09/20/16 11:59 Miscellaneous Information 1 Q361D XX 09/02/16 13:30 (Chlorhexidine 2% Cloth) Taper DAILY@04 TOP 09/03/16 04:00 08/30/17 03:59 09/05/16 04:00 Chlorhexidine Gluconate 3 pack 3 pack UNSCH PRN TOP 09/02/16 13:30 (Thiamine Inj/NS Inj) 101 ml @ 101 mls/hr DAILY IV 09/02/16 14:00 09/20/16 09:34 (Folate) 1 mg DAILY PO 09/02/16 14:00 09/20/16 09:34 Multivitamins 1 tab 1 tab DAILY PO 09/02/16 14:00 09/20/16 09:34 (Rocephin Inj/NS Inj) 100 ml @ 200 mls/hr Q24H IV 09/02/16 14:00 09/20/16 14:02 (Ultram) 50 mg Q8H PRN PO 09/02/16 20:00 09/14/16 11:54 (Zofran Inj) 4 mg Q6HR PRN IV PUSH 09/02/16 20:00 09/03/16 09:19 (Colace Liq) 100 mg Q12HR PO 09/03/16 09:00 09/20/16 09:34 (Msir) 15 mg Q4H PRN PO 09/07/16 11:00 09/20/16 14:03 (Albumin 25% Inj) 25 gm Q12H IV 09/09/16 18:00 09/20/16 05:36 (Glycerin Adult Supp) 2 gm BID PRN RECTAL 09/09/16 12:00 (Lactulose Liq) 30 ml TID PO 09/11/16 09:00 09/20/16 12:01 (KCl) 30 meq Q12HR PO 09/13/16 21:00 09/20/16 09:34 (Lasix Inj) 40 mg BID@06,18 IV PUSH 09/18/16 18:00 09/20/16 05:59 (Habitrol 14 Mg Patch.24 Hr) 1 patch DAILY T-DERMAL 09/20/16 09:00 09/20/16 09:36 Miscellaneous Information 1 DAILY T-DERMAL 09/20/16 09:00 A/P Assessment and Plan 1. GI Bleed was on PPIs and Octreotide, status post EGD 09/02/16 incomplete evaluation, due to large clot obscuring view repeat EGD 09/04/16 and showed esophageal varices grade 2, status post banding x 4 and Portal Gastropathy, Status post Paracentesis 07/31 with removal of 4.6 L of fluid, US liver showed cirrhotic liver, continue distended. 2. Acute blood loss anemia status post blood transfusions. Hemoglobin 7.5 3. Ileus may be related to Constipation, Improved. 4. Hepatic Encephalopathy probable secondary to his Cirrhosis. history of Ascites, Cirrhosis Esophageal Varices, Alcoholism, last Paracentesis 07/31/16, strongly recommended to stop drinking behavior. Improved. 5. Hepatitis A, B and C as per Patient. 6. Duodenal ulcer history. 7. bilateral swollen legs and bullae formation, secondary to his primary pathology cirrhosis, he is on albumin and no improvement yet. 8. Tobacco dependence the patient states he continue smoking asked for nicotine patch placed. Poor short term prognosis. Palliative care consult placed. GI prophylaxis-Protonix drip DVT prophylaxis with SCDs. chemical AC prophylaxis contraindicated in the setting of GI bleed. Discharge Planning once cleared by GI specialist. Mark Reyes MD Sep 20, 2016 16:59
[2016-09-20 17:32] VITALS: O2SAT 95
[2016-09-20 20:00] VITALS: BP 117/58; PULSE 118; RESP 20; TEMP 98; O2SAT 93
[2016-09-20] MEDS: SODIUM CHLORIDE 0.9% FLUSH 10 ML FLUSH IVF PRN (21:12)
[2016-09-21] VITALS: BP 119/66; PULSE 108; RESP 18; TEMP 98.5; O2SAT 93
[2016-09-21] MEDS: MORPHINE SULFATE 15 MG TAB PO PRN ×6 (01:34→21:36)
[2016-09-21 04:00] VITALS: BP 157/67; PULSE 105; RESP 18; TEMP 99; O2SAT 94
[2016-09-21] MEDS: CHLORHEXIDINE GLUCONATE 2 % 1 PACK (2 CLOTHS) TOP SCH (04:00)
[2016-09-21] MEDS: ALBUMIN HUMAN 25% 25 GM/100 ML BAGP IV SCH ×2 (05:23→17:15)
[2016-09-21] MEDS: FUROSEMIDE 40 MG/4 ML VIAL IV PUSH SCH (06:12)
[2016-09-21] MEDS: PANTOPRAZOLE INJ 80 MG in SODIUM CHLORIDE 0.9% INJ 100 ML IV SCH (07:45)
[2016-09-21 08:03] VITALS: BP 110/56; PULSE 101; RESP 19; TEMP 97.9; O2SAT 95
[2016-09-21] MEDS: FOLIC ACID 1 MG TAB PO SCH (09:19)
[2016-09-21] MEDS: MULTIVITAMIN TAB PO SCH (09:19)
[2016-09-21] MEDS: THIAMINE INJ 100 MG in SODIUM CHLORIDE 0.9% INJ 100 ML IV SCH (09:19)
[2016-09-21] MEDS: LACTULOSE SYRUP 20 GM/30 ML CUP PO SCH ×3 (09:19→17:15)
[2016-09-21] MEDS: DOCUSATE SODIUM 100 MG/10 ML UDC PO SCH ×2 (09:19→21:38)
[2016-09-21] MEDS: REMOVE OLD PATCH T-DERMAL SCH (09:20)
[2016-09-21] MEDS: POTASSIUM CHLORIDE 10 MEQ CONTROLLED RELEASE TAB PO SCH ×2 (09:20→21:35)
[2016-09-21] MEDS: NICOTINE 14 MG/24 HR PATCH T-DERMAL SCH (09:20)
[2016-09-21 12:03] VITALS: BP 129/60; PULSE 102; RESP 19; TEMP 98.2; O2SAT 96
[2016-09-21] MEDS: cefTRIAXone INJ 1,000 MG in SODIUM CHLORIDE 0.9% INJ 100 ML IV SCH (13:05)
[2016-09-21 13:19] LABS: BICARBONATE 31.2 MEQ/L (21.0-32.0)
--- NOTE | 2016-09-21 14:27 | HHI.PR ---
Subjective Remarks consumer education specialist Notes: The patient is 61-year-old male with past medical history of hepatitis, ethyl alcohol use, esophageal varices, Gastric and duodenal ulcers, cirrhosis of the liver secondary to ethyl alcohol use, who presented to emergency room for evaluation of gastrointestinal bleed and hematemesis. His emesis consisted of black coffee grounds and then progressed to vomiting large amount of red blood. The patient also reports intermittent epigastric mid abdominal pain radiating to the right upper quadrant. He had three shots, two beers in addition took 3 tablets of aspirin for chronic back pain yesterday. The patient was recently hospitalized in June for similar presentation and underwent upper endoscopy on July 04 which showed multiple ulcers in duodenum, antrum and a grade 1 esophageal varices in addition to hiatal hernia. Colonoscopy was also performed on July 07 which revealed a poor prep, small internal hemorrhoids. A repeat colonoscopy was performed on July 08 which showed small sessile polyp, it was found in the rectum. A polypectomy was performed with a cold snare. On arrival to the emergency room he was tachycardiac with heart rate 111-116 and hypotensive with blood pressure 87/55. His hemoglobin level 7.6. The patient received 2 liters of crystalloids and 2 units of Packed red blood cells have been ordered by emergency room. In addition the patient is scheduled to be on Protonix and octreotide drips. He was seen by gastroenterology service in the emergency room and planned to undergo the upper endoscopy with possible band ligation today. His current blood pressure is 125/73 with a pulse of 111. He is on room air oxygen when seen. He denies any chest pain or shortness of breath. In addition he denies any cough, orthopnea, paroxysmal nocturnal dyspnea or edema of lower extremities. 09/03 Patient is awake, alert lying in bed in NAD. s/p transfusion 2units PRBC yesterday Hgb 9.1 this morning. On Protonix and Octreotide drips. s/p EGD yesterday showed Gastric bleed etiology unclear , incomplete evaluation with this EGD due to large clot obscuring view. 09/04 Patient s/p transfusion 1unit PRBC last night for Hgb 7.5 repeat Hgb 9.5 repeat EGD today. On Protonix and Octreotide drips. Hospitalist Notes: 09/19: Stable in his bedroom as per nurse worsening lower extremity edema, abdominal distension. 09/20: Seen in his bedroom and discussed with nurse Miss Youngblood, patient not improving, discussed with him about palliative care management he agree with consult, Poor short term prognosis. 09/21: Seen in his bedroom stable, walking in his bedroom, will discontinue Protonix drip start medicine by mouth, no signs of new GI bleed, worsening leg edema switch to by mouth Lasix added Spironolactone and following photo specialist recommendations. had four BMs during the night. Objective Vital Signs Date Time Temp Pulse Resp B/P Pulse Ox O2 Delivery O2 Flow Rate FiO2 09/21/16 12:03 98.2 102 19 129/60 96 09/21/16 10:25 18 09/21/16 08:03 97.9 101 19 110/56 95 09/21/16 07:05 Room Air 09/21/16 04:00 99.0 105 18 157/67 94 09/21/16 04:00 Room Air 09/21/16 00:00 Room Air 09/21/16 00:00 98.5 108 18 119/66 93 09/20/16 21:10 Room Air 09/20/16 20:00 98.0 118 20 117/58 93 09/20/16 17:32 95 21 09/20/16 16:00 98.0 96 18 117/56 95 I/O 09/20/16 09/20/16 09/20/16 09/21/16 09/21/16 09/21/16 07:00 15:00 23:00 07:00 15:00 23:00 Intake Total 663 ml 1322 ml 792 ml 422 ml Output Total 350 ml Balance 313 ml 1322 ml 792 ml 422 ml Intake Oral 480 ml 960 ml 720 ml 240 ml IV Total 183 ml 362 ml 72 ml 182 ml Output Urine Total 350 ml # Voids 4 3 3 # Bowel Movements 1 1 1 0 Result Diagram: 09/19/16 1021 09/21/16 1158 Imaging Last Impressions Abdomen Ultrasound 09/15/16 0000 Signed Impressions: Service Date/Time: Thursday, September 15, 2016 12:42 - CONCLUSION: 1. There is only minimal fluid present within the abdomen. No paracentesis was performed. Judd Graham MD Abdomen X-Ray 09/09/16 0600 Signed Impressions: Service Date/Time: Friday, September 09, 2016 09:07 - CONCLUSION: No significant change with the bowel gas pattern compared to the prior study. Alin Staton MD Liver Ultrasound 09/03/16 0000 Signed Impressions: Service Date/Time: Saturday, September 03, 2016 09:26 - CONCLUSION: Cirrhotic liver appearance with ascites. Bacilio Gonzalez MD Procedures EGD and band ligation. paracentesis Other Results Laboratory Tests Test 09/19/16 09/21/16 10:21 11:58 White Blood Count 7.6 TH/MM3 Red Blood Count 2.93 MIL/MM3 Hemoglobin 7.5 GM/DL Hematocrit 23.5 % Mean Corpuscular Volume 80.2 FL Mean Corpuscular Hemoglobin 25.5 PG Mean Corpuscular Hemoglobin 31.8 % Concent Red Cell Distribution Width 20.4 % Platelet Count 119 TH/MM3 Mean Platelet Volume 8.7 FL Magnesium Level 1.7 MG/DL Ammonia 106 MCMOL/L Sodium Level 136 MEQ/L Potassium Level 3.0 MEQ/L Chloride Level 95 MEQ/L Carbon Dioxide Level 31.2 MEQ/L Anion Gap 10 MEQ/L Blood Urea Nitrogen 6 MG/DL Creatinine 0.64 MG/DL Estimat Glomerular Filtration 128 ML/MIN Rate Random Glucose 110 MG/DL Calcium Level 8.5 MG/DL Phosphorus Level 2.4 MG/DL Objective Remarks GENERAL: Well developed in no acute distress. SKIN: Warm and dry. HEAD: Normocephalic. EYES: No scleral icterus. No injection or drainage. NECK: Supple, trachea midline. No JVD or lymphadenopathy. CARDIOVASCULAR: Regular rate and rhythm without murmurs, gallops, or rubs. RESPIRATORY: Breath sounds equal bilaterally. No accessory muscle use. GASTROINTESTINAL: Abdomen soft, non-tender, distended. MUSCULOSKELETAL: No cyanosis, edema 3+, multiple bullae formation. bilateral ulcers. testicular edema, erythema. NEUROLOGY: Awake and alert Medications and IVs Current Medications Medications (Trade) Dose Ordered Sig/Estelle Route Start Time Stop Time Status Last Admin Sodium Chloride 2 ml 2 ml UNSCH PRN IVF 09/02/16 12:00 09/20/16 21:12 (Protonix Inj/NS Inj) 100 ml @ 10 mls/hr Q10H IV 09/02/16 13:15 09/21/16 07:45 Miscellaneous Information 1 Q361D XX 09/02/16 13:30 (Chlorhexidine 2% Cloth) Taper DAILY@04 TOP 09/03/16 04:00 08/30/17 03:59 09/05/16 04:00 Chlorhexidine Gluconate 3 pack 3 pack UNSCH PRN TOP 09/02/16 13:30 (Thiamine Inj/NS Inj) 101 ml @ 101 mls/hr DAILY IV 09/02/16 14:00 09/21/16 09:19 (Folate) 1 mg DAILY PO 09/02/16 14:00 09/21/16 09:19 Multivitamins 1 tab 1 tab DAILY PO 09/02/16 14:00 09/21/16 09:19 (Rocephin Inj/NS Inj) 100 ml @ 200 mls/hr Q24H IV 09/02/16 14:00 09/21/16 13:05 (Ultram) 50 mg Q8H PRN PO 09/02/16 20:00 09/14/16 11:54 (Zofran Inj) 4 mg Q6HR PRN IV PUSH 09/02/16 20:00 09/03/16 09:19 (Colace Liq) 100 mg Q12HR PO 09/03/16 09:00 09/21/16 09:19 (Msir) 15 mg Q4H PRN PO 09/07/16 11:00 09/21/16 13:05 (Albumin 25% Inj) 25 gm Q12H IV 09/09/16 18:00 09/21/16 05:23 (Glycerin Adult Supp) 2 gm BID PRN RECTAL 09/09/16 12:00 (Lactulose Liq) 30 ml TID PO 09/11/16 09:00 09/21/16 13:05 (KCl) 30 meq Q12HR PO 09/13/16 21:00 09/21/16 09:20 (Lasix Inj) 40 mg BID@18 IV PUSH 09/18/16 18:00 09/21/16 06:12 (Habitrol 14 Mg Patch.24 Hr) 1 patch DAILY T-DERMAL 09/20/16 09:00 09/21/16 09:20 Miscellaneous Information 1 DAILY T-DERMAL 09/20/16 09:00 09/21/16 09:20 A/P Assessment and Plan 1. GI Bleed was on PPIs and Octreotide, status post EGD 09/02/16 incomplete evaluation, due to large clot obscuring view repeat EGD 09/04/16 and showed esophageal varices grade 2, status post banding x 4 and Portal Gastropathy, Status post Paracentesis 07/31 with removal of 4.6 L of fluid, US liver showed cirrhotic liver, continue distended. switch Protonix IV to by mouth 40 mg BID. 2. Acute blood loss anemia status post blood transfusions. Hemoglobin 7.5 3. Ileus may be related to Constipation, Improved. 4. Hepatic Encephalopathy probable secondary to his Cirrhosis. history of Ascites, Cirrhosis Esophageal Varices, Alcoholism, last Paracentesis 07/31/16, strongly recommended to stop drinking behavior. Improved. Lasix 80 mg BID and Spironolactone 25 mg 5. Hepatitis A, B and C as per Patient. 6. Duodenal ulcer history. 7. bilateral swollen legs and bullae formation, secondary to his primary pathology cirrhosis, he is on albumin and no improvement yet. added Spironolactone. 8. Tobacco dependence the patient states he continue smoking asked for nicotine patch placed. 9. Hypokalemia 3 replacement continue and following. Poor short term prognosis. Palliative care consult placed. GI prophylaxis-Protonix drip DVT prophylaxis with SCDs. chemical AC prophylaxis contraindicated in the setting of GI bleed. Discharge Planning once cleared by GI specialist. Mark Reyes MD Sep 21, 2016 14:27
[2016-09-21] MEDS ORDERED: POTASSIUM CHLORIDE 20 MEQ CONTROLLED RELEASE TAB PO ONE (14:30)
[2016-09-21] MEDS: SPIRONOLACTONE 25 MG TAB PO SCH (14:34)
[2016-09-21 16:04] VITALS: BP 131/61; PULSE 105; RESP 18; TEMP 98; O2SAT 99
[2016-09-21 20:00] VITALS: BP 129/82; PULSE 109; RESP 20; TEMP 98.3; O2SAT 96
[2016-09-21] MEDS: PANTOPRAZOLE SOD 40 MG DELAYED RELEASE TAB PO SCH (21:36)
[2016-09-22] VITALS: BP 121/56; PULSE 103; RESP 18; TEMP 97.7; O2SAT 100
[2016-09-22] MEDS: MORPHINE SULFATE 15 MG TAB PO PRN ×5 (01:50→22:54)
[2016-09-22 04:00] VITALS: BP 122/53; PULSE 103; RESP 20; TEMP 97.6; O2SAT 95
[2016-09-22] MEDS: CHLORHEXIDINE GLUCONATE 2 % 1 PACK (2 CLOTHS) TOP SCH (04:00)
[2016-09-22] MEDS: ALBUMIN HUMAN 25% 25 GM/100 ML BAGP IV SCH (05:52)
[2016-09-22 08:02] VITALS: BP 132/60; PULSE 99; RESP 20; TEMP 98; O2SAT 97
[2016-09-22 08:02] LABS: HEMATOCRIT 22.9 % (39.0-51.0)
[2016-09-22 08:17] LABS: MAGNESIUM 2.2 MG/DL (1.5-2.5); POTASSIUM 3.6 MEQ/L (3.5-5.1)
--- NOTE | 2016-09-22 08:51 | HHI.PR ---
Subjective Remarks coding support specialist Notes: The patient is 61-year-old male with past medical history of hepatitis, ethyl alcohol use, esophageal varices, Gastric and duodenal ulcers, cirrhosis of the liver secondary to ethyl alcohol use, who presented to emergency room for evaluation of gastrointestinal bleed and hematemesis. His emesis consisted of black coffee grounds and then progressed to vomiting large amount of red blood. The patient also reports intermittent epigastric mid abdominal pain radiating to the right upper quadrant. He had three shots, two beers in addition took 3 tablets of aspirin for chronic back pain yesterday. The patient was recently hospitalized in June for similar presentation and underwent upper endoscopy on July 04 which showed multiple ulcers in duodenum, antrum and a grade 1 esophageal varices in addition to hiatal hernia. Colonoscopy was also performed on July 07 which revealed a poor prep, small internal hemorrhoids. A repeat colonoscopy was performed on July 08 which showed small sessile polyp, it was found in the rectum. A polypectomy was performed with a cold snare. On arrival to the emergency room he was tachycardiac with heart rate 111-116 and hypotensive with blood pressure 87/55. His hemoglobin level 7.6. The patient received 2 liters of crystalloids and 2 units of Packed red blood cells have been ordered by emergency room. In addition the patient is scheduled to be on Protonix and octreotide drips. He was seen by gastroenterology service in the emergency room and planned to undergo the upper endoscopy with possible band ligation today. His current blood pressure is 125/73 with a pulse of 111. He is on room air oxygen when seen. He denies any chest pain or shortness of breath. In addition he denies any cough, orthopnea, paroxysmal nocturnal dyspnea or edema of lower extremities. 09/03 Patient is awake, alert lying in bed in NAD. s/p transfusion 2units PRBC yesterday Hgb 9.1 this morning. On Protonix and Octreotide drips. s/p EGD yesterday showed Gastric bleed etiology unclear , incomplete evaluation with this EGD due to large clot obscuring view. 09/04 Patient s/p transfusion 1unit PRBC last night for Hgb 7.5 repeat Hgb 9.5 repeat EGD today. On Protonix and Octreotide drips. Hospitalist Notes: 09/19: Stable in his bedroom as per nurse worsening lower extremity edema, abdominal distension. 09/20: Seen in his bedroom and discussed with nurse Miss Youngblood, patient not improving, discussed with him about palliative care management he agree with consult, Poor short term prognosis. 09/21: Discontinue Protonix drip start medicine by mouth, no signs of new GI bleed, worsening leg edema switch to by mouth Lasix added Spironolactone and following Palliative care. 09/22: Seen in his bedroom, stable no nausea, vomit or diarrhea, discussed about the need for refund specialist and no improvement with actual management the patient decided for Hospice care Objective Vital Signs Date Time Temp Pulse Resp B/P Pulse Ox O2 Delivery O2 Flow Rate FiO2 09/22/16 04:00 97.6 103 20 122/53 95 09/22/16 04:00 Room Air 09/22/16 00:00 97.7 103 18 121/56 100 09/22/16 00:00 Room Air 09/21/16 20:03 Room Air 09/21/16 20:00 98.3 109 20 129/82 96 09/21/16 18:10 18 09/21/16 16:04 98.0 105 18 131/61 99 09/21/16 12:03 98.2 102 19 129/60 96 I/O 09/21/16 09/21/16 09/21/16 09/22/16 09/22/16 09/22/16 07:00 15:00 23:00 07:00 15:00 23:00 Intake Total 422 ml 1130 ml 600 ml 0 ml Output Total 1700 ml Balance 422 ml -570 ml 600 ml 0 ml Intake Oral 240 ml 840 ml 600 ml 0 ml IV Total 182 ml 290 ml Output Urine Total 1700 ml # Voids 3 3 3 # Bowel Movements 0 0 1 0 Result Diagram: 09/22/16 0724 09/22/16 0724 Imaging Last Impressions Abdomen Ultrasound 09/15/16 0000 Signed Impressions: Service Date/Time: Thursday, September 15, 2016 12:42 - CONCLUSION: 1. There is only minimal fluid present within the abdomen. No paracentesis was performed. Judd Graham MD Abdomen X-Ray 09/09/16 0600 Signed Impressions: Service Date/Time: Friday, September 09, 2016 09:07 - CONCLUSION: No significant change with the bowel gas pattern compared to the prior study. Alin Staton MD Liver Ultrasound 09/03/16 0000 Signed Impressions: Service Date/Time: Saturday, September 03, 2016 09:26 - CONCLUSION: Cirrhotic liver appearance with ascites. Bacilio Gonzalez MD Procedures EGD and band ligation. paracentesis Other Results Laboratory Tests Test 09/19/16 09/21/16 09/22/16 10:21 11:58 07:24 White Blood Count 7.6 TH/MM3 Red Blood Count 2.93 MIL/MM3 Mean Corpuscular Volume 80.2 FL Mean Corpuscular Hemoglobin 25.5 PG Mean Corpuscular Hemoglobin 31.8 % Concent Red Cell Distribution Width 20.4 % Platelet Count 119 TH/MM3 Mean Platelet Volume 8.7 FL Ammonia 106 MCMOL/L Sodium Level 136 MEQ/L Chloride Level 95 MEQ/L Carbon Dioxide Level 31.2 MEQ/L Anion Gap 10 MEQ/L Blood Urea Nitrogen 6 MG/DL Creatinine 0.64 MG/DL Estimat Glomerular Filtration 128 ML/MIN Rate Random Glucose 110 MG/DL Calcium Level 8.5 MG/DL Phosphorus Level 2.4 MG/DL Hemoglobin 7.7 GM/DL Hematocrit 22.9 % Potassium Level 3.6 MEQ/L Magnesium Level 2.2 MG/DL Objective Remarks GENERAL: Well developed in no acute distress. SKIN: Warm and dry. HEAD: Normocephalic. EYES: No scleral icterus. No injection or drainage. NECK: Supple, trachea midline. No JVD or lymphadenopathy. CARDIOVASCULAR: Regular rate and rhythm without murmurs, gallops, or rubs. RESPIRATORY: Breath sounds equal bilaterally. No accessory muscle use. GASTROINTESTINAL: Abdomen soft, non-tender, distended. MUSCULOSKELETAL: No cyanosis, edema 3+, multiple bullae formation. bilateral ulcers. testicular edema, erythema. NEUROLOGY: Awake and alert Medications and IVs Current Medications Medications (Trade) Dose Ordered Sig/Estelle Route Start Time Stop Time Status Last Admin (NS Flush) 2 ml UNSCH PRN IVF 09/02/16 12:00 09/20/16 21:12 Miscellaneous Information 1 [id number] XX 09/02/16 13:30 (Chlorhexidine 2% Cloth) 3 pack Taper DAILY@04 TOP 09/03/16 04:00 08/30/17 03:59 09/05/16 04:00 Chlorhexidine Gluconate 3 pack 3 pack UNSCH PRN TOP 09/02/16 13:30 (Thiamine Inj/NS Inj) 101 ml @ 101 mls/hr DAILY IV 09/02/16 14:00 09/21/16 09:19 (Folate) 1 mg DAILY PO 09/02/16 14:00 09/21/16 09:19 Multivitamins 1 tab 1 tab DAILY PO 09/02/16 14:00 09/21/16 09:19 (Rocephin Inj/NS Inj) 100 ml @ 200 mls/hr Q24H IV 09/02/16 14:00 09/21/16 13:05 (Ultram) 50 mg Q8H PRN PO 09/02/16 20:00 09/14/16 11:54 (Zofran Inj) 4 mg Q6HR PRN IV PUSH 09/02/16 20:00 09/03/16 09:19 (Colace Liq) 100 mg Q12HR PO 09/03/16 09:00 09/21/16 21:38 (Msir) 15 mg Q4H PRN PO 09/07/16 11:00 09/22/16 01:50 (Albumin 25% Inj) 25 gm Q12H IV 09/09/16 18:00 09/22/16 05:52 (Glycerin Adult Supp) 2 gm BID PRN RECTAL 09/09/16 12:00 (Lactulose Liq) 30 ml TID PO 09/11/16 09:00 09/21/16 17:15 (KCl) 30 meq Q12HR PO 09/13/16 21:00 09/21/16 21:35 (Habitrol 14 Mg Patch.24 Hr) 1 patch DAILY T-DERMAL 09/20/16 09:00 09/21/16 09:20 Miscellaneous Information 1 DAILY T-DERMAL 09/20/16 09:00 09/21/16 09:20 (Protonix) 40 mg Q12HR PO 09/21/16 21:00 09/21/16 21:36 (Aldactone) 25 mg DAILY PO 09/21/16 14:30 09/21/16 14:34 A/P Assessment and Plan 1. GI Bleed was on PPIs and Octreotide, status post EGD 09/02/16 incomplete evaluation, due to large clot obscuring view repeat EGD 09/04/16 and showed esophageal varices grade 2, status post banding x 4 and Portal Gastropathy, Status post Paracentesis 07/31 with removal of 4.6 L of fluid, US liver showed cirrhotic liver, continue distended. switch Protonix IV to by mouth 40 mg BID. 2. Acute blood loss anemia status post blood transfusions. Hemoglobin 7.5 3. Ileus may be related to Constipation, Improved. 4. Hepatic Encephalopathy probable secondary to his Cirrhosis. history of Ascites, Cirrhosis Esophageal Varices, Alcoholism, last Paracentesis 07/31/16, strongly recommended to stop drinking behavior. Improved. Lasix 80 mg BID and Spironolactone 25 mg 5. Hepatitis A, B and C as per Patient. 6. Duodenal ulcer history. 7. bilateral swollen legs and bullae formation, secondary to his primary pathology cirrhosis, he is on albumin and no improvement yet. added Spironolactone. 8. Tobacco dependence the patient states he continue smoking asked for nicotine patch placed. 9. Hypokalemia 3 replacement continue and following. Poor short term prognosis. refund specialist discussed the case with me and patient he decided for Hospice care. GI prophylaxis-Protonix drip DVT prophylaxis with SCDs. chemical AC prophylaxis contraindicated in the setting of GI bleed. Discharge Planning Expected by tomorrow. Mark Reyes MD Sep 22, 2016 08:50
[2016-09-22] MEDS ORDERED: POTASSIUM CHLORIDE 10 MEQ CAP PO ONE (09:00)
[2016-09-22] MEDS: REMOVE OLD PATCH T-DERMAL SCH (09:00)
[2016-09-22] MEDS: LACTULOSE SYRUP 20 GM/30 ML CUP PO SCH ×3 (09:00→18:00)
[2016-09-22] MEDS: DOCUSATE SODIUM 100 MG/10 ML UDC PO SCH ×2 (09:00→20:50)
[2016-09-22] MEDS: FOLIC ACID 1 MG TAB PO SCH (09:48)
[2016-09-22] MEDS: POTASSIUM CHLORIDE 10 MEQ CONTROLLED RELEASE TAB PO SCH ×2 (09:48→20:49)
[2016-09-22] MEDS: THIAMINE INJ 100 MG in SODIUM CHLORIDE 0.9% INJ 100 ML IV SCH (09:50)
[2016-09-22] MEDS: SPIRONOLACTONE 25 MG TAB PO SCH (09:50)
[2016-09-22] MEDS: MULTIVITAMIN TAB PO SCH (09:50)
[2016-09-22] MEDS: NICOTINE 14 MG/24 HR PATCH T-DERMAL SCH (09:51)
[2016-09-22] MEDS: PANTOPRAZOLE SOD 40 MG DELAYED RELEASE TAB PO SCH ×2 (09:51→20:49)
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
[2016-09-22 12:02] VITALS: BP 130/60; PULSE 98; RESP 20; TEMP 97.8; O2SAT 97
[2016-09-22] MEDS: cefTRIAXone INJ 1,000 MG in SODIUM CHLORIDE 0.9% INJ 100 ML IV SCH (14:11)
[2016-09-22 16:03] VITALS: BP 124/82; PULSE 98; RESP 20; TEMP 97.7; O2SAT 100
[2016-09-22 20:00] VITALS: BP 120/62; PULSE 101; RESP 18; TEMP 97.7; O2SAT 96
[2016-09-23] VITALS: BP 125/64; PULSE 101; RESP 16; TEMP 97.8; O2SAT 99
[2016-09-23] MEDS: ONDANSETRON HCL 4 MG/2 ML VIAL IV PUSH PRN ×2 (03:23→14:24)
[2016-09-23] MEDS: CHLORHEXIDINE GLUCONATE 2 % 1 PACK (2 CLOTHS) TOP SCH (03:25)
[2016-09-23] MEDS: MORPHINE SULFATE 15 MG TAB PO PRN ×5 (03:25→18:42)
[2016-09-23 04:00] VITALS: BP 126/75; PULSE 105; RESP 18; TEMP 97.9; O2SAT 96
[2016-09-23 08:00] VITALS: BP 110/63; PULSE 114; RESP 20; TEMP 98.3; O2SAT 97
[2016-09-23] MEDS: DOCUSATE SODIUM 100 MG/10 ML UDC PO SCH ×2 (09:00→20:52)
[2016-09-23] MEDS: REMOVE OLD PATCH T-DERMAL SCH (09:00)
[2016-09-23] MEDS: PANTOPRAZOLE SOD 40 MG DELAYED RELEASE TAB PO SCH ×2 (09:02→20:53)
[2016-09-23] MEDS: MULTIVITAMIN TAB PO SCH (09:02)
[2016-09-23] MEDS: SPIRONOLACTONE 25 MG TAB PO SCH (09:03)
[2016-09-23] MEDS: NICOTINE 14 MG/24 HR PATCH T-DERMAL SCH (09:03)
[2016-09-23] MEDS: FOLIC ACID 1 MG TAB PO SCH (09:03)
[2016-09-23] MEDS: POTASSIUM CHLORIDE 10 MEQ CONTROLLED RELEASE TAB PO SCH ×2 (09:03→20:52)
[2016-09-23] MEDS: LACTULOSE SYRUP 20 GM/30 ML CUP PO SCH ×3 (09:04→18:41)
[2016-09-23] MEDS: THIAMINE INJ 100 MG in SODIUM CHLORIDE 0.9% INJ 100 ML IV SCH (09:08)
--- NOTE | 2016-09-23 10:36 | HHI.PR ---
Subjective Remarks garnishment specialist Notes: The patient is 61-year-old male with past medical history of hepatitis, ethyl alcohol use, esophageal varices, Gastric and duodenal ulcers, cirrhosis of the liver secondary to ethyl alcohol use, who presented to emergency room for evaluation of gastrointestinal bleed and hematemesis. His emesis consisted of black coffee grounds and then progressed to vomiting large amount of red blood. The patient also reports intermittent epigastric mid abdominal pain radiating to the right upper quadrant. He had three shots, two beers in addition took 3 tablets of aspirin for chronic back pain yesterday. The patient was recently hospitalized in June for similar presentation and underwent upper endoscopy on July 04 which showed multiple ulcers in duodenum, antrum and a grade 1 esophageal varices in addition to hiatal hernia. Colonoscopy was also performed on July 07 which revealed a poor prep, small internal hemorrhoids. A repeat colonoscopy was performed on July 08 which showed small sessile polyp, it was found in the rectum. A polypectomy was performed with a cold snare. On arrival to the emergency room he was tachycardiac with heart rate 111-116 and hypotensive with blood pressure 87/55. His hemoglobin level 7.6. The patient received 2 liters of crystalloids and 2 units of Packed red blood cells have been ordered by emergency room. In addition the patient is scheduled to be on Protonix and octreotide drips. He was seen by gastroenterology service in the emergency room and planned to undergo the upper endoscopy with possible band ligation today. His current blood pressure is 125/73 with a pulse of 111. He is on room air oxygen when seen. He denies any chest pain or shortness of breath. In addition he denies any cough, orthopnea, paroxysmal nocturnal dyspnea or edema of lower extremities. 09/03 Patient is awake, alert lying in bed in NAD. s/p transfusion 2units PRBC yesterday Hgb 9.1 this morning. On Protonix and Octreotide drips. s/p EGD yesterday showed Gastric bleed etiology unclear , incomplete evaluation with this EGD due to large clot obscuring view. 09/04 Patient s/p transfusion 1unit PRBC last night for Hgb 7.5 repeat Hgb 9.5 repeat EGD today. On Protonix and Octreotide drips. Hospitalist Notes: 09/19: Stable in his bedroom as per nurse worsening lower extremity edema, abdominal distension. 09/20: Seen in his bedroom and discussed with nurse Miss Youngblood, patient not improving, discussed with him about palliative care management he agree with consult, Poor short term prognosis. 09/21: Discontinue Protonix drip start medicine by mouth, no signs of new GI bleed, worsening leg edema switch to by mouth Lasix added Spironolactone and following Palliative care. 09/22: authorization specialist following 09/23: Stable in his bedroom, he accepted yesterday for hospice awaiting final by Aircraft Sheet Metal Mechanic and wildlife refuge specialist orders in chart. Objective Vital Signs Date Time Temp Pulse Resp B/P Pulse Ox O2 Delivery O2 Flow Rate FiO2 09/23/16 08:00 98.3 114 20 110/63 97 09/23/16 04:00 97.9 105 18 126/75 96 09/23/16 00:00 97.8 101 16 125/64 99 09/22/16 20:00 Room Air 09/22/16 20:00 97.7 101 18 120/62 96 09/22/16 16:03 97.7 98 20 124/82 100 09/22/16 12:02 97.8 98 20 130/60 97 I/O 09/22/16 09/22/16 09/22/16 09/23/16 09/23/16 09/23/16 07:00 15:00 23:00 07:00 15:00 23:00 Intake Total 0 ml 466 ml 1230 ml Balance 0 ml 466 ml 1230 ml Intake Oral 0 ml 360 ml 1230 ml IV Total 106 ml # Voids 3 6 6 # Bowel Movements 0 1 0 Result Diagram: 09/22/16 0724 09/22/16 0724 Imaging Last Impressions Abdomen Ultrasound 09/15/16 0000 Signed Impressions: Service Date/Time: Thursday, September 15, 2016 12:42 - CONCLUSION: 1. There is only minimal fluid present within the abdomen. No paracentesis was performed. Judd Graham MD Abdomen X-Ray 09/09/16 0600 Signed Impressions: Service Date/Time: Friday, September 09, 2016 09:07 - CONCLUSION: No significant change with the bowel gas pattern compared to the prior study. Alin Staton MD Liver Ultrasound 09/03/16 0000 Signed Impressions: Service Date/Time: Saturday, September 03, 2016 09:26 - CONCLUSION: Cirrhotic liver appearance with ascites. Bacilio Gonzalez MD Procedures EGD and band ligation. paracentesis Other Results Laboratory Tests Test 09/19/16 09/21/16 09/22/16 10:21 11:58 07:24 White Blood Count 7.6 TH/MM3 Red Blood Count 2.93 MIL/MM3 Mean Corpuscular Volume 80.2 FL Mean Corpuscular Hemoglobin 25.5 PG Mean Corpuscular Hemoglobin 31.8 % Concent Red Cell Distribution Width 20.4 % Platelet Count 119 TH/MM3 Mean Platelet Volume 8.7 FL Ammonia 106 MCMOL/L Sodium Level 136 MEQ/L Chloride Level 95 MEQ/L Carbon Dioxide Level 31.2 MEQ/L Anion Gap 10 MEQ/L Blood Urea Nitrogen 6 MG/DL Creatinine 0.64 MG/DL Estimat Glomerular Filtration 128 ML/MIN Rate Random Glucose 110 MG/DL Calcium Level 8.5 MG/DL Phosphorus Level 2.4 MG/DL Hemoglobin 7.7 GM/DL Hematocrit 22.9 % Potassium Level 3.6 MEQ/L Magnesium Level 2.2 MG/DL Objective Remarks GENERAL: Well developed in no acute distress. SKIN: Warm and dry. HEAD: Normocephalic. EYES: No scleral icterus. No injection or drainage. NECK: Supple, trachea midline. No JVD or lymphadenopathy. CARDIOVASCULAR: Regular rate and rhythm without murmurs, gallops, or rubs. RESPIRATORY: Breath sounds equal bilaterally. No accessory muscle use. GASTROINTESTINAL: Abdomen soft, non-tender, distended. MUSCULOSKELETAL: No cyanosis, edema 3+, multiple bullae formation. bilateral ulcers. testicular edema, erythema. NEUROLOGY: Awake and alert Medications and IVs Current Medications Medications (Trade) Dose Ordered Sig/Estelle Route Start Time Stop Time Status Last Admin (NS Flush) 2 ml UNSCH PRN IVF 09/02/16 12:00 09/20/16 21:12 Miscellaneous Information 1 Q361D XX 09/02/16 13:30 (Chlorhexidine 2% Cloth) 3 pack Taper DAILY@04 TOP 09/03/16 04:00 08/30/17 03:59 09/05/16 04:00 Chlorhexidine Gluconate 3 pack 3 pack UNSCH PRN TOP 09/02/16 13:30 (Thiamine Inj/NS Inj) 101 ml @ 101 mls/hr DAILY IV 09/02/16 14:00 09/23/16 09:08 (Folate) 1 mg DAILY PO 09/02/16 14:00 09/23/16 09:03 (Theragran) 1 tab DAILY PO 09/02/16 14:00 09/23/16 09:02 (Ultram) 50 mg Q8H PRN PO 09/02/16 20:00 09/14/16 11:54 (Zofran Inj) 4 mg Q6HR PRN IV PUSH 09/02/16 20:00 09/23/16 03:23 (Colace Liq) 100 mg Q12HR PO 09/03/16 09:00 09/21/16 21:38 (Msir) 15 mg Q4H PRN PO 09/07/16 11:00 09/23/16 07:14 (Glycerin Adult Supp) 2 gm BID PRN RECTAL 09/09/16 12:00 (Lactulose Liq) 30 ml TID PO 09/11/16 09:00 09/23/16 09:04 (KCl) 30 meq Q12HR PO 09/13/16 21:00 09/23/16 09:03 (Habitrol 14 Mg Patch.24 Hr) 1 patch DAILY T-DERMAL 09/20/16 09:00 09/23/16 09:03 Miscellaneous Information 1 DAILY T-DERMAL 09/20/16 09:00 09/23/16 09:00 (Protonix) 40 mg Q12HR PO 09/21/16 21:00 09/23/16 09:02 (Aldactone) 25 mg DAILY PO 09/21/16 14:30 09/23/16 09:03 A/P Assessment and Plan 1. GI Bleed was on PPIs and Octreotide, status post EGD 09/02/16 incomplete evaluation, due to large clot obscuring view repeat EGD 09/04/16 and showed esophageal varices grade 2, status post banding x 4 and Portal Gastropathy, Status post Paracentesis 07/31 with removal of 4.6 L of fluid, US liver showed cirrhotic liver, continue distended. switch Protonix IV to by mouth 40 mg BID. 2. Acute blood loss anemia status post blood transfusions. Hemoglobin 7.5 transfuse if less than 7 3. Ileus may be related to Constipation, Improved. 4. Hepatic Encephalopathy probable secondary to his Cirrhosis. history of Ascites, Cirrhosis Esophageal Varices, Alcoholism, last Paracentesis 07/31/16, strongly recommended to stop drinking behavior. Improved. Lasix 80 mg BID and Spironolactone 25 mg 5. Hepatitis A, B and C as per Patient. 6. Duodenal ulcer history. 7. bilateral swollen legs and bullae formation, secondary to his primary pathology cirrhosis, he is on albumin and no improvement yet. added Spironolactone. 8. Tobacco dependence the patient states he continue smoking asked for nicotine patch placed. 9. Hypokalemia replaced Poor short term prognosis. authorization specialist discussed the case with me and patient he decided for Hospice care. GI prophylaxis-Protonix drip DVT prophylaxis with SCDs. chemical AC prophylaxis contraindicated in the setting of GI bleed. awaiting final recommendations by Aircraft Sheet Metal Mechanic and wildlife refuge specialist. Discharge Planning Expected later today. Mark Reyes MD Sep 23, 2016 10:36
[2016-09-23 12:00] VITALS: BP 123/71; PULSE 116; RESP 20; TEMP 97.9; O2SAT 96
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
[2016-09-23 16:00] VITALS: BP 122/68; PULSE 110; RESP 20; TEMP 98.1; O2SAT 98
[2016-09-23 20:00] VITALS: BP 126/58; PULSE 106; RESP 22; TEMP 97.7; O2SAT 97
[2016-09-23] MEDS: SODIUM CHLORIDE 0.9% FLUSH 10 ML FLUSH IVF PRN (20:56)
[2016-09-24] VITALS: BP 123/71; PULSE 116; RESP 18; TEMP 97.7; O2SAT 97
[2016-09-24] MEDS: MORPHINE SULFATE 15 MG TAB PO PRN ×5 (01:29→21:42)
[2016-09-24] MEDS: CHLORHEXIDINE GLUCONATE 2 % 1 PACK (2 CLOTHS) TOP SCH (03:08)
[2016-09-24 04:00] VITALS: BP 119/61; PULSE 98; RESP 20; TEMP 97.8; O2SAT 96
[2016-09-24 08:00] VITALS: BP 117/65; PULSE 100; RESP 20; TEMP 97.8; O2SAT 98
[2016-09-24] MEDS: MULTIVITAMIN TAB PO SCH (08:42)
[2016-09-24] MEDS: LACTULOSE SYRUP 20 GM/30 ML CUP PO SCH ×3 (08:44→17:15)
[2016-09-24] MEDS: traMADol HCL 50 MG TAB PO PRN (08:44)
[2016-09-24] MEDS: PANTOPRAZOLE SOD 40 MG DELAYED RELEASE TAB PO SCH ×2 (08:44→21:41)
[2016-09-24] MEDS: POTASSIUM CHLORIDE 10 MEQ CONTROLLED RELEASE TAB PO SCH ×2 (08:44→21:41)
[2016-09-24] MEDS: DOCUSATE SODIUM 100 MG/10 ML UDC PO SCH ×2 (08:45→21:00)
[2016-09-24] MEDS: FOLIC ACID 1 MG TAB PO SCH (08:45)
[2016-09-24] MEDS: SPIRONOLACTONE 25 MG TAB PO SCH (08:45)
[2016-09-24] MEDS: NICOTINE 14 MG/24 HR PATCH T-DERMAL SCH (08:46)
[2016-09-24] MEDS: REMOVE OLD PATCH T-DERMAL SCH (08:48)
[2016-09-24] MEDS: THIAMINE INJ 100 MG in SODIUM CHLORIDE 0.9% INJ 100 ML IV SCH (08:52)
[2016-09-24] MEDS ORDERED: PANT40TA3 PO (10:50)
[2016-09-24] MEDS ORDERED: SPIR25 PO (10:50)
[2016-09-24] MEDS ORDERED: THERTAB15 PO (10:50)
[2016-09-24] MEDS ORDERED: POTA-243 PO (10:50)
[2016-09-24] MEDS ORDERED: FURO40TA PO (10:50)
[2016-09-24] MEDS ORDERED: MSIR15 PO (10:50)
[2016-09-24] MEDS ORDERED: NICO14DI23 T-DERMAL (10:50)
[2016-09-24] MEDS ORDERED: FOLI1TAB6 PO (10:50)
[2016-09-24] MEDS ORDERED: Lactulose Liq PO (10:50)
--- NOTE | 2016-09-24 11:04 | HHI.PR ---
Subjective Remarks deployment specialist Notes: The patient is 61-year-old male with past medical history of hepatitis, ethyl alcohol use, esophageal varices, Gastric and duodenal ulcers, cirrhosis of the liver secondary to ethyl alcohol use, who presented to emergency room for evaluation of gastrointestinal bleed and hematemesis. His emesis consisted of black coffee grounds and then progressed to vomiting large amount of red blood. The patient also reports intermittent epigastric mid abdominal pain radiating to the right upper quadrant. He had three shots, two beers in addition took 3 tablets of aspirin for chronic back pain yesterday. The patient was recently hospitalized in June for similar presentation and underwent upper endoscopy on July 04 which showed multiple ulcers in duodenum, antrum and a grade 1 esophageal varices in addition to hiatal hernia. Colonoscopy was also performed on July 07 which revealed a poor prep, small internal hemorrhoids. A repeat colonoscopy was performed on July 08 which showed small sessile polyp, it was found in the rectum. A polypectomy was performed with a cold snare. On arrival to the emergency room he was tachycardiac with heart rate 111-116 and hypotensive with blood pressure 87/55. His hemoglobin level 7.6. The patient received 2 liters of crystalloids and 2 units of Packed red blood cells have been ordered by emergency room. In addition the patient is scheduled to be on Protonix and octreotide drips. He was seen by gastroenterology service in the emergency room and planned to undergo the upper endoscopy with possible band ligation today. His current blood pressure is 125/73 with a pulse of 111. He is on room air oxygen when seen. He denies any chest pain or shortness of breath. In addition he denies any cough, orthopnea, paroxysmal nocturnal dyspnea or edema of lower extremities. 09/03 Patient is awake, alert lying in bed in NAD. s/p transfusion 2units PRBC yesterday Hgb 9.1 this morning. On Protonix and Octreotide drips. s/p EGD yesterday showed Gastric bleed etiology unclear , incomplete evaluation with this EGD due to large clot obscuring view. 09/04 Patient s/p transfusion 1unit PRBC last night for Hgb 7.5 repeat Hgb 9.5 repeat EGD today. On Protonix and Octreotide drips. Hospitalist Notes: 09/19: Stable in his bedroom as per nurse worsening lower extremity edema, abdominal distension. 09/20: Seen in his bedroom and discussed with nurse Miss Youngblood, patient not improving, discussed with him about palliative care management he agree with consult, Poor short term prognosis. 09/21: Discontinue Protonix drip start medicine by mouth, no signs of new GI bleed, worsening leg edema switch to by mouth Lasix added Spironolactone and following Palliative care. 09/22: project controls specialist following 09/23: Stable in his bedroom, he accepted yesterday for hospice awaiting final by Reinforcement [employer] and wine specialist orders in chart. 09/24: Seen in his bedroom, discussed with patient and with his nurse Miss Correa , he refused Hospice, is expected to come back to ER he is in End stage Liver disease even on high dosages of IV diuretics, is unable to improve his leg edema and multiple Paracentesis, he is DNR but do not want hospice no nausea, vomit or diarrhea. Objective Vital Signs Date Time Temp Pulse Resp B/P Pulse Ox O2 Delivery O2 Flow Rate FiO2 09/24/16 08:00 97.8 100 20 117/65 98 09/24/16 04:00 97.8 98 20 119/61 96 09/24/16 00:00 97.7 116 18 123/71 97 09/23/16 20:00 97.7 106 22 126/58 97 09/23/16 16:00 98.1 110 20 122/68 98 09/23/16 12:00 97.9 116 20 123/71 96 I/O 09/23/16 09/23/16 09/23/16 09/24/16 09/24/16 09/24/16 07:00 15:00 23:00 07:00 15:00 23:00 Intake Total 1230 ml 880 ml 480 ml 510 ml Balance 1230 ml 880 ml 480 ml 510 ml Intake Oral 1230 ml 780 ml 480 ml 510 ml IV Total 100 ml # Voids 6 4 2 2 # Bowel Movements 0 0 0 Result Diagram: 09/22/1672309/22/1624 Imaging Last Impressions Abdomen Ultrasound 09/15/16 0000 Signed Impressions: Service Date/Time: Thursday, September 15, 2016 12:42 - CONCLUSION: 1. There is only minimal fluid present within the abdomen. No paracentesis was performed. Judd Graham MD Abdomen X-Ray 09/09/16 0600 Signed Impressions: Service Date/Time: Friday, September 09, 2016 09:07 - CONCLUSION: No significant change with the bowel gas pattern compared to the prior study. Alin Staton MD Liver Ultrasound 09/03/16 0000 Signed Impressions: Service Date/Time: Saturday, September 03, 2016 09:26 - CONCLUSION: Cirrhotic liver appearance with ascites. Bacilio Gonzalez MD Procedures EGD and band ligation. paracentesis Other Results Laboratory Tests Test 09/21/16 09/22/16 11:58 07:24 Sodium Level 136 MEQ/L Chloride Level 95 MEQ/L Carbon Dioxide Level 31.2 MEQ/L Anion Gap 10 MEQ/L Blood Urea Nitrogen 6 MG/DL Creatinine 0.64 MG/DL Estimat Glomerular Filtration 128 ML/MIN Rate Random Glucose 110 MG/DL Calcium Level 8.5 MG/DL Phosphorus Level 2.4 MG/DL Hemoglobin 7.7 GM/DL Hematocrit 22.9 % Potassium Level 3.6 MEQ/L Magnesium Level 2.2 MG/DL Objective Remarks GENERAL: Well developed in no acute distress. SKIN: Warm and dry. HEAD: Normocephalic. EYES: No scleral icterus. No injection or drainage. NECK: Supple, trachea midline. No JVD or lymphadenopathy. CARDIOVASCULAR: Regular rate and rhythm without murmurs, gallops, or rubs. RESPIRATORY: Breath sounds equal bilaterally. No accessory muscle use. GASTROINTESTINAL: Abdomen soft, non-tender, distended. MUSCULOSKELETAL: No cyanosis, edema 3+, multiple bullae formation. bilateral ulcers. testicular edema, erythema. NEUROLOGY: Awake and alert Medications and IVs Current Medications Medications (Trade) Dose Ordered Sig/Estelle Route Start Time Stop Time Status Last Admin (NS Flush) 2 ml UNSCH PRN IVF 09/02/16 12:00 09/23/16 20:56 Miscellaneous Information 1 [id number] XX 09/02/16 13:30 (Chlorhexidine 2% Cloth) 3 pack Taper DAILY@04 TOP 09/03/16 04:00 08/30/17 03:59 09/05/16 04:00 Chlorhexidine Gluconate 3 pack 3 pack UNSCH PRN TOP 09/02/16 13:30 (Thiamine Inj/NS Inj) 101 ml @ 101 mls/hr DAILY IV 09/02/16 14:00 09/24/16 08:52 (Folate) 1 mg DAILY PO 09/02/16 14:00 09/24/16 08:45 (Theragran) 1 tab DAILY PO 09/02/16 14:00 09/24/16 08:42 (Ultram) 50 mg Q8H PRN PO 09/02/16 20:00 09/24/16 08:44 (Zofran Inj) 4 mg Q6HR PRN IV PUSH 09/02/16 20:00 09/23/16 14:24 (Colace Liq) 100 mg Q12HR PO 09/03/16 09:00 09/24/16 08:45 (Msir) 15 mg Q4H PRN PO 09/07/16 11:00 09/24/16 05:35 (Glycerin Adult Supp) 2 gm BID PRN RECTAL 09/09/16 12:00 (Lactulose Liq) 30 ml TID PO 09/11/16 09:00 09/24/16 08:44 (KCl) 30 meq Q12HR PO 09/13/16 21:00 09/24/16 08:44 (Habitrol 14 Mg Patch.24 Hr) 1 patch DAILY T-DERMAL 09/20/16 09:00 09/24/16 08:46 Miscellaneous Information 1 DAILY T-DERMAL 09/20/16 09:00 09/23/16 09:00 (Protonix) 40 mg Q12HR PO 09/21/16 21:00 09/24/16 08:44 (Aldactone) 25 mg DAILY PO 09/21/16 14:30 09/24/16 08:45 A/P Assessment and Plan 1. GI Bleed was on PPIs and Octreotide, status post EGD 09/02/16 incomplete evaluation, due to large clot obscuring view repeat EGD 09/04/16 and showed esophageal varices grade 2, status post banding x 4 and Portal Gastropathy, Status post Paracentesis 07/31 with removal of 4.6 L of fluid, US liver showed cirrhotic liver, continue distended. switch Protonix IV to by mouth 40 mg BID. No further bleeding. 2. Acute blood loss anemia status post blood transfusions. Hemoglobin 7.7 transfuse if less than 7 3. Ileus may be related to Constipation, Improved. 4. Hepatic Encephalopathy Improved. probable secondary to his Cirrhosis. history of Ascites, Cirrhosis Esophageal Varices, Alcoholism, last Paracentesis 07/31/16, strongly recommended to stop drinking behavior. Improved. Lasix 80 mg BID and Spironolactone 25 mg 5. Hepatitis A, B and C as per Patient. 6. Duodenal ulcer history. 7. bilateral swollen legs and bullae formation, secondary to his primary pathology cirrhosis, he is on albumin and no improvement yet. added Spironolactone. 8. Tobacco dependence the patient states he continue smoking asked for nicotine patch placed. 9. Hypokalemia replaced Poor short term prognosis. The patient refused Hospice will be discharge Home but is expected to come to ER due to worsening condition and we offered the management possible at this time but he will continue to deteriorate, will need to re assess for hospice care once comes again to this facility. he was also on daily dosages of Albumin and was not possible to improve his state. GI prophylaxis-Protonix drip DVT prophylaxis with SCDs. chemical AC prophylaxis contraindicated in the setting of GI bleed. Discharge Home on [facility] recommended. Discharge Planning Discharge Home on [facility]. Mark Reyes MD Sep 24, 2016 11:04
--- NOTE | 2016-09-24 11:11 | HHI.DS ---
Discharge Summary Admission Date September 02, 2016 at 13:15 Discharge Date: Sep 24, 2016 Admitting Diagnosis Upper GI bleed (1) Alcohol intoxication ICD Code: F10.129 Diagnosis: Principal (2) Adynamic ileus ICD Code: K56.0 Diagnosis: Principal (3) Acute blood loss anemia ICD Code: D62 Diagnosis: Principal (4) Esophageal varices ICD Code: I85.00 Diagnosis: Principal (5) Cirrhosis of liver ICD Code: K74.60 Diagnosis: Principal (6) Hepatitis B ICD Code: B19.10 Diagnosis: Principal (7) Hepatitis C ICD Code: B19.20 Diagnosis: Principal (8) Alcoholic cirrhosis of liver with ascites ICD Code: K70.31 Diagnosis: Principal (9) Anemia due to gastrointestinal blood loss ICD Code: D50.0 Diagnosis: Principal Procedures EGD and band ligation. paracentesis Brief History - From Admission The patient is 61-year-old male with past medical history of hepatitis, ethyl alcohol use, esophageal varices, Gastric and duodenal ulcers, cirrhosis of the liver secondary to ethyl alcohol use, who presented to emergency room for evaluation of gastrointestinal bleed and hematemesis. His emesis consisted of black coffee grounds and then progressed to vomiting large amount of red blood. The patient also reports intermittent epigastric mid abdominal pain radiating to the right upper quadrant. He had three shots, two beers in addition took 3 tablets of aspirin for chronic back pain yesterday. The patient was recently hospitalized in June for similar presentation and underwent upper endoscopy on July 04 which showed multiple ulcers in duodenum, antrum and a grade 1 esophageal varices in addition to hiatal hernia. Colonoscopy was also performed on July 07 which revealed a poor prep, small internal hemorrhoids. A repeat colonoscopy was performed on July 08 which showed small sessile polyp, it was found in the rectum. A polypectomy was performed with a cold snare. On arrival to the emergency room he was tachycardiac with heart rate 111-116 and hypotensive with blood pressure 87/55. His hemoglobin level 7.6. The patient received 2 liters of crystalloids and 2 units of Packed red blood cells have been ordered by emergency room. In addition the patient is scheduled to be on Protonix and octreotide drips. He was seen by gastroenterology service in the emergency room and planned to undergo the upper endoscopy with possible band ligation today. His current blood pressure is 125/73 with a pulse of 111. He is on room air oxygen when seen. He denies any chest pain or shortness of breath. In addition he denies any cough, orthopnea, paroxysmal nocturnal dyspnea or edema of lower extremities. CBC/BMP: 09/22/16 0724 09/22/16 0724 Significant Findings Laboratory Tests Test 09/21/16 09/22/16 11:58 07:24 Potassium Level 3.0 MEQ/L (3.5-5.1) Chloride Level 95 MEQ/L (98-107) Blood Urea Nitrogen 6 MG/DL (7-18) Random Glucose 110 MG/DL (74-106) Phosphorus Level 2.4 MG/DL (2.5-4.9) Hemoglobin 7.7 GM/DL (13.0-17.0) Hematocrit 22.9 % (39.0-51.0) Imaging Last Impressions Abdomen Ultrasound 09/15/16 0000 Signed Impressions: Service Date/Time: Thursday, September 15, 2016 12:42 - CONCLUSION: 1. There is only minimal fluid present within the abdomen. No paracentesis was performed. Judd Graham MD Abdomen X-Ray 09/09/16 0600 Signed Impressions: Service Date/Time: Friday, September 09, 2016 09:07 - CONCLUSION: No significant change with the bowel gas pattern compared to the prior study. Alin Staton MD Liver Ultrasound 09/03/16 0000 Signed Impressions: Service Date/Time: Saturday, September 03, 2016 09:26 - CONCLUSION: Cirrhotic liver appearance with ascites. Bacilio Gonzalez MD PE at Discharge GENERAL: Well developed in no acute distress. SKIN: Warm and dry. HEAD: Normocephalic. EYES: No scleral icterus. No injection or drainage. NECK: Supple, trachea midline. No JVD or lymphadenopathy. CARDIOVASCULAR: Regular rate and rhythm without murmurs, gallops, or rubs. RESPIRATORY: Breath sounds equal bilaterally. No accessory muscle use. GASTROINTESTINAL: Abdomen soft, non-tender, distended. MUSCULOSKELETAL: No cyanosis, edema 3+, multiple bullae formation. bilateral ulcers. testicular edema, erythema. NEUROLOGY: Awake and alert Hospital Course operations support specialist Notes: The patient is 61-year-old male with past medical history of hepatitis, ethyl alcohol use, esophageal varices, Gastric and duodenal ulcers, cirrhosis of the liver secondary to ethyl alcohol use, who presented to emergency room for evaluation of gastrointestinal bleed and hematemesis. His emesis consisted of black coffee grounds and then progressed to vomiting large amount of red blood. The patient also reports intermittent epigastric mid abdominal pain radiating to the right upper quadrant. He had three shots, two beers in addition took 3 tablets of aspirin for chronic back pain yesterday. The patient was recently hospitalized in June for similar presentation and underwent upper endoscopy on July 04 which showed multiple ulcers in duodenum, antrum and a grade 1 esophageal varices in addition to hiatal hernia. Colonoscopy was also performed on July 07 which revealed a poor prep, small internal hemorrhoids. A repeat colonoscopy was performed on July 08 which showed small sessile polyp, it was found in the rectum. A polypectomy was performed with a cold snare. On arrival to the emergency room he was tachycardiac with heart rate 111-116 and hypotensive with blood pressure 87/55. His hemoglobin level 7.6. The patient received 2 liters of crystalloids and 2 units of Packed red blood cells have been ordered by emergency room. In addition the patient is scheduled to be on Protonix and octreotide drips. He was seen by gastroenterology service in the emergency room and planned to undergo the upper endoscopy with possible band ligation today. His current blood pressure is 125/73 with a pulse of 111. He is on room air oxygen when seen. He denies any chest pain or shortness of breath. In addition he denies any cough, orthopnea, paroxysmal nocturnal dyspnea or edema of lower extremities. 09/03 Patient is awake, alert lying in bed in NAD. s/p transfusion 2units PRBC yesterday Hgb 9.1 this morning. On Protonix and Octreotide drips. s/p EGD yesterday showed Gastric bleed etiology unclear , incomplete evaluation with this EGD due to large clot obscuring view. 09/04 Patient s/p transfusion 1unit PRBC last night for Hgb 7.5 repeat Hgb 9.5 repeat EGD today. On Protonix and Octreotide drips. Hospitalist Notes: 09/19: Stable in his bedroom as per nurse worsening lower extremity edema, abdominal distension. 09/20: Seen in his bedroom and discussed with nurse Miss Youngblood, patient not improving, discussed with him about palliative care management he agree with consult, Poor short term prognosis. 09/21: Discontinue Protonix drip start medicine by mouth, no signs of new GI bleed, worsening leg edema switch to by mouth Lasix added Spironolactone and following Palliative care. 09/22: volunteer services specialist following 09/23: Stable in his bedroom, he accepted yesterday for hospice awaiting final by Blind H[employer] and research computing specialist orders in chart. 09/24: Seen in his bedroom, discussed with patient and with his nurse Madeline , he refused Hospice, is expected to come back to ER he is in End stage Liver disease even on high dosages of IV diuretics, is unable to improve his leg edema and multiple Paracentesis, he is DNR but do not want hospice no nausea, vomit or diarrhea. Assessment and Plan 1. GI Bleed was on PPIs and Octreotide, status post EGD 09/02/16 incomplete evaluation, due to large clot obscuring view repeat EGD 09/04/16 and showed esophageal varices grade 2, status post banding x 4 and Portal Gastropathy, Status post Paracentesis 07/31 with removal of 4.6 L of fluid, US liver showed cirrhotic liver, continue distended. switch Protonix IV to by mouth 40 mg BID. No further bleeding. 2. Acute blood loss anemia status post blood transfusions. Hemoglobin 7.7 transfuse if less than 7 3. Ileus may be related to Constipation, Improved. 4. Hepatic Encephalopathy Improved. probable secondary to his Cirrhosis. history of Ascites, Cirrhosis Esophageal Varices, Alcoholism, last Paracentesis 07/31/16, strongly recommended to stop drinking behavior. Improved. Lasix 80 mg BID and Spironolactone 25 mg 5. Hepatitis A, B and C as per Patient. 6. Duodenal ulcer history. 7. bilateral swollen legs and bullae formation, secondary to his primary pathology cirrhosis, he is on albumin and no improvement yet. added Spironolactone. 8. Tobacco dependence the patient states he continue smoking asked for nicotine patch placed. 9. Hypokalemia replaced Poor short term prognosis. The patient refused Hospice will be discharge Home but is expected to come to ER due to worsening condition and we offered the management possible at this time but he will continue to deteriorate, will need to re assess for hospice care once comes again to this facility. he was also on daily dosages of Albumin and was not possible to improve his state. GI prophylaxis-Protonix drip DVT prophylaxis with SCDs. chemical AC prophylaxis contraindicated in the setting of GI bleed. Discharge Home on [facility] recommended. Discharge Planning Discharge Home on [facility]. Expected Readmission the patient did not want Hospice placement on End Stage Liver Disease Pt Condition on Discharge: Fair Discharge Disposition: Disch w/ Home Health Serv Discharge Time: > 30 minutes Discharge Instructions DIET: Follow Instructions for: Heart Healthy Diet Activities you can perform: Regular-No Restrictions Mark Reyes MD Sep 24, 2016 11:11
--- NOTE | 2016-09-24 11:32 | HHI.FF ---
Face to Face Verification Diagnosis: (1) Alcohol abuse (2) Ascites (3) GI bleed (4) Alcoholic cirrhosis of liver with ascites Physical Therapy Order: Evaluate and Treat, Improve ambulation, Strength and gait training Home Health Nursing Order: Medical education Signs/symptoms of disease process Medication education-adverse effect Nursing assessment with vital signs I have seen patient Kenneth Padron on 09/24/16. My clinical findings support the need for the requested home health care services because: Ltd mobility - disease progression Deconditioned w/ increased weakness I certify that my clinical findings support that this patient is homebound because: Unsafe to leave home unassisted Mark Reyes MD Sep 24, 2016 11:32
[2016-09-24 11:54] VITALS: BP 107/57; PULSE 115; RESP 20; TEMP 98; O2SAT 97
--- NOTE | 2016-09-24 14:43 | HHI.HCPN ---
Met with Mr. Padron. He is alert, able to make his needs known. Gets confused and nods off to sleep at times throughout conversation but easily redirected. He verbalizes some discomfort in his stomach. Nurse aware. Gently discussed with Mr. Padron is plan of care. He reports some confusion on what his plan is. He reports his son will be coming to the hospital today around 5pm to discuss it with him and his sister. After exploring social issues it appears Mr. Padron does not have a place to live at this time. His house is foreclosed on and he cannot live there. Inquired about his son's living situation, he reports his son is currently living with his girlfriend's parents so he would not be able to stay with him. Gently explored hospice services and he declines further conversation at this time stating "I don't know what is going on, my son will be here later today and my sister is flying in Thursday or Thursday to help". Discussed health care surrogate paperwork. He completed forms designating his son, Kenneth Padron JR as primary and sister Bel Denise as alternate. Copy placed in chart and copy faxed to HIM to be scanned into EMR. Spoke with sister Earlene on the phone. She confirms Mr. Padron does not have a place to live at this time. She reports she is currently making flight arrangements to come down Thursday or Thursday to assist Mr. Padron. She reports the patient's primary concern at this time is getting his affairs in order then "come back to the hospital or come home with me". She reports she will assist in finding him a place locally or get him back to [place] with her. She requests to speak with a physician regarding diagnoses, etc. Nurse also aware. Palliative care contact information provided to sister and patient. Palliative care will continue to follow to further assist with goals of care. Mr. Padron would like to speak with his son and sister jaspreet and have palliative team follow-up tomorrow. * Kenneth Padron JR, son/primary health care surrogate: #[phone] * Earlene Walker, sister/alternate health care surrogate: #[phone] Freya Rees, HAND GLUER AND SLICER Sep 24, 2016 14:43
[2016-09-24 15:52] VITALS: BP 107/56; PULSE 101; RESP 20; TEMP 97.7; O2SAT 98
[2016-09-24 20:00] VITALS: BP 101/55; PULSE 96; RESP 20; TEMP 97.8; O2SAT 98
[2016-09-25] VITALS (7 sets, daily range): BP systolic 102–149; BP diastolic 56–73; PULSE 84–102; RESP 16–20; TEMP 97.6–98; O2SAT 94–97
[2016-09-25] MEDS: CHLORHEXIDINE GLUCONATE 2 % 1 PACK (2 CLOTHS) TOP SCH (04:00)
[2016-09-25] MEDS: MORPHINE SULFATE 15 MG TAB PO PRN ×4 (05:55→20:13)
[2016-09-25] MEDS: LACTULOSE SYRUP 20 GM/30 ML CUP PO SCH ×2 (08:14→13:00)
[2016-09-25] MEDS: NICOTINE 14 MG/24 HR PATCH T-DERMAL SCH (08:14)
[2016-09-25] MEDS: PANTOPRAZOLE SOD 40 MG DELAYED RELEASE TAB PO SCH ×2 (08:14→20:12)
[2016-09-25] MEDS: DOCUSATE SODIUM 100 MG/10 ML UDC PO SCH ×2 (08:14→20:14)
[2016-09-25] MEDS: SPIRONOLACTONE 25 MG TAB PO SCH (08:15)
[2016-09-25] MEDS: traMADol HCL 50 MG TAB PO PRN (08:15)
[2016-09-25] MEDS: POTASSIUM CHLORIDE 10 MEQ CONTROLLED RELEASE TAB PO SCH ×2 (08:15→20:14)
[2016-09-25] MEDS: FOLIC ACID 1 MG TAB PO SCH (08:15)
[2016-09-25] MEDS: MULTIVITAMIN TAB PO SCH (08:15)
[2016-09-25] MEDS: THIAMINE INJ 100 MG in SODIUM CHLORIDE 0.9% INJ 100 ML IV SCH (09:00)
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
--- NOTE | 2016-09-25 13:34 | HHI.PR ---
Subjective Remarks Patient Discharged yesterday will go today seen in his bedroom and discussed with his sister Mrs. Duckworth he will go home today, please read full Discharge done yesterday. Objective Vital Signs Date Time Temp Pulse Resp B/P Pulse Ox O2 Delivery O2 Flow Rate FiO2 09/25/16 12:00 98.0 87 20 144/62 94 09/25/16 08:00 97.9 102 20 132/62 97 09/25/16 04:00 98.0 101 18 118/59 95 09/25/16 00:00 98.0 92 18 102/58 96 09/24/16 20:00 97.8 96 20 101/55 98 09/24/16 18:15 18 09/24/16 15:52 97.7 101 20 107/56 98 I/O 09/24/16 09/24/16 09/24/16 09/25/16 09/25/16 09/25/16 07:00 15:00 23:00 07:00 15:00 23:00 Intake Total 510 ml 480 ml 480 ml 0 ml Balance 510 ml 480 ml 480 ml 0 ml Intake Oral 510 ml 480 ml 480 ml 0 ml # Voids 2 4 1 1 # Bowel Movements 1 0 0 Result Diagram: 09/22/16 0724 09/22/16 0724 Imaging Last Impressions Abdomen Ultrasound 09/15/16 0000 Signed Impressions: Service Date/Time: Thursday, September 15, 2016 12:42 - CONCLUSION: 1. There is only minimal fluid present within the abdomen. No paracentesis was performed. Judd Graham MD Abdomen X-Ray 09/09/16 0600 Signed Impressions: Service Date/Time: Friday, September 09, 2016 09:07 - CONCLUSION: No significant change with the bowel gas pattern compared to the prior study. Alin Staton MD Liver Ultrasound 09/03/16 0000 Signed Impressions: Service Date/Time: Saturday, September 03, 2016 09:26 - CONCLUSION: Cirrhotic liver appearance with ascites. Bacilio Gonzalez MD Procedures EGD and band ligation. paracentesis Other Results Laboratory Tests Test 09/21/16 09/22/16 11:58 07:24 Sodium Level 136 MEQ/L Chloride Level 95 MEQ/L Carbon Dioxide Level 31.2 MEQ/L Anion Gap 10 MEQ/L Blood Urea Nitrogen 6 MG/DL Creatinine 0.64 MG/DL Estimat Glomerular Filtration 128 ML/MIN Rate Random Glucose 110 MG/DL Calcium Level 8.5 MG/DL Phosphorus Level 2.4 MG/DL Hemoglobin 7.7 GM/DL Hematocrit 22.9 % Potassium Level 3.6 MEQ/L Magnesium Level 2.2 MG/DL Objective Remarks GENERAL: Well developed in no acute distress. SKIN: Warm and dry. HEAD: Normocephalic. EYES: No scleral icterus. No injection or drainage. NECK: Supple, trachea midline. No JVD or lymphadenopathy. CARDIOVASCULAR: Regular rate and rhythm without murmurs, gallops, or rubs. RESPIRATORY: Breath sounds equal bilaterally. No accessory muscle use. GASTROINTESTINAL: Abdomen soft, non-tender, distended. MUSCULOSKELETAL: No cyanosis, edema 3+, multiple bullae formation. bilateral ulcers. testicular edema, erythema. NEUROLOGY: Awake and alert Medications and IVs Current Medications Medications (Trade) Dose Ordered Sig/Estelle Route Start Time Stop Time Status Last Admin (NS Flush) 2 ml UNSCH PRN IVF 09/02/16 12:00 09/23/16 20:56 Miscellaneous Information 1 Q361D XX 09/02/16 13:30 (Chlorhexidine 2% Cloth) 3 pack Taper DAILY@04 TOP 09/03/16 04:00 08/30/17 03:59 09/25/16 04:00 Chlorhexidine Gluconate 3 pack 3 pack UNSCH PRN TOP 09/02/16 13:30 (Thiamine Inj/NS Inj) 101 ml @ 101 mls/hr DAILY IV 09/02/16 14:00 09/25/16 09:00 (Folate) 1 mg DAILY PO 09/02/16 14:00 09/25/16 08:15 (Theragran) 1 tab DAILY PO 09/02/16 14:00 09/25/16 08:15 (Ultram) 50 mg Q8H PRN PO 09/02/16 20:00 09/25/16 08:15 (Zofran Inj) 4 mg Q6HR PRN IV PUSH 09/02/16 20:00 09/23/16 14:24 (Colace Liq) 100 mg Q12HR PO 09/03/16 09:00 09/25/16 08:14 (Msir) 15 mg Q4H PRN PO 09/07/16 11:00 09/25/16 11:05 (Glycerin Adult Supp) 2 gm BID PRN RECTAL 09/09/16 12:00 (Lactulose Liq) 30 ml TID PO 09/11/16 09:00 09/25/16 08:14 (KCl) 30 meq Q12HR PO 09/13/16 21:00 09/25/16 08:15 (Habitrol 14 Mg Patch.24 Hr) 1 patch DAILY T-DERMAL 09/20/16 09:00 09/25/16 08:14 Miscellaneous Information 1 DAILY T-DERMAL 09/20/16 09:00 09/23/16 09:00 (Protonix) 40 mg Q12HR PO 09/21/16 21:00 09/25/16 08:14 (Aldactone) 25 mg DAILY PO 09/21/16 14:30 09/25/16 08:15 A/P Assessment and Plan 1. GI Bleed was on PPIs and Octreotide, status post EGD 09/02/16 incomplete evaluation, due to large clot obscuring view repeat EGD 09/04/16 and showed esophageal varices grade 2, status post banding x 4 and Portal Gastropathy, Status post Paracentesis 07/31 with removal of 4.6 L of fluid, US liver showed cirrhotic liver, continue distended. switch Protonix IV to by mouth 40 mg BID. No further bleeding. 2. Acute blood loss anemia status post blood transfusions. Hemoglobin 7.7 transfuse if less than 7 3. Ileus may be related to Constipation, Improved. 4. Hepatic Encephalopathy Improved. probable secondary to his Cirrhosis. history of Ascites, Cirrhosis Esophageal Varices, Alcoholism, last Paracentesis 07/31/16, strongly recommended to stop drinking behavior. Improved. Lasix 80 mg BID and Spironolactone 25 mg 5. Hepatitis A, B and C as per Patient. 6. Duodenal ulcer history. 7. bilateral swollen legs and bullae formation, secondary to his primary pathology cirrhosis, he is on albumin and no improvement yet. added Spironolactone. 8. Tobacco dependence the patient states he continue smoking asked for nicotine patch placed. 9. Hypokalemia replaced Poor short term prognosis. The patient refused Hospice will be discharge Home but is expected to come to ER due to worsening condition and we offered the management possible at this time but he will continue to deteriorate, will need to re assess for hospice care once comes again to this facility. he was also on daily dosages of Albumin and was not possible to improve his state. GI prophylaxis-Protonix drip DVT prophylaxis with SCDs. chemical AC prophylaxis contraindicated in the setting of GI bleed. Discharge Home with [facility] yesterday but he did not qualified for [facility] will go home at this time his Son to go home. Discharge Planning Discharge Home Mark Reyes MD Sep 25, 2016 13:34 A/P Assessment and Plan 1. GI Bleed was on PPIs and Octreotide, status post EGD 09/02/16 incomplete evaluation, due to large clot obscuring view repeat EGD 09/04/16 and showed esophageal varices grade 2, status post banding x 4 and Portal Gastropathy, Status post Paracentesis 07/31 with removal of 4.6 L of fluid, US liver showed cirrhotic liver, continue distended. switch Protonix IV to by mouth 40 mg BID. No further bleeding. 2. Acute blood loss anemia status post blood transfusions. Hemoglobin 7.7 transfuse if less than 7 3. Ileus may be related to Constipation, Improved. 4. Hepatic Encephalopathy Improved. probable secondary to his Cirrhosis. history of Ascites, Cirrhosis Esophageal Varices, Alcoholism, last Paracentesis 07/31/16, strongly recommended to stop drinking behavior. Improved. Lasix 80 mg BID and Spironolactone 25 mg 5. Hepatitis A, B and C as per Patient. 6. Duodenal ulcer history. 7. bilateral swollen legs and bullae formation, secondary to his primary pathology cirrhosis, he is on albumin and no improvement yet. added Spironolactone. 8. Tobacco dependence the patient states he continue smoking asked for nicotine patch placed. 9. Hypokalemia replaced Poor short term prognosis. The patient refused Hospice will be discharge Home but is expected to come to ER due to worsening condition and we offered the management possible at this time but he will continue to deteriorate, will need to re assess for hospice care once comes again to this facility. he was also on daily dosages of Albumin and was not possible to improve his state. GI prophylaxis-Protonix drip DVT prophylaxis with SCDs. chemical AC prophylaxis contraindicated in the setting of GI bleed. Discharge Home on [facility] recommended. Discharge Planning Discharge Home on [facility]. Mark Reyes MD Sep 25, 2016 13:34
[2016-09-26] MEDS: MORPHINE SULFATE 15 MG TAB PO PRN ×5 (00:24→21:32)
[2016-09-26] MEDS: CHLORHEXIDINE GLUCONATE 2 % 1 PACK (2 CLOTHS) TOP SCH (03:10)
[2016-09-26 04:55] VITALS: BP 122/76; PULSE 97; RESP 16; TEMP 97.5; O2SAT 97
--- NOTE | 2016-09-26 08:23 | HHI.PR ---
Subjective Remarks Patient with distended abdomen. It seem s fluid accumulated. Discussed with the patient, he will like to have paracentesis. Also I discussed with the palliative care. Patient agrees to go to hospice, however will like to have therapeutic paracentesis. Objective Vitals Vital Signs Date Time Temp Pulse Resp B/P Pulse Ox O2 Delivery O2 Flow Rate FiO2 09/26/16 04:55 97.5 97 16 122/76 97 09/26/16 01:20 16 09/25/16 23:00 97.9 99 16 117/56 97 09/25/16 20:47 97.6 84 16 116/58 96 09/25/16 16:00 98.0 101 18 149/73 97 09/25/16 12:00 98.0 87 20 144/62 94 I/O 09/25/16 09/25/16 09/25/16 09/26/16 09/26/16 09/26/16 07:00 15:00 23:00 07:00 15:00 23:00 Intake Total 0 ml 960 ml 600 ml 720 ml Balance 0 ml 960 ml 600 ml 720 ml Intake Oral 0 ml 960 ml 600 ml 720 ml # Voids 1 4 7 3 # Bowel Movements 0 2 1 0 Result Diagram: 09/22/16 0724 09/22/16 0724 Imaging Last Impressions Abdomen Ultrasound 09/15/16 0000 Signed Impressions: Service Date/Time: Thursday, September 15, 2016 12:42 - CONCLUSION: 1. There is only minimal fluid present within the abdomen. No paracentesis was performed. Judd Graham MD Abdomen X-Ray 09/09/16 0600 Signed Impressions: Service Date/Time: Friday, September 09, 2016 09:07 - CONCLUSION: No significant change with the bowel gas pattern compared to the prior study. Alin Staton MD Liver Ultrasound 09/03/16 0000 Signed Impressions: Service Date/Time: Saturday, September 03, 2016 09:26 - CONCLUSION: Cirrhotic liver appearance with ascites. Bacilio Gonzalez MD Objective Remarks GENERAL: Well developed in no acute distress. SKIN: Warm and dry. HEAD: Normocephalic. EYES: No scleral icterus. No injection or drainage. NECK: Supple, trachea midline. No JVD or lymphadenopathy. CARDIOVASCULAR: Regular rate and rhythm without murmurs, gallops, or rubs. RESPIRATORY: Breath sounds equal bilaterally. No accessory muscle use. GASTROINTESTINAL: Abdomen soft, non-tender, distended. MUSCULOSKELETAL: No cyanosis, edema 3+, multiple bullae formation. bilateral ulcers. testicular edema, erythema. NEUROLOGY: Awake and alert Procedures EGD and band ligation. paracentesis A/P Problem List: (1) Alcohol intoxication ICD Code: F10.129 Status: Acute (2) Adynamic ileus ICD Code: K56.0 Status: Acute (3) Acute blood loss anemia ICD Code: D62 Status: Acute (4) Esophageal varices ICD Code: I85.00 Status: Acute (5) Cirrhosis of liver ICD Code: K74.60 Status: Acute (6) Hepatitis B ICD Code: B19.10 Status: Acute (7) Hepatitis C ICD Code: B19.20 Status: Acute (8) Alcoholic cirrhosis of liver with ascites ICD Code: K70.31 Status: Acute (9) Anemia due to gastrointestinal blood loss ICD Code: D50.0 Status: Chronic Assessment and Plan 1. GI Bleed was on PPIs and Octreotide, status post EGD 09/02/16 incomplete evaluation, due to large clot obscuring view repeat EGD 09/04/16 and showed esophageal varices grade 2, status post banding x 4 and Portal Gastropathy, Status post Paracentesis 07/31 with removal of 4.6 L of fluid, US liver showed cirrhotic liver, continue distended. switch Protonix IV to by mouth 40 mg BID. No further bleeding. Will do paracentesis 09/26/16. Can be DC after paracentesis. 2. Acute blood loss anemia status post blood transfusions. Hemoglobin 7.7 transfuse if less than 7 3. Ileus may be related to Constipation, Improved. 4. Hepatic Encephalopathy Improved. probable secondary to his Cirrhosis. history of Ascites, Cirrhosis Esophageal Varices, Alcoholism, last Paracentesis 07/31/16, strongly recommended to stop drinking behavior. Improved. Lasix 80 mg BID and Spironolactone 25 mg 5. Hepatitis A, B and C as per Patient. 6. Duodenal ulcer history. 7. bilateral swollen legs and bullae formation, secondary to his primary pathology cirrhosis, he is on albumin and no improvement yet. added Spironolactone. 8. Tobacco dependence the patient states he continue smoking asked for nicotine patch placed. 9. Hypokalemia replaced Poor short term prognosis. The patient refused Hospice will be discharge Home but is expected to come to ER due to worsening condition and we offered the management possible at this time but he will continue to deteriorate, will need to re assess for hospice care once comes again to this facility. he was also on daily dosages of Albumin and was not possible to improve his state. GI prophylaxis-Protonix drip DVT prophylaxis with SCDs. chemical AC prophylaxis contraindicated in the setting of GI bleed. Discharge Home with [facility] yesterday but he did not qualified for [facility] will go home at this time his Son to go home. Discharge Planning Discharge to hospice. Patient to have therapeutic paracentesis before DC. DC when arrangements done. Problem Qualifiers (1) Cirrhosis of liver: Qualified Code: K70.31 - Alcoholic cirrhosis of liver with ascites Indiana Alonzo MD Sep 26, 2016 08:23
[2016-09-26 08:30] VITALS: BP 125/55; PULSE 95; RESP 20; TEMP 97.7; O2SAT 93
[2016-09-26] MEDS: POTASSIUM CHLORIDE 10 MEQ CONTROLLED RELEASE TAB PO SCH ×2 (08:59→21:32)
[2016-09-26] MEDS: NICOTINE 14 MG/24 HR PATCH T-DERMAL SCH (08:59)
[2016-09-26] MEDS: SPIRONOLACTONE 25 MG TAB PO SCH (08:59)
[2016-09-26] MEDS: MULTIVITAMIN TAB PO SCH (08:59)
[2016-09-26] MEDS: LACTULOSE SYRUP 20 GM/30 ML CUP PO SCH ×3 (08:59→17:37)
[2016-09-26] MEDS: FOLIC ACID 1 MG TAB PO SCH (08:59)
[2016-09-26] MEDS: PANTOPRAZOLE SOD 40 MG DELAYED RELEASE TAB PO SCH ×2 (08:59→21:32)
[2016-09-26] MEDS: DOCUSATE SODIUM 100 MG/10 ML UDC PO SCH ×2 (09:00→21:00)
[2016-09-26] MEDS: REMOVE OLD PATCH T-DERMAL SCH (09:00)
[2016-09-26] MEDS: THIAMINE INJ 100 MG in SODIUM CHLORIDE 0.9% INJ 100 ML IV SCH (09:00)
--- NOTE | 2016-09-26 10:16 | HHI.HCPN ---
Received voicemail from sister, Earlene. She expressed concerns, reports "feeling like I'm getting the run around". Specifics concerns about Mr. Padron being discharged, states she received a call from the patient stating "they are here kicking me out". Attempted to call her back, left . Notes indicate Mr. Padron appears medically ready for discharge. No safe discharge at this time, patient's son lives with his girlfriends parents and patient's home is foreclosed. Plan is for sister to come into town Thursday and assist with getting the patient placed vs hospice vs going back to [place] with her. LISSETTE Mayo also attempted to call sister to answer medical questions. No return call at this time. Palliative care will continue to follow throughout hospitalization. Freya Rees, PHARMACY TECHNICIAN INPATIENT Sep 26, 2016 10:16
[2016-09-26] MEDS: ONDANSETRON HCL 4 MG/2 ML VIAL IV PUSH PRN (12:21)
[2016-09-26 12:30] VITALS: BP 137/65; PULSE 106; RESP 20; TEMP 97.7; O2SAT 95
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
[2016-09-26 16:00] VITALS: BP 132/65; PULSE 110; RESP 20; TEMP 98.1; O2SAT 96
--- NOTE | 2016-09-26 16:26 | RADRPT ---
EXAM DATE/TIME: 09/26/2016 15:36 [facility] COMPARISON: US ABDOMEN - LOWER LIMITED, September 15, 2016, 12:42. INDICATIONS : Ascites. MEDICAL HISTORY : Chronic obstructive pulmonary disease. GI bleed. Syncope. Dyspnea. Ulcer. Diarrhea. Nausea. Vomit ing. Melena. Arthritis. Cirrhosis. Hep C. Hep B. Hep A. Fatigue. SURGICAL HISTORY : Oral surgery. Oesophageal banding. Neck surgery. Right arm surgery. MRSA. ENCOUNTER: Subsequent ACUITY: 3 weeks PAIN SCORE: 0/10 LOCATION: Bilateral upper quadrant AREA EVALUATED: Abdomen FINDINGS: Imaging of the abdomen and pelvis was performed to evaluate for ascites for possible paracentesis. CONCLUSION: There is no significant ascites.. Nico Graham MD FACR on September 26, 2016 at 16:19 Board Certified Radiologist. This report was verified electronically.
[2016-09-26 20:00] VITALS: BP 127/69; PULSE 107; RESP 20; TEMP 98.2; O2SAT 96
[2016-09-27] VITALS: BP 129/78; PULSE 107; RESP 18; TEMP 98; O2SAT 98
[2016-09-27] MEDS: MORPHINE SULFATE 15 MG TAB PO PRN ×4 (03:34→16:13)
[2016-09-27 04:00] VITALS: BP 129/61; PULSE 103; RESP 18; TEMP 97.6; O2SAT 98
[2016-09-27] MEDS: CHLORHEXIDINE GLUCONATE 2 % 1 PACK (2 CLOTHS) TOP SCH (04:00)
[2016-09-27 08:00] VITALS: BP 133/62; PULSE 106; RESP 20; TEMP 97.8; O2SAT 99
[2016-09-27] MEDS: NICOTINE 14 MG/24 HR PATCH T-DERMAL SCH (08:15)
[2016-09-27] MEDS: REMOVE OLD PATCH T-DERMAL SCH (08:15)
[2016-09-27] MEDS: MULTIVITAMIN TAB PO SCH (08:16)
[2016-09-27] MEDS: DOCUSATE SODIUM 100 MG/10 ML UDC PO SCH (08:16)
[2016-09-27] MEDS: LACTULOSE SYRUP 20 GM/30 ML CUP PO SCH ×2 (08:16→12:41)
[2016-09-27] MEDS: THIAMINE INJ 100 MG in SODIUM CHLORIDE 0.9% INJ 100 ML IV SCH (08:16)
[2016-09-27] MEDS: POTASSIUM CHLORIDE 10 MEQ CONTROLLED RELEASE TAB PO SCH (08:16)
[2016-09-27] MEDS: PANTOPRAZOLE SOD 40 MG DELAYED RELEASE TAB PO SCH (08:16)
[2016-09-27] MEDS: SPIRONOLACTONE 25 MG TAB PO SCH (08:16)
[2016-09-27] MEDS: FOLIC ACID 1 MG TAB PO SCH (08:16)
--- NOTE | 2016-09-27 09:32 | HHI.PR ---
Subjective Remarks Eating breakfast , doesn't appear in distress. No n/v/d/c. No abd pain. Objective Vitals Vital Signs Date Time Temp Pulse Resp B/P Pulse Ox O2 Delivery O2 Flow Rate FiO2 09/27/16 08:00 97.8 106 20 133/62 99 09/27/16 04:00 97.6 103 18 129/61 98 09/27/16 00:00 98.0 107 18 129/78 98 09/26/16 20:00 98.2 107 20 127/69 96 09/26/16 16:00 98.1 110 20 132/65 96 09/26/16 12:30 97.7 106 20 137/65 95 I/O 09/26/16 09/26/16 09/26/16 09/27/16 09/27/16 09/27/16 07:00 15:00 23:00 07:00 15:00 23:00 Intake Total 722 ml 1200 ml 480 ml 0 ml Output Total 200 ml Balance 722 ml 1000 ml 480 ml 0 ml Intake Oral 720 ml 1200 ml 480 ml 0 ml IV Total 2 ml Output Urine Total 200 ml # Voids 3 7 2 3 # Bowel Movements 0 1 0 0 Objective Remarks GENERAL: Well developed in no acute distress. SKIN: Warm and dry. HEAD: Normocephalic. EYES: No scleral icterus. No injection or drainage. NECK: Supple, trachea midline. No JVD or lymphadenopathy. CARDIOVASCULAR: Regular rate and rhythm without murmurs, gallops, or rubs. RESPIRATORY: Breath sounds equal bilaterally. No accessory muscle use. GASTROINTESTINAL: Abdomen soft, non-tender, distended. MUSCULOSKELETAL: No cyanosis, edema 3+, multiple bullae formation. bilateral ulcers. testicular edema, erythema. NEUROLOGY: Awake and alert Procedures EGD and band ligation. paracentesis A/P Problem List: (1) Alcohol intoxication ICD Code: F10.129 Status: Acute (2) Adynamic ileus ICD Code: K56.0 Status: Acute (3) Acute blood loss anemia ICD Code: D62 Status: Acute (4) Esophageal varices ICD Code: I85.00 Status: Acute (5) Cirrhosis of liver ICD Code: K74.60 Status: Acute (6) Hepatitis B ICD Code: B19.10 Status: Acute (7) Hepatitis C ICD Code: B19.20 Status: Acute (8) Alcoholic cirrhosis of liver with ascites ICD Code: K70.31 Status: Acute (9) Anemia due to gastrointestinal blood loss ICD Code: D50.0 Status: Chronic Assessment and Plan 1. GI Bleed was on PPIs and Octreotide, status post EGD 09/02/16 incomplete evaluation, due to large clot obscuring view repeat EGD 09/04/16 and showed esophageal varices grade 2, status post banding x 4 and Portal Gastropathy, Status post Paracentesis 07/31 with removal of 4.6 L of fluid, US liver showed cirrhotic liver, continue distended. switch Protonix IV to by mouth 40 mg BID. No further bleeding. Will do paracentesis 09/26/16. Can be DC after paracentesis. 2. Acute blood loss anemia status post blood transfusions. Hemoglobin 7.7 transfuse if less than 7 3. Ileus may be related to Constipation, Improved. 4. Hepatic Encephalopathy Improved. probable secondary to his Cirrhosis. history of Ascites, Cirrhosis Esophageal Varices, Alcoholism, last Paracentesis 07/31/16, strongly recommended to stop drinking behavior. Improved. Lasix 80 mg BID and Spironolactone 25 mg 5. Hepatitis A, B and C as per Patient. 6. Duodenal ulcer history. 7. bilateral swollen legs and bullae formation, secondary to his primary pathology cirrhosis, he is on albumin and no improvement yet. added Spironolactone. 8. Tobacco dependence the patient states he continue smoking asked for nicotine patch placed. 9. Hypokalemia replaced Poor short term prognosis. The patient refused Hospice will be discharge Home but is expected to come to ER due to worsening condition and we offered the management possible at this time but he will continue to deteriorate, will need to re assess for hospice care once comes again to this facility. he was also on daily dosages of Albumin and was not possible to improve his state. GI prophylaxis-Protonix drip DVT prophylaxis with SCDs. chemical AC prophylaxis contraindicated in the setting of GI bleed. Discharge Home with [facility] yesterday but he did not qualified for [facility] will go home at this time his Son to go home. Discharge Planning Discharge to hospice. US reviewed and mild ascites, no paracentesis needed at this time. DC when arrangements done. Discussed with the patient, nurse, hospice. Problem Qualifiers (1) Cirrhosis of liver: Qualified Code: K70.31 - Alcoholic cirrhosis of liver with ascites [place] Alonzo MD Sep 27, 2016 09:32
[2016-09-27 12:00] VITALS: BP 174/84; PULSE 108; RESP 20; TEMP 97.8; O2SAT 98
== END 2016-09-27 16:14 | disposition hospice, inpatient (51) | DRG 378 ==
LOC: NEPC 11:30 → NEDA 13:15 → HIME 18:30 → N04A 09-05 18:08 → N04B 09-14 16:56
PROVIDERS: ADMIT Hospitalist; ATTEND Hospitalist
PROC: 30233N1 Transfusion of Nonautologous Red Blood Cells into Peripheral Vein, Percutaneous Approach (ICD-10-PCS; 2016-09-02)
PROC: 0DJ08ZZ Inspection of Upper Intestinal Tract, Via Natural or Artificial Opening Endoscopic (ICD-10-PCS; principal; 2016-09-02 16:45)
PROC: 06L34CZ Occlusion of Esophageal Vein with Extraluminal Device, Percutaneous Endoscopic Approach (ICD-10-PCS; 2016-09-04)
DX: K92.0 Hematemesis (principal); D62 Acute posthemorrhagic anemia; I95.9 Hypotension, unspecified; K70.31 Alcoholic cirrhosis of liver with ascites; E46 Unspecified protein-calorie malnutrition; K72.90 Hepatic failure, unspecified without coma; K56.0 Paralytic ileus; E87.1 Hypo-osmolality and hyponatremia; L97.929 Non-pressure chronic ulcer of unspecified part of left lower leg with unspecified severity; L97.919 Non-pressure chronic ulcer of unspecified part of right lower leg with unspecified severity; J44.9 Chronic obstructive pulmonary disease, unspecified; K92.1 Melena; K26.9 Duodenal ulcer, unspecified as acute or chronic, without hemorrhage or perforation; B19.20 Unspecified viral hepatitis C without hepatic coma; I85.00 Esophageal varices without bleeding; G89.29 Other chronic pain; M54.5 Low back pain; K44.9 Diaphragmatic hernia without obstruction or gangrene; K31.89 Other diseases of stomach and duodenum; R60.0 Localized edema; E16.2 Hypoglycemia, unspecified; E87.6 Hypokalemia; R00.0 Tachycardia, unspecified; M17.0 Bilateral primary osteoarthritis of knee; T50.1X5A Adverse effect of loop [high-ceiling] diuretics, initial encounter; F10.10 Alcohol abuse, uncomplicated; F17.210 Nicotine dependence, cigarettes, uncomplicated; Y90.0 Blood alcohol level of less than 20 mg/100 ml; Z51.5 Encounter for palliative care; Z59.0 Homelessness; Z66 Do not resuscitate; Z68.24 Body mass index [BMI] 24.0-24.9, adult; Z86.14 Personal history of Methicillin resistant Staphylococcus aureus infection; Z86.19 Personal history of other infectious and parasitic diseases; Z88.2 Allergy status to sulfonamides
CPT/HCPCS: 36430; 74020; 76705; 76937; 80048; 80053; 80307; 81001; 82140; 82948; 83690; 83735; 84100; 84132; 85014; 85018; 85025; 85027; 85610; 85730; 86850; 86900; 86901; 86920; 87641; 93005; 94640; 94664; 96374; 96375; C9113; J0696; J1940; J2270; J2354; J2405; J2765; J3411; J3475; J3480; J7030; J7040; J7042; P9016; P9047